=== PATIENT | female | born 1970 | race Caucasian/White ===

== ENCOUNTER 2020-09-04 08:35 | Emergency (ER) | payer BC, SELFPAY ==
[2020-09-04 08:37] VITALS: BP 122/83; PULSE 92; RESP 18; TEMP 35.7; O2SAT 100; BMI 44.2
--- NOTE | 2020-09-04 08:57 | CT_ITS ---
STUDY: CT ABDOMEN AND PELVIS WITH CONTRAST REASON FOR EXAM: Female, 50 years old. LLQ PAIN WITH HISTORY OF DIVERTICULITIS RADIATION DOSAGE (If Supplied By Facility): CTDIvol = ( 14.63 ) mGy, DLP = ( 1045.57 ) mGycm TECHNIQUE: Transaxial images were obtained from the dome of the diaphragm to the symphysis pubis with oral contrast. Oral and amp;amp; IV GASTROGRAFIN and amp;amp; 100ML ISOVUE 300 was administered. Sagittal and coronal images were reconstructed. Individualized dose optimization techniques were used for this CT. COMPARISON: None. FINDINGS: The visualized lung bases are unremarkable. The visualized portions of the heart are within normal limits. There is decreased attenuation of the liver consistent with steatosis. There are surgical clips in the gallbladder fossa consistent with a prior cholecystectomy. Normal spleen. Normal pancreas. Normal bilateral adrenal glands. Normal right kidney. Normal left kidney. There is a small hiatal hernia. Normal small intestine. There is diverticulosis, with thickening of the colon wall, and pericolonic inflammation changes consistent with acute diverticulitis. The appendix is visualized and appears normal. Normal abdominal aorta. Normal inferior vena cava. Normal retroperitoneum. Normal urinary bladder. There is a small umbilical hernia containing fat. There are degenerative changes of the visualized lumbar spine. CT/Abdomen/Pelvis WITH Contrast IMPRESSION: Fatty infiltration of the liver. Findings in keeping with a noncomplicated acute sigmoid diverticulitis. Electronically Signed: Rocael Beyer MD at 11:10 EST , Service support ,
--- NOTE | 2020-09-04 08:59 | ED.VIS.GEN ---
History of Present Illness Chief Complaint: Abd Pain Informant: Patient Onset: Yesterday Context: Gradual Onset Timing: Waxes and wanes Current Severity: Moderate Maximum Severity: Moderate Narrative: Patient presents secondary left lower quadrant abdominal pain that started early yesterday morning. She states it feels like her prior diverticulitis. She is never had an abscess or required surgery. She reports T-max of 99.9 axillary last evening. - Past Medical History (1) Diverticulitis Status: Resolved Past Medical History - Allergies and Home Meds Allergies/Adverse Reactions: Allergies morphine Allergy (Verified 09/04/20 08:37) Other Surgical History: cholecystectomy, hysterectomy Review of Systems General: Reports: Fever - Borderline fever, T-max 99.9. Denies: Chills Eyes: Denies: Visual changes - bilaterally ENT: Denies: Bilateral ear pain Cardiovascular: Denies: Chest pain Respiratory: Denies: Dyspnea, Cough Gastrointestinal: Reports: Abdominal pain. Denies: Vomiting, Diarrhea Genitourinary: Denies: Dysuria Musculoskeletal: Denies: Swelling, Extremity Pain Skin: Denies: Rash Hematologic: Denies: Easy bruising, Easy bleeding Allergy: Denies: Uticaria Physical Exam Vital Signs/Narrative: Vital Signs Temp Pulse Resp BP Pulse Ox 09/04/20 08:37 96.3 F L 92 18 122/83 H 100 Inital Vital Signs reviewed: Yes General: Well nourished, Well developed Head: Normocephalic Neck: Supple Cardiovascular: Regular rate, Regular rhythm Respiratory: No distress, CTA bilaterally Abdomen: Soft, Tender - Left lower quadrant tenderness to palpation., Hypoactive bowel sounds. Negative for: Guarding, Rebound tenderness Skin: Normal color Neurological: Alert, Oriented x3 Psychological: Normal affect Diagnostic/Tx/Re-eval Impressions Abdomen/Pelvis CT 09/04/20 08:57 IMPRESSION: Fatty infiltration of the liver. Findings in keeping with a noncomplicated acute sigmoid diverticulitis. Electronically Signed: Rocael Beyer MD at 11:10 EST , Service support , 09/04/20 08:57 Abdomen/Pelvis WITH Contrast [CT] Stat Laboratory Results 09/04/20 09/04/20 09/04/20 09:10 09:10 09:31 WBC 9.3 RBC 4.59 Hgb 12.9 Hct 39.9 MCV 86.9 MCH 28.1 MCHC 32.3 RDW Std Deviation 46.6 H RDW Coeff of Henry 14.5 Plt Count 311 MPV 9.7 Immature Gran % (Auto) 0.200 Neut % (Auto) 78.3 H Lymph % (Auto) 13.0 L [place] % (Auto) 6.8 Eos % (Auto) 1.4 Baso % (Auto) 0.3 Absolute Neuts (auto) 7.3 Absolute Lymphs (auto) 1.21 Nucleated RBC % 0 Sodium 140 Potassium 3.8 Chloride 105 Carbon Dioxide 28.0 Anion Gap 7 BUN 10 Creatinine 0.82 Estim Creat Clear Calc 68.65 Est GFR (MDRD) Af Amer 95 Est GFR (MDRD) Non-Af 78 BUN/Creatinine Ratio 12.1 Glucose 90 Calcium 9.0 Urine Color Yellow Urine Clarity Sl. Cloudy Urine pH 7.0 Ur Specific [place] 1.010 Urine Protein Negative Urine Glucose (UA) Normal Urine Ketones 5 H Urine Occult Blood Negative Urine Nitrite Negative Urine Bilirubin Negative Urine Urobilinogen Normal Ur Leukocyte Esterase 25 H Urine RBC 0 SEEN Urine WBC 0-5 SEEN Ur Squamous Epith Cells 0-5 SEEN Urine Bacteria 1+ Urine Mucus RARE - Medical Decision Making Patient was given oxycodone for pain. Blood work is largely unremarkable with normal white count, slight left shift. CT scan does confirm diverticulosis but no evidence of abscess or perforation. This is the patient's second episode of diverticulitis. She did have a colonoscopy approximately a year ago that revealed diverticula. Should be referred to surgery for follow-up as needed. She will be treated with a course of Augmentin. ED Disposition - Plan for ED Patient: Disposition: Home or Assisted Living Diagnosis: Diverticulitis Instructions: ED Diverticulitis Prescriptions: Amox/Clavulanate Tablet [Augmentin Tablet] 875 mg PO Q12H #20 tab Transmission Status: Pending to [facility]/pharmacy #[id number] Oxycodone HCl/Acetaminophen [Percocet 5/325] 1 tablet PO Q6H PRN PRN 3 Days #12 tablet PRN Reason: Pain Transmission Status: Sent to [facility]/pharmacy #[id number] Referrals: Ayo Bright [Primary Care Provider] - Felix Berry MD [STAFF PHYSICIAN] - As Needed
[2020-09-04 09:23] LABS: Absolute Lymphocyte Count 1.21 X10^3/uL (0.83-4.51); Absolute Neutrophil Count 7.3 X10^3/uL (2.0-7.7); Basophil# 0.03 X10^3/uL; Basophil% 0.3 % (0-1); Eosinophil# 0.13 X10^3/uL; Eosinophils% 1.4 % (0-5); Hematocrit 39.9 % (37-47); Hemoglobin 12.9 g/dL (12.0-15.0); Lymphocyte # 1.21 X10^3/ul (4.0); Mean Corp Hgb Conc 32.3 g/dL (32-36); Mean Corpuscular Hgb 28.1 pg (27.0-32.0); Mean Corpuscular Volume 86.9 fL (81-99); Mean Platelet Vol. 9.7 fl (6.2-12.0); Monocyte# 0.63 X10^3/uL; Monocyte% 6.8 % (0-10); NRBC Flagged by Analyzer 0 % (0-5); Neutrophil % 78.3 % (47-70); Platelet Count 311 K/mm3 (150-450); RBC Distribution Width CV 14.5 % (11.6-14.6); RBC Distribution Width SD 46.6 fl (35.1-43.9); Red Blood Count 4.59 M/mm3 (4.2-5.4); White Blood Count 9.3 K/mm3 (4.4-11.0)
[2020-09-04 09:35] LABS: Anion Gap 7 (5-15); BUN 10 mg/dL (7-18); BUN/Creat Ratio 12.1 RATIO (10-20); Chloride 105 mmol/L (98-107); Creatinine, Serum 0.82 mg/dL (0.55-1.02); EST Glomerular Filtration Rate 78 mL/min (>60); Est Glom Filt Rate - Afr Amer 95 mL/min (>60); Estimated Creatinine Clearance 68.65 ml/min; Glucose 90 mg/dL (74-106); Potassium 3.8 mmol/L (3.5-5.1); Sodium Level 140 mmol/L (136-145)
[2020-09-04] MEDS: oxyCODONE 5 MG Tablet PO (09:39)
[2020-09-04] MEDS: 0.9% Normal Saline 1,000 ML 150 ML IV (09:39)
[2020-09-04] MEDS: Ondansetron 4 MG/2 ML Vial IV (09:39)
[2020-09-04 09:41] LABS: Red Blood Cells-Urine 0 SEEN /hpf (0-5)
[2020-09-04 09:45] LABS: Color, Urine Yellow (Yellow); Glucose, Dipstick Normal (Normal); Ketone-Dipstick 5 mg/dl (Negative); Leukocyte Esterase-Dipstick 25 /ul (Negative); Nitrite-Dipstick Negative (Negative); Occult Blood-Urine Negative /ul (Negative); Protein-Dipstick Negative (Negative); Urine Bilirubin Dipstick Negative (Negative); Urine Clarity Sl. Cloudy (Clear); Urine Urobilinogen Normal (Normal)
[2020-09-04 09:54] LABS: Squamous Epithelial Cells - UA 0-5 SEEN /hpf (5-10); White Blood Cells 0-5 SEEN /hpf (0-5)
[2020-09-04 09:55] LABS: Bacteria 1+ /hpf (None Seen); Mucous, Urine RARE /hpf (<or=2+)
[2020-09-04 12:06] VITALS: BP 111/69; PULSE 76; RESP 16; O2SAT 100
[2020-09-04] MEDS: Amox/Clavulanate 875 MG Tablet PO (12:06)
== END 2020-09-04 12:10 | disposition home or self-care (01) ==
PROVIDERS: Emergency Provider Emergency Medicine; PCP Family Medicine
DX: K57.32 Diverticulitis of large intestine without perforation or abscess without bleeding (principal); Z87.19 Personal history of other diseases of the digestive system; Z90.49 Acquired absence of other specified parts of digestive tract
CPT/HCPCS: 74177; 80048; 81001; 85025; 96361; 96374; 99284; J7030; Q9967; A4216; J2405

== ENCOUNTER 2020-09-20 12:01 | Emergency (ER) | payer BC, SELFPAY ==
[2020-09-20 12:01] VITALS: BP 143/97; PULSE 80; RESP 18; TEMP 36.3; O2SAT 96; BMI 46.0
--- NOTE | 2020-09-20 12:37 | EKG12_ITS ---
Test Reason : ABD PAIN Blood Pressure : / mmHG Vent. Rate : 062 BPM Atrial Rate : 062 BPM P-R Int : 134 ms QRS Dur : 070 ms QT Int : 388 ms P-R-T Axes : 042 027 033 degrees QTc Int : 393 ms Normal sinus rhythm Normal ECG Confirmed by IMELDA BECKER, JESSICA ([id number]), society editor FREDIS CORADO ([id number]) on 09/24/2020 10:49:04 AM Referred By: VERNA Confirmed By:JESSICA SEGURA MD
--- NOTE | 2020-09-20 12:38 | CT_ITS ---
STUDY: CT ABDOMEN AND PELVIS WITH CONTRAST REASON FOR EXAM: Female, 50 years old. LLQ PAIN -- FINISHED ATB X4 DAYS AGO FOR DIVERTICULITIS RADIATION DOSAGE (If Supplied By Facility): CTDIvol = ( 18.61 ) mGy, DLP = ( 1213.80 ) mGycm TECHNIQUE: Transaxial images were obtained from the dome of the diaphragm to the symphysis pubis without oral contrast. IV 100mL Isovue-300 was administered. Sagittal and coronal images were reconstructed. Individualized dose optimization techniques were used for this CT. COMPARISON: Comparison is made with prior examination dated 09/04/2020. FINDINGS: The visualized lung bases are unremarkable. The visualized portions of the heart are within normal limits. There is decreased attenuation of the liver consistent with steatosis. There are surgical clips in the gallbladder fossa consistent with a prior cholecystectomy. Normal spleen. Normal pancreas. Normal bilateral adrenal glands. Normal right kidney. Normal left kidney. There is a small hiatal hernia. Normal small intestine. There are multiple colonic diverticula consistent with diverticulosis. Minimal residual inflammatory changes persist in the fat surrounding the sigmoid colon. The appendix is visualized and appears normal. Normal abdominal aorta. Normal inferior vena cava. Normal retroperitoneum. Normal urinary bladder. Normal abdominal wall. There are degenerative changes of the visualized lumbar spine. CT/Abdomen/Pelvis W IV Cont ONLY IMPRESSION: Sigmoid diverticulosis. Minimal residual inflammatory changes persist in the peritoneal fat surrounding the sigmoid colon although there has been a marked degree of improvement. Electronically Signed: Rocael Beyer MD at 13:50 EST , Service support ,
--- NOTE | 2020-09-20 12:42 | ED.VIS.GI ---
History of Present Illness Chief Complaint: Abd Pain Informant: Patient - Abdominal Pain/Flank Pain Onset: Today Timing: Continuous Quality: Sharp, Stabbing Location: LLQ - Nausea/Vomiting/Emesis GI Symptom: Nausea. Negative for: Vomiting Associated Symptoms: Frequency Narrative: Patient is a 50-year-old female with history of diverticulitis most recently 2 weeks ago presenting with left lower quadrant abdominal pain. She states yesterday she felt fatigued but had completely recovered from her prior episode of diverticulitis. Today she developed sharp pain in her left lower abdomen. The pain does not radiate. She states it is in the same spot when she has diverticulitis but in the past the pain was more waxing and waning in nature and not as sharp. She denies any change in her bowel habits. She does feel like there is pressure in her lower abdomen and has had increased frequency of urination. She denies any dysuria. She has had some nausea associated with the pain but denies any vomiting. She denies any other abdominal pain. No associated fever, chills, chest pain or difficulty breathing. She not take anything for pain prior to arrival. Past Medical History - Allergies and Home Meds Allergies/Adverse Reactions: Allergies morphine Allergy (Verified 09/20/20 12:01) Other Primary Care Physician: Felix Berry MD [STAFF PHYSICIAN] - Ayo Bright [Primary Care Provider] - Past Medical History: - - Diverticulitis, GERD, depression Surgical History: cholecystectomy, hysterectomy Smoking Status: Former smoker Review of Systems General: Denies: Chills, Fever, Sweats Eyes: Denies: Visual changes - bilaterally, Diplopia ENT: Denies: Rhinorrhea, Sore throat Cardiovascular: Denies: Chest pain, Palpitations Respiratory: Denies: Dyspnea, Cough, Dyspnea on exertion Gastrointestinal: Reports: Abdominal pain, Nausea. Denies: Vomiting, Diarrhea, Melena, Hematochezia Genitourinary: Reports: Frequency, - - Pressure. Denies: Dysuria, Hematuria Musculoskeletal: Denies: Back pain, Extremity Pain Skin: Denies: Rash, Wounds Neurological: Denies: Headache, Weakness, Numbness Physical Exam Vital Signs/Narrative: Vital Signs Temp Pulse Resp BP Pulse Ox 09/20/20 12:01 97.4 F L 80 18 143/97 H 96 Inital Vital Signs reviewed: Yes General: Well nourished, Well developed, No Acute Distress Head: Normocephalic, Atraumatic Eyes: Perrl, EOMI ENT: Moist mucous membranes, No rhinorrhea Neck: Supple, Nontender Cardiovascular: Regular rate, Regular rhythm, No murmurs Respiratory: No distress, CTA bilaterally, Chest nontender Abdomen: Soft, Nontender, Nondistended, Normal bowel sounds, - - She points to her left lower quadrant as the area of pain but I am not able to reproduce it on exam. Negative for: Guarding, Rebound tenderness Back: Nontender, Normal Inspection Extremities: Nontender, No edema Skin: Normal color, No rash Neurological: Alert, Oriented x3, Cranial nerves II-XII grossly intact, Normal Strength, Normal Sensation Psychological: Normal affect, Normal Mood Diagnostic/Tx/Re-eval Chest X-Ray - ED: 1 View, Read by ED Physician, Read by Radiologist, CHF Clinical Impression(s) from Imaging Studies Abdomen/Pelvis CT 09/20/20 12:38 IMPRESSION: Sigmoid diverticulosis. Minimal residual inflammatory changes persist in the peritoneal fat surrounding the sigmoid colon although there has been a marked degree of improvement. Electronically Signed: Rocael Beyer MD at 13:50 EST , Service support , Laboratory Data 09/20/20 09/20/20 09/20/20 12:29 12:29 13:27 WBC 7.2 RBC 4.64 Hgb 12.9 Hct 40.4 MCV 87.1 MCH 27.8 MCHC 31.9 L RDW Std Deviation 45.3 H RDW Coeff of Henry 14.2 Plt Count 316 MPV 9.9 Immature Gran % (Auto) 0.300 Neut % (Auto) 69.6 Lymph % (Auto) 21.4 [place] % (Auto) 6.4 Eos % (Auto) 1.7 Baso % (Auto) 0.6 Absolute Neuts (auto) 5.0 Absolute Lymphs (auto) 1.55 Nucleated RBC % 0 Sodium 137 Potassium 4.1 Chloride 106 Carbon Dioxide 28.0 Anion Gap 3 L BUN 17 Creatinine 0.82 Estim Creat Clear Calc 68.65 Est GFR (MDRD) Af Amer 95 Est GFR (MDRD) Non-Af 79 BUN/Creatinine Ratio 20.8 H Glucose 103 Calcium 9.1 Total Bilirubin 0.30 AST 16 ALT 20 Alkaline Phosphatase 98 Total Protein 7.3 Albumin 3.5 Globulin 3.8 Albumin/Globulin Ratio 0.9 Urine Color Straw Urine Clarity Clear Urine pH 7.0 Ur Specific [place] 1.010 Urine Protein Negative Urine Glucose (UA) Normal Urine Ketones Negative Urine Occult Blood Negative Urine Nitrite Negative Urine Bilirubin Negative Urine Urobilinogen Normal Ur Leukocyte Esterase 25 H Urine RBC 0 SEEN Urine WBC 0-5 SEEN Ur Squamous Epith Cells 0-5 SEEN Urine Bacteria 0 SEEN Urine Mucus 0 SEEN - Rhythm Strip Rhythm Strip: Sinus Rhythm Rate: 62 Ectopy: None - EKG Initial EKG Interpretation: Sinus Rhythm, - - EKG interpreted by emergency medicine physician Normal sinus rhythm at a rate of [address] segments Normal intervals - Medical Decision Making Patient is evaluated for left lower quadrant abdominal pain. It started today. She is especially concerned because she recently was treated for diverticulitis. Patient appears nontoxic in no acute distress. She is given dose of fentanyl she says morphine causes severe hypotension. She does have improvement of her symptoms with this. Her exam is benign. I do not think she has pain out of proportion. Her vital signs are stable. Lab work and CT are largely unremarkable. Her CT shows some mild residual stranding around her sigmoid colon but this is significantly improved from earlier this month. Patient be discharged home to follow-up with surgery. She was previously referred to Dr. Berry and had called the office but had not heard back. She is encouraged to call again. She is counseled that the cause of her pain is not clear. She does have pain medication at home to take if needed. Patient is counseled on signs and symptoms requiring return to the emergency room. Patient verbalizes agreement and understand this plan. Patient discharged home in stable and improved condition. ED Disposition - Plan for ED Patient: Disposition: Home or Assisted Living Diagnosis: Abdominal pain of unknown cause Instructions: ED Abdominal Pain Unkn Cause Fem Referrals: Ayo Bright [Primary Care Provider] - Felix Berry MD [STAFF PHYSICIAN] - Additional Instructions: The cause of your abdominal pain is not clear, but your labs and CT were normal and showed improvement of your diverticulitis. Take pain meds as needed at home and please follow up with surgery.
[2020-09-20 12:49] LABS: Absolute Lymphocyte Count 1.55 X10^3/uL (0.83-4.51); Basophil# 0.04 X10^3/uL; Basophil% 0.6 % (0-1); Eosinophil# 0.12 X10^3/uL; Eosinophils% 1.7 % (0-5); Hematocrit 40.4 % (37-47); Hemoglobin 12.9 g/dL (12.0-15.0); Lymphocyte # 1.55 X10^3/ul (4.0); Lymphocyte % 21.4 % (19-41); Mean Corp Hgb Conc 31.9 g/dL (32-36); Mean Corpuscular Hgb 27.8 pg (27.0-32.0); Mean Corpuscular Volume 87.1 fL (81-99); Mean Platelet Vol. 9.9 fl (6.2-12.0); Monocyte# 0.46 X10^3/uL; Monocyte% 6.4 % (0-10); NRBC Flagged by Analyzer 0 % (0-5); Neutrophil # 5.04 X10^3/uL (2.7-7.7); Neutrophil % 69.6 % (47-70); Platelet Count 316 K/mm3 (150-450); RBC Distribution Width CV 14.2 % (11.6-14.6); RBC Distribution Width SD 45.3 fl (35.1-43.9); Red Blood Count 4.64 M/mm3 (4.2-5.4); White Blood Count 7.2 K/mm3 (4.4-11.0)
[2020-09-20] MEDS: fentaNYL 100 MCG/2 ML Ampul 50 MCG IV (13:09)
[2020-09-20] MEDS: 0.9% Normal Saline 1,000 ML 1000 ML IV (13:09)
[2020-09-20] MEDS: Ondansetron 4 MG/2 ML Vial IV (13:09)
[2020-09-20 13:18] LABS: ALB/GLOB Ratio 0.9 RATIO (0.9-2.4); AST(SGOT) 16 U/L (15-37); Alanine Aminotransfer ALT/SGPT 20 U/L (13-56); Albumin, Serum 3.5 g/dL (3.2-5.0); Alkaline Phosphatase 98 U/L (45-117); Anion Gap 3 (5-15); BUN 17 mg/dL (7-18); BUN/Creat Ratio 20.8 RATIO (10-20); Calcium,Total 9.1 mg/dL (8.5-10.1); Chloride 106 mmol/L (98-107); Creatinine, Serum 0.82 mg/dL (0.55-1.02); EST Glomerular Filtration Rate 79 mL/min (>60); Est Glom Filt Rate - Afr Amer 95 mL/min (>60); Estimated Creatinine Clearance 68.65 ml/min; Globulin 3.8 g/dL (2.2-4.2); Glucose 103 mg/dL (74-106); Potassium 4.1 mmol/L (3.5-5.1); Protein, Total 7.3 g/dL (6.4-8.2); Sodium Level 137 mmol/L (136-145)
[2020-09-20 13:37] LABS: Bacteria 0 SEEN /hpf (None Seen); Mucous, Urine 0 SEEN /hpf (<or=2+); Red Blood Cells-Urine 0 SEEN /hpf (0-5)
[2020-09-20 13:43] LABS: Color, Urine Straw (Yellow); Glucose, Dipstick Normal (Normal); Ketone-Dipstick Negative (Negative); Leukocyte Esterase-Dipstick 25 /ul (Negative); Nitrite-Dipstick Negative (Negative); Occult Blood-Urine Negative /ul (Negative); Protein-Dipstick Negative (Negative); Urine Bilirubin Dipstick Negative (Negative); Urine Clarity Clear (Clear); Urine Urobilinogen Normal (Normal)
[2020-09-20 13:48] LABS: Squamous Epithelial Cells - UA 0-5 SEEN /hpf (5-10); White Blood Cells 0-5 SEEN /hpf (0-5)
[2020-09-20 14:16] VITALS: BP 110/63; PULSE 60; RESP 15; O2SAT 98
[2020-09-20 14:54] VITALS: BP 106/69; PULSE 60; RESP 15; O2SAT 99
== END 2020-09-20 14:55 | disposition home or self-care (01) ==
PROVIDERS: Emergency Provider Emergency Medicine; PCP Family Medicine
DX: R10.32 Left lower quadrant pain (principal); R35.0 Frequency of micturition; R11.0 Nausea; K21.9 Gastro-esophageal reflux disease without esophagitis; F32.9 Major depressive disorder, single episode, unspecified; Z87.19 Personal history of other diseases of the digestive system; Z90.49 Acquired absence of other specified parts of digestive tract; Z79.899 Other long term (current) drug therapy; Z87.891 Personal history of nicotine dependence
CPT/HCPCS: 74177; 80053; 81001; 85025; 93005; 96361; 96374; 96375; 99283; J7030; Q9967; A4216; J2405

== ENCOUNTER 2020-10-22 08:38 | Emergency (ER) | payer BC, SELFPAY ==
[2020-09-25 14:27] VITALS: BMI 46.0
[2020-10-22 08:41] VITALS: BP 138/90; PULSE 90; RESP 16; TEMP 36.8; O2SAT 97; BMI 43.8
--- NOTE | 2020-10-22 08:58 | CT_ITS ---
STUDY: CT ABDOMEN AND PELVIS WITH CONTRAST REASON FOR EXAM: Female, 50 years old. LLQ pain. Prior history of diverticulitis. RADIATION DOSAGE (If Supplied By Facility): CTDIvol = ( 23.82 ) mGy, DLP = ( 1255.44 ) mGycm TECHNIQUE: Transaxial images were obtained from the dome of the diaphragm to the symphysis pubis without oral contrast. was administered. Sagittal and coronal images were reconstructed. Individualized dose optimization techniques were used for this CT. COMPARISON: Comparison is made with prior study dated 09/20/2020. FINDINGS: The visualized lung bases are unremarkable. The visualized portions of the heart are within normal limits. There is decreased attenuation of the liver consistent with steatosis. There are surgical clips in the gallbladder fossa consistent with a prior cholecystectomy. Normal spleen. Normal pancreas. Normal bilateral adrenal glands. 3 mm calculus in the mid posterior pole calyx of the right kidney. Normal left kidney. There is a small hiatal hernia. Normal small intestine. There is diverticulosis, with thickening of the colon wall, and pericolonic inflammation changes consistent with acute diverticulitis. The appendix is visualized and appears normal. There is scattered atherosclerotic calcification of the abdominal aorta, without a demonstrated aneurysm. Normal inferior vena cava. Normal retroperitoneum. Normal urinary bladder. Normal abdominal wall. There are diffuse degenerative changes of the visualized lumbar spine. CT/Abdomen/Pelvis without Cont IMPRESSION: Mild degree of noncomplicated sigmoid diverticulitis. Fatty infiltration of the liver. Electronically Signed: Rocael Beyer MD at 10:02 EDT , Service support ,
--- NOTE | 2020-10-22 09:09 | ED.VISSUMM ---
- ER Visit Summary Date of Service: 10/22/20 Chief Complaint: Abdominal pain History of Present Illness: The patient is a [address] Bright. She reports that she has left lower quad abdominal pain began 2 days ago. Is gradually gotten worse. Is a sharp pain is 9-10 at worst and 7-10 currently. Nothing makes this better or worse. She had nausea without vomiting. No diarrhea. Her last bowel movement was yesterday. No melena or hematochezia. She does complain of frequent urination, but denies dysuria. Patient reports this is similar to when she had diverticulitis in the past. States that she had this in the beginning of September and she was placed on Augmentin and it resolved. She had a colonoscopy approximately 2 years ago at [facility]. Physical Examination: Vitals: Stable. Afebrile. General: Well-nourished and well-developed. Head: Normocephalic atraumatic. Neck: Supple, no lymphadenopathy. No JVD. Nontender. Cardiovascular: Regular rate and rhythm. No murmurs. Respiratory: No respiratory distress. Clear to auscultation bilaterally. Abdominal: Soft, mild left lower quadrant tenderness to palpation, nondistended, normal bowel sounds. No guarding, rebound, or peritoneal signs. Back: Nontender. Extremities: Nontender, no edema. Skin: Normal color, no rash. Neurologic: Alert and oriented ?3. Cranial nerves II through XII are intact. Normal strength and sensation. Psych: Normal affect. Test Results: CBC shows a white count of 11.1 with 82 segmented sheikh and 12 lymphocytes. Chem-7 is normal. Clinical Impression(s) from Imaging Studies Abdomen/Pelvis CT 10/22/20 08:58 IMPRESSION: Mild degree of noncomplicated sigmoid diverticulitis. Fatty infiltration of the liver. Electronically Signed: Rocael Beyer MD at 10:02 EDT , Service support , Emergency Department Course and Treatment: Patient had an IV placed. She was given Dilaudid and Zofran IV. She is given a liter normal saline. She is resting more comfortably. Patient had a episode of diverticulitis last month ago which she reports resolved with Augmentin. However, with recurrence of this I do not think that using Augmentin again and is in her best interest. She was given Cipro and Flagyl p.o. Treatment Plan: Patient will be discharged with Cipro, Flagyl, Preston, and senna. Instructed to follow-up with her primary care physician in 1 week for another exam. I suggested that she follow-up with a technical project coordinator or surgeon for colonoscopy as well. She was given the phone number for Dr. Haines. Return to the emergency department for any worsening symptoms. Disposition: To home in improved and stable condition. Impression: 1. Diverticulitis. This note was generated with [employer] dictation software. It may contain incorrect words, spelling, and punctuation that were not noted in review of the chart prior to signing ED Disposition - Plan for ED Patient: Instructions: ED Diverticulitis Prescriptions: Ciprofloxacin [Cipro] 500 mg PO BID #20 tablet metroNIDAZOLE [Flagyl] 500 mg PO Q6H #40 tablet Hydrocodone Bitart/Apap 5-325 [Preston 5MG-325MG] 1 tablet PO Q4H PRN PRN 2 Days #10 tablet PRN Reason: Pain Sennosides [Senna] 8.6 mg PO QHS #10 tablet Ondansetron [Zofran Odt] 4 mg PO Q8H PRN PRN #10 tablet PRN Reason: Nausea Referrals: Ayo Bright [Primary Care Provider] - 1 Week Gigi Haines MD [STAFF PHYSICIAN] - 1-2 Weeks
[2020-10-22 09:17] LABS: Absolute Lymphocyte Count 1.27 X10^3/uL (0.83-4.51); Absolute Neutrophil Count 9.1 X10^3/uL (2.0-7.7); Basophil# 0.03 X10^3/uL; Basophil% 0.3 % (0-1); Eosinophil# 0.08 X10^3/uL; Eosinophils% 0.7 % (0-5); Hematocrit 41.6 % (37-47); Hemoglobin 13.3 g/dL (12.0-15.0); Lymphocyte # 1.27 X10^3/ul (4.0); Lymphocyte % 11.5 % (19-41); Mean Corpuscular Hgb 27.9 pg (27.0-32.0); Mean Corpuscular Volume 87.2 fL (81-99); Mean Platelet Vol. 9.5 fl (6.2-12.0); Monocyte# 0.62 X10^3/uL; Monocyte% 5.6 % (0-10); NRBC Flagged by Analyzer 0 % (0-5); Neutrophil # 9.05 X10^3/uL (2.7-7.7); Neutrophil % 81.6 % (47-70); Platelet Count 322 K/mm3 (150-450); RBC Distribution Width CV 14.3 % (11.6-14.6); Red Blood Count 4.77 M/mm3 (4.2-5.4); White Blood Count 11.1 K/mm3 (4.4-11.0)
[2020-10-22] MEDS: Ondansetron 4 MG/2 ML Vial IV (09:26)
[2020-10-22] MEDS: HYDROmorphone 1 MG/ML Syringe IV (09:27)
[2020-10-22] MEDS: 0.9% Normal Saline 1,000 ML 1000 ML IV (09:30)
[2020-10-22 09:37] LABS: Anion Gap 5 (5-15); BUN 16 mg/dL (7-18); BUN/Creat Ratio 20.2 RATIO (10-20); Calcium,Total 9.5 mg/dL (8.5-10.1); Chloride 103 mmol/L (98-107); Creatinine, Serum 0.79 mg/dL (0.55-1.02); EST Glomerular Filtration Rate 82 mL/min (>60); Est Glom Filt Rate - Afr Amer 99 mL/min (>60); Estimated Creatinine Clearance 71.26 ml/min; Glucose 105 mg/dL (74-106); Sodium Level 136 mmol/L (136-145)
[2020-10-22] MEDS: metroNIDAZOLE 500 MG Tablet PO (10:31)
[2020-10-22] MEDS: Ciprofloxacin 500 MG Tablet PO (10:32)
[2020-10-22 10:40] VITALS: BP 140/82; PULSE 80; RESP 18; O2SAT 99
== END 2020-10-22 11:09 | disposition home or self-care (01) ==
PROVIDERS: Emergency Provider Emergency Medicine; PCP Family Medicine
DX: K57.32 Diverticulitis of large intestine without perforation or abscess without bleeding (principal); M79.7 Fibromyalgia; F32.9 Major depressive disorder, single episode, unspecified; F41.9 Anxiety disorder, unspecified; G43.909 Migraine, unspecified, not intractable, without status migrainosus; Z87.19 Personal history of other diseases of the digestive system; Z79.899 Other long term (current) drug therapy
CPT/HCPCS: 74176; 80048; 85025; 96361; 96374; 96375; 99284; J7030; A4216; J2405

== ENCOUNTER 2020-11-01 16:20 | Inpatient (IN) | payer BC, SELFPAY ==
[2020-10-31 12:02] VITALS: BMI 43.5; BMI 43.6
[2020-10-31 12:36] VITALS: BP 137/82; PULSE 60; RESP 16; TEMP 36.8; O2SAT 99
--- NOTE | 2020-10-31 13:24 | EKG12_ITS ---
Test Reason : Blood Pressure : / mmHG Vent. Rate : 056 BPM Atrial Rate : 056 BPM P-R Int : 134 ms QRS Dur : 084 ms QT Int : 418 ms P-R-T Axes : 052 025 023 degrees QTc Int : 403 ms Sinus bradycardia Otherwise normal ECG When compared with ECG of 20-SEP-2020 12:45, No significant change was found Confirmed by IMELDA BECKER, JESSICA ([id number]), design editor RFEDIS CORADO ([id number]) on 11/01/2020 2:02:52 PM Referred By: Felix Berry Confirmed By:JESSICA SEGURA MD
[2020-10-31 13:48] LABS: Basophil# 0.03 X10^3/uL; Basophil% 0.4 % (0-1); Eosinophil# 0.14 X10^3/uL; Eosinophils% 1.8 % (0-5); Hematocrit 39.7 % (37-47); Hemoglobin 12.5 g/dL (12.0-15.0); Mean Corp Hgb Conc 31.5 g/dL (32-36); Mean Corpuscular Hgb 27.3 pg (27.0-32.0); Mean Corpuscular Volume 86.7 fL (81-99); Mean Platelet Vol. 9.3 fl (6.2-12.0); Monocyte# 0.52 X10^3/uL; Monocyte% 6.9 % (0-10); NRBC Flagged by Analyzer 0 % (0-5); Neutrophil # 4.99 X10^3/uL (2.7-7.7); Neutrophil % 65.8 % (47-70); Platelet Count 358 K/mm3 (150-450); RBC Distribution Width CV 14.6 % (11.6-14.6); RBC Distribution Width SD 46.4 fl (35.1-43.9); Red Blood Count 4.58 M/mm3 (4.2-5.4); White Blood Count 7.6 K/mm3 (4.4-11.0)
[2020-10-31 14:11] LABS: Anion Gap 4 (5-15); BUN 14 mg/dL (7-18); BUN/Creat Ratio 18.2 RATIO (10-20); Calcium,Total 9.3 mg/dL (8.5-10.1); Chloride 107 mmol/L (98-107); Creatinine, Serum 0.77 mg/dL (0.55-1.02); EST Glomerular Filtration Rate 85 mL/min (>60); Est Glom Filt Rate - Afr Amer 102 mL/min (>60); Estimated Creatinine Clearance 73.11 ml/min; Glucose 86 mg/dL (74-106); Potassium 3.9 mmol/L (3.5-5.1); Sodium Level 138 mmol/L (136-145)
--- NOTE | 2020-10-31 14:26 | HP.PCM_ITS ---
Problem List (1) Diverticulitis Status: Resolved History of Present Illness Date of Admission: 10/31/20 The patient is a 50 year old F here with recurrent diverticulitis. The patient has had several bouts of diverticulitis over the last year. She was in my office recently after being seen in the emergency room and diagnosed with diverticulitis by CT scan. The goal was to get her antibiotics and get her recovered and perform elective sigmoid colectomy. The patient despite antibiotics has not had resolution of symptoms and is still complaining of left lower quadrant pain as well as loose stools. The patient reports chills yesterday. She is not having any objective fever. Past Medical History Medical History: Medical History (Last Reviewed 10/26/20 @ 09:37 by Carmelina Yañez) Back problem (Acute) M53.9 Anxiety (Acute) F41.9 Depression (Acute) F32.9 Acid reflux (Acute) K21.9 History of esophageal dilatation (Acute) Z98.890 Diverticulitis (Resolved) K57.92 Allergies morphine Allergy (Verified 10/31/20 12:05) blood pressure drops Home Medications: Ambulatory Orders Medication Instructions Recorded Fluticasone Propionate [Flonase 1 inh INHALATION DAILY 09/04/20 Allergy Relief] Sertraline HCl [Zoloft] 100 mg PO DAILY 09/04/20 Sumatriptan Succinate [Imitrex] 25 mg PO DAILY PRN PRN 09/04/20 Cholecalciferol (Vitamin D3) 50,000 unit PO QWEEK 09/20/20 [Vitamin D3] meloxicam 15 mg tablet 15 mg PO DAILY tablet 09/25/20 omeprazole 20 mg capsule,delayed 20 mg PO DAILY 09/25/20 release Ondansetron [Zofran Odt] 4 mg PO Q8H PRN PRN #10 tablet 10/22/20 Multivitamin with Minerals 1 each PO DAILY 10/31/20 [Multiple Vitamin] Surgical History: Surgical History (Last Reviewed 10/26/20 @ 09:37 by Carmelina Yañez) History of esophagogastroduodenoscopy (EGD) (Acute) Z98.890 Hx of colonoscopy (Acute) Z98.890 Hx of unilateral oophorectomy (Acute) Z90.721 Hx of cholecystectomy (Acute) Z90.49 Hx of hysterectomy (Acute) Z90.710 2020 History of (Acute) Z98.891 X2- 1999 Surgical History: cholecystectomy, hysterectomy Smoking Status: Never smoker Review of Systems Constitutional: Reports: Chills. Denies: Anorexia, Fever Eyes: Denies: Blurred vision HEENT: Denies: Difficulty Swallowing Cardiovascular: Denies: Chest Pain Respiratory: Denies: Cough, Shortness of Breath Gastrointestinal: Reports: Abdominal Pain, Diarrhea. Denies: Constipation, Nausea, Vomiting Genitourinary: Denies: Dysuria Musculoskeletal: Denies: Joint Tenderness Skin: Denies: Jaundice Neurological: Denies: Balance problems Hematologic/ Lymphatic: Denies: Anemia VTE Information - Inpt Only VTE Present on Admission: No VTE Mechan Device Prophylaxis: SCD's - Physical Exam Vitals/I&O's: Vital Signs Temp Pulse Resp BP Pulse Ox 98.2 F 60 16 137/82 H 99 10/31/20 12:36 10/31/20 12:36 10/31/20 12:36 10/31/20 12:36 10/31/20 12:36 Oxygen Delivery Method Room Air Weight: 246 lb Body Mass Index (BMI) 43.5 General: Alert, Oriented x3 Neck: No JVD Lungs: Normal air movement Cardiovascular: Regular rate, Regular Rhythm Abdomen: Soft, Non-Distended, Tender - Left lower quadrant tenderness with no rebound Extremities: No clubbing Musculoskeletal: No Muscle Wasting Neurological: Cranial nerves II-XII grossly intact Psych/Mental Status: Normal Affect Laboratory Results 10/31/20 13:41: WBC 7.6, RBC 4.58, Hgb 12.5, Hct 39.7, MCV 86.7, MCH 27.3, MCHC 31.5 L, RDW Std Deviation 46.4 H, RDW Coeff of Henry 14.6, Plt Count 358, MPV 9.3, Immature Gran % (Auto) 0.100, Neut % (Auto) 65.8, Lymph % (Auto) 25.0, [place] % (Auto) 6.9, Eos % (Auto) 1.8, Baso % (Auto) 0.4, Absolute Neuts (auto) 5.0, Absolute Lymphs (auto) 1.90, Nucleated RBC % 0 10/31/20 13:41: Sodium 138, Potassium 3.9, Chloride 107, Carbon Dioxide 27.0, Anion Gap 4 L, BUN 14, Creatinine 0.77, Estim Creat Clear Calc 73.11, Est GFR (MDRD) Af Amer 102, Est GFR (MDRD) Non-Af 85, BUN/Creatinine Ratio 18.2, Glucose 86, Calcium 9.3 Current Medications Acetaminophen (Acetaminophen 325 Mg Tablet) 650 mg PO Q4H PRN PRN PRN Reason: PAIN 1-10/ FEVER Hydromorphone HCl (Hydromorphone 1 Mg/Ml Syringe) 1 mg IV Q2H PRN PRN PRN Reason: Pain Score 4-10 Sodium Chloride () 250 mls @ 15 mls/hr IV .[id number] PRN PRN Reason: Saline Flush Sodium Chloride () 1,000 mls @ 100 mls/hr IV .Q10H STAN Pantoprazole Sodium 40 mg/ (Sodium Chloride) 110 mls @ 330 mls/hr IV Q24 STAN Piperacillin Sod/Tazobactam (Sod 3.375 gm/ Sodium Chloride) 50 mls @ 12.5 mls/hr IV Q8 STAN Ondansetron HCl (Ondansetron 4 Mg/2 Ml Vial) 4 mg IV Q6H PRN PRN PRN Reason: NAUSEA Polyethylene Glycol (Polyethylene Glycol 3350 Bowel Prep) 0 bottle PO DAILY@1600 ONE Stop: 10/31/20 16:01 Sodium Chloride (0.9% Saline Lock 10 Ml Syringe) 10 - 40 ml IV UD PRN PRN Reason: SALINE FLUSH Assessment/Plan All Active Problems (Last Reviewed 10/26/20 @ 09:37 by Carmelina Yañez) Back problem (Acute) Anxiety (Acute) Depression (Acute) Acid reflux (Acute) History of esophageal dilatation (Acute) History of esophagogastroduodenoscopy (EGD) (Acute) Hx of colonoscopy (Acute) Hx of unilateral oophorectomy (Acute) Hx of cholecystectomy (Acute) Hx of hysterectomy (Acute) History of (Acute) Diverticulitis (Resolved) 50-year-old female with recurrent smoldering diverticulitis 1. The patient has not been able to resolve her last episode of diverticulitis with ongoing left lower quadrant pain as well as loose stools. I have admitted the patient and I discussed sigmoid colectomy with her. I will plan for sigmoid colectomy tomorrow. I discussed the procedure in detail as well as the risks including but not limited to bleeding, infection, anastomotic leak, injury to surrounding organs such as the bladder or ureter. The patient understands the risks and she was willing to proceed. I also discussed the possibility of having to convert to an open procedure or possible stoma creation. The patient understands these risks as well. 2. I have admitted the patient started on antibiotics and will start a bowel prep. Plan is for laparoscopic sigmoid colectomy tomorrow. Felix Berry MD Pager: [facility] [address] [place] [address] [address] [place] [address] Office:
[2020-10-31] MEDS: Ondansetron 4 MG/2 ML Vial IV ×2 (14:44→20:59)
[2020-10-31] MEDS: HYDROmorphone 1 MG/ML Syringe IV ×2 (14:44→21:00)
[2020-10-31] MEDS: 0.9% Normal Saline 1,000 ML 100 ML IV (14:51)
[2020-10-31] MEDS: 0.9% Saline Lock 10 ML Syringe IV (14:54)
[2020-10-31] MEDS: Polyethylene Glycol 3350 BOWEL PREP PO (16:15)
[2020-10-31 17:53] VITALS: BP 120/64; PULSE 71; RESP 16; TEMP 36.7; O2SAT 100
[2020-10-31 20:56] VITALS: BP 134/81; PULSE 67; RESP 18; TEMP 36.8; O2SAT 99
[2020-10-31] MEDS: Menthol/Lanolin/Calamine/Znox 113 GM Tube 1 APPLIC TOPICAL (21:05)
[2020-11-01] VITALS (13 sets, daily range): BP systolic 97–127; BP diastolic 63–95; PULSE 65–94; RESP 14–18; TEMP 36.3–36.9; O2SAT 92–100; BMI 43.5
--- NOTE | 2020-11-01 | COL_PTH ---
PATIENT: JOANNE KHALIL LOC: MS3 U#:[id number] AGE/SX: 50/F ROOM: CA315 RE11/01/[address]: Dr. Felix Berry MD : 1970 BED: 1 DIS: 11/05/2020 SPEC #: [id number] RECD: 11/01/20 15:58 STATUS: JHONY MAN #: [id number] JAYSON: 11/01/20 00:[address]: Felix Berry DEPT: SURGICAL PATHOLOGY RECD BY: Sinan Palomo ENTERED: 11/02/20 07:54 SP TYPE: COLON OTHR DR: Ayo Bright Tissues: A - Colon, NOS B - Colon Donuts Procedures: Surgery Specimen Level IV Surgery Specimen Level V HEADER OPERATION: Laparoscopic sigmoid colectomy PRE-OP DIAGNOSIS: Diverticulitis TISSUE SUBMITTED: A - Sigmoid colon, stitch edgar proximal, B - Donuts MICROSCOPIC DIAGNOSIS A. Sigmoid colon, segmental colectomy: Diverticular disease of colon. Focal pericolic micro abscess formation with associated reactive change. See comment. B. Mucosal donut, excision: No pathologic change. AM:gertrude 11/06/2020 COMMENT A. No gross perforation through to the serosal surface is identified. Clinical correlation is suggested. MICROSCOPIC DESCRIPTION Slides are reviewed. GROSS DESCRIPTION A - Received in fixative is one container labeled with the patient's name and designated sigmoid colon, stitch edgar proximal. The specimen consists of a segment of colon with attached pericolonic adipose tissue measuring 10 cm in length. The proximal resection margin is oriented by a stitch. The distal resection margin is stapled. No mucosal lesion is identified. More dictation will follow after overnight fixation. / SJ:gertrude 11/02/20 Sections reveal multiple diverticula. No obviously ruptured diverticula are noted. Sections of pericolonic adipose tissue do not reveal any obviously enlarged lymph node. Pegger sections are submitted in six cassettes as follows: 1 - proximal resection margin, 2 - distal resection margin, 3-5 - diverticula, 6??pericolonic adipose tissue. / SJ:gertrude 11/05/20 B - Received in fixative is one container labeled with the patient's name and designated donut. The specimen consists of two donut-shaped pieces of tissue measuring 1.8 x 1.5 x 0.6 cm and 1.5 x 1 x 0.5 cm. One piece shows a stitch. The second piece without stitch shows multiple shaina. Pegger sections from both pieces are submitted in one cassette. Sections from the piece with a stich is inked black. / SJ:gertrude 11/02/20 TC:2 CPT: 05987, 81789
[2020-11-01] MEDS: 0.9% Normal Saline 1,000 ML 100 ML IV ×2 (05:33→18:26)
[2020-11-01] MEDS: Ondansetron 4 MG/2 ML Vial IV ×2 (05:39→19:36)
[2020-11-01] MEDS: HYDROmorphone 1 MG/ML Syringe IV ×3 (05:39→23:24)
[2020-11-01 06:14] LABS: Absolute Lymphocyte Count 2.07 X10^3/uL (0.83-4.51); Absolute Neutrophil Count 4.6 X10^3/uL (2.0-7.7); Basophil# 0.03 X10^3/uL; Basophil% 0.4 % (0-1); Eosinophil# 0.14 X10^3/uL; Eosinophils% 1.9 % (0-5); Hematocrit 38.1 % (37-47); Hemoglobin 12.3 g/dL (12.0-15.0); Lymphocyte # 2.07 X10^3/ul (4.0); Lymphocyte % 27.6 % (19-41); Mean Corp Hgb Conc 32.3 g/dL (32-36); Mean Corpuscular Hgb 27.8 pg (27.0-32.0); Mean Corpuscular Volume 86.2 fL (81-99); Mean Platelet Vol. 9.7 fl (6.2-12.0); Monocyte# 0.62 X10^3/uL; Monocyte% 8.3 % (0-10); NRBC Flagged by Analyzer 0 % (0-5); Neutrophil # 4.61 X10^3/uL (2.7-7.7); Neutrophil % 61.5 % (47-70); Platelet Count 329 K/mm3 (150-450); RBC Distribution Width CV 14.6 % (11.6-14.6); RBC Distribution Width SD 45.6 fl (35.1-43.9); Red Blood Count 4.42 M/mm3 (4.2-5.4); White Blood Count 7.5 K/mm3 (4.4-11.0)
[2020-11-01 06:38] LABS: Anion Gap 6 (5-15); BUN 12 mg/dL (7-18); BUN/Creat Ratio 15.8 RATIO (10-20); Calcium,Total 8.8 mg/dL (8.5-10.1); Chloride 105 mmol/L (98-107); Creatinine, Serum 0.76 mg/dL (0.55-1.02); EST Glomerular Filtration Rate 86 mL/min (>60); Est Glom Filt Rate - Afr Amer 104 mL/min (>60); Estimated Creatinine Clearance 74.07 ml/min; Glucose 90 mg/dL (74-106); Potassium 3.4 mmol/L (3.5-5.1); Sodium Level 139 mmol/L (136-145)
--- NOTE | 2020-11-01 08:12 | PCM.PN.SRG ---
Subjective: Patient reports ongoing left lower quadrant pain. She tolerated bowel prep. - Physical Exam Vitals/I&O's: Vital Signs Temp Pulse Resp BP Pulse Ox 97.9 F 71 16 115/69 95 11/01/20 08:00 11/01/20 08:00 11/01/20 08:00 11/01/20 08:00 11/01/20 08:00 Oxygen Delivery Method Room Air Weight: 246 lb 0.574 oz Body Mass Index (BMI) 43.5 Intake and Output for Last 24 Hours 10/30/20 10/31/20 11/01/20 23:59 23:59 23:59 Intake Total 678.33 / 1028.33 791.67 / 791.67 Output Total 400 / 400 Balance 678.33 / 628.33 391.67 / 391.67 General: Alert, Oriented x3 Lungs: Normal air movement Cardiovascular: Regular rate, Regular Rhythm Abdomen: Soft, Non-Distended, Tender Musculoskeletal: No Muscle Wasting Neurological: Cranial nerves II-XII grossly intact Psych/Mental Status: Normal Affect Microbiology Past 72 Hours 10/31/20 20:45 Mucosa - Nose SARS-CoV-2 Antigen (Rapid) - Final 10/31/20 14:40 Stool C. difficile GDH Antigen & Toxins - Final 10/31/20 14:40 Stool C. difficile DNA Amplification - Final Laboratory Results 10/31/20 13:41: WBC 7.6, RBC 4.58, Hgb 12.5, Hct 39.7, MCV 86.7, MCH 27.3, MCHC 31.5 L, RDW Std Deviation 46.4 H, RDW Coeff of Henry 14.6, Plt Count 358, MPV 9.3, Immature Gran % (Auto) 0.100, Neut % (Auto) 65.8, Lymph % (Auto) 25.0, [place] % (Auto) 6.9, Eos % (Auto) 1.8, Baso % (Auto) 0.4, Absolute Neuts (auto) 5.0, Absolute Lymphs (auto) 1.90, Nucleated RBC % 0 10/31/20 13:41: Sodium 138, Potassium 3.9, Chloride 107, Carbon Dioxide 27.0, Anion Gap 4 L, BUN 14, Creatinine 0.77, Estim Creat Clear Calc 73.11, Est GFR (MDRD) Af Amer 102, Est GFR (MDRD) Non-Af 85, BUN/Creatinine Ratio 18.2, Glucose 86, Calcium 9.3 11/01/20 05:36: WBC 7.5, RBC 4.42, Hgb 12.3, Hct 38.1, MCV 86.2, MCH 27.8, MCHC 32.3, RDW Std Deviation 45.6 H, RDW Coeff of [place] 14.6, Plt Count 329, MPV 9.7, Immature Gran % (Auto) 0.300, Neut % (Auto) 61.5, Lymph % (Auto) 27.6, [place] % (Auto) 8.3, Eos % (Auto) 1.9, Baso % (Auto) 0.4, Absolute Neuts (auto) 4.6, Absolute Lymphs (auto) 2.07, Nucleated RBC % 0 11/01/20 05:36: Sodium 139, Potassium 3.4 L, Chloride 105, Carbon Dioxide 28.0, Anion Gap 6, BUN 12, Creatinine 0.76, Estim Creat Clear Calc 74.07, Est GFR (MDRD) Af Amer 104, Est GFR (MDRD) Non-Af 86, BUN/Creatinine Ratio 15.8, Glucose 90, Calcium 8.8 Current Medications Acetaminophen (Acetaminophen 325 Mg Tablet) 650 mg PO Q4H PRN PRN PRN Reason: PAIN 1-10/ FEVER Calamine/Phenol (Menthol/Lanolin/Calamine/Znox 113 Gm Tube) 1 applic TOPICAL BID STAN; Protocol Last Admin: 10/31/20 21:05 Dose: 1 applic Documented by: Hydromorphone HCl (Hydromorphone 1 Mg/Ml Syringe) 1 mg IV Q2H PRN PRN PRN Reason: Pain Score 4-10 Last Admin: 11/01/20 05:39 Dose: 1 mg Documented by: Sodium Chloride () 250 mls @ 15 mls/hr IV .[id number] PRN PRN Reason: Saline Flush Sodium Chloride () 1,000 mls @ 100 mls/hr IV .Q10H STAN Last Infusion: 11/01/20 05:45 Dose: 0 mls/hr Documented by: Pantoprazole Sodium 40 mg/ (Sodium Chloride) 110 mls @ 330 mls/hr IV Q24 STAN Piperacillin Sod/Tazobactam (Sod 3.375 gm/ Sodium Chloride) 50 mls @ 12.5 mls/hr IV Q8 STAN Last Admin: 11/01/20 05:45 Dose: 12.5 mls/hr Documented by: Potassium Chloride () 10 meq in 100 mls @ 100 mls/hr IV BOLUS Q1H STAN Stop: 11/01/20 10:14 Ondansetron HCl (Ondansetron 4 Mg/2 Ml Vial) 4 mg IV Q6H PRN PRN PRN Reason: NAUSEA Last Admin: 11/01/20 05:39 Dose: 4 mg Documented by: Sodium Chloride (0.9% Saline Lock 10 Ml Syringe) 10 - 40 ml IV UD PRN PRN Reason: SALINE FLUSH Last Admin: 10/31/20 14:54 Dose: 10 ml Documented by: Medical Necessity - Tobacco Use Smoking Status: Never smoker Assessment/Plan All Active Problems (Last Reviewed 10/26/20 @ 09:37 by Carmelina Yañez) Back problem (Acute) Anxiety (Acute) Depression (Acute) Acid reflux (Acute) History of esophageal dilatation (Acute) History of esophagogastroduodenoscopy (EGD) (Acute) Hx of colonoscopy (Acute) Hx of unilateral oophorectomy (Acute) Hx of cholecystectomy (Acute) Hx of hysterectomy (Acute) History of (Acute) Diverticulitis (Resolved) 50-year-old female with recurring diverticulitis 1. Patient still reports pain despite antibiotics and bowel rest. This is been ongoing. Plan to proceed with sigmoid colectomy this afternoon. I once again discussed risks and alternatives with her and she is agreeable with surgery. Felix Berry MD Pager: [facility] [address] [place] [address], [address] [place] [address] Office:
[2020-11-01 09:13] LABS: Magnesium 2.2 mg/dL (1.6-2.6)
[2020-11-01] MEDS: Lactated Ringers 1,000 ML 40 ML IV (09:30)
[2020-11-01] MEDS: 0.9% Saline Lock 10 ML Syringe IV ×2 (09:49→23:26)
[2020-11-01] MEDS: Acetaminophen 500 MG Tablet 1000 MG PO (10:22)
[2020-11-01] MEDS: Potassium Chloride 10mEq/100mL 10 MEQ/100 ML IV.SOLN. 100 MEQ IV BOLUS ×2 (10:22→11:42)
[2020-11-01] MEDS: Gabapentin 600 MG Tablet PO (10:22)
[2020-11-01 11:05] LABS: Bedside Glucose 91 mg/dL (70-110)
--- NOTE | 2020-11-01 11:34 | CASEMGMT ---
Addendum entered by Vicki Root 11/01/20 15:32: Pt remains off of floor. RN CM to assess tomorrow. Original Note: RN CM in to room for assessment. Pt currently off floor in OR. Will attempt later today.
[2020-11-01] MEDS: Lidocaine/D5W 2,000 MG/250 ML IV.SOLN 2000 MG (12:00)
[2020-11-01] MEDS: BUPIVACAINE LIPOSOME/PF 20 ML VIAL OPERA.SITE (12:15)
--- NOTE | 2020-11-01 16:24 | OP.PCM_ITS ---
Problem List (1) Diverticulitis Status: Acute Report of Operation Date of Procedure: 11/01/20 Pre-Operative Diagnosis: Recurrent diverticulitis Post-Operative Diagnosis: Recurrent sigmoid diverticulitis Surgery/Procedure Performed:: Laparoscopic sigmoid colectomy with primary anastomosis Specimen's removed: Sigmoid colon with suture marking the distal margin Estimated Blood Loss (mL): 50 Description of Procedure: Patient was brought back to the operating room and general anesthesia was induced. A Bello catheter was placed and the rectal area was irrigated with a Betadine saline solution. The patient was then prepped and draped in usual sterile fashion. A small midline incision was made superior to the umbilicus and deepened to the fascia which was elevated and incised. A port was placed into the abdomen and it was insufflated to 15 mmHg. Patient was placed in Trendelenburg position. Tap block was performed bilaterally using laparoscopic guidance. The Exparel was injected into both lateral abdominal sidewalls under direct visualization. A 10 mm port was placed in the right lower quadrant under direct visualization. Two 5 mm ports were placed in the right upper quadrant under direct visualization. Next the small bowel was retracted superiorly to allow for visualization of the sigmoid colon. The sigmoid colon was inflamed and adherent to the lateral sidewall. The uterus adhesions were taken down using Enseal. The sigmoid colon was medialized inferiorly and superiorly. The sigmoid colon was followed into the pelvis and healthy rectum was identified and dissected to allow a window in the mesentery. An [place] stapler was placed through this window and the rectum was divided using the stapler. The colon was then retracted superiorly and the mesentery was divided very close to the colon until healthy colon was reached at the descending colon. There was good mobilization of the sigmoid colon and there was good hemostasis. A lower midline incision was then made and deepened to the fascia using electrocautery. The fascia was incised and finger sweep was performed and fingers were used to protect the bowel while the rest of the incision was opened. A wound protector was placed. The sigmoid colon was delivered through the wound protector. The healthy bowel proximal to the diverticulitis was identified and a [place] clamp was placed across the colon. The area just proximal to the [place] clamp was divided sharply and a 25 mm anvil was placed into the distal colon. Pursestring Prolene suture was used to close the colon around the anvil. Next the anvil was placed back into the abdomen with the distal colon. The wound protector was tied closed and the abdomen was reinsufflated. Well-lubricated dilator was placed transanally into the rectal canal and then removed. The 25 EEA stapler was placed into the anus and to the staple line. The point was extended through the staple line and connected to the anvil. It was then tightened down and fired. The stapler was then removed and the pelvis was irrigated with saline. A leak test was performed after compressing the proximal colon and there was no air leak. The donuts were checked and were both intact. The pelvis was suctioned dry and there was good hemostasis was no sign of leak. The patient was leveled out and the abdomen was irrigated and suctioned dry. The ports were removed under direct visualization and the wound protector was removed. The staff then changed gown and gloves. The upper midline incision fascia was closed with a [id number] 0 Vicryl suture. The lower midline incision was closed with running 0 PDS sutures meeting in the middle. Both subcutaneous tissues were irrigated and suctioned dry and all the incisions were injected with local anesthetic. The skin incisions were closed with interrupted 4-0 Monocryl sutures. Bandages and Steri-Strips were applied. The patient was awoken and taken to PACU in stable condition with a Bello catheter in place. Patient tolerated the procedure well with minimal bleeding. - Admit VTE Documentation VTE Mechan Device Prophylaxis: SCD's
[2020-11-02] VITALS (7 sets, daily range): BP systolic 110–131; BP diastolic 60–78; PULSE 80–102; RESP 16–18; TEMP 36.9–37.2; O2SAT 92–97
--- NOTE | 2020-11-02 05:43 | NURSING ---
Pt stood at bedside and ambulated to recliner chair at this time with assistance from this RN and SPECIAL DELIVERY CLERK. Pt tolerated very well.
[2020-11-02] MEDS: 0.9% Saline Lock 10 ML Syringe IV ×3 (05:45→21:04)
[2020-11-02] MEDS: HYDROmorphone 1 MG/ML Syringe IV ×3 (05:45→21:04)
--- NOTE | 2020-11-02 06:35 | PN.SURG_ITS ---
Patient Problems: Active and Suspected Problems (Last Updated 11/01/20 @ 11:[address] Felix Berry MD) Diverticulitis (Acute) Subjective: Patient does not note any nausea or vomiting. She says the Tylenol is not controlling the pain but Dilaudid is too much. No flatus yet. - Physical Exam Vitals/I&O's: Vital Signs Temp Pulse Resp BP Pulse Ox 98.6 F 83 16 131/77 H 97 11/02/20 05:31 11/02/20 05:31 11/02/20 05:31 11/02/20 05:31 11/02/20 05:31 Oxygen Flow Rate (L/min) 6 Oxygen Delivery Method Room Air Weight: 246 lb 0.574 oz Body Mass Index (BMI) 43.5 Intake and Output for Last 24 Hours 10/31/20 11/01/20 11/02/20 23:59 23:59 23:59 Intake Total 678.33 / 1028.33 3177.17 / 3177.17 506.67 / 506.67 Output Total 1090 / 1090 550 / 550 Balance 678.33 / 628.33 2087.17 / 2087.17 -43.33 / -43.33 General: Alert, Oriented x3 Neck: No JVD Lungs: Clear to auscultation Abdomen: Soft, Non-Distended, Tender - Appropriate postoperative tenderness Microbiology Past 72 Hours 10/31/20 20:45 Mucosa - Nose SARS-CoV-2 Antigen (Rapid) - Final 10/31/20 14:40 Stool C. difficile GDH Antigen & Toxins - Final 10/31/20 14:40 Stool C. difficile DNA Amplification - Final Laboratory Results 11/01/20 05:36: Sodium 139, Potassium 3.4 L, Chloride 105, Carbon Dioxide 28.0, Anion Gap 6, BUN 12, Creatinine 0.76, Estim Creat Clear Calc 74.07, Est GFR (MDRD) Af Amer 104, Est GFR (MDRD) Non-Af 86, BUN/Creatinine Ratio 15.8, Glucose 90, Calcium 8.8 11/01/20 05:36: Magnesium 2.2 11/01/20 11:02: POC Glucose 91 Current Medications Acetaminophen (Acetaminophen 325 Mg Tablet) 650 mg PO Q4H PRN PRN PRN Reason: PAIN 1-10/ FEVER Calamine/Phenol (Menthol/Lanolin/Calamine/Znox 113 Gm Tube) 1 applic TOPICAL BID STAN; Protocol Last Admin: 11/01/20 21:39 Dose: Not Given Documented by: Fluticasone Propionate (Fluticasone 0.05% 1 [place] Nasal.Sry) 1 spray NASAL DAILY STAN Hydromorphone HCl (Hydromorphone 1 Mg/Ml Syringe) 1 mg IV Q2H PRN PRN PRN Reason: Pain Score 4-10 Last Admin: 11/02/20 05:45 Dose: 1 mg Documented by: Sodium Chloride () 250 mls @ 15 mls/hr IV .[id number] PRN PRN Reason: Saline Flush Sodium Chloride () 1,000 mls @ 100 mls/hr IV .Q10H [facility] Last Infusion: 11/02/20 05:42 Dose: 0 mls/hr Documented by: Pantoprazole Sodium 40 mg/ (Sodium Chloride) 110 mls @ 330 mls/hr IV Q24 [facility] Last Infusion: 11/01/20 16:59 Dose: Infused Documented by: Piperacillin Sod/Tazobactam (Sod 3.375 gm/ Sodium Chloride) 50 mls @ 12.5 mls/hr IV Q8 STAN Last Admin: 11/02/20 05:42 Dose: 12.5 mls/hr Documented by: Insulin Human Lispro (Insulin Lispro 100 Unit/Ml Insuln.Pen) 0 unit SC Q4H PRN PRN; Protocol PRN Reason: BG >/= 180, SEE PROTOCOL Ketorolac Tromethamine (Ketorolac 15 Mg/Ml Vial) 15 mg IV Q8H PRN PRN PRN Reason: Pain Score 4-10 Stop: 11/04/20 06:33 Ondansetron HCl (Ondansetron 4 Mg/2 Ml Vial) 4 mg IV Q6H PRN PRN PRN Reason: NAUSEA Last Admin: 11/01/20 19:36 Dose: 4 mg Documented by: Rizatriptan Benzoate (Rizatriptan Benzoate 5 Mg Tablet) 5 mg PO DAILY PRN PRN PRN Reason: MIGRAINE SYMPTOMS Sertraline HCl (Sertraline 100 Mg Tablet) 100 mg PO DAILY STAN Sodium Chloride (0.9% Saline Lock 10 Ml Syringe) 10 - 40 ml IV UD PRN PRN Reason: SALINE FLUSH Last Admin: 11/02/20 05:45 Dose: 10 ml Documented by: Medical Necessity - Tobacco Use Smoking Status: Never smoker Assessment/Plan All Active Problems (Last Updated 11/01/20 @ 11:[address] Felix Berry MD) Obesity, Class III, BMI 40-49.9 (morbid obesity) (Acute) Back problem (Acute) Anxiety (Acute) Depression (Acute) Acid reflux (Acute) History of esophageal dilatation (Acute) History of esophagogastroduodenoscopy (EGD) (Acute) Hx of colonoscopy (Acute) Hx of unilateral oophorectomy (Acute) Hx of cholecystectomy (Acute) Hx of hysterectomy (Acute) History of (Acute) Diverticulitis (Acute) 50-year-old female status post laparoscopic sigmoid colectomy for diverticulitis 1. The patient seems to be doing well today. She would like something stronger than Tylenol for the pain so I have added Toradol as needed. The Bello will also be removed. Continue to wait for bowel function before starting a diet as she had a lot of inflammation in her abdomen. Labs are pending and once WBC is normal I will stop antibiotics. Started Lovenox this afternoon. PPI. SCDs. Felix Berry MD Pager: [facility] [address] [place] [address], [address] [place] [address] Office:
[2020-11-02 06:38] LABS: Absolute Lymphocyte Count 1.25 X10^3/uL (0.83-4.51); Absolute Neutrophil Count 8.4 X10^3/uL (2.0-7.7); Basophil# 0.01 X10^3/uL; Basophil% 0.1 % (0-1); Hematocrit 35.6 % (37-47); Hemoglobin 11.1 g/dL (12.0-15.0); Lymphocyte # 1.25 X10^3/ul (4.0); Mean Corp Hgb Conc 31.2 g/dL (32-36); Mean Corpuscular Hgb 27.5 pg (27.0-32.0); Mean Corpuscular Volume 88.1 fL (81-99); Mean Platelet Vol. 9.7 fl (6.2-12.0); Monocyte# 0.69 X10^3/uL; Monocyte% 6.6 % (0-10); NRBC Flagged by Analyzer 0 % (0-5); Neutrophil # 8.41 X10^3/uL (2.7-7.7); Platelet Count 329 K/mm3 (150-450); RBC Distribution Width CV 14.8 % (11.6-14.6); RBC Distribution Width SD 47.8 fl (35.1-43.9); Red Blood Count 4.04 M/mm3 (4.2-5.4); White Blood Count 10.4 K/mm3 (4.4-11.0)
[2020-11-02 07:16] LABS: Anion Gap 8 (5-15); BUN 11 mg/dL (7-18); BUN/Creat Ratio 16.5 RATIO (10-20); Calcium,Total 8.1 mg/dL (8.5-10.1); Chloride 108 mmol/L (98-107); Creatinine, Serum 0.66 mg/dL (0.55-1.02); EST Glomerular Filtration Rate 100 mL/min (>60); Est Glom Filt Rate - Afr Amer 121 mL/min (>60); Estimated Creatinine Clearance 85.29 ml/min; Glucose 90 mg/dL (74-106); Potassium 4.5 mmol/L (3.5-5.1); Sodium Level 139 mmol/L (136-145)
[2020-11-02] MEDS: Sertraline 100 MG Tablet PO (09:55)
[2020-11-02] MEDS: Fluticasone 0.05% 1 SPRAY NASAL.SRY NASAL (09:56)
[2020-11-02] MEDS: Menthol/Lanolin/Calamine/Znox 113 GM Tube 1 APPLIC TOPICAL (09:59)
--- NOTE | 2020-11-02 11:10 | CASEMGMT ---
IMANI DE LA VEGA Assessment: Face to Face with pt for initial transition planning/care coordination assessment. IMANI DE LA VEGA introduced self and role at [facility], pt voices understanding and consents to assessment. Pt is A/O x4 and answers all questions appropriately at this time. Pt sitting up in chair in no distress. Care providers, pharmacy, and demographics verified/updated. Admitting Dx: diverticulitis PCP: Deangelo Specialists: Kristi Bender Pharmacy: [facility] Insurance: [place] Prescription Benefit: yes LW/HPOA: Pt reports she does not have a LW/DPOA. States she wanted to get that done prior to her surgery. Pt would like info regarding AD. Notified Neo Fontenot PRAKASH. LNOK: Kerline Shah, Living Arrangements: Pt lives with in a 2 story house with 2 steps to enter with rail. Pt reports being I in ADL's and denies concerns at home. Transportation: Pt drives self and has no issues with transportation. DME/HHC/SNF: Pt has elevated toilet seats in her home, hh shower and a cane. Pt has not had any previous HHC or SNF stays. Pt states no concerns with going home at time of dc. Pt states no further concerns/needs. Advised pt to ask CM if any further question/concerns/needs arise, voices understanding. Pt Goal: Home Plan: Home with family support, follow up plans in place.
--- NOTE | 2020-11-02 13:52 | CASEMGMT ---
Social Work Note SW received referral for Advanced Directives. SW in to speak with pt. Pt completed Advanced Directives. Original provided to pt and copy on pt's chart. Charito Fontenot [employer] S[employer]ING SCIENTIST, PRODUCT MGR
[2020-11-02] MEDS: 0.9% Normal Saline 1,000 ML 100 ML IV (14:47)
[2020-11-02] MEDS: Ketorolac 15 MG/ML Vial IV (14:47)
[2020-11-02] MEDS: Enoxaparin 40 MG/0.4 ML Syringe SC (15:54)
[2020-11-03] MEDS: 0.9% Saline Lock 10 ML Syringe IV ×2 (00:11→06:42)
[2020-11-03] MEDS: HYDROmorphone 1 MG/ML Syringe IV ×2 (00:11→03:19)
[2020-11-03] MEDS: 0.9% Normal Saline 1,000 ML 100 ML IV (03:11)
[2020-11-03 03:14] VITALS: BP 124/66; PULSE 76; RESP 17; TEMP 37; O2SAT 97
--- NOTE | 2020-11-03 06:00 | NURSING ---
Pt up to toilet this morning. States she was able to pass some gas and liquid yellow/light brown stool on toilet paper seen by this RN.
[2020-11-03 06:37] LABS: Absolute Lymphocyte Count 2.03 X10^3/uL (0.83-4.51); Absolute Neutrophil Count 5.3 X10^3/uL (2.0-7.7); Basophil# 0.03 X10^3/uL; Basophil% 0.4 % (0-1); Eosinophil# 0.13 X10^3/uL; Eosinophils% 1.6 % (0-5); Hematocrit 35.1 % (37-47); Hemoglobin 10.7 g/dL (12.0-15.0); Lymphocyte # 2.03 X10^3/ul (4.0); Lymphocyte % 25.1 % (19-41); Mean Corp Hgb Conc 30.5 g/dL (32-36); Mean Corpuscular Hgb 27.4 pg (27.0-32.0); Mean Platelet Vol. 9.6 fl (6.2-12.0); Monocyte# 0.55 X10^3/uL; Monocyte% 6.8 % (0-10); NRBC Flagged by Analyzer 0 % (0-5); Neutrophil # 5.31 X10^3/uL (2.7-7.7); Neutrophil % 65.7 % (47-70); Platelet Count 298 K/mm3 (150-450); RBC Distribution Width CV 15.1 % (11.6-14.6); RBC Distribution Width SD 49.4 fl (35.1-43.9); White Blood Count 8.1 K/mm3 (4.4-11.0)
[2020-11-03] MEDS: Ketorolac 15 MG/ML Vial IV ×2 (06:41→23:45)
[2020-11-03 07:04] LABS: Anion Gap 4 (5-15); BUN 14 mg/dL (7-18); BUN/Creat Ratio 20.2 RATIO (10-20); Calcium,Total 8.1 mg/dL (8.5-10.1); Chloride 109 mmol/L (98-107); Creatinine, Serum 0.69 mg/dL (0.55-1.02); EST Glomerular Filtration Rate 96 mL/min (>60); Est Glom Filt Rate - Afr Amer 116 mL/min (>60); Estimated Creatinine Clearance 81.58 ml/min; Glucose 69 mg/dL (74-106); Potassium 3.9 mmol/L (3.5-5.1); Sodium Level 139 mmol/L (136-145)
--- NOTE | 2020-11-03 08:19 | PCM.PN.SRG ---
Patient Problems: Active and Suspected Problems (Last Updated 11/01/20 @ 11:[address] Felix Berry MD) Diverticulitis (Acute) Subjective: Patient has been walking in her room, pain is controlled, still burping some and did have some flatus one episode. - Physical Exam Vitals/I&O's: Vital Signs Temp Pulse Resp BP Pulse Ox 98.6 F 76 17 124/66 H 97 11/03/20 03:14 11/03/20 03:14 11/03/20 03:14 11/03/20 03:14 11/03/20 03:14 Oxygen Flow Rate (L/min) 6 Oxygen Delivery Method Room Air Weight: 246 lb 0.574 oz Body Mass Index (BMI) 43.5 Intake and Output for Last 24 Hours 11/01/20 11/02/20 11/03/20 23:59 23:59 23:59 Intake Total 3177.17 / 3177.17 716.67 / 716.67 1100 / 1100 Output Total 1090 / 1090 1025 / 1025 400 / 400 Balance 2087.17 / 2087.17 -308.33 / -308.33 700 / 700 General: Alert, Oriented x3, Cooperative, No apparent distress HEENT: Atraumatic Lungs: Normal air movement Cardiovascular: Regular rate Abdomen: Soft, Non-Distended, Tender - Incisions dressed clean dry and intact, no peritoneal signs Neurological: Cranial nerves II-XII grossly intact Psych/Mental Status: Normal Affect Microbiology Past 72 Hours 10/31/20 20:45 Mucosa - Nose SARS-CoV-2 Antigen (Rapid) - Final 10/31/20 14:40 Stool C. difficile GDH Antigen & Toxins - Final 10/31/20 14:40 Stool C. difficile DNA Amplification - Final Laboratory Results 11/03/20 06:08: WBC 8.1, RBC 3.90 L, Hgb 10.7 L, Hct 35.1 L, MCV 90.0, MCH 27.4, MCHC 30.5 L, RDW Std Deviation 49.4 H, RDW Coeff of Henry 15.1 H, Plt Count 298, MPV 9.6, Immature Gran % (Auto) 0.400, Neut % (Auto) 65.7, Lymph % (Auto) 25.1, [place] % (Auto) 6.8, Eos % (Auto) 1.6, Baso % (Auto) 0.4, Absolute Neuts (auto) 5.3, Absolute Lymphs (auto) 2.03, Nucleated RBC % 0 11/03/20 06:08: Sodium 139, Potassium 3.9, Chloride 109 H, Carbon Dioxide 26.0, Anion Gap 4 L, BUN 14, Creatinine 0.69, Estim Creat Clear Calc 81.58, Est GFR (MDRD) Af Amer 116, Est GFR (MDRD) Non-Af 96, BUN/Creatinine Ratio 20.2 H, Glucose 69 L, Calcium 8.1 L Current Medications Acetaminophen (Acetaminophen 325 Mg Tablet) 650 mg PO Q4H PRN PRN PRN Reason: PAIN 1-10/ FEVER Calamine/Phenol (Menthol/Lanolin/Calamine/Znox 113 Gm Tube) 1 applic TOPICAL BID [facility]; Protocol Last Admin: 11/02/20 21:04 Dose: Not Given Documented by: Enoxaparin Sodium (Enoxaparin 40 Mg/0.4 Ml Syringe) 40 mg SC DAILY [facility] Last Admin: 11/02/20 15:54 Dose: 40 mg Documented by: Fluticasone Propionate (Fluticasone 0.05% 1 [place] Nasal.Sry) 1 spray NASAL DAILY [facility] Last Admin: 11/02/20 09:56 Dose: 1 spray Documented by: Hydromorphone HCl (Hydromorphone 1 Mg/Ml Syringe) 1 mg IV Q2H PRN PRN PRN Reason: Pain Score 4-10 Last Admin: 11/03/20 03:19 Dose: 1 mg Documented by: Sodium Chloride () 250 mls @ 15 mls/hr IV .[id number] PRN PRN Reason: Saline Flush Sodium Chloride () 1,000 mls @ 100 mls/hr IV .Q10H [facility] Last Admin: 11/03/20 03:11 Dose: 100 mls/hr Documented by: Pantoprazole Sodium 40 mg/ (Sodium Chloride) 110 mls @ 330 mls/hr IV Q24 [facility] Last Infusion: 11/02/20 10:45 Dose: Infused Documented by: Insulin Human Lispro (Insulin Lispro 100 Unit/Ml Insuln.Pen) 0 unit SC Q4H PRN PRN; Protocol PRN Reason: BG >/= 180, SEE PROTOCOL Ketorolac Tromethamine (Ketorolac 15 Mg/Ml Vial) 15 mg IV Q8H PRN PRN PRN Reason: Pain Score 4-10 Stop: 11/04/20 06:33 Last Admin: 11/03/20 06:41 Dose: 15 mg Documented by: Ondansetron HCl (Ondansetron 4 Mg/2 Ml Vial) 4 mg IV Q6H PRN PRN PRN Reason: NAUSEA Last Admin: 11/01/20 19:36 Dose: 4 mg Documented by: Rizatriptan Benzoate (Rizatriptan Benzoate 5 Mg Tablet) 5 mg PO DAILY PRN PRN PRN Reason: MIGRAINE SYMPTOMS Sertraline HCl (Sertraline 100 Mg Tablet) 100 mg PO DAILY [facility] Last Admin: 11/02/20 09:55 Dose: 100 mg Documented by: Sodium Chloride (0.9% Saline Lock 10 Ml Syringe) 10 - 40 ml IV UD PRN PRN Reason: SALINE FLUSH Last Admin: 11/03/20 06:42 Dose: 10 ml Documented by: Medical Necessity - Tobacco Use Smoking Status: Never smoker Assessment/Plan All Active Problems (Last Updated 11/01/20 @ 11:[address] Felix Berry MD) Obesity, Class III, BMI 40-49.9 (morbid obesity) (Acute) Back problem (Acute) Anxiety (Acute) Depression (Acute) Acid reflux (Acute) History of esophageal dilatation (Acute) History of esophagogastroduodenoscopy (EGD) (Acute) Hx of colonoscopy (Acute) Hx of unilateral oophorectomy (Acute) Hx of cholecystectomy (Acute) Hx of hysterectomy (Acute) History of (Acute) Diverticulitis (Acute) 50-year-old female status post laparoscopic sigmoidectomy stop day 2 due to diverticulitis 1. Keep patient n.p.o./IV fluids await increased bowel function. 2. Continue pain control 3. Encourage ambulating halls. Pratima Encinas M.D. Pager: [phone] [facility] [address] [place] [address], [facility], [address] [place] [address] Office: [phone]
[2020-11-03 09:30] VITALS: BP 128/78; PULSE 71; RESP 16; TEMP 36.9; O2SAT 98
[2020-11-03] MEDS: Enoxaparin 40 MG/0.4 ML Syringe SC (10:22)
[2020-11-03] MEDS: Menthol/Lanolin/Calamine/Znox 113 GM Tube 1 APPLIC TOPICAL (10:22)
[2020-11-03] MEDS: Fluticasone 0.05% 1 SPRAY NASAL.SRY NASAL (10:22)
[2020-11-03] MEDS: Sertraline 100 MG Tablet PO (10:23)
[2020-11-03] MEDS: 0.9% Normal Saline 1,000 ML 80 ML IV (14:20)
[2020-11-03 15:02] VITALS: BP 132/89; PULSE 76; RESP 18; TEMP 37.1; O2SAT 97
[2020-11-03 20:28] VITALS: BP 144/74; PULSE 76; RESP 16; TEMP 37.1; O2SAT 98
[2020-11-04 02:22] VITALS: BP 131/71; PULSE 67; RESP 16; TEMP 37.1; O2SAT 96
[2020-11-04 07:49] VITALS: BP 124/72; PULSE 66; RESP 16; TEMP 36.9; O2SAT 96
--- NOTE | 2020-11-04 08:39 | PCM.PN.SRG ---
Patient Problems: Active and Suspected Problems (Last Updated 11/01/20 @ 11:[address] Felix Berry MD) Diverticulitis (Acute) Subjective: Patient states burping has resolved, did have small bowel movement as well as flatus, started clears yesterday patient is taken slowly but tolerating - Physical Exam Vitals/I&O's: Vital Signs Temp Pulse Resp BP Pulse Ox 98.4 F 66 16 124/72 H 96 11/04/20 07:49 11/04/20 07:49 11/04/20 07:49 11/04/20 07:49 11/04/20 07:49 Oxygen Flow Rate (L/min) 6 Oxygen Delivery Method Room Air Weight: 246 lb 0.574 oz Body Mass Index (BMI) 43.5 Intake and Output for Last 24 Hours 11/02/20 11/03/20 11/04/20 23:59 23:59 23:59 Intake Total 716.67 / 716.67 2593.33 / 2593.33 Output Total 1025 / 1025 1350 / 1350 700 / 700 Balance -308.33 / -308.33 1243.33 / 1243.33 -700 / -700 General: Alert, Oriented x3, Cooperative, No apparent distress HEENT: Atraumatic Lungs: Normal air movement Cardiovascular: Regular rate Abdomen: Soft, Non-Distended, Tender - Incisions clean dry and intact with Steri's and shaina in the lower midline incision, some ecchymosis around port sites, no peritoneal signs Extremities: No clubbing, No cyanosis Current Medications Acetaminophen (Acetaminophen 325 Mg Tablet) 650 mg PO Q4H PRN PRN PRN Reason: PAIN 1-10/ FEVER Calamine/Phenol (Menthol/Lanolin/Calamine/Znox 113 Gm Tube) 1 applic TOPICAL BID [facility]; Protocol Last Admin: 11/03/20 20:47 Dose: Not Given Documented by: Enoxaparin Sodium (Enoxaparin 40 Mg/0.4 Ml Syringe) 40 mg SC DAILY [facility] Last Admin: 11/03/20 10:22 Dose: 40 mg Documented by: Fluticasone Propionate (Fluticasone 0.05% 1 [place] Nasal.Sry) 1 spray NASAL DAILY [facility] Last Admin: 11/03/20 10:22 Dose: 1 spray Documented by: Hydromorphone HCl (Hydromorphone 1 Mg/Ml Syringe) 1 mg IV Q2H PRN PRN PRN Reason: Pain Score 4-10 Last Admin: 11/03/20 03:19 Dose: 1 mg Documented by: Sodium Chloride () 250 mls @ 15 mls/hr IV .[id number] PRN PRN Reason: Saline Flush Pantoprazole Sodium 40 mg/ (Sodium Chloride) 110 mls @ 330 mls/hr IV Q24 [facility] Last Infusion: 11/03/20 10:41 Dose: Infused Documented by: Insulin Human Lispro (Insulin Lispro 100 Unit/Ml Insuln.Pen) 0 unit SC Q4H PRN PRN; Protocol PRN Reason: BG >/= 180, SEE PROTOCOL Ondansetron HCl (Ondansetron 4 Mg/2 Ml Vial) 4 mg IV Q6H PRN PRN PRN Reason: NAUSEA Last Admin: 11/01/20 19:36 Dose: 4 mg Documented by: Rizatriptan Benzoate (Rizatriptan Benzoate 5 Mg Tablet) 5 mg PO DAILY PRN PRN PRN Reason: MIGRAINE SYMPTOMS Sertraline HCl (Sertraline 100 Mg Tablet) 100 mg PO DAILY [facility] Last Admin: 11/03/20 10:23 Dose: 100 mg Documented by: Sodium Chloride (0.9% Saline Lock 10 Ml Syringe) 10 - 40 ml IV UD PRN PRN Reason: SALINE FLUSH Last Admin: 11/03/20 06:42 Dose: 10 ml Documented by: Medical Necessity - Tobacco Use Smoking Status: Never smoker Assessment/Plan All Active Problems (Last Updated 11/01/20 @ 11:[address] Felix Berry MD) Obesity, Class III, BMI 40-49.9 (morbid obesity) (Acute) Back problem (Acute) Anxiety (Acute) Depression (Acute) Acid reflux (Acute) History of esophageal dilatation (Acute) History of esophagogastroduodenoscopy (EGD) (Acute) Hx of colonoscopy (Acute) Hx of unilateral oophorectomy (Acute) Hx of cholecystectomy (Acute) Hx of hysterectomy (Acute) History of (Acute) Diverticulitis (Acute) 50-year-old female status post laparoscopic sigmoidectomy stop day 3 due to diverticulitis 1. Patient is tolerating clears if continues tolerate will advance to full's for lunch possibly advance chapter to transitional 2. Continue pain control 3. Encourage ambulating halls. Pratima Encinas M.D. Pager: [phone] [facility] [address] [place] [address], [address] [place] [id number] Office: [phone]
[2020-11-04] MEDS: Fluticasone 0.05% 1 SPRAY NASAL.SRY NASAL (10:24)
[2020-11-04] MEDS: Sertraline 100 MG Tablet PO (10:27)
[2020-11-04] MEDS: Rizatriptan Benzoate 5 MG Tablet PO (11:25)
[2020-11-04 14:10] VITALS: BP 136/77; PULSE 62; RESP 16; TEMP 36.9; O2SAT 98
[2020-11-04] MEDS: Ensure Surgery 237 ML LIQUID PO ×2 (14:15→20:49)
[2020-11-04 21:04] VITALS: BP 148/85; PULSE 65; RESP 16; TEMP 36.8; O2SAT 100
[2020-11-05 02:47] VITALS: BP 136/77; PULSE 73; RESP 16; TEMP 36.8; O2SAT 96
[2020-11-05] MEDS: Ensure Surgery 237 ML LIQUID PO ×2 (06:01→12:11)
[2020-11-05 08:12] VITALS: BP 147/86; PULSE 70; RESP 16; TEMP 36.9; O2SAT 97
[2020-11-05] MEDS: Sertraline 100 MG Tablet PO (09:02)
[2020-11-05] MEDS: Fluticasone 0.05% 1 SPRAY NASAL.SRY NASAL (09:02)
[2020-11-05] MEDS: Acetaminophen 325 MG Tablet 650 MG PO (12:07)
--- NOTE | 2020-11-05 12:47 | PN.SURG_ITS ---
Patient Problems: Active and Suspected Problems (Last Updated 11/01/20 @ 11:[address] Felix Berry MD) Diverticulitis (Acute) Subjective: Patient is doing well and tolerating diet. She is having flatus and bowel movements. Her abdominal pain is well controlled with only Tylenol. - Physical Exam Vitals/I&O's: Vital Signs Temp Pulse Resp BP Pulse Ox 98.5 F 70 16 147/86 H 97 11/05/20 08:12 11/05/20 08:12 11/05/20 08:12 11/05/20 08:12 11/05/20 08:12 Oxygen Flow Rate (L/min) 6 Oxygen Delivery Method Room Air Weight: 246 lb 0.574 oz Body Mass Index (BMI) 43.5 Intake and Output for Last 24 Hours 11/03/20 11/04/20 11/05/20 23:59 23:59 23:59 Intake Total 2593.33 / 2593.33 110 / 110 1110 / 1110 Output Total 1350 / 1350 700 / 900 1300 / 1300 Balance 1243.33 / 1243.33 -590 / -790 -190 / -190 General: Alert, Oriented x3 Lungs: Normal air movement Abdomen: Soft, Non Tender, Non-Distended Current Medications Acetaminophen (Acetaminophen 325 Mg Tablet) 650 mg PO Q4H PRN PRN PRN Reason: PAIN 1-10/ FEVER Last Admin: 11/05/20 12:07 Dose: 650 mg Documented by: Calamine/Phenol (Menthol/Lanolin/Calamine/Znox 113 Gm Tube) 1 applic TOPICAL BID [facility]; Protocol Last Admin: 11/05/20 09:02 Dose: Not Given Documented by: Enoxaparin Sodium (Enoxaparin 40 Mg/0.4 Ml Syringe) 40 mg SC DAILY [facility] Last Admin: 11/05/20 09:02 Dose: Not Given Documented by: Enteral Nutritional Formula (Ensure Surgery 237 Ml Liquid) 237 ml PO 0600,1300,2000 [facility] Last Admin: 11/05/20 12:11 Dose: 237 ml Documented by: Fluticasone Propionate (Fluticasone 0.05% 1 [place] Nasal.Sry) 1 spray NASAL DAILY [facility] Last Admin: 11/05/20 09:02 Dose: 1 spray Documented by: Hydromorphone HCl (Hydromorphone 1 Mg/Ml Syringe) 1 mg IV Q2H PRN PRN PRN Reason: Pain Score 4-10 Last Admin: 11/03/20 03:19 Dose: 1 mg Documented by: Sodium Chloride () 250 mls @ 15 mls/hr IV .[id number] PRN PRN Reason: Saline Flush Pantoprazole Sodium 40 mg/ (Sodium Chloride) 110 mls @ 330 mls/hr IV Q24 [facility] Last Infusion: 11/05/20 09:28 Dose: Infused Documented by: Insulin Human Lispro (Insulin Lispro 100 Unit/Ml Insuln.Pen) 0 unit SC Q4H PRN PRN; Protocol PRN Reason: BG >/= 180, SEE PROTOCOL Ondansetron HCl (Ondansetron 4 Mg/2 Ml Vial) 4 mg IV Q6H PRN PRN PRN Reason: NAUSEA Last Admin: 11/01/20 19:36 Dose: 4 mg Documented by: Rizatriptan Benzoate (Rizatriptan Benzoate 5 Mg Tablet) 5 mg PO DAILY PRN PRN PRN Reason: MIGRAINE SYMPTOMS Last Admin: 11/04/20 11:25 Dose: 5 mg Documented by: Sertraline HCl (Sertraline 100 Mg Tablet) 100 mg PO DAILY [facility] Last Admin: 11/05/20 09:02 Dose: 100 mg Documented by: Sodium Chloride (0.9% Saline Lock 10 Ml Syringe) 10 - 40 ml IV UD PRN PRN Reason: SALINE FLUSH Last Admin: 11/03/20 06:42 Dose: 10 ml Documented by: Medical Necessity - Tobacco Use Smoking Status: Never smoker Assessment/Plan All Active Problems (Last Updated 11/01/20 @ 11:[address] Felix Berry MD) Obesity, Class III, BMI 40-49.9 (morbid obesity) (Acute) Back problem (Acute) Anxiety (Acute) Depression (Acute) Acid reflux (Acute) History of esophageal dilatation (Acute) History of esophagogastroduodenoscopy (EGD) (Acute) Hx of colonoscopy (Acute) Hx of unilateral oophorectomy (Acute) Hx of cholecystectomy (Acute) Hx of hysterectomy (Acute) History of (Acute) Diverticulitis (Acute) 50-year-old female status post laparoscopic sigmoid colectomy for diverticulitis 1. Patient is doing well and tolerating regular diet with bowel movements and flatus. I will discharge her home and have her follow-up next week for staple removal. Felix Berry MD Pager: [facility] [address] [place] [address] Office:
--- NOTE | 2020-11-05 12:48 | DCINST_ITS ---
Discharge Diet: Light diet - advance as tolerated Discharge Activity: May Not Drive - No driving for 1 week or while taking narcotic pain meds., May Shower Lifting Restrictions: 20 lbs for 4-6 weeks Call your doctor if your incision/area has: Continuous Slow Oozing, Sudden Increased Bleeding, Increased Pain/ Swelling, Increased Redness, Foul Smelling Discharge, Swelling at the incision site Call your doctor if you observe: Fever of 101 or Higher Suture Line Care: Avoid Pulling/Pushing, Avoid Pinching/Bending Cleanse incision/area with: Soap & Water Allergies/Adverse Reactions: Allergies morphine Allergy (Verified 10/31/20 12:05) blood pressure drops Medications to take at Discharge Fluticasone Propionate [Flonase Allergy Relief] 1 inh INHALATION DAILY 09/04/20 Sertraline HCl [Zoloft] 100 mg PO DAILY 09/04/20 Sumatriptan Succinate [Imitrex] 25 mg PO DAILY PRN PRN 09/04/20 Cholecalciferol (Vitamin D3) [Vitamin D3] 50,000 unit PO QWEEK 09/20/20 meloxicam 15 mg tablet 15 mg PO DAILY tablet 09/25/20 omeprazole 20 mg capsule,delayed release 20 mg PO DAILY 09/25/20 Ondansetron [Zofran Odt] 4 mg PO Q8H PRN PRN #10 tablet 10/22/20 Multivitamin with Minerals [Multiple Vitamin] 1 each PO DAILY 10/31/20 Acetaminophen [Tylenol Tablet] 650 mg PO Q4H PRN PRN tablet 11/05/20 Primary Care Physician: Ayo Bright [Primary Care Provider] - Test Results: Test results from this visit will be discussed in further detail at your follow- up appointment, if applicable. Please Follow Up With: Felix Berry MD When: Please call to schedule 1 week follow up appointment. [phone]
--- NOTE | 2020-11-05 12:59 | PCM.DC.SUM ---
Discharge Date and Diagnosis - Problem List Patient Problems: Active and Suspected Problems (Last Updated 11/01/20 @ 11:[address] Felix Berry MD) Diverticulitis (Acute) Date of Admission: 10/31/20 Date of Discharge: 11/05/20 - Primary Discharge Diagnosis Acute Problems: Active Problems (Last Updated 11/01/20 @ 11:[address] Felix Berry MD) Diverticulitis (Acute) - Secondary Discharge Diagnosis Chronic Problems: Patient was seen for (Last Updated 11/01/20 @ 11:[address] Felix Berry MD) Diverticulitis (Acute) Complete List of Medical Problems (Last Updated 11/01/20 @ 11:[address] Felix Berry MD) Obesity, Class III, BMI 40-49.9 (morbid obesity) (Acute) Back problem (Acute) Anxiety (Acute) Depression (Acute) Acid reflux (Acute) History of esophageal dilatation (Acute) History of esophagogastroduodenoscopy (EGD) (Acute) Hx of colonoscopy (Acute) Hx of unilateral oophorectomy (Acute) Hx of cholecystectomy (Acute) Hx of hysterectomy (Acute) History of (Acute) Diverticulitis (Acute) Hospital Course and Treatment Operations: colectomy Procedures: None Summary of Care Provided: The patient is a 50 year old F who presented with abdominal pain that did not subside. She was admitted and a bowel prep was performed and she was started on antibiotics. The following day she was taken for laparoscopic sigmoid colectomy. Patient tolerated the procedure well and was kept n.p.o. until she started passing flatus and then clear liquids were slowly started. When she was tolerating full liquids she was slowly advanced to a regular diet. Before discharge she was tolerating a diet and having flatus with normal bowel movements. Her pain is well controlled. Patient Problems: Active and Suspected Problems (Last Updated 11/01/20 @ 11:[address] Felix Berry MD) Diverticulitis (Acute) - Physical Exam Vitals/I&O's: Vital Signs Temp Pulse Resp BP Pulse Ox 98.5 F 70 16 147/86 H 97 11/05/20 08:12 11/05/20 08:12 11/05/20 08:12 11/05/20 08:12 11/05/20 08:12 Oxygen Flow Rate (L/min) 6 Oxygen Delivery Method Room Air Weight: 246 lb 0.574 oz Body Mass Index (BMI) 43.5 Intake and Output for Last 24 Hours 11/03/20 11/04/20 11/05/20 23:59 23:59 23:59 Intake Total 2593.33 / 2593.33 110 / 110 1110 / 1110 Output Total 1350 / 1350 700 / 900 1300 / 1300 Balance 1243.33 / 1243.33 -590 / -790 -190 / -190 Current Medications Acetaminophen (Acetaminophen 325 Mg Tablet) 650 mg PO Q4H PRN PRN PRN Reason: PAIN 1-10/ FEVER Last Admin: 11/05/20 12:07 Dose: 650 mg Documented by: Calamine/Phenol (Menthol/Lanolin/Calamine/Znox 113 Gm Tube) 1 applic TOPICAL BID [facility]; Protocol Last Admin: 11/05/20 09:02 Dose: Not Given Documented by: Enoxaparin Sodium (Enoxaparin 40 Mg/0.4 Ml Syringe) 40 mg SC DAILY [facility] Last Admin: 11/05/20 09:02 Dose: Not Given Documented by: Enteral Nutritional Formula (Ensure Surgery 237 Ml Liquid) 237 ml PO 0600,1300,2000 [facility] Last Admin: 11/05/20 12:11 Dose: 237 ml Documented by: Fluticasone Propionate (Fluticasone 0.05% 1 [place] Nasal.Sry) 1 spray NASAL DAILY [facility] Last Admin: 11/05/20 09:02 Dose: 1 spray Documented by: Hydromorphone HCl (Hydromorphone 1 Mg/Ml Syringe) 1 mg IV Q2H PRN PRN PRN Reason: Pain Score 4-10 Last Admin: 11/03/20 03:19 Dose: 1 mg Documented by: Sodium Chloride () 250 mls @ 15 mls/hr IV .[id number] PRN PRN Reason: Saline Flush Pantoprazole Sodium 40 mg/ (Sodium Chloride) 110 mls @ 330 mls/hr IV Q24 [facility] Last Infusion: 11/05/20 09:28 Dose: Infused Documented by: Insulin Human Lispro (Insulin Lispro 100 Unit/Ml Insuln.Pen) 0 unit SC Q4H PRN PRN; Protocol PRN Reason: BG >/= 180, SEE PROTOCOL Ondansetron HCl (Ondansetron 4 Mg/2 Ml Vial) 4 mg IV Q6H PRN PRN PRN Reason: NAUSEA Last Admin: 11/01/20 19:36 Dose: 4 mg Documented by: Rizatriptan Benzoate (Rizatriptan Benzoate 5 Mg Tablet) 5 mg PO DAILY PRN PRN PRN Reason: MIGRAINE SYMPTOMS Last Admin: 11/04/20 11:25 Dose: 5 mg Documented by: Sertraline HCl (Sertraline 100 Mg Tablet) 100 mg PO DAILY [facility] Last Admin: 11/05/20 09:02 Dose: 100 mg Documented by: Sodium Chloride (0.9% Saline Lock 10 Ml Syringe) 10 - 40 ml IV UD PRN PRN Reason: SALINE FLUSH Last Admin: 11/03/20 06:42 Dose: 10 ml Documented by: Discharge Diet: Light diet - advance as tolerated Discharge Activity: May Not Drive - No driving for 1 week or while taking narcotic pain meds., May Shower Call your doctor if your incision/area has: Continuous Slow Oozing, Sudden Increased Bleeding, Increased Pain/ Swelling, Increased Redness, Foul Smelling Discharge, Swelling at the incision site Call your doctor if you observe: Fever of 101 or Higher Suture Line Care: Avoid Pulling/Pushing, Avoid Pinching/Bending Cleanse incision/area with: Soap & Water Home Medications: Medications to take at Discharge Fluticasone Propionate [Flonase Allergy Relief] 1 inh INHALATION DAILY 09/04/20 Sertraline HCl [Zoloft] 100 mg PO DAILY 09/04/20 Sumatriptan Succinate [Imitrex] 25 mg PO DAILY PRN PRN 09/04/20 Cholecalciferol (Vitamin D3) [Vitamin D3] 50,000 unit PO QWEEK 09/20/20 meloxicam 15 mg tablet 15 mg PO DAILY tablet 09/25/20 omeprazole 20 mg capsule,delayed release 20 mg PO DAILY 09/25/20 Ondansetron [Zofran Odt] 4 mg PO Q8H PRN PRN #10 tablet 10/22/20 Multivitamin with Minerals [Multiple Vitamin] 1 each PO DAILY 10/31/20 Acetaminophen [Tylenol Tablet] 650 mg PO Q4H PRN PRN tablet 11/05/20 Primary Care Physician: Ayo Bright [Primary Care Provider] - Please Follow Up With: Felix Berry MD When: Please call to schedule 1 week follow up appointment. [phone] Medical Necessity - Tobacco Use Smoking Status: Never smoker Meaningful Use Info Meaningful Use Diagnoses (Choose all that apply): None applicable
== END 2020-11-05 13:24 | disposition home or self-care (01) | DRG 330 ==
PROVIDERS: Admitting Provider Surgery; PCP Family Medicine; Referring Provider Surgery; Visit Provider Surgery
PROC: 0DTN0ZZ Resection of Sigmoid Colon, Open Approach (ICD-10-PCS; CPT 44204; principal; 2020-11-01 11:35)
DX: K57.32 Diverticulitis of large intestine without perforation or abscess without bleeding (principal); Z68.41 Body mass index [BMI] 40.0-44.9, adult; E66.01 Morbid (severe) obesity due to excess calories; F32.9 Major depressive disorder, single episode, unspecified; F41.9 Anxiety disorder, unspecified; K21.9 Gastro-esophageal reflux disease without esophagitis; Z79.899 Other long term (current) drug therapy; Z78.0 Asymptomatic menopausal state
CPT/HCPCS: 36415; 80048; 82962; 83735; 85025; 87426; 87493; 88304; 88305; 88307; 93005; 97802; J7030; J7050; J7120; A4216; C1760; J2405

== ENCOUNTER → 2021-01-30 16:27 | Outpatient (CLI) | payer BC, SELFPAY ==
[2020-11-01 10:56] VITALS: BMI 43.5
[2021-01-30 17:49] LABS: Absolute Lymphocyte Count 2.05 X10^3/uL (0.83-4.51); Absolute Neutrophil Count 4.9 X10^3/uL (2.0-7.7); Basophil# 0.03 X10^3/uL; Basophil% 0.4 % (0-1); Eosinophil# 0.17 X10^3/uL; Eosinophils% 2.2 % (0-5); Hematocrit 38.9 % (37-47); Hemoglobin 12.5 g/dL (12.0-15.0); Lymphocyte # 2.05 X10^3/ul (0.83-4.51); Lymphocyte % 26.7 % (19-41); Mean Corp Hgb Conc 32.1 g/dL (32-36); Mean Corpuscular Hgb 27.6 pg (27.0-32.0); Mean Corpuscular Volume 85.9 fL (81-99); Mean Platelet Vol. 9.9 fl (6.2-12.0); Monocyte# 0.53 X10^3/uL; Monocyte% 6.9 % (0-10); NRBC Flagged by Analyzer 0 % (0-5); Neutrophil # 4.87 X10^3/uL (2.7-7.7); Neutrophil % 63.5 % (47-70); Platelet Count 341 K/mm3 (150-450); RBC Distribution Width CV 15.1 % (11.6-14.6); RBC Distribution Width SD 47.4 fl (35.1-43.9); Red Blood Count 4.53 M/mm3 (4.2-5.4); White Blood Count 7.7 K/mm3 (4.4-11.0)
[2021-01-30 18:04] LABS: Vitamin D,25 Hydroxy 61.1 ng/mL
[2021-01-30 18:15] LABS: AST(SGOT) 16 U/L (15-37); Alanine Aminotransfer ALT/SGPT 21 U/L (13-56); Albumin, Serum 3.9 g/dL (3.2-5.0); Alkaline Phosphatase 115 U/L (45-117); Anion Gap 5 (5-15); BUN 19 mg/dL (7-18); BUN/Creat Ratio 23.1 RATIO (10-20); Calcium,Total 9.2 mg/dL (8.5-10.1); Chloride 105 mmol/L (98-107); Cholesterol 210 mg/dL (200); Creatinine, Serum 0.82 mg/dL (0.55-1.02); EST Glomerular Filtration Rate 78 mL/min (>60); Est Glom Filt Rate - Afr Amer 95 mL/min (>60); Globulin 3.8 g/dL (2.2-4.2); Glucose 85 mg/dL (74-106); High Density Lipoprotein 63 mg/dL; Potassium 4.1 mmol/L (3.5-5.1); Protein, Total 7.7 g/dL (6.4-8.2); Sodium Level 140 mmol/L (136-145); Thyroid Stim Hormone (TSH) 1.15 uIU/mL (0.358-3.74); Triglycerides 136 mg/dL; Very Low Density Lipoprotein 27 mg/dL (5-40)
== END ==
PROVIDERS: PCP Family Medicine; Visit Provider Family Medicine
DX: E55.9 Vitamin D deficiency, unspecified (principal); K21.9 Gastro-esophageal reflux disease without esophagitis; F32.9 Major depressive disorder, single episode, unspecified; Z86.73 Personal history of transient ischemic attack (TIA), and cerebral infarction without residual deficits
CPT/HCPCS: 36415; 80053; 80061; 82306; 84443; 85025

== ENCOUNTER → 2021-03-07 17:02 | Outpatient (CLI) | payer BC, SELFPAY ==
[2020-11-01 10:56] VITALS: BMI 43.5
[2021-03-07 18:20] LABS: Erythrocyte Sedimentation Rate 37 mm/hr (0-30)
[2021-03-08 10:56] LABS: Rheumatoid Factor < 10.0 IU/mL (<15)
== END ==
PROVIDERS: Family Medicine; PCP Family Medicine; Visit Provider Family Medicine
DX: M79.7 Fibromyalgia (principal)
CPT/HCPCS: 36415; 85652; 86140; 86431

== ENCOUNTER → 2021-03-11 10:20 | Outpatient (CLI) | payer BC, SELFPAY ==
[2020-11-01 10:56] VITALS: BMI 43.5
[2021-03-12 15:24] LABS: ANTINUCLEAR ANTIBODIES DIRECT Negative (Negative)
== END ==
PROVIDERS: PCP Family Medicine; Referring Provider Family Medicine; Visit Provider Family Medicine
DX: M79.7 Fibromyalgia (principal)
CPT/HCPCS: 36415; 86038

== ENCOUNTER → 2021-06-12 16:41 | Outpatient (CLI) | payer BC, SELFPAY ==
[2021-06-12 18:01] LABS: Absolute Lymphocyte Count 2.07 X10^3/uL (0.83-4.51); Absolute Neutrophil Count 3.7 X10^3/uL (2.0-7.7); Basophil# 0.02 X10^3/uL; Basophil% 0.3 % (0-1); Eosinophil# 0.15 X10^3/uL; Eosinophils% 2.3 % (0-5); Hematocrit 36.6 % (37-47); Hemoglobin 11.7 g/dL (12.0-15.0); Lymphocyte # 2.07 X10^3/ul (0.83-4.51); Lymphocyte % 32.2 % (19-41); Mean Corpuscular Hgb 27.9 pg (27.0-32.0); Mean Corpuscular Volume 87.4 fL (81-99); Mean Platelet Vol. 10.2 fl (6.2-12.0); Monocyte# 0.47 X10^3/uL; Monocyte% 7.3 % (0-10); NRBC Flagged by Analyzer 0 % (0-5); Neutrophil % 57.6 % (47-70); Platelet Count 290 K/mm3 (150-450); RBC Distribution Width CV 14.3 % (11.6-14.6); RBC Distribution Width SD 45.9 fl (35.1-43.9); Red Blood Count 4.19 M/mm3 (4.2-5.4); White Blood Count 6.4 K/mm3 (4.4-11.0)
[2021-06-12 18:16] LABS: ALB/GLOB Ratio 1.1 RATIO (0.9-2.4); AST(SGOT) 18 U/L (15-37); Alanine Aminotransfer ALT/SGPT 18 U/L (13-56); Albumin, Serum 3.5 g/dL (3.2-5.0); Alkaline Phosphatase 100 U/L (45-117); Anion Gap 6 (5-15); BUN 19 mg/dL (7-18); BUN/Creat Ratio 29.6 RATIO (10-20); Calcium,Total 8.8 mg/dL (8.5-10.1); Chloride 107 mmol/L (98-107); Creatinine, Serum 0.64 mg/dL (0.55-1.02); EST Glomerular Filtration Rate 104 mL/min (>60); Est Glom Filt Rate - Afr Amer 126 mL/min (>60); Globulin 3.2 g/dL (2.2-4.2); Glucose 83 mg/dL (74-106); Potassium 4.1 mmol/L (3.5-5.1); Protein, Total 6.7 g/dL (6.4-8.2); Sodium Level 140 mmol/L (136-145)
[2021-06-14 15:06] LABS: Vitamin B12 292 pg/mL (211-911)
[2021-06-14 15:11] LABS: Ferritin 70 ng/mL (8-252); Iron 48 ug/dL (50-170); Iron Binding Capacity,Total 269 ug/dL (250-450); PERCENT IRON SATURATION 17.8 % (15.0-55.0)
== END ==
PROVIDERS: PCP Family Medicine; Referring Provider Family Medicine; Visit Provider Family Medicine
DX: E55.9 Vitamin D deficiency, unspecified (principal); E66.01 Morbid (severe) obesity due to excess calories; D64.9 Anemia, unspecified
CPT/HCPCS: 36415; 80053; 82306; 82607; 82728; 83540; 83550; 85025

== ENCOUNTER 2021-11-06 10:00 | Outpatient (RCR) | payer BC, SELFPAY ==
--- NOTE | 2021-10-11 16:02 | HP.PTEVAL_ITS ---
Patient's Visit Information JOANNE KHALIL is a 51 year old F referred to Physical Therapy by Dr. Isabel Walton MD with a diagnosis of BACK PAIN. Date of Evaluation: 10/11/21 Physical Therapist: Sarah Duffy PT, Cert MDT - Visit Plan Frequency: 2-3x /Week Duration: 4-6 Weeks Plan: AQUATIC THERAPY FOR PAIN RELIEF, POSTURE CORRECTION/STRENGTHENING, INSTRUCTION IN APPROPRIATE BODY MECHANICS AND ACTIVITY MODIFICATIONS. DLS STARTING WITH A NEUTRAL SPINE PROGRESSING ROM TOLERATED. CECILIO LE ROM, STRETCHING AND STRENGTHENING. HEP INSTRUCTION. 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 PUSH/PULL MED CARTS BUT RARELY MOVES RESIDENTS. Disability: NO. Present symptoms: MID AND LOW BACK PAIN. INTERMITTENT PAIN AND NUMBNESS LEFT THIGH. Present since: JUN 2021. Pain Scale: WORST 8/10 (SINCE AFTER RECENT INJECTION), LEAST 1-2/10. Currently: 8/10. Commenced as a result of: NO APPARENT REASON. Symptoms at onset: BACK AND L THIGH. Worse: STANDING, WALKING, LIFTING MEDIUM WEIGHTS - DELAYED ONSET, TWISTING, PUTTING LEG UP TO TRY TO DRY IT AFTER SHOWER, BENDING TO TIE SHOES, VACUUMING, SNOW SHOVELING. Better: LYING IN THE BATH TUB WITH EPSON SALT, RECLINING FAR BACK IN RECLINER. Disturbed sleep: NO SINCE INJECTION. Previous history/Previous treatment: CHRONIC BACK PAIN. MAINLY TREATED WITH CHIRO. Treatment this episode: RECENT KALR SEP 17 2021 - 50% PAIN REDUCTION IMMEDIATELY. ONE TIME CONSULT WITH DR. ESTRELLA - SURGERY NOT RECOMMENDED AND PAIN MGMT CONSULT GIVEN. Coughing/sneezing/straining: NEGATIVE. Gait: DISTANCE LIMITED DUE TO PAIN AND LEANS FORWARD. CAN WALK FURTHER SINCE SHOT. Difficulty initiating urination: PATIENT DENIES BOWEL AND BLADDER DYSFUNCTION. Accidents: UNREMARKABLE. Unexplained weight loss: NO. Imaging: LUMBAR MRI JUL 2021 - SHOWING 3 BULGING DISCS AND NARROWING OF THE SPINAL CANAL (NOT DONE AT [facility]). PMH/Recent major surgery: PARTIAL COLECTOMY NOVEMBER 2020 DUE TO DIVERTICULITIS. OTHER: PATIENT HAS A POOL. - Objective Sitting/Standing Posture: POOR. Lordosis: NORMAL. Active Correction of posture: NE. Other Observations: THIS PATIENT AMBULATES INDEP'LY INTO PT WITHOUT ANY ASSISTIVE DEVICES OR LOB. INDEP TRANSFER SIT TO STAND WITHOUT UE ASSIT. Motor deficit: CECILIO LE STRENGTH GROSSLY 5/5 WITH MMT'ING AND PATIENT DENIES PAIN WITH TESTING. Sensory deficit: CECILIO LE LIGHT TOUCH SENSATION IS GROSSLY INTACT AND SYMMETRICAL EXCEPT PATIENT IS VERY HYPER SENSATIVE WITH LIGHT TOUCH SENSATIION IN LEFT LATERAL THIGH. ROM deficit: TIGHT CECILIO HIP FLEXORS AND GASTROC SOLEUS COMPLEX'S. Reflexes: 2/3 CECILIO LE'S. Dural Signs: NEGATIVE CECILIO LE'S. Lumbar mvmt loss: flex - MIN. ext - MOD - INCREASES BACK PAIN. R SG - MOD. L SG - MOD. Core strength: POOR. Palpation: TENDERNESS WITH LIGHT PALPATION OF THE LOWER THORACIC AND LUMBAR SPINE REGIONS. TREATMENT: NEUROMUSCULAR REEDUCATION - RETRAINING OF MVMT AND POSTURE FOR SITTING, LYING AND STANDING ACTIVITIES. - Balance/Special Test Scores Oswestry Low Back Score: 20 - Goals Goal 1:: DECREASE C/O BACK PAIN Goal Time Frame: 4-6 Weeks Goal 2:: IMPROVE PERSONAL CARE, LIFTING, WALKING, SITTING, STANDING, SOCIAL LIFE, TRAVEL AND WORK/HOMEMAKING FUNCTION Goal Time Frame: 4-6 Weeks Goal 3:: INSTRUCT IN PROPHYLAXIS Goal Time Frame: 4-6 Weeks - Anticipated Interventions Patient/Client Instruction: Educate patient on: Condition, Plan of Care, Risk Factors For the Purpose of:: To improve self management Therapeutic Exercise to Include: Strength training, Body mechanics, Postural training, Flexibilty training, Neuromotor development, In an aquatic setting, Dynamic Lumbar Stabilization For the Purpose of:: To decrease pain, To improve muscle performance and motor function, To increase tolerance to activity/condition/position, To improve ability of physical actions for home/community/work/leisure Thank you for the opportunity to evaluate your patient. For Medicare and Medicare HMO plans, please review the plan of care and approve it. It will need to be FAXED BACK to us at [phone] for Medicare purposes. For Medicare only, by signing this I certify the plan of care. Please let me know if there are questions or concerns regarding this plan of care. Physician Derrek gnature: Date:
== END 2021-11-06 19:00 | disposition home or self-care (01) ==
LOC: PT 10:00
PROVIDERS: PCP Family Medicine; Referring Provider Anesthesiology Pain Medicine; Visit Provider Anesthesiology Pain Medicine
DX: M51.16 Intervertebral disc disorders with radiculopathy, lumbar region (principal); M48.061 Spinal stenosis, lumbar region without neurogenic claudication
CPT/HCPCS: 97112; 97113; 97162

== ENCOUNTER → 2022-01-09 | Outpatient (CLI) | payer BC, SELFPAY ==
[2022-01-09 17:51] LABS: Absolute Lymphocyte Count 2.22 X10^3/uL (0.83-4.51); Absolute Neutrophil Count 4.6 X10^3/uL (2.0-7.7); Basophil# 0.04 X10^3/uL; Basophil% 0.5 % (0-1); Eosinophil# 0.19 X10^3/uL; Eosinophils% 2.5 % (0-5); Hemoglobin 12.5 g/dL (12.0-15.0); Lymphocyte # 2.22 X10^3/ul (0.83-4.51); Mean Corp Hgb Conc 31.3 g/dL (32-36); Mean Corpuscular Hgb 28.3 pg (27.0-32.0); Mean Corpuscular Volume 90.7 fL (81-99); Mean Platelet Vol. 9.7 fl (6.2-12.0); Monocyte# 0.58 X10^3/uL; Monocyte% 7.6 % (0-10); NRBC Flagged by Analyzer 0 % (0-5); Neutrophil # 4.61 X10^3/uL (2.7-7.7); Neutrophil % 60.1 % (47-70); Platelet Count 360 K/mm3 (150-450); RBC Distribution Width CV 13.8 % (11.6-14.6); RBC Distribution Width SD 45.8 fl (35.1-43.9); Red Blood Count 4.41 M/mm3 (4.2-5.4); White Blood Count 7.7 K/mm3 (4.4-11.0)
[2022-01-09 18:27] LABS: Vitamin B12 381 pg/mL (211-911); Vitamin D,25 Hydroxy 64.6 ng/mL
[2022-01-09 21:44] LABS: AST(SGOT) 15 U/L (15-37); Alanine Aminotransfer ALT/SGPT 22 U/L (13-56); Albumin, Serum 3.6 g/dL (3.2-5.0); Alkaline Phosphatase 96 U/L (45-117); Anion Gap 5 (5-15); BUN 16 mg/dL (7-18); BUN/Creat Ratio 16.4 RATIO (10-20); Calcium,Total 9.7 mg/dL (8.5-10.1); Chloride 106 mmol/L (98-107); Creatinine, Serum 0.98 mg/dL (0.55-1.02); EST Glomerular Filtration Rate 64 mL/min (>60); Est Glom Filt Rate - Afr Amer 77 mL/min (>60); Ferritin 88 ng/mL (8-252); Globulin 3.7 g/dL (2.2-4.2); Glucose 85 mg/dL (74-106); Iron 63 ug/dL (50-170); Iron Binding Capacity,Total 294 ug/dL (250-450); Potassium 4.2 mmol/L (3.5-5.1); Protein, Total 7.3 g/dL (6.4-8.2); Sodium Level 139 mmol/L (136-145)
== END | disposition home or self-care (01) ==
LOC: MFPLAB 16:25
PROVIDERS: PCP Family Medicine; Referring Provider Family Medicine; Visit Provider Family Medicine
DX: D64.9 Anemia, unspecified (principal); E55.9 Vitamin D deficiency, unspecified
CPT/HCPCS: 36415; 80053; 82306; 82607; 82728; 82746; 83540; 83550; 85025

== ENCOUNTER → 2022-02-13 | Outpatient (CLI) | payer BC, SELFPAY ==
--- NOTE | 2022-02-13 11:54 | RAD_ITS ---
EXAM: XR CHEST, 2 VIEWS CLINICAL INDICATION: cough TECHNIQUE: Frontal and lateral views of the chest. This report was created using [employer] report generation technology. COMPARISON: None. FINDINGS: LUNGS AND PLEURAL SPACES: Unremarkable. No consolidation or edema. No pneumothorax. No effusion. HEART: Unremarkable. Cardiac silhouette not enlarged. MEDIASTINUM: Central airways and mediastinal contour are unremarkable. BONES/JOINTS: Mild degenerative changes of the spine. SOFT TISSUES: Unremarkable. RAD/Chest PA and Lateral IMPRESSION: No acute findings in the chest. Electronically Signed: Fantasma Barnard MD at 2:32 EDT ,
== END | disposition home or self-care (01) ==
LOC: MTRAD 11:54
PROVIDERS: PCP Family Medicine; Referring Provider Nurse Practitioner Family; Visit Provider Nurse Practitioner Family
DX: R05.9 Cough, unspecified (principal)
CPT/HCPCS: 71046

== ENCOUNTER → 2022-05-08 | Outpatient (CLI) | payer BC, SELFPAY ==
[2022-05-08 17:41] LABS: Absolute Lymphocyte Count 2.46 X10^3/uL (0.83-4.51); Absolute Neutrophil Count 3.7 X10^3/uL (2.0-7.7); Basophil# 0.04 X10^3/uL; Basophil% 0.6 % (0-1); Eosinophil# 0.24 X10^3/uL; Eosinophils% 3.4 % (0-5); Hemoglobin 13.4 g/dL (12.0-15.0); Lymphocyte # 2.46 X10^3/ul (0.83-4.51); Lymphocyte % 34.9 % (19-41); Mean Corp Hgb Conc 31.9 g/dL (32-36); Mean Corpuscular Hgb 28.5 pg (27.0-32.0); Mean Corpuscular Volume 89.4 fL (81-99); Mean Platelet Vol. 9.5 fl (6.2-12.0); Monocyte# 0.58 X10^3/uL; Monocyte% 8.2 % (0-10); NRBC Flagged by Analyzer 0 % (0-5); Neutrophil # 3.71 X10^3/uL (2.7-7.7); Neutrophil % 52.6 % (47-70); Platelet Count 361 K/mm3 (150-450); RBC Distribution Width CV 13.5 % (11.6-14.6); RBC Distribution Width SD 44.1 fl (35.1-43.9); White Blood Count 7.1 K/mm3 (4.4-11.0)
[2022-05-08 18:35] LABS: Vitamin B12 416 pg/mL (211-911); Vitamin D,25 Hydroxy 49.8 ng/mL
[2022-05-08 18:51] LABS: ALB/GLOB Ratio 0.9 RATIO (0.9-2.4); AST(SGOT) 17 U/L (15-37); Alanine Aminotransfer ALT/SGPT 24 U/L (13-56); Albumin, Serum 3.6 g/dL (3.2-5.0); Alkaline Phosphatase 104 U/L (45-117); Anion Gap 7 (5-15); BUN 14 mg/dL (7-18); BUN/Creat Ratio 16.9 RATIO (10-20); Calcium,Total 9.3 mg/dL (8.5-10.1); Chloride 104 mmol/L (98-107); Cholesterol 240 mg/dL (200); Creatinine, Serum 0.83 mg/dL (0.55-1.02); EST Glomerular Filtration Rate 77 mL/min (>60); Est Glom Filt Rate - Afr Amer 93 mL/min (>60); Globulin 4.1 g/dL (2.2-4.2); Glucose 83 mg/dL (74-106); High Density Lipoprotein 63 mg/dL; Potassium 4.3 mmol/L (3.5-5.1); Protein, Total 7.7 g/dL (6.4-8.2); Sodium Level 138 mmol/L (136-145); T4 Free Direct 0.97 ng/dL (0.76-1.46); Triglycerides 200 mg/dL; Very Low Density Lipoprotein 40 mg/dL (5-40)
== END | disposition home or self-care (01) ==
LOC: MFPLAB 17:02
PROVIDERS: PCP Family Medicine; Referring Provider Family Medicine; Visit Provider Family Medicine
DX: E55.9 Vitamin D deficiency, unspecified (principal); E66.01 Morbid (severe) obesity due to excess calories; R53.83 Other fatigue
CPT/HCPCS: 36415; 80053; 80061; 82306; 82607; 84439; 84443; 85025

== ENCOUNTER 2022-07-01 16:35 | Outpatient (CLI) | payer BC, SELFPAY ==
[2022-07-01 18:22] LABS: Amphetamine Urine VISTA NEGATIVE (<1000 ng/mL); Barbiturate Urine VISTA NEGATIVE (< 200 ng/mL); Benzodiazepine Urine VISTA NEGATIVE (< 200 ng/mL); Cocaine Urine VISTA NEGATIVE (< 300 ng/mL); Ecstacy Urine VISTA NEGATIVE (< 500 ng/mL); Methadone Urine VISTA NEGATIVE (< 300 ng/mL); PCP Urine VISTA NEGATIVE (< 25 ng/mL); THC Urine VISTA NEGATIVE (< 50 ng/mL); Vista UDS pH Range 6
[2022-07-01 18:41] LABS: Hepatitis B Surface Antibody Non-Reactive; Rubella IgG Reactive (Nonreactive)
[2022-07-03 15:12] LABS: Mumps Antibody,IgG 30.4 AU/mL (Immune >10.9); Rubeola IgG Ab > 300.0 AU/mL (Immune >16.4); V-Zoster IgG (Immunity) 677 index (Immune >165)
== END 2022-07-01 23:59 | disposition home or self-care (01) ==
PROVIDERS: PCP Family Medicine; Referring Provider Family Medicine; Visit Provider Family Medicine
DX: Z01.84 Encounter for antibody response examination (principal)
CPT/HCPCS: 36415; 80307; 86706; 86735; 86762; 86765; 86787

== ENCOUNTER → 2022-09-19 | Outpatient (CLI) | payer BC, SELFPAY ==
[2022-09-19 18:11] LABS: Absolute Lymphocyte Count 2.91 X10^3/uL (0.83-4.51); Absolute Neutrophil Count 4.5 X10^3/uL (2.0-7.7); Basophil# 0.01 X10^3/uL; Basophil% 0.1 % (0-1); Eosinophil# 0.25 X10^3/uL; Hematocrit 41.1 % (37-47); Hemoglobin 13.4 g/dL (12.0-15.0); Lymphocyte # 2.91 X10^3/ul (0.83-4.51); Lymphocyte % 34.9 % (19-41); Mean Corp Hgb Conc 32.6 g/dL (32-36); Mean Corpuscular Hgb 28.7 pg (27.0-32.0); Mean Platelet Vol. 9.5 fl (6.2-12.0); Monocyte# 0.62 X10^3/uL; Monocyte% 7.4 % (0-10); NRBC Flagged by Analyzer 0 % (0-5); Neutrophil # 4.53 X10^3/uL (2.7-7.7); Neutrophil % 54.5 % (47-70); Platelet Count 368 K/mm3 (150-450); RBC Distribution Width CV 14.3 % (11.6-14.6); RBC Distribution Width SD 45.9 fl (35.1-43.9); Red Blood Count 4.67 M/mm3 (4.2-5.4); White Blood Count 8.3 K/mm3 (4.4-11.0)
[2022-09-19 18:40] LABS: Vitamin D,25 Hydroxy 58.4 ng/mL
[2022-09-19 19:00] LABS: AST(SGOT) 17 U/L (15-37); Alanine Aminotransfer ALT/SGPT 23 U/L (13-56); Albumin, Serum 3.6 g/dL (3.2-5.0); Alkaline Phosphatase 107 U/L (45-117); Anion Gap 9 (5-15); BUN 21 mg/dL (7-18); BUN/Creat Ratio 23.8 RATIO (10-20); Calcium,Total 9.2 mg/dL (8.5-10.1); Chloride 104 mmol/L (98-107); Cholesterol 246 mg/dL (200); Creatinine, Serum 0.88 mg/dL (0.55-1.02); EST Glomerular Filtration Rate 72 mL/min (>60); Est Glom Filt Rate - Afr Amer 87 mL/min (>60); Globulin 3.5 g/dL (2.2-4.2); Glucose 107 mg/dL (74-106); High Density Lipoprotein 64 mg/dL; Potassium 4.1 mmol/L (3.5-5.1); Protein, Total 7.1 g/dL (6.4-8.2); Sodium Level 138 mmol/L (136-145); Triglycerides 309 mg/dL; Very Low Density Lipoprotein 62 mg/dL (5-40)
[2022-09-22 12:13] LABS: Hemoglobin A1c 5.6 % (3.8-5.6)
== END | disposition home or self-care (01) ==
LOC: MFPLAB 16:02
PROVIDERS: PCP Family Medicine; Referring Provider Family Medicine; Visit Provider Family Medicine
DX: R73.09 Other abnormal glucose (principal); E66.01 Morbid (severe) obesity due to excess calories; E55.9 Vitamin D deficiency, unspecified
CPT/HCPCS: 36415; 80053; 80061; 82306; 83036; 85025

== ENCOUNTER 2023-03-18 12:39 | Emergency (ER) | payer BC, SELFPAY ==
[2023-03-18 12:39] VITALS: BP 124/94; PULSE 83; RESP 18; TEMP 36.3; O2SAT 100; BMI 45.0
--- NOTE | 2023-03-18 12:44 | ED.RN ---
NO STROKE ALERT PER DR PAULA
--- NOTE | 2023-03-18 12:59 | EX.ED.VIS.HA ---
HPI History of Present Illness Chief Complaint: Dizziness Narrative Narrative: 52-year-old female with history of migraine and vertigo presenting with headache and dizziness. She states that the dizziness started first and it feels like it is vertiginous in nature. It is a little stronger than it has been in the past. It happens with her eye movements, head movement, ambulation. She does not describe lightheadedness. Denies any head trauma. She states that she slowly developed nausea and headache from the dizziness. She has a history of migraine and states does not feel like a migraine. She states that feels like a Tylenol headache. No fever or chills. PFSH PFS Medical History Acid reflux Anemia Anxiety Back problem Depression Diverticulitis Fibromyalgia Globus sensation History of esophageal dilatation Migraines Obesity, Class III, BMI 40-49.9 (morbid obesity) Home Medications Cholecalciferol (Vitamin D3) [Vitamin D3] 50,000 unit PO QWEEK 09/20/20 [History Last Taken 10/28/20] multivitamin with minerals 1 each PO DAILY 10/31/20 [History Last Taken 10/30/20] duloxetine 60 mg capsule,delayed release 60 mg PO DAILY 01/05/23 [History Last Taken Unknown] rimegepant 75 mg disintegrating tablet (Nurtec ODT) 75 mg PO ONCE PRN 01/05/23 [History Last Taken Unknown] venlafaxine 50 mg tablet 50 mg PO DAILY 01/05/23 [History Last Taken Unknown] meclizine 25 mg tablet (Motion Sickness (meclizine)) 25 mg PO TID #60 tabs 03/18/23 [Rx Last Taken Unknown] Allergy/AdvReac Type Severity Reaction Status Date / Time morphine AdvReac blood Verified 03/18/23 12:42 pressure drops Family History Father Heart disease Mother Osteoporosis Cancer Skin Thyroid disorder Surgical History History of History of esophagogastroduodenoscopy (EGD) Hx of cholecystectomy Hx of colonoscopy Hx of hysterectomy Hx of unilateral oophorectomy S/P colectomy Social History Smoking Status: Never smoker second hand exposure: No alcohol intake: current alcohol intake frequency: holidays/special occasions only substance use type: does not use caffeine: Yes what type of physical activity do you participate in: none frequency: does not exercise ROS ROS ED Constitutional Constitutional ED: Denies chills, fever(s) or sweats Eyes Eyes: Reports other Details: Vertiginous dizziness ; Denies blurry vision or change in vision ENT ENT ED: Denies ear pain or sore throat Cardiovascular Cardiovascular: Denies chest pain, palpitations or racing heartbeat Respiratory/Chest Respiratory/Chest: Denies cough, dyspnea or sputum Gastrointestinal Gastrointestinal: Denies abdominal pain, constipation, diarrhea, nausea or vomiting Genitourinary Genitourinary ED: Denies dysuria, hematuria or urinary frequency Musculoskeletal Musculoskeletal: Denies arthralgias, myalgias or neck pain Integumentary Denies abscess, Abrasions or rash Neurologic Neurologic: Reports headache(s); Denies paresthesias or weakness Psychiatric Psychiatric: Denies anxiety, depression, suicidal ideation or suicidal thoughts Endocrine Endocrinology: Denies polydipsia or polyuria EXAM Physical Exam Const Vital Signs: 03/18/23 12:39 03/18/23 13:12 Temperature 97.4 F L Temperature Source Temporal Pulse Rate 83 Respiratory Rate 18 Respiratory Effort Normal Respiratory Pattern Normal Blood Pressure 124/94 H Blood Pressure Mean 104 Pulse Ox 100 Oxygen Delivery Method Room Air Positive well nourished General Appearance ED: NAD; Negative for pallor HEENT Reports normocephalic, TM's clear and moist mucous membranes HEENT Narrative: Positive Par[place]-Hallpike. Tympanic Membrane ED: Yes TM's clear Neck no lymphadenopathy and no meningeal signs Resp normal respiratory effort Cardio regular rate and regular rhythm Extremity normal to inspection Neuro oriented x3 and CN's II-XII intact bilaterally Sensorium / Orientation: awake and alert Motor Exam: strength 5/5 throughout Psych mental status grossly normal Skin General Skin Exam: Negative for jaundice or pallor MDM MDM MDM Narrative Medical decision making narrative: Patient presenting with dizziness. Considered dehydration and electrolyte abnormalities however the patient's been eating and drinking normally. She making normal urine and stool. Considered migraine however patient states her headache is not severe like a migraine. Patient most likely has vertigo based on her exam and she has a positive [place]-Hallpike. She is given meclizine and Phenergan as well as Tylenol for headache. On reevaluation the patient is improved. She wants to go home. She requested a prescription for meclizine which was given. Return precautions were discussed. Impression: 1. Benign positional vertigo 2. Headache 3. Nausea Discharge Plan Triage Chief Complaint: Dizziness ED Provider: Cosme Velasquez Dx/Rx/DC Orders Instructions: ED BPV Vertigo Prescriptions: New meclizine [Motion Sickness (meclizine)] 25 mg tablet 25 mg PO TID Qty: 60 0RF No Action duloxetine 60 mg capsule,delayed release(DR/EC) 60 mg PO DAILY venlafaxine 50 mg tablet 50 mg PO DAILY Nurtec ODT 75 mg tablet,disintegrating 75 mg PO ONCE PRN Rx Instructions: as a single dose Cholecalciferol (Vitamin D3) [Vitamin D3] 5,000 UNIT capsule 50,000 unit PO QWEEK multivitamin with minerals 1 EACH tablet 1 each PO DAILY Stand Alone Forms: ED Work / School Excuse Primary Care Provider: Luis Manuel Sesay Referrals: Luis Manuel Sesay MD [Primary Care Provider] - Disposition Disposition: Home, Self Care Discharge Date/Time: 03/18/23 14:03
[2023-03-18] MEDS: Meclizine HCl 25 MG Tablet PO (13:07)
[2023-03-18] MEDS: proMETHazine 25 MG/ML Syringe 12.5 MG IM (13:08)
[2023-03-18] MEDS: Acetaminophen 500 MG Tablet 1000 MG PO (13:08)
== END 2023-03-18 14:03 | disposition home or self-care (01) ==
PROVIDERS: Emergency Provider Student in an Organized Health Care Education/Training Program; PCP Family Medicine; Visit Provider Student in an Organized Health Care Education/Training Program
DX: H81.10 Benign paroxysmal vertigo, unspecified ear (principal); R11.0 Nausea; F41.9 Anxiety disorder, unspecified; F32.A Depression, unspecified; G43.909 Migraine, unspecified, not intractable, without status migrainosus; Z90.49 Acquired absence of other specified parts of digestive tract; Z90.710 Acquired absence of both cervix and uterus
CPT/HCPCS: 96372; 99283

== ENCOUNTER → 2023-03-19 | Outpatient (CLI) | payer BC, SELFPAY ==
--- NOTE | 2023-03-19 17:36 | CT_ITS ---
EXAMINATION : Head CT w/out contrast HISTORY : Sever headache for two days, fell today. COMPARISON : None. TECHNIQUE : Multiple contiguous axial images were obtained from the skull base to the vertex without intravenous contrast. A radiation dose optimization technique was used for this scan. FINDINGS : The ventricles and sulci are normal in size. There is no evidence for acute intracranial hemorrhage, mass effect, or midline shift. There is no extra-axial fluid collection. There is normal patel-white differentiation, without CT evidence of acute ischemia or infarct. The skull base and calvarium are unremarkable. The orbits are unremarkable. The paranasal sinuses are clear. The mastoid air cells are well-aerated. The soft tissues are unremarkable. CT/Brain/Head without Contrast IMPRESSION: No acute intracranial abnormality. Electronically Signed: Samy Jackson MD at 18:08 EDT ,
== END | disposition home or self-care (01) ==
LOC: CT 17:03
PROVIDERS: PCP Family Medicine; Referring Provider Family Medicine; Visit Provider Family Medicine
DX: R51.9 Headache, unspecified (principal)
CPT/HCPCS: 70450

== ENCOUNTER → 2023-03-19 | Outpatient (CLI) | payer BC, SELFPAY ==
[2023-03-19 17:35] LABS: Absolute Lymphocyte Count 2.02 X10^3/uL (0.83-4.51); Absolute Neutrophil Count 4.4 X10^3/uL (2.0-7.7); Basophil# 0.04 X10^3/uL; Basophil% 0.6 % (0-1); Eosinophil# 0.18 X10^3/uL; Eosinophils% 2.5 % (0-5); Hematocrit 44.2 % (37-47); Hemoglobin 13.6 g/dL (12.0-15.0); Lymphocyte # 2.02 X10^3/ul (0.83-4.51); Lymphocyte % 28.3 % (19-41); Mean Corp Hgb Conc 30.8 g/dL (32-36); Mean Corpuscular Volume 91.1 fL (81-99); Mean Platelet Vol. 9.1 fl (6.2-12.0); Monocyte# 0.45 X10^3/uL; Monocyte% 6.3 % (0-10); NRBC Flagged by Analyzer 0 % (0-5); Neutrophil # 4.44 X10^3/uL (2.7-7.7); Platelet Count 319 K/mm3 (150-450); RBC Distribution Width CV 14.2 % (11.6-14.6); Red Blood Count 4.85 M/mm3 (4.2-5.4); White Blood Count 7.2 K/mm3 (4.4-11.0)
[2023-03-19 17:57] LABS: Erythrocyte Sedimentation Rate 53 mm/hr (0-30); Smudge Cells 7.2
[2023-03-19 18:09] LABS: ALB/GLOB Ratio 0.9 RATIO (0.9-2.4); AST(SGOT) 19 U/L (15-37); Alanine Aminotransfer ALT/SGPT 25 U/L (13-56); Albumin, Serum 3.5 g/dL (3.2-5.0); Alkaline Phosphatase 108 U/L (45-117); Anion Gap 7 (5-15); BUN 12 mg/dL (7-18); BUN/Creat Ratio 14.2 RATIO (10-20); Calcium,Total 9.4 mg/dL (8.5-10.1); Chloride 106 mmol/L (98-107); Creatinine, Serum 0.84 mg/dL (0.55-1.02); EST Glomerular Filtration Rate 75 mL/min (>60); Est Glom Filt Rate - Afr Amer 91 mL/min (>60); Globulin 4.1 g/dL (2.2-4.2); Glucose 91 mg/dL (74-106); Protein, Total 7.6 g/dL (6.4-8.2); Sodium Level 139 mmol/L (136-145); Thyroid Stim Hormone (TSH) 1.26 uIU/mL (0.358-3.74)
== END | disposition home or self-care (01) ==
LOC: MTLAB 16:06
PROVIDERS: PCP Family Medicine; Visit Provider Family Medicine
DX: R42 Dizziness and giddiness (principal)
CPT/HCPCS: 36415; 80053; 84443; 85025; 85652

== ENCOUNTER → 2023-07-04 | Outpatient (CLI) | payer BC, SELFPAY ==
[2023-07-04 13:36] LABS: Hemoglobin A1c 5.5 % (3.8-5.6)
== END | disposition home or self-care (01) ==
LOC: LAB 09:47
PROVIDERS: PCP Family Medicine; Referring Provider Family Medicine; Visit Provider Family Medicine
DX: R73.09 Other abnormal glucose (principal)
CPT/HCPCS: 36415; 83036

== ENCOUNTER → 2023-07-11 | Outpatient (CLI) | payer BC, SELFPAY ==
[2023-07-11 11:57] LABS: Amphetamine Urine VISTA NEGATIVE (<1000 ng/mL); Barbiturate Urine VISTA NEGATIVE (< 200 ng/mL); Benzodiazepine Urine VISTA NEGATIVE (< 200 ng/mL); Cocaine Urine VISTA NEGATIVE (< 300 ng/mL); Ecstacy Urine VISTA NEGATIVE (< 500 ng/mL); Methadone Urine VISTA NEGATIVE (< 300 ng/mL); PCP Urine VISTA NEGATIVE (< 25 ng/mL); THC Urine VISTA NEGATIVE (< 50 ng/mL); Vista UDS pH Range 5
== END | disposition home or self-care (01) ==
LOC: LAB 10:45
PROVIDERS: PCP Family Medicine; Referring Provider Family Medicine; Visit Provider Family Medicine
DX: Z01.84 Encounter for antibody response examination (principal)
CPT/HCPCS: 80307

== ENCOUNTER → 2023-07-29 | Outpatient (CLI) | payer BC, SELFPAY ==
--- NOTE | 2023-07-29 12:40 | RAD_ITS ---
STUDY: X-RAY CHEST REASON FOR EXAM: Female, 53 years old. Influenza. TECHNIQUE: Frontal and lateral views of the chest. COMPARISON: February 13, 2022 FINDINGS: The lungs are clear and expanded. There is no demonstrated pleural abnormality. Normal size heart. Normal mediastinum and ronni. Normal visualized pulmonary arteries. Normal visualized aortic arch and descending thoracic aorta. Stable mild thoracic spondylosis. Normal visualized ribs, clavicles, and shoulders. No abnormality of the visualized soft tissue structures of the upper abdomen. RAD/Chest PA and Lateral IMPRESSION: No interval change and no acute or active cardiopulmonary disease. Electronically Signed: Manish Holder MD at 14:01 EST ,
== END | disposition home or self-care (01) ==
LOC: MTRAD 12:37
PROVIDERS: PCP Family Medicine; Referring Provider Family Medicine; Visit Provider Family Medicine
DX: J10.1 Influenza due to other identified influenza virus with other respiratory manifestations (principal)
CPT/HCPCS: 71046

== ENCOUNTER 2023-09-02 09:19 | Emergency (ER) | payer BC, SELFPAY ==
[2023-09-02 09:20] VITALS: BP 143/84; PULSE 85; RESP 18; TEMP 36.6; O2SAT 100
--- NOTE | 2023-09-02 10:40 | RAD_ITS ---
STUDY: X-RAY - RIGHT KNEE REASON FOR EXAM: Female, 53 years old. Pain following a fall. TECHNIQUE: 4 view(s) of the knee. COMPARISON: None. FINDINGS: Normal visualized distal femur. Normal visualized proximal tibia and fibula. Normal proximal tibiofibular articulation. Normal medial femorotibial compartment. Normal lateral femorotibial compartment. Normal patellofemoral articulation. The soft tissue structures are unremarkable. RAD/Knee 4 or More Views IMPRESSION: Normal x-ray examination of the knee. Electronically Signed: Rocael Beyer MD at 11:10 EST ,
[2023-09-02 12:26] VITALS: BP 128/90; PULSE 75; RESP 14; O2SAT 100
--- NOTE | 2023-09-02 12:49 | ED.VIS.LOWEX ---
HPI History of Present Illness Chief Complaint: Lower Extremity Injury Detail of Chief Complaint: Right knee injury Narrative Narrative: Patient presents to the emergency department with complaint of right knee injury. Patient states that she fell on uneven surface leading to her garage last evening around 6:30 PM. Patient able to bear some weight afterwards but painful. She describes a sensation of feeling like her knee needs to pop. She denies head injury or other injuries. She is not on anticoagulation. PFSH [facility], [facility] Medical History Acid reflux Allergies Anemia Anxiety Back problem Depression Diverticulitis Fibromyalgia MALCOLM (generalized anxiety disorder) Globus sensation H/O emotional problems History of esophageal dilatation Insomnia MDD (major depressive disorder) Migraines Obesity, Class III, BMI 40-49.9 (morbid obesity) PTSD (post-traumatic stress disorder) Home Medications Cholecalciferol (Vitamin D3) [Vitamin D3] 50,000 unit PO QWEEK 09/20/20 [History Last Taken 10/28/20] multivitamin with minerals 1 each PO DAILY 10/31/20 [History Last Taken 10/30/20] rimegepant 75 mg disintegrating tablet (Nurtec ODT) 75 mg PO ONCE PRN 01/05/23 [History Last Taken Unknown] fluticasone propionate 50 mcg/actuation nasal spray,suspension intranasal 04/29/23 [History Last Taken Unknown] doxepin 10 mg capsule 10 mg PO QHS #30 caps 09/01/23 [Rx Last Taken Unknown] duloxetine 30 mg capsule,delayed release 30 mg PO DAILY 90 days #90 caps 09/01/23 [Rx Last Taken Unknown] duloxetine 60 mg capsule,delayed release 60 mg PO DAILY #90 caps 09/01/23 [Rx Last Taken Unknown] hydrocodone-acetaminophen 5-325mg 5mg-325mg 1 tab PO Q4H PRN PRN Pain 2 days #10 TABLETS 09/02/23 [Rx Last Taken Unknown] Allergy/AdvReac Type Severity Reaction Status Date / Time morphine AdvReac blood Verified 09/02/23 12:19 pressure drops Family History Father Heart disease Alcoholism Mother Osteoporosis Cancer Skin Thyroid disorder COPD (chronic obstructive pulmonary disease) Grandmother Breast cancer Colon cancer Other Suicide attempt Surgical History History of History of esophagogastroduodenoscopy (EGD) Hx of cholecystectomy Hx of colonoscopy Hx of hysterectomy Hx of unilateral oophorectomy S/P colectomy Social History Smoking Status: Never smoker second hand exposure: No alcohol intake: current alcohol intake frequency: holidays/special occasions only substance use type: does not use caffeine: Yes what type of physical activity do you participate in: none frequency: does not exercise ROS ROS ED Review of Systems ROS Unobtainable: other Constitutional Constitutional ED: Reports lethargy; Denies chills, fever(s), sweats or weight loss Eyes Eyes: Denies blurry vision, change in vision or diplopia ENT ENT ED: Denies rhinorrhea or sore throat Cardiovascular Cardiovascular: Denies chest pain, orthopnea or racing heartbeat Respiratory/Chest Respiratory/Chest: Denies cough, dyspnea, dyspnea on exertion, orthopnea or sputum Gastrointestinal Gastrointestinal: Denies abdominal pain, diarrhea, nausea or vomiting Genitourinary Genitourinary ED: Denies dysuria, hematuria or urinary frequency Musculoskeletal Musculoskeletal: Reports other Details: Right knee injury/pain ; Denies arthralgias, back pain, myalgias or neck pain Integumentary Denies abscess, Abrasions or rash Neurologic Neurologic: Denies headache(s) or weakness Psychiatric Psychiatric: Denies anxiety, depression or suicidal thoughts Endocrine Endocrinology: Denies polydipsia, polyphagia or polyuria Hematologic/Lymphatic Hematologic/Lymphatic: Denies easy bleeding, easy bruising or lymphadenopathy Allergic/Immunologic Allergic/Immunologic ED: Denies mouth swelling, tongue swelling or urticaria EXAM Physical Exam Const Vital Signs: 09/02/23 09:20 09/02/23 12:26 Temperature 98 F Temperature Source Temporal Pulse Rate 85 75 Respiratory Rate 18 14 Blood Pressure 143/84 H 128/90 H Blood Pressure Mean 103 102 Pulse Ox 100 100 Oxygen Delivery Method Room Air Room Air Positive well nourished and well developed General Appearance ED: well developed and NAD HEENT Reports TM's clear and moist mucous membranes normocephalic and atraumatic; Negative for trauma or tenderness Tympanic Membrane ED: Yes TM's clear Eyes PERRL and EOMs intact bilaterally General Eye ED: Negative for pale conjunctiva or scleral icterus Neck no lymphadenopathy, supple and no JVD General: Negative for tenderness Chest Wall inspection of chest normal and palpation of chest normal Chest: Negative for tenderness Resp normal respiratory effort and clear to auscultation bilaterally Effort and Inspection: Negative for respiratory distress or pain with movement Auscultation: Negative for rhonchi, wheezes or diminished lung sounds Cardio regular rate, regular rhythm, S1 normal heart sound, S2 normal heart sound and no murmurs Peripheral Pulses: pulses 2+ throughout GI normal to inspection, nondistended, normoactive bowel sounds, soft to palpation, non-tender, non-distended and no masses Back/Spine no CVA tenderness and no thoracic nor lumbar tenderness Extremity Extremity Narrative: Right knee-no effusion noted. There is no significant swelling noted. She does have some tenderness palpation over the lateral joint line. She is able to completely extend the knee. Neurovascularly intact distally. No significant laxity noted with varus and valgus stress. Negative anterior and posterior drawer test. General Extremety ED: Negative for edema General Extremity: Negative for edema Neuro oriented x3, CN's II-XII intact bilaterally, no sensory deficits noted and gait normal Sensorium / Orientation: awake, alert, oriented to person, oriented to place and oriented to time Motor Exam: strength 5/5 throughout and strength abnormal Psych mental status grossly normal Skin no rashes or lesions noted and no wounds MDM MDM MDM Narrative Medical decision making narrative: Patient presents with right knee injury. X-rays of the knee obtained showed no fractures. Patient will be placed in a knee immobilizer and given crutches. Advised take ibuprofen or Tylenol for discomfort but will write for a few [place] for severe pain. She will be referred to orthopedics for follow-up and given work restrictions. Patient understands I cannot rule out meniscal or ligamentous injury with plain x-rays. After follow-up with orthopedics she may require further imaging such as possibly MRI to evaluate further if symptoms persist. Radiography Diagnostic Testing: Clinical Impression(s) from Imaging Studies Knee X-Ray 09/02/23 10:40 IMPRESSION: Normal x-ray examination of the knee. Electronically Signed: Roceal Beyer MD at 11:10 EST , 4 view x-rays of the right knee obtained interpreted by myself as no evidence of fracture or dislocation. Radiology in agreement. Discharge Plan Triage Chief Complaint: Lower Extremity Injury ED Provider: Jennie Mcconnell Dx/Rx/DC Orders Clinical Impression: Right knee sprain Instructions: ED Knee Sprain Prescriptions: New hydrocodone-acetaminophen [hydrocodone-acetaminophen] 5-325 mg tablet 1 tab PO Q4H PRN PRN (Reason: Pain) 2 Days Qty: 10 0RF No Action Nurtec ODT 75 mg tablet,disintegrating 75 mg PO ONCE PRN Rx Instructions: as a single dose fluticasone propionate 50 mcg/actuation spray,suspension intranasal duloxetine 60 mg capsule,delayed release(DR/EC) 60 mg PO DAILY Qty: 90 1RF duloxetine 30 mg capsule,delayed release(DR/EC) 30 mg PO DAILY 90 Days Qty: 90 1RF Rx Instructions: To be taken with 60 mg capsule for total daily dose of 90 mg doxepin 10 mg capsule 10 mg PO QHS Qty: 30 2RF Cholecalciferol (Vitamin D3) [Vitamin D3] 5,000 UNIT capsule 50,000 unit PO QWEEK multivitamin with minerals 1 EACH tablet 1 each PO DAILY Primary Care Provider: Luis Manuel Sesay Referrals: Luis Manuel Sesay MD [Primary Care Provider] - Haider Medina MD [Med Staff - Active Staff] - 3-5 Days Disposition Disposition: Home, Self Care Discharge Date/Time: 09/02/23 13:36
--- OUTSIDE RECORDS SUMMARY | 2023-09-02 13:53 | XMS RPT_ITS | CCD ---
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 Name Role Phone BYRON Mendiola, KELLY Caicedo Unavailable Unavail able BYRON Mendiola, KELLY Caicedo Unavailable Unavail able BYRON Mendiola, KELLY Caicedo Unavailable Unavail able AMBAR PAULA Admitting Unavailable AMBAR PAULA Attending Unavailable BRIGHT, RISHIN Annie Primary Care Unavailable BRIGHTIKE GUTIERREZHIN Annie Admitting Unavailable DREAD BRIGHTN Annie Attending Unavailable BRIGHT, RISHIN C Primary Care Unavailable KATHARINA, AMILCAR C Admitting Unavailable KATHARINA, AMILCAR C Attending Unavailable BRIGHT, RISHIN C Primary Care Unavailable NELY NASSAR Admitting Unavailable NELY NASSAR Attending Unavailable BRIGHT, RISHIN C Primary Care Unavailable HAILEY HUNTLEY Admitting Unavailable HAILEY HUNTLEY Attending Unavailable AA NO PCP, NO PCP Primary Care Unavailable BRIGHT, RISHIN C Primary Care Unavailable SALENA DUVALL Admitting Unavailable SALENA DUVALL Attending Unavailable IVAN ARGUELLO Admitting Unavailable IVAN ARGUELLO Attending Unavailable JABIER RISHIN C Primary Care Unavailable JENIFER HARDIN Consulting UnavailMARCELINA Grigsby Consulting Unavailabl e IVAN ARGUELLO Admitting Unavailable IVAN ARGUELLO Attending Unavailable JABIER RISFEROZN Annie Primary Care Unavailable Ayo Bright MD Primary Care Provider [phone] Ayo Bright MD Primary Care Provider [phone] Amilcar Nogueira Unavailable Tomi Wall MD Unavailable [phone] El BECKER, Parth Dorsey Allergies Allergy Classification Reported Allergen(s) Allergy Type Date of Onset Reaction(s) Facility (1 source) Amoxicillin / Clavulanate Drug Allergy [facility] (1 source) Morphine Drug Allergy [facility] (2 sources) Morphine Drug Allergy 8 Other: See Comments [facility] (2 sources) Amoxicillin-Pot Clavulanate Propensity to adverse reactions to drug 5 Diarrhea [facility] Medications Current Medications Medication Drug Class(es) Dates Sig (Normalized) Sig (Original) aspirin 81 mg chewable tablet (2 sources) Platelet Aggregation Inhibitor, Nonsteroidal Anti-inflammatory Drug Start: 09-10-2017 take 1 tablet by mouth once daily aspirin 81 MG chewable tablet Take 1 tablet by mouth daily 30 tablet 3 09/10/2017 Active Completed/Discontinued Medications Medication Drug Class(es) Dates Sig (Normalized) Sig (Original) atorvastatin 40 mg oral tablet (1 source) HMG-CoA Reductase Inhibitor take 1 tablet by mouth once daily atorvastatin (LIPITOR) 40 mg tablet Take 40 mg by mouth once daily. 0 Active Problems Active Problems Problem Classification Problem Date Documented Da te Episodic/Chronic Allergic reactions (2 sources) Allergy status to penicillin; Translations: [Allergy status to other antibiotic agents status] Onset: 0 Episodic Anxiety disorders (3 sources) Anxiety disorder, unspecified; Translations: [Anxiety] Onset: 8 07-19-2018 Chronic Cardiac dysrhythmias (1 source) Supraventricular tachycardia; Translations: [Supraventricular tachycardia] 10-24-2019 Chronic Cardiac dysrhythmias (5 sources) Tachycardia, unspecified; Translations: [Palpitations] Onset: 9 04-20-2019 Episodic Diverticulosis and diverticulitis (1 source) Diverticulosis of large intestine without perforation or abscess without bleeding; Translations: [DVRTCLOS LG INT NO PERF/ABSC W/O BL] Onset: 0 Chronic Esophageal disorders (1 source) Gastro-esophageal reflux disease without esophagitis; Translations: [GERD WITHOUT ESOPHAGITIS] Onset: 0 Chronic External cause codes: Natural/environment (1 source) Exposure to other specified factors, initial encounter; Translations: [EXPOSURE OTHER SPEC FACTORS INITIAL] Onset: 0 Fever of unknown origin (1 source) Fever, unspecified; Translations: [FEVER UNSPECIFIED] Onset: 0 Episodic Headache; including migraine (2 sources) Migraine without aura, not intractable, without status migrainosus; Translations: [MIGRAINE W/O AURA NOT INTRCT W/O SE] Onset: 0 Chronic Hemorrhoids (1 source) First degree hemorrhoids; Translations: [FIRST DEGREE HEMORRHOIDS] Onset: 0 Episodic Immunizations and screening for infectious disease (4 sources) Contact with and (suspected) exposure to other viral communicable diseases; Translations: [Encounter for screening for other viral diseases] Onset: 0 Episodic Malaise and fatigue (1 source) Other malaise; Translations: [OTHER MALAISE] Onset: 0 Episodic Mood disorders (2 sources) Depressive disorder; Translations: [Depression] Onset: 6 07-19-2018 Chronic Mood disorders (1 source) Major depressive disorder, single episode, unspecified; Translations: [PAVITHRA DEPRESS D/O SINGLE EPIS UNS] Onset: 0 Nutritional deficiencies (1 source) Vitamin D deficiency, unspecified; Translations: [VITAMIN D DEFICIENCY UNSPECIFIED] Onset: 0 Chronic Other acquired deformities (1 source) Scoliosis, unspecified; Translations: [SCOLIOSIS UNSPECIFIED] Onset: 0 Chronic Other aftercare (1 source) alf (current) use of aspirin; Translations: [CUSTODIAL CURRENT USE OF ASPIRIN] Onset: 0 Episodic Other aftercare (1 source) 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; Translations: [OTH GOLF SUPERINTENDENT CURRENT DRUG THERAPY] Onset: 0 Episodic Other circulatory disease (1 source) Personal history of transient ischemic attack (TIA), and cerebral infarction without residual deficits; Translations: [PERS HX TIA AND CI NO RESID DEFICIT] Onset: 0 Episodic Other connective tissue disease (1 source) Fibromyalgia; Translations: [FIBROMYALGIA] Onset: 0 Episodic Other connective tissue disease (1 source) Pain in left foot; Translations: [PAIN IN LEFT FOOT] Onset: 0 Episodic Other gastrointestinal disorders (1 source) Irritable bowel syndrome without diarrhea; Translations: [IRRITABLE BOWEL SYND W/O DIARRHEA] Onset: 0 Chronic Other gastrointestinal disorders (1 source) Dysphagia, unspecified; Translations: [DYSPHAGIA UNSPECIFIED] Onset: 0 Episodic Other hereditary and degenerative nervous system conditions (2 sources) Restless legs; Translations: [Restless legs syndrome] Onset: 6 10-15-2015 Chronic Other liver diseases (3 sources) Fatty (change of) liver, not elsewhere classified; Translations: [FATTY CHANGE LIVER NEC] Onset: 9 Chronic Other nervous system disorders (1 source) Polyneuropathy, unspecified; Translations: [POLYNEUROPATHY UNSPECIFIED] Onset: 0 Chronic Other nutritional; endocrine; and metabolic disorders (1 source) Body mass index 40+ - severely obese; Translations: [Morbid (severe) obesity due to excess calories] Onset: 9 04-20-2019 Chronic Residual codes; unclassified (2 sources) Family history of malignant neoplasm of digestive organs; Translations: [FAM HX MALIG NEOPLASM DIGESTIV ORGN] Onset: 0 Episodic Superficial injury; contusion (1 source) Contusion of left foot, initial encounter; Translations: [CONTUSION LEFT FOOT INITIAL ENC] Onset: 0 Episodic Syncope (1 source) Syncope; Translations: [Syncope and collapse] 04-20-2019 Episodic Unclassified (3 sources) Encounter for screening mammogram for malignant neoplasm of breast; Translations: [Encounter for screening for malignant neoplasm of colon] Onset: 7 Episodic Past or Other Problems Problem Classification Problem Date Documented Date Episodic/Chronic Blindness and vision defects (1 source) Other visual disturbances; Translations: [OTHER VISUAL DISTURBANCES] Onset: 09-20-2019 Episodic Nonspecific chest pain (1 source) Other chest pain; Translations: [OTHER CHEST PAIN] Onset: 03-30-2019 Episodic Other circulatory disease (1 source) History of cerebrovascular disease; Translations: [Personal history of transient ischemic attack (TIA), and cerebral infarction without residual deficits] Onset: 10-24-2019 10-24-2019 Episodic Other connective tissue disease (2 sources) Fibromyalgia; Translations: [Fibromyalgia] Onset: 10-15-2015 10-15-2015 Episodic Other nervous system disorders (1 source) Other disturbances of skin sensation; Translations: [OTHER DISTURBANCES SKIN SENSATION] Onset: 09-20-2019 Episodic Other nervous system disorders (1 source) Numbness of face Onset: 09-09-2017 09-09-2017 Episodic Other nervous system disorders (1 source) Facial paresthesia Onset: 07-19-2018 07-20-2018 Episodic Residual codes; unclassified (1 source) History of laparoscopy Onset: 04-14-2018 04-14-2018 Episodic Skin and subcutaneous tissue infections (1 source) Paronychia of toe Episodic Transient cerebral ischemia (1 source) Transient cerebral ischemia Onset: 09-08-2017 Resolved: 09-09-2017 09-09-2017 Chronic Unclassified (2 sources) Family history of malignant neoplasm of breast; Translations: [Family history of malignant neoplasm of breast] Onset: 01-30-2017 Episodic Results Test Name Value Interpretation Reference Range Facil ity Vital Signs Date Time Vital Sign Value Performing Clinician Faci lity 07-12-2019 18:05-0500 Body mass index (BMI) [Ratio] 41.63 kg/m2 Ayo Bright MD Work Phone: [employer] Work Phone: 07-12-2019 18:05-0500 Body temperature 97.5 [degF] Ayo Bright MD Work Phone: [email or web address] Work Phone: 07-12-2019 18:05-0500 Body weight 106.59 kg Ayo Bright MD Work Phone: [email or web address] Work Phone: 07-12-2019 18:05-0500 Diastolic blood pressure 84 mm[Hg] Ayo Bright MD Work Phone: [email or web address] Work Phone: 07-12-2019 18:05-0500 Heart rate 99 /min Ayo Bright MD Work Phone: [email or web address] Work Phone: 07-12-2019 18:05-0500 Respiratory rate 20 /min Ayo Bright MD Work Phone: [employer] Work Phone: 07-12-2019 18:05-0500 SaO2% (BldA) [Mass fraction] 99 % Ayo Bright MD Work Phone: [facility] Work Phone: 07-12-2019 18:05-0500 Systolic blood pressure 130 mm[Hg] Ayo Bright MD Work Phone: [facility] Work Phone: Encounters Encounter Date Encounter Type Care Provider Facility Start: 01-06-2023 Telephone encounter [facility] Provider [facility] Plan of Treatment Date Care Activity Detail Author Start: 12-22-2028 DTaP/Tdap/Td vaccine (2 - Td) DTaP/Tdap/Td vaccine (2 - Td) [facility] Work Phone: Start: 12-22-2028 Urine microalbumin profile DTAP,TDAP,TD (2 - Td or Tdap) [facility] Start: 07-20-2023 Lipid screen Lipid screen [facility] Work Phone: Start: 04-03-2023 Influenza vaccination INFLUENZA (Season Ended) [facility] Start: 08-03-2022 DEPRESSION ASSESSMENT DEPRESSION ASSESSMENT [facility] Start: 07-20-2021 Diabetes screen Diabetes screen [facility] Start: 2021 SHINGRIX VACCINE (1 of 2) SHINGRIX VACCINE (1 of 2) [facility] Start: 12-16-2019 Cervical cancer screen Cervical cancer screen [facility] Work Phone: Start: 04-03-2019 Influenza vaccination Flu vaccine (#1) [facility] Work Phone: Start: 2016 COLOGUARD (FIT-DNA) COLOGUARD (FIT-DNA) [facility] Start: 2016 Colonoscopy COLONOSCOPY [facility] Start: 2016 COLORECTAL CANCER SCREENING COLORECTAL CANCER SCREENING [facility] Start: [address] COLONOGRAPHY [facility] Start: 2016 FECAL OCCULT BLOOD FECAL OCCULT BLOOD [facility] Start: 2016 LIPID SCREEN LIPID SCREEN [facility] Start: 2016 SIGMOIDOSCOPY SIGMOIDOSCOPY [facility] Start: 2011 Mammography MAMMOGRAM [facility] Start: 2001 HPV TESTING HPV TESTING [facility] Start: 1992 PAP TESTING PAP TESTING [facility] Start: 1989 HEPATITIS C SCREENING HEPATITIS C SCREENING [facility] Start: 1989 HIV SCREENING HIV SCREENING [facility] Start: 1986 HIV screen HIV screen [facility] Work Phone: Start: 1970 COVID-19 VACCINE (#1) COVID-19 VACCINE (#1) [facility] Start: 1970 HEPATITIS B (1 of 3 - 3-dose series) HEPATITIS B (1 of 3 - 3-dose series) [facility] Immunizations Immunization Date Immunization Notes Care Provider Fa cili 05-16-2019 influenza, injectabl e, quadrivalent, preservative free [facility] Work Phone: 12-22-2018 tetanus toxoid, redu eliecer diphtheria toxoid, and acellular pertussis vaccine, adsorbed [facility] Provider [facility] Work Phone: 07-21-2018 influenza, injectabl e, quadrivalent, preservative free [facility] Work Phone: 07-21-2018 Influenza, Quadv, 6 mo and older, IM, PF (Flulaval, Fluarix) Ayo Bright MD Work Phone: [facility] Work Phone: 07-21-2018 influenza, seasonal, injectable [facility] Work Phone: 06-11-2017 influenza, injectabl e, quadrivalent, preservative free [facility] Work Phone: 05-25-2017 Influenza, injectabl e, Madin Lela Canine Kidney, preservative free, quadrivalent [facility] Work Phone: 09-06-2016 Influenza Vaccine, unspecified formulation Ayo Bright MD Work Phone: [facility] Work Phone: 09-06-2016 influenza, seasonal, injectable [facility] Work Phone: 09-05-2016 influenza, seasonal, injectable, preservative free [facility] Work Phone: 05-16-2015 influenza virus vaccine, unspecified formulation Ayo Bright MD Work Phone: [facility] Work Phone: 05-16-2015 influenza virus vaccine, whole virus [facility] Work Phone: 10-23-2006 measles, mumps and rubella virus vaccine [facility] Work Phone: Payers Date Payer Category Payer Unknown 2018 Unknown BCBS [place] P PO xxxxxxxxxxxxxxx 2018-Present [address] [place] [address] xxxxxxxxxxxxxxx [id number] 1970 Unknown [id number] 1971 Unknown [id number] 1971 Unknown [id number] 1971 Unknown [id number] 1971 Unknown [id number] 1971 Unknown [id number] 1971 Unknown [id number] 1971 Unknown [id number] 1959 Unknown [id number] 1958 Unknown [id number] Social History Date Type Detail Facility Start: 09-07-2017 End: 07-12-2019 Tobacco smoking status NHIS Never smoker [facility] Work Phone: Start: 07-12-2019 End: 10-26-2019 Alcohol intake Current drinker of alcohol (finding) [facility] Work Phone: Start: 04-13-2018 Alcohol Comment rarely [facility] Work Phone: Start: 1970 Sex Assigned At Not on file S [facility] Work Phone: Start: 09-07-2017 Tobacco use and exposure Smokeless tobacco non-user [facility] Work Phone: Start: 10-26-2019 History SDOH Alcohol Frequency 2 [facility] Start: 10-26-2019 History SDOH Alcohol Std Drinks 1 [facility] Start: 03-09-2019 Alcohol Comment occasional [facility] Note 01-06-2023 Telephone Encounter - Zee Faria - 01/06/2023 2:36 PM EDT Note Date & Type Note Facility 01-06-2023 Miscellaneous Notes Formattin g of this note might be different from the original. Fax PCP ref call into the program, LVM documented in this encounter [facility] Discharge instructions 07-12-2019 InstructionsAttachments Note Date & Type Note Facility 07-12-2019 Hospital Discharg e instructions Maikel Tucker PA-C - 07/12/2019 Follow-up with your doctor in 1 week as needed. 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 Sex: female Acct: [id number] Code Status Full Admit Date: 07/19/2018 Discharge date: 07/21/2018 Service, Admitting Physician: [facility] Teaching Service, Dr. Bright Admission Diagnoses: Numbness and tingling of left side of face [R20.0, R20.2] Initial H&P: The patient is a 48 y.o. female w/PMHx of TIA (2018), Migraines, and HTN presents to the ED with left-sided facial numbness and arm heaviness. Patient reports she was sitting at her table this afternoon when she started to feel heaviness in her shoulders and arms bilaterally. Denies any numbness, tingling, or weakness. Also started noting left lower facial tingling that extended from her ear lobe to her chin and stopped at the midline of her face. Noted increased salivation at this time. Denies difficulty speaking, swallowing or breathing. Denies any other weakness, numbness or tingling in (more content not included)... Additional Source Comments INFORMATION SOURCE (unrecogn ized section and content) DATE CREATED AUTHOR AUTHOR'S ORGANIZ ATION 01/27/2018 [facility] DATE CREATED AUTHOR AUTHOR'S ORGANIZ ATION 07/13/2019 [facility] DATE CREATED AUTHOR AUTHOR'S ORGANIZ ATION 02/29/2020 [facility] DATE CREATED AUTHOR AUTHOR'S ORGANIZ ATION 01/11/2023 [facility] Reason for Visit (unrecogniz ed section and content) Reason Comments External Referrals/resources Fax Referra l Call Source Comments (unrecognize d section and content) In the event this informatio n is protected by the Federal Confidentiality of Alcohol and Drug Abuse Patient Records regulations: The Federal rules restrict any use of the information to criminally investigate or prosecute any alcohol or drug abuse patient.[facility] Care Teams (unrecognized sec tion and content) FOR RECORDS PERTAINING TO PATIENTS WHO ARE OR HAVE BEEN ENROLLED IN A CHEMICAL DEPENDENCY/SUBSTANCEABUSE PROGRAM, SOME INFORMATION MAY BE OMITTED. This clinical summary was aggregated from multiple sources. Caution should be exercised in using it in the provision of clinical care. This summary normalizes information from multiple sources, and as a consequence, information in this document may materially change the coding, format and clinical context of patient data. In addition, data may be omitted in some cases. CLINICAL DECISIONS SHOULD BE BASED ON THE PRIMARY CLINICAL RECORDS. [facility]. provides no warranty or guarantee of the accuracy or completeness of information in this document.
== END 2023-09-02 13:36 | disposition home or self-care (01) ==
PROVIDERS: Emergency Provider Emergency Medicine; PCP Family Medicine; Visit Provider Emergency Medicine
DX: S83.91XA Sprain of unspecified site of right knee, initial encounter (principal); W18.39XA Other fall on same level, initial encounter; Y92.59 Other trade areas as the place of occurrence of the external cause; G43.909 Migraine, unspecified, not intractable, without status migrainosus; F32.A Depression, unspecified; F41.9 Anxiety disorder, unspecified; Z79.899 Other long term (current) drug therapy; Z90.710 Acquired absence of both cervix and uterus; Z90.49 Acquired absence of other specified parts of digestive tract; Z90.721 Acquired absence of ovaries, unilateral
CPT/HCPCS: 73564; 99283

== ENCOUNTER 2023-10-14 20:50 | Emergency (ER) | payer BC, SELFPAY ==
[2023-10-14 20:52] VITALS: BP 135/98; PULSE 134; RESP 18; TEMP 39.3; O2SAT 100; BMI 45.0
--- NOTE | 2023-10-14 21:49 | CT_ITS ---
EXAM: CT ABDOMEN AND PELVIS WITH INTRAVENOUS CONTRAST CLINICAL INDICATION: abd pain, fever TECHNIQUE: Helically acquired images were obtained of the abdomen and pelvis with intravenous contrast. This CT exam was performed using one or more of the following dose reduction techniques: automated exposure control, adjustment of the mA and/or kV according to patient size, and/or use of iterative reconstruction technique. CONTRAST: IV 100mL Isovue-370 RADIATION DOSE: CTDIvol = 16.88 mGy, DLP = 1214.14 mGy-cm COMPARISON: 10/22/2020. FINDINGS: LOWER THORAX: Small hiatal hernia. Lung bases are clear. No cardiomegaly. No significant pericardial effusion. ABDOMEN: LIVER: There is diffuse low-attenuation of the liver. GALLBLADDER AND BILE DUCTS: Cholecystectomy. No intra- or extrahepatic biliary ductal dilation. PANCREAS: Unremarkable. No focal cystic or solid mass. SPLEEN: Unremarkable. Normal size without focal cystic or solid mass. ADRENALS: Unremarkable. No nodules. KIDNEYS AND URETERS: Small cortical calcification right kidney. Normal renal size and position. No hydronephrosis. STOMACH AND BOWEL: Scattered diverticula without diverticulitis. Status post partial sigmoidectomy. No stomach or bowel distention. PELVIS: APPENDIX: Normal appendix. BLADDER: Unremarkable. REPRODUCTIVE: Hysterectomy. ABDOMEN and PELVIS: INTRAPERITONEAL SPACE: Unremarkable. No ascites or other fluid collection. No free air. BONES/JOINTS: Unremarkable. No suspicious lytic or blastic abnormality. SOFT TISSUES: Unremarkable. No discrete abdominal or pelvic wall hernia. VASCULATURE: Unremarkable. Abdominal aorta is non-dilated. LYMPH NODES: Unremarkable. No enlarged lymph nodes. CT/Abdomen/Pelvis W IV Cont ONLY IMPRESSION: 1. Fatty liver. 2. Cholecystectomy. 3. Scattered diverticula without diverticulitis. 4. Hysterectomy. 5. Status post partial sigmoidectomy. 6. No acute abdominal pelvic abnormality. 7. Small hiatal hernia. Electronically Signed: Tomi Perez MD at 23:03 EDT ,
[2023-10-14] MEDS: fentaNYL 100 MCG/2 ML Ampul 50 MCG IV (21:57)
[2023-10-14] MEDS: Ketorolac 15 MG/ML Vial IV (21:57)
[2023-10-14] MEDS: 0.9% Normal Saline (1000mL) 1,000 ML 1000 ML IV (21:57)
[2023-10-14] MEDS: Ondansetron 4 MG/2 ML Vial IV (21:57)
[2023-10-14 22:01] LABS: Absolute Lymphocyte Count 0.76 X10^3/uL (0.83-4.51); Absolute Neutrophil Count 5.5 X10^3/uL (2.0-7.7); Basophil# 0.02 X10^3/uL; Basophil% 0.3 % (0-1); Eosinophil# 0.03 X10^3/uL; Eosinophils% 0.5 % (0-5); Hematocrit 40.6 % (37-47); Hemoglobin 13.4 g/dL (12.0-15.0); Lymphocyte # 0.76 X10^3/ul (0.83-4.51); Lymphocyte % 11.5 % (19-41); Mean Corpuscular Hgb 28.5 pg (27.0-32.0); Mean Corpuscular Volume 86.2 fL (81-99); Mean Platelet Vol. 9.3 fl (6.2-12.0); Monocyte# 0.33 X10^3/uL; NRBC Flagged by Analyzer 0 % (0-5); Neutrophil # 5.47 X10^3/uL (2.7-7.7); Neutrophil % 82.4 % (47-70); Platelet Count 322 K/mm3 (150-450); RBC Distribution Width CV 14.3 % (11.6-14.6); RBC Distribution Width SD 45.3 fl (35.1-43.9); Red Blood Count 4.71 M/mm3 (4.2-5.4); White Blood Count 6.6 K/mm3 (4.4-11.0)
[2023-10-14 22:19] LABS: AST(SGOT) 17 U/L (15-37); Alanine Aminotransfer ALT/SGPT 22 U/L (13-56); Albumin, Serum 3.7 g/dL (3.2-5.0); Alkaline Phosphatase 94 U/L (45-117); Anion Gap 8 (5-15); BUN 17 mg/dL (7-18); BUN/Creat Ratio 18.7 RATIO (10-20); Calcium,Total 8.9 mg/dL (8.5-10.1); Chloride 104 mmol/L (98-107); Creatinine, Serum 0.91 mg/dL (0.55-1.02); EST Glomerular Filtration Rate 69 mL/min (>60); Est Glom Filt Rate - Afr Amer 84 mL/min (>60); Estimated Creatinine Clearance 88.55 ml/min; Globulin 3.7 g/dL (2.2-4.2); Glucose 111 mg/dL (74-106); Potassium 3.8 mmol/L (3.5-5.1); Protein, Total 7.4 g/dL (6.4-8.2); Sodium Level 138 mmol/L (136-145)
[2023-10-14 22:24] LABS: Lactic Acid 1.3 mmol/L (0.4-1.9)
[2023-10-14 22:50] VITALS: BP 98/44; PULSE 91; RESP 16; TEMP 37.3
[2023-10-14 23:12] LABS: Color, Urine Yellow (Yellow); Glucose, Dipstick Normal (Normal); Ketone-Dipstick Negative (Negative); Leukocyte Esterase-Dipstick 25 /ul (Negative); Nitrite-Dipstick Negative (Negative); Occult Blood-Urine 10 /ul (Negative); Protein-Dipstick 30 mg/dl (Negative); Urine Bilirubin Dipstick Negative (Negative); Urine Clarity Sl. Cloudy (Clear); Urine Urobilinogen 1 mg/dl (Normal)
[2023-10-14 23:13] LABS: Bacteria 0 SEEN /hpf (None Seen); Mucous, Urine 0 SEEN /hpf (<or=2+); Red Blood Cells-Urine 0 SEEN /hpf (0-5)
[2023-10-14 23:24] LABS: White Blood Cells 0-5 SEEN /hpf (0-5)
[2023-10-14 23:25] LABS: Squamous Epithelial Cells - UA 5-10 SEEN /hpf (5-10)
--- OUTSIDE RECORDS SUMMARY | 2023-10-14 23:28 | XMS RPT_ITS | CCD ---
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 Name Role Phone BYRON Mendiola, KELLY Caicedo Unavailable Unavail able BYORN Mendiola, KELLY Caicedo Unavailable Unavail able BYRON [...] ARGUELLO Admitting Unavailable IVAN ARGUELLO Attending Unavailable AJBIER RISHIN C Primary Care Unavailable JENIFER HARDIN Consulting UnavailMARCELINA Grigsby Consulting Unavailabl e IVAN ARGUELLO Admitting Unavailable IVAN ARGUELLO Attending Unavailable JABIER RISFEROZN Annie Primary Care Unavailable Ayo Bright MD Primary Care Provider Ayo Bright MD Primary Care Provider [phone] Amilcar Nogueira Unavailable [phone] Tomi Wall MD Unavailable El BECKER, Parth Dorsey [phone] Allergies Allergy Classification Reported Allergen(s) Allergy Type Date of Onset Reaction(s) Facility (1 source) Amoxicillin / Clavulanate Drug Allergy [facility] Repository (1 source) Morphine Drug Allergy [facility] Repository (2 sources) Morphine Drug Allergy 8 [...] Onset: 0 Chronic Other aftercare (1 source) 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; Translations: [[facility] CURRENT USE OF ASPIRIN] Onset: 0 Episodic Other aftercare (1 source) Other shelter (current) drug therapy; Translations: [OTH [facility] CURRENT DRUG THERAPY] Onset: 0 Episodic Other [...] 41.63 kg/m2 Ayo Bright MD Work Phone: [employer] Work Phone: 07-12-2019 18:05-0500 Body temperature 97.5 [degF] Ayo Bright MD Work Phone: [employer] Work Phone: 07-12-2019 18:05-0500 Body weight 106.59 kg Ayo Bright MD Work Phone: [employer] Work Phone: 07-12-2019 18:05-0500 Diastolic blood pressure 84 mm[Hg] Ayo Bright MD Work Phone: [employer] Work Phone: 07-12-2019 18:05-0500 Heart rate 99 /min Ayo Bright MD Work Phone: [employer] Work Phone: 07-12-2019 18:05-0500 Respiratory rate 20 /min Ayo Bright MD Work Phone: [employer] Work Phone: 07-12-2019 18:05-0500 SaO2% (BldA) [Mass fraction] 99 % Ayo Bright MD Work Phone: [facility] Work Phone: 07-12-2019 18:05-0500 Systolic blood pressure 130 mm[Hg] Ayo Bright MD Work Phone: [facility] Work Phone: Encounters Encounter Date Encounter Type Care Provider Facility Start: 01-06-2023 Telephone encounter [facility] Provider [facility] Plan of Treatment Date Care Activity Detail Author Start: 12-22-2028 DTaP/Tdap/Td vaccine (2 - Td) DTaP/Tdap/Td vaccine (2 - Td) [facility] Work Phone: Start: 12-22-2028 Urine microalbumin profile DTAP,TDAP,TD (2 - Td or Tdap) [facility] Start: 07-20-2023 Lipid screen Lipid screen [facility] Work Phone: Start: 04-03-2023 Influenza vaccination INFLUENZA (Season Ended) [facility] Start: 08-03-2022 DEPRESSION ASSESSMENT DEPRESSION ASSESSMENT [facility] Start: 07-20-2021 Diabetes screen Diabetes screen [facility] Start: 2021 SHINGRIX VACCINE (1 of 2) SHINGRIX VACCINE (1 of 2) [facility] Start: 12-16-2019 Cervical cancer screen Cervical cancer screen [facility] Work Phone: Start: 04-03-2019 Influenza vaccination Flu vaccine (#1) [facility] Work Phone: Start: 2016 COLOGUARD (FIT-DNA) COLOGUARD (FIT-DNA) [facility] Start: 2016 Colonoscopy COLONOSCOPY [facility] Start: 2016 COLORECTAL CANCER SCREENING COLORECTAL CANCER SCREENING [facility] Start: [address] COLONOGRAPHY [facility] Start: 2016 FECAL OCCULT BLOOD FECAL OCCULT BLOOD [facility] Start: 2016 LIPID SCREEN LIPID SCREEN [facility] Start: 2016 SIGMOIDOSCOPY SIGMOIDOSCOPY [facility] Start: 2011 Mammography MAMMOGRAM [facility] Start: 2001 HPV TESTING HPV TESTING [facility] Start: 1992 PAP TESTING PAP TESTING [facility] Start: 1989 HEPATITIS C SCREENING HEPATITIS C SCREENING [facility] Start: 1989 HIV SCREENING HIV SCREENING [facility] Start: 1986 HIV screen HIV screen [facility] Work Phone: Start: 1970 COVID-19 VACCINE (#1) COVID-19 VACCINE (#1) [facility] Start: 1970 HEPATITIS B (1 of 3 - 3-dose series) HEPATITIS B (1 of 3 - 3-dose series) [facility] Immunizations Immunization Date Immunization Notes Care Provider Fa cili 05-16-2019 influenza, injectabl e, quadrivalent, preservative free [facility] Provider [facility] Work Phone: 12-22-2018 tetanus toxoid, redu eliecer diphtheria toxoid, and acellular pertussis vaccine, adsorbed [facility] Provider [facility] Work Phone: 07-21-2018 influenza, injectabl e, quadrivalent, preservative free [facility] Provider [facility] Work Phone: 07-21-2018 Influenza, Quadv, 6 mo and older, IM, PF (Flulaval, Fluarix) Ayo Bright MD Work Phone: [facility] Work Phone: 07-21-2018 influenza, seasonal, injectable [facility] Provider [facility] Work Phone: 06-11-2017 influenza, injectabl e, quadrivalent, preservative free [facility] Provider [facility] Work Phone: 05-25-2017 Influenza, injectabl e, Madin [place] Canine Kidney, preservative free, quadrivalent [facility] Provider [facility] Work Phone: 09-06-2016 Influenza Vaccine, unspecified formulation Ayo Bright MD Work Phone: [facility] Work Phone: 09-06-2016 influenza, seasonal, injectable [facility] Provider [facility] Work Phone: 09-05-2016 influenza, seasonal, injectable, preservative free [facility] Provider [facility] Work Phone: 05-16-2015 influenza virus vaccine, unspecified formulation Ayo Bright MD Work Phone: [facility] Work Phone: 05-16-2015 influenza virus vaccine, whole virus [facility] Provider [facility] Work Phone: 10-23-2006 measles, mumps and rubella virus vaccine [facility] Provider [facility] Work Phone: Payers Date Payer Category Payer Unknown 2018 Unknown BCBS [place] P PO xxxxxxxxxxxxxxx 2018-Present [address] [place] [address] xxxxxxxxxxxxxxx [id number] 1971 Unknown [id number] 1971 Unknown [id number] 1971 Unknown [id number] 1971 Unknown [id number] 1971 Unknown [id number] 1971 Unknown [id number] 1971 Unknown [id number] 1971 Unknown [id number] 1959 Unknown [id number] 1959 Unknown [id number] Social History Date Type Detail Facility Start: 09-07-2017 End: 07-12-2019 Tobacco smoking status NHIS Never smoker [facility] Work Phone: Start: 07-12-2019 End: 10-26-2019 Alcohol intake Current drinker of alcohol (finding) [facility] Work Phone: Start: 04-13-2018 Alcohol Comment rarely [facility] Work Phone: Start: 1970 Sex Assigned At Not on file S [facility] Work Phone: Start: 09-07-2017 Tobacco use and exposure Smokeless tobacco non-user [facility] Work Phone: Start: 10-26-2019 History SDOH Alcohol Frequency 2 [facility] Start: 10-26-2019 History SDOH Alcohol Std Drinks 1 [facility] Start: 03-09-2019 Alcohol Comment occasional [facility] Note 01-06-2023 Telephone Encounter - Zee Faria - 01/06/2023 2:36 PM EDT Note Date & Type Note Facility 01-06-2023 Miscellaneous Notes Formattin g of this note might be different from the original. Fax PCP ref call into the program, LVM documented in this encounter [facility] Discharge instructions 07-12-2019 InstructionsAttachments Note Date & Type Note Facility 07-12-2019 Hospital Discharg e instructions Maikel Tucker PA-C - 07/12/2019 Follow-up with your doctor in 1 week as needed. 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 Sex: female Acct: [id number] Code Status Full Admit Date: 07/19/2018 Discharge date: 07/21/2018 Service, Admitting Physician: [facility] Teaching Service, Dr. Bright Admission Diagnoses: Numbness [...] DATE CREATED AUTHOR AUTHOR'S ORGANIZ ATION 01/27/[address] [facility] DATE CREATED AUTHOR AUTHOR'S ORGANIZ ATION 07/13/[address] [facility] DATE CREATED AUTHOR AUTHOR'S ORGANIZ ATION 02/29/2020 [facility] DATE CREATED AUTHOR AUTHOR'S ORGANIZ ATION 01/11/2023 [facility] Reason for Visit (unrecogniz ed section and content) Reason Comments External Referrals/resources Fax Referra l Call Source Comments (unrecognize d section and content) In the event this informatio n is protected by the Federal Confidentiality of Alcohol and Drug Abuse Patient Records regulations: The Federal rules restrict any use of the information to criminally investigate or prosecute any alcohol or drug abuse patient.[facility] Care Teams (unrecognized sec tion and content) [...] BE BASED ON THE PRIMARY CLINICAL RECORDS. [facility]. provides no warranty or guarantee of the accuracy or completeness of information in this document.
[2023-10-14] MEDS: Mag Hydrox/Al Hydrox/Simeth 30 ML UDC PO (23:36)
[2023-10-14 23:39] VITALS: BP 102/67; PULSE 94
[2023-10-14 23:55] LABS: Lipase 40 U/L (13-75)
--- NOTE | 2023-10-15 00:08 | EDS_ITS ---
HPI History of Present Illness Chief Complaint: Abd Pain Narrative Narrative: Patient is a 53-year-old female presenting with nausea, abdominal pain and fever. Patient states he felt fine yesterday and then she woke up to go to work today and has mildly nauseous this morning. As the day progressed she started to have more epigastric abdominal pain, nausea and mouth watering. She states she did vomit but also really just does not like to vomit. She did have a soft bowel movement today but denies any blood in her stool. When she got home from work she was feeling very cold and checked her temperature and had a fever. She denies any cough, URI symptoms or urinary symptoms. She is really only complaining of epigastric abdominal discomfort and feeling bloated. She denies any radiation of the pain. Describes it more as a burning. She is especially concerned because she has a history of cholecystectomy as well as partial colectomy and is worried that there could be complication with her colectomy. Colectomy was performed due to diverticulitis. [facility] Medical History Acid reflux Allergies Anemia Anxiety Back problem Depression Diverticulitis Fibromyalgia MALCOLM (generalized anxiety disorder) Globus sensation H/O emotional problems History of esophageal dilatation Insomnia MDD (major depressive disorder) Migraines Obesity, Class III, BMI 40-49.9 (morbid obesity) PTSD (post-traumatic stress disorder) Home Medications multivitamin with minerals 1 each PO DAILY 10/31/20 [History Last Taken 10/30/20] rimegepant 75 mg disintegrating tablet (Nurtec ODT) 75 mg PO ONCE PRN migraine headache 01/05/23 [History Last Taken Unknown] fluticasone propionate 50 mcg/actuation nasal spray,suspension 1 spray intranasal DAILY 04/29/23 [History Last Taken Unknown] doxepin 10 mg capsule 10 mg PO QHS #30 caps 09/01/23 [Rx Last Taken Unknown] duloxetine 30 mg capsule,delayed release 30 mg PO DAILY 90 days #90 caps 09/01/23 [Rx Last Taken Unknown] duloxetine 60 mg capsule,delayed release 60 mg PO DAILY #90 caps 09/01/23 [Rx Last Taken Unknown] cholecalciferol (vitamin D3) 25 mcg (1,000 unit) capsule (Vitamin D3) 25 mcg PO DAILY 10/14/23 [History Last Taken Unknown] ondansetron 4 mg disintegrating tablet 4 mg PO Q8H PRN PRN Nausea #10 tabs 10/15/23 [Rx Last Taken Unknown] Allergy/AdvReac Type Severity Reaction Status Date / Time morphine AdvReac blood Verified 10/14/23 20:50 pressure drops Family History Father Heart disease Alcoholism Mother Osteoporosis Cancer Skin Thyroid disorder COPD (chronic obstructive pulmonary disease) Grandmother Breast cancer Colon cancer Other Suicide attempt Surgical History History of History of esophagogastroduodenoscopy (EGD) Hx of cholecystectomy Hx of colonoscopy Hx of hysterectomy Hx of unilateral oophorectomy S/P colectomy Social History Smoking Status: Never smoker second hand exposure: No alcohol intake: current alcohol intake frequency: holidays/special occasions only substance use type: does not use caffeine: Yes what type of physical activity do you participate in: none frequency: does not exercise ROS ROS ED Constitutional Constitutional ED: Reports chills and fever(s) Eyes Eyes: Denies change in vision ENT ENT ED: Denies rhinorrhea or sore throat Cardiovascular Cardiovascular: Denies chest pain Respiratory/Chest Respiratory/Chest: Denies cough or dyspnea Gastrointestinal Gastrointestinal: Reports abdominal pain and nausea; Denies constipation, diarrhea, melena or vomiting Musculoskeletal Musculoskeletal: Denies arthralgias or myalgias Integumentary Denies rash Neurologic Neurologic: Denies headache(s) Psychiatric Psychiatric: Denies anxiety Hematologic/Lymphatic Hematologic/Lymphatic: Denies easy bleeding EXAM Physical Exam Const Vital Signs: 10/14/23 20:52 10/14/23 22:50 10/14/23 23:39 Temperature 102.7 F H 99.1 F Temperature Source Oral Oral Pulse Rate 134 H 91 94 Respiratory Rate 18 16 Blood Pressure 135/98 H 98/44 L 102/67 Blood Pressure Mean 110 62 78 Pulse Ox 100 Positive well nourished, well developed and obese Constitutional Narrative: ill appearing but nontoxic General Appearance ED: well developed Nutritional Appearance: obese HEENT Reports TM's clear and dry mucous membranes Tympanic Membrane ED: Yes TM's clear Mouth ED: Yes dry mucous membranes Mouth: dry mucous membranes Eyes PERRL and EOMs intact bilaterally General Eye ED: Negative for scleral icterus Neck supple Neck Narrative: No meningeal signs Chest Wall inspection of chest normal Resp normal respiratory effort and clear to auscultation bilaterally Cardio regular rhythm Rate: tachycardic GI normal to inspection, nondistended, normoactive bowel sounds Palpation: tender epigastric; Negative for guarding, mass or rebound tenderness present Back/Spine no CVA tenderness Extremity normal to inspection General Extremety ED: Negative for edema General Extremity: Negative for edema Neuro oriented x3 Sensorium / Orientation: alert Psych mental status grossly normal Skin Skin Narrative: Flushed cheeks. Mild erythematous rash of suprapubic region consistent with skin irritation from shaving. Not consistent with cellulitis MDM MDM MDM Narrative Medical decision making narrative: Patient is evaluated for fever and epigastric abdominal pain. Differential includes sepsis, pancreatitis, peptic ulcer disease, gastritis, choledocholithiasis, influenza, urinary tract infection, kidney infection and viral illness. Sepsis workup is initiated given the patient's vital signs. She is also given a dose of fentanyl, Zofran, Toradol and IV fluids in the ER. Toradol for fever control. CBC largely unremarkable as well as CMP and lipase. Urinalysis is not consistent with infection and most consistent with contamination. CT of the abdomen and pelvis does not show any acute infectious process. Patient has clear breath sounds and is not hypoxic and I do not suspect respiratory source of infection. In addition she does not have any URI or respiratory symptoms. I do not think she requires a chest x-ray at this time. Patient is have continued pain however her vital signs do improve including her fever and tachycardia with the Toradol. Is given a GI cocktail with further improvement of her pain. Patient does, that she has ongoing issues with acid reflux and takes omeprazole daily. Will be discharged home with a prescription for Zofran. Cultures are ordered and pending. At this time I do not have an obvious bacterial source of infection and will presume that her fever is viral at this time. Patient is given return precautions. Will alternate ibuprofen and Tylenol as needed for fever control. Is given a prescription for Zofran for her nausea. Is comfortable this plan of care. Lab Data Labs: Laboratory Results - last 24 hr 10/14/23 10/14/23 21:48 23:04 WBC 6.6 RBC 4.71 Hgb 13.4 Hct 40.6 MCV 86.2 MCH 28.5 MCHC 33.0 RDW Std Deviation 45.3 H RDW Coeff of Henry 14.3 Plt Count 322 MPV 9.3 Immature Gran % (Auto) 0.300 Neut % (Auto) 82.4 H Lymph % (Auto) 11.5 L [place] % (Auto) 5.0 Eos % (Auto) 0.5 Baso % (Auto) 0.3 Absolute Neuts (auto) 5.5 Absolute Lymphs (auto) 0.76 L Nucleated RBC % 0 Sodium 138 Potassium 3.8 Chloride 104 Carbon Dioxide 26.0 Anion Gap 8 BUN 17 Creatinine 0.91 Estim Creat Clear Calc 88.55 Est GFR (MDRD) Af Amer 84 Est GFR (MDRD) Non-Af 69 BUN/Creatinine Ratio 18.7 Glucose 111 H Lactic Acid 1.3 Calcium 8.9 Total Bilirubin 0.40 AST 17 ALT 22 Alkaline Phosphatase 94 Total Protein 7.4 Albumin 3.7 Globulin 3.7 Albumin/Globulin Ratio 1.0 Lipase 40 Urine Color Yellow Urine Clarity Sl. Cloudy Urine pH 8.0 Ur Specific [place] 1.010 Urine Protein 30 H Urine Glucose (UA) Normal Urine Ketones Negative Urine Occult Blood 10 H Urine Nitrite Negative Urine Bilirubin Negative Urine Urobilinogen 1 H Ur Leukocyte Esterase 25 H Urine RBC 0 SEEN Urine WBC 0-5 SEEN Ur Squamous Epith Cells 5-10 SEEN Urine Bacteria 0 SEEN Urine Mucus 0 SEEN Radiography Diagnostic Testing: Clinical Impression(s) from Imaging Studies Abdomen/Pelvis CT 10/14/23 21:49 IMPRESSION: 1. Fatty liver. 2. Cholecystectomy. 3. Scattered diverticula without diverticulitis. 4. Hysterectomy. 5. Status post partial sigmoidectomy. 6. No acute abdominal pelvic abnormality. 7. Small hiatal hernia. Electronically Signed: Tomi Peerz MD at 23:03 EDT , Discharge Plan Triage Chief Complaint: Abd Pain ED Provider: Sridevi Vaughn Dx/Rx/DC Orders Clinical Impression: Fever, Epigastric abdominal pain, Nausea Instructions: ED Abdominal Pain Unkn Cause Fem, ED FUO Adult Prescriptions: New ondansetron 4 mg tablet,disintegrating 4 mg PO Q8H PRN PRN (Reason: Nausea) Qty: 10 0RF No Action Nurtec ODT 75 mg tablet,disintegrating 75 mg PO ONCE PRN (Reason: migraine headache) Rx Instructions: as a single dose fluticasone propionate 50 mcg/actuation spray,suspension 1 spray intranasal DAILY duloxetine 60 mg capsule,delayed release(DR/EC) 60 mg PO DAILY Qty: 90 1RF duloxetine 30 mg capsule,delayed release(DR/EC) 30 mg PO DAILY 90 Days Qty: 90 1RF Rx Instructions: To be taken with 60 mg capsule for total daily dose of 90 mg doxepin 10 mg capsule 10 mg PO QHS Qty: 30 2RF multivitamin with minerals 1 EACH tablet 1 each PO DAILY cholecalciferol (vitamin D3) [Vitamin D3] 25 mcg (1,000 unit) capsule 25 mcg PO DAILY Primary Care Provider: Luis Manuel Sesay Referrals: Luis Manuel Sesay MD [Primary Care Provider] - Activity Restrictions/Additional Instructions: As we discussed you can take antacids for your epigastric pain. Suspect the pain is coming from her stomach. In addition alternate ibuprofen and Tylenol for fever control. If your symptoms worsen please return to the emergency room. Your workup was largely negative the exact cause of your fever and symptoms is not clear will presume is viral at this time. Your blood cultures are pending. You will be contacted if they are positive any new return to the emergency room. Disposition Disposition: Home, Self Care
[2023-10-15 00:17] VITALS: BP 120/78; PULSE 97; RESP 18; TEMP 37.1; O2SAT 100
== END 2023-10-15 00:24 | disposition home or self-care (01) ==
PROVIDERS: Emergency Provider Emergency Medicine; PCP Family Medicine; Visit Provider Emergency Medicine
DX: R10.13 Epigastric pain (principal); K21.9 Gastro-esophageal reflux disease without esophagitis; R50.9 Fever, unspecified; R11.0 Nausea; Z90.49 Acquired absence of other specified parts of digestive tract; F32.A Depression, unspecified; F41.9 Anxiety disorder, unspecified; Z79.899 Other long term (current) drug therapy; Z90.710 Acquired absence of both cervix and uterus; Z90.721 Acquired absence of ovaries, unilateral
CPT/HCPCS: 74177; 80053; 81001; 83605; 83690; 85025; 87040; 87631; 96361; 96374; 96375; 99284; J7030; Q9967; A4216; J2405

== ENCOUNTER → 2023-11-12 | Outpatient (CLI) | payer BC, SELFPAY ==
[2023-11-12 16:19] LABS: Rheumatoid Factor < 10.0 IU/mL (<15); Uric Acid 4.7 mg/dL (2.6-6.0)
[2023-11-12 16:52] LABS: Erythrocyte Sedimentation Rate 37 mm/hr (0-30)
[2023-11-16 15:07] LABS: ANTINUCLEAR ANTIBODIES DIRECT Negative (Negative)
== END | disposition home or self-care (01) ==
LOC: MFPLAB 13:53
PROVIDERS: PCP Family Medicine; Visit Provider Family Medicine
DX: M25.40 Effusion, unspecified joint (principal)
CPT/HCPCS: 36415; 84550; 85652; 86038; 86431

== ENCOUNTER → 2023-11-13 | Outpatient (CLI) | payer BC, SELFPAY ==
--- NOTE | 2023-11-13 13:10 | RAD_ITS ---
STUDY: X-RAY - LEFT HAND REASON FOR EXAM: Female, 53 years old. Pain swelling. TECHNIQUE: 4 views of the left hand. COMPARISON: None. FINDINGS: Normal radiocarpal articulation. Normal distal radioulnar joint. Normal visualized carpal bones. Normal carpal articulations. Normal carpometacarpal articulation of the thumb. Normal second through fifth carpometacarpal joints. Normal metacarpi. Normal metacarpophalangeal joint of the thumb. Normal interphalangeal joint of the thumb. Normal proximal and distal phalanges of the thumb. Normal metacarpophalangeal joints of the second through fifth fingers. Normal proximal and distal interphalangeal joints of the second through fifth fingers. Normal phalanges of the second through fifth fingers. The soft tissue structures are unremarkable. RAD/Hand Min 3 Views IMPRESSION: Normal x-ray examination of the left hand. Electronically Signed: Angel Kang MD at 15:10 EDT ,
--- NOTE | 2023-11-13 13:12 | RAD_ITS ---
STUDY: X-RAY - RIGHT HAND REASON FOR EXAM: Female, 53 years old. Pain. Inflammation and stiffness in both hands for 4 days. Right is worst in left. Ganglion cyst removed in right hand years ago. TECHNIQUE: 3 views of the right hand. COMPARISON: None. FINDINGS: Normal radiocarpal articulation. Normal distal radioulnar joint. Normal visualized carpal bones. Normal carpal articulations. Normal carpometacarpal articulation of the thumb. Normal second through fifth carpometacarpal joints. Normal metacarpi. Normal metacarpophalangeal joint of the thumb. Normal interphalangeal joint of the thumb. Normal proximal and distal phalanges of the thumb. Normal metacarpophalangeal joints of the second through fifth fingers. Normal proximal and distal interphalangeal joints of the second through fifth fingers. Normal phalanges of the second through fifth fingers. The soft tissue structures are unremarkable. RAD/Hand Min 3 Views IMPRESSION: Normal x-ray examination of the right hand. Electronically Signed: Angel Kang MD at 15:12 EDT ,
== END | disposition home or self-care (01) ==
LOC: MTRAD 13:10
PROVIDERS: PCP Family Medicine; Referring Provider Family Medicine; Visit Provider Family Medicine
DX: M79.642 Pain in left hand (principal); M25.442 Effusion, left hand; M79.641 Pain in right hand
CPT/HCPCS: 73130

== ENCOUNTER → 2023-11-30 | Outpatient (CLI) | payer BC, SELFPAY ==
--- NOTE | 2023-11-30 10:08 | RAD_ITS ---
STUDY: X-RAY - LUMBAR SPINE REASON FOR EXAM: Female, 53 years old. Radiculopathy TECHNIQUE: 2 view(s) of the lumbar spine were obtained. COMPARISON: None FINDINGS: Normal lumbar lordosis. There is no substantial scoliosis. There is a normal alignment of the vertebrae. Spondylosis fourth and fifth vertebral bodies, otherwise unremarkable vertebral bodies and endplates. Moderate narrowing and degenerative changes of the disks at L4-L5 and L5-S1, otherwise unremarkable disc space heights. There is no demonstrated fracture. The soft tissue structures are unremarkable. RAD/Lumbar Spine 2 or 3 Views IMPRESSION: Degenerative changes of the vertebrae and disks at L4-L5 and L5-S1. Electronically Signed: Sean Knox MD at 17:11 EDT ,
== END | disposition home or self-care (01) ==
PROVIDERS: PCP Family Medicine; Referring Provider Anesthesiology Pain Medicine; Visit Provider Anesthesiology Pain Medicine
DX: M54.16 Radiculopathy, lumbar region (principal)
CPT/HCPCS: 72100

== ENCOUNTER → 2024-04-26 | Outpatient (CLI) | payer BC, SELFPAY ==
[2024-04-26 17:41] LABS: Absolute Lymphocyte Count 2.94 X10^3/uL (0.83-4.51); Basophil# 0.02 X10^3/uL; Basophil% 0.2 % (0-1); Eosinophil# 0.16 X10^3/uL; Eosinophils% 1.8 % (0-5); Hematocrit 37.5 % (37-47); Lymphocyte # 2.94 X10^3/ul (0.83-4.51); Lymphocyte % 33.8 % (19-41); Mean Corpuscular Hgb 28.7 pg (27.0-32.0); Mean Corpuscular Volume 89.7 fL (81-99); Mean Platelet Vol. 9.6 fl (6.2-12.0); Monocyte# 0.58 X10^3/uL; Monocyte% 6.7 % (0-10); NRBC Flagged by Analyzer 0 % (0-5); Neutrophil # 4.97 X10^3/uL (2.7-7.7); Neutrophil % 57.2 % (47-70); Platelet Count 362 K/mm3 (150-450); RBC Distribution Width SD 45.3 fl (35.1-43.9); Red Blood Count 4.18 M/mm3 (4.2-5.4); White Blood Count 8.7 K/mm3 (4.4-11.0)
[2024-04-26 18:44] LABS: ALB/GLOB Ratio 0.8 RATIO (0.9-2.4); AST(SGOT) 16 U/L (15-37); Alanine Aminotransfer ALT/SGPT 21 U/L (13-56); Albumin, Serum 3.3 g/dL (3.2-5.0); Alkaline Phosphatase 104 U/L (45-117); Anion Gap 7 (5-15); BUN 16 mg/dL (7-18); BUN/Creat Ratio 19.4 RATIO (10-20); Calcium,Total 9.1 mg/dL (8.5-10.1); Chloride 105 mmol/L (98-107); Cholesterol 226 mg/dL (200); Creatinine, Serum 0.83 mg/dL (0.55-1.02); EST Glomerular Filtration Rate 77 mL/min (>60); Est Glom Filt Rate - Afr Amer 93 mL/min (>60); Globulin 3.9 g/dL (2.2-4.2); Glucose 112 mg/dL (74-106); High Density Lipoprotein 56 mg/dL; Potassium 3.8 mmol/L (3.5-5.1); Protein, Total 7.2 g/dL (6.4-8.2); Sodium Level 137 mmol/L (136-145); Triglycerides 289 mg/dL; Very Low Density Lipoprotein 58 mg/dL (5-40)
[2024-04-26 18:53] LABS: Vitamin D,25 Hydroxy 34.3 ng/mL
[2024-04-28 07:54] LABS: Hemoglobin A1c 5.5 % (3.8-5.6)
== END | disposition home or self-care (01) ==
LOC: MFPLAB 16:32
PROVIDERS: PCP Family Medicine; Visit Provider Family Medicine
DX: R73.09 Other abnormal glucose (principal); E66.01 Morbid (severe) obesity due to excess calories; E55.9 Vitamin D deficiency, unspecified; G47.33 Obstructive sleep apnea (adult) (pediatric)
CPT/HCPCS: 36415; 80053; 80061; 82306; 83036; 84443; 85025

== ENCOUNTER → 2024-06-03 | Outpatient (CLI) | payer BC, SELFPAY ==
--- NOTE | 2024-06-03 15:28 | RAD_ITS ---
INDICATION: rt knee EXAMINATION/TECHNIQUE: X-RAY - RIGHT XR Knee Complete 4 Views or More 4 VIEWS COMPARISON: Prior study dated: 09/02/2023 FINDINGS: SOFT TISSUES: No soft tissue swelling or gas. No radiopaque foreign body. BONES/JOINTS: No acute fracture or subluxation.. Normal alignment. Preservation of the joint space. Small marginal osteophytes at the patellofemoral compartment. No joint effusion. No sclerotic or destructive changes observed. RAD/Knee 4 or More Views IMPRESSION: No fracture or malalignment. Mild degenerative change at the patellofemoral compartment. Electronically Signed: Zack Rosen MD at 1:51 EDT ,
== END | disposition home or self-care (01) ==
LOC: MTRAD 15:27
PROVIDERS: PCP Family Medicine
DX: M22.2X9 Patellofemoral disorders, unspecified knee (principal)
CPT/HCPCS: 73564

== ENCOUNTER 2024-06-04 17:49 | Emergency (ER) | payer BC, SELFPAY ==
[2024-06-04 17:50] VITALS: BP 149/100; PULSE 86; RESP 16; TEMP 36.6; O2SAT 98; BMI 45.2
--- NOTE | 2024-06-04 18:44 | EKG12_ITS ---
Test Reason : DYSRHYTHMIA Blood Pressure : */* mmHG Vent. Rate : 83 BPM Atrial Rate : 83 BPM P-R Int : 138 ms QRS Dur : 74 ms QT Int : 368 ms P-R-T Axes : 42 17 19 degrees QTcB Int : 432 ms Normal sinus rhythm Normal ECG Confirmed by IMELDA BECKER, JESSICA ([id number]), order editor TAY ROBLES ([id number]) on 06/06/2024 9:25:27 AM Referred By: Confirmed By: JESSICA SEGURA MD
[2024-06-04 19:10] LABS: Absolute Lymphocyte Count 2.31 X10^3/uL (0.83-4.51); Absolute Neutrophil Count 3.7 X10^3/uL (2.0-7.7); Basophil# 0.04 X10^3/uL; Basophil% 0.6 % (0-1); Eosinophil# 0.19 X10^3/uL; Eosinophils% 2.8 % (0-5); Hematocrit 38.3 % (37-47); Hemoglobin 12.4 g/dL (12.0-15.0); Lymphocyte # 2.31 X10^3/ul (0.83-4.51); Lymphocyte % 33.9 % (19-41); Mean Corp Hgb Conc 32.4 g/dL (32-36); Mean Corpuscular Hgb 28.4 pg (27.0-32.0); Mean Corpuscular Volume 87.8 fL (81-99); Mean Platelet Vol. 8.9 fl (6.2-12.0); Monocyte# 0.56 X10^3/uL; Monocyte% 8.2 % (0-10); NRBC Flagged by Analyzer 0 % (0-5); Neutrophil % 54.2 % (47-70); Platelet Count 318 K/mm3 (150-450); RBC Distribution Width CV 14.4 % (11.6-14.6); RBC Distribution Width SD 45.6 fl (35.1-43.9); Red Blood Count 4.36 M/mm3 (4.2-5.4); White Blood Count 6.8 K/mm3 (4.4-11.0)
--- NOTE | 2024-06-04 19:25 | EX.ED.DYSGE1 ---
HPI History of Present Illness Chief Complaint: Overdose Informant: patient Narrative Narrative: Patient is a 54-year-old female with history of depression and anxiety presenting for evaluation at the request of poison control. Patient normally takes Cymbalta 90 mg daily which is three 30 mg tablets. She thought she was taking that today but she accidentally took her 's Strattera (atomoxetine) for total of 120 mg. She called poison control who recommended she come to the ER for monitoring up to 6 hours from time of ingestion. Patient states she took this around 4:30 PM. She states she feels little sleepy but has no complaints at this time. States that this was an accident nonintentional ingestion. No other complaints or concerns reported at this time. [facility] Medical History Insomnia PTSD (post-traumatic stress disorder) MALCOLM (generalized anxiety disorder) MDD (major depressive disorder) H/O emotional problems Allergies Globus sensation Fibromyalgia Migraines Anemia Obesity, Class III, BMI 40-49.9 (morbid obesity) Back problem Anxiety Depression Acid reflux History of esophageal dilatation Diverticulitis Home Medications ?Medication ?Instructions ?Recorded ?Last Taken ?Type multivitamin with minerals 1 each PO DAILY 10/31/20 10/30/20 History rimegepant 75 mg disintegrating 75 mg PO ONCE PRN migraine headache 01/05/23 Unknown History tablet (Nurtec ODT) fluticasone propionate 50 1 spray intranasal DAILY 04/29/23 Unknown History mcg/actuation nasal spray,suspension duloxetine 30 mg capsule,delayed 30 mg PO DAILY 90 days #90 caps 09/01/23 Unknown Rx release duloxetine 60 mg capsule,delayed 60 mg PO DAILY #90 caps 09/01/23 Unknown Rx release ondansetron 4 mg disintegrating 4 mg PO Q8H PRN PRN Nausea #10 tabs 10/15/23 Unknown Rx tablet Allergy/AdvReac Type Severity Reaction Status Date / Time morphine AdvReac blood Verified 10/14/23 20:50 pressure drops Family History Father Heart disease Alcoholism Mother Osteoporosis Cancer Skin Thyroid disorder COPD (chronic obstructive pulmonary disease) Grandmother Breast cancer Colon cancer Other Suicide attempt Surgical History History of partial colectomy S/P colectomy History of esophagogastroduodenoscopy (EGD) Hx of colonoscopy Hx of unilateral oophorectomy Hx of cholecystectomy Hx of hysterectomy History of Social History Smoking Status: Never smoker second hand exposure: No alcohol intake: current alcohol intake frequency: holidays/special occasions only substance use type: does not use caffeine: Yes what type of physical activity do you participate in: none frequency: does not exercise ROS ROS ED Constitutional Constitutional ED: Denies chills or fever(s) Cardiovascular Cardiovascular: Denies chest pain Respiratory/Chest Respiratory/Chest: Denies dyspnea Gastrointestinal Gastrointestinal: Denies nausea or vomiting Neurologic Neurologic: Denies headache(s) Psychiatric Psychiatric: Denies anxiety, depression, suicidal ideation or suicidal thoughts EXAM Physical Exam Const Vital Signs: 06/04/24 17:50 06/04/24 19:41 06/04/24 20:53 Temperature 97.8 F 98 F Temperature Source Oral Oral Pulse Rate 86 82 90 Respiratory Rate 16 16 21 H Blood Pressure 149/100 H 137/99 H 129/84 H Blood Pressure Mean 116 111 99 Pulse Ox 98 97 20 Oxygen Delivery Method Room Air Room Air Room Air 06/04/24 22:34 Temperature 98 F Temperature Source Pulse Rate 86 Respiratory Rate 16 Blood Pressure 113/61 Blood Pressure Mean 78 Pulse Ox 95 Oxygen Delivery Method Positive well nourished and well developed General Appearance ED: well developed and NAD HEENT Reports moist mucous membranes Eyes PERRL and EOMs intact bilaterally Eyes Narrative: Pupils 3 to 4 mm equally reactive Neck supple Chest Wall inspection of chest normal Resp normal respiratory effort and clear to auscultation bilaterally Cardio regular rate and regular rhythm GI normal to inspection, nondistended, normoactive bowel sounds and non-tender Extremity normal to inspection Neuro oriented x3 Neuro Narrative: No focal deficits appreciated Sensorium / Orientation: alert Motor Exam: Negative for general weakness Psych mental status grossly normal Skin no rashes or lesions noted MDM MDM MDM Narrative Medical decision making narrative: Patient is evaluated for accidental ingestion of 120 mg of Strattera. Spoke with poison control who states effects peak at 1 to 2 hours and to watch for stimulant effect/sympathomimetic effects. Highest risk is concern for seizure or prolonged QTc. Recommend monitoring for 6 hours and first-line treatment is benzodiazepines. Will obtain baseline labs and EKG. Will monitor patient until 10:30 PM (6 hours from time of ingestion). Patient is agreeable with this. Patient resting comfortably at this time and largely asymptomatic with normal vital signs. Patient is monitored in the ER. She has no arrhythmias or signs of internal stimulation. Will be discharged home. Given a work note. Given return precautions. Tolerating p.o. Lab Data Attestation: I reviewed the patient's lab results. Labs: Laboratory Results - last 24 hr 06/04/24 19:00 WBC 6.8 RBC 4.36 Hgb 12.4 Hct 38.3 MCV 87.8 MCH 28.4 MCHC 32.4 RDW Std Deviation 45.6 H RDW Coeff of Henry 14.4 Plt Count 318 MPV 8.9 Immature Gran % (Auto) 0.300 Neut % (Auto) 54.2 Lymph % (Auto) 33.9 Sublette % (Auto) 8.2 Eos % (Auto) 2.8 Baso % (Auto) 0.6 Absolute Neuts (auto) 3.7 Absolute Lymphs (auto) 2.31 Nucleated RBC % 0 Sodium 141 Potassium 4.1 Chloride 106 Carbon Dioxide 30.0 Anion Gap 5 BUN 13 Creatinine 0.75 Estim Creat Clear Calc 106.54 Est GFR (MDRD) Af Amer 103 Est GFR (MDRD) Non-Af 85 BUN/Creatinine Ratio 17.2 Glucose 88 Calcium 9.2 Magnesium 2.2 Total Bilirubin 0.20 AST 19 ALT 25 Alkaline Phosphatase 96 Total Protein 7.1 Albumin 3.4 Globulin 3.7 Albumin/Globulin Ratio 0.9 Rhythm Strip Rhythm Strip: Sinus Rhythm Rate: 83 Ectopy: None EKG Initial EKG: Attestation: I personally reviewed and interpreted this EKG as follows: Interpretation: Sinus Rhythm Comments: Normal sinus rhythm rate of 83 bpm Normal axis Normal intervals Normal ST segments Discharge Plan Triage Chief Complaint: Overdose ED Provider: Sridevi Vaughn Dx/Rx/DC Orders Clinical Impression: Accidental overdose Instructions: ED Accidental Ingestion ... Prescriptions: No Action Nurtec ODT 75 mg tablet,disintegrating 75 mg PO ONCE PRN (Reason: migraine headache) Rx Instructions: as a single dose fluticasone propionate 50 mcg/actuation spray,suspension 1 spray intranasal DAILY duloxetine 60 mg capsule,delayed release(DR/EC) 60 mg PO DAILY Qty: 90 1RF duloxetine 30 mg capsule,delayed release(DR/EC) 30 mg PO DAILY 90 Days Qty: 90 1RF Rx Instructions: To be taken with 60 mg capsule for total daily dose of 90 mg multivitamin with minerals 1 EACH tablet 1 each PO DAILY ondansetron 4 mg tablet,disintegrating 4 mg PO Q8H PRN PRN (Reason: Nausea) Qty: 10 0RF Stand Alone Forms: ED Work / School Excuse Primary Care Provider: Luis Manuel Sesay Referrals: Luis Manuel Sesay MD [Primary Care Provider] - Print Language: Swedish Disposition Disposition: Home, Self Care
[2024-06-04 19:30] LABS: ALB/GLOB Ratio 0.9 RATIO (0.9-2.4); AST(SGOT) 19 U/L (15-37); Alanine Aminotransfer ALT/SGPT 25 U/L (13-56); Albumin, Serum 3.4 g/dL (3.2-5.0); Alkaline Phosphatase 96 U/L (45-117); Anion Gap 5 (5-15); BUN 13 mg/dL (7-18); BUN/Creat Ratio 17.2 RATIO (10-20); Calcium,Total 9.2 mg/dL (8.5-10.1); Chloride 106 mmol/L (98-107); Creatinine, Serum 0.75 mg/dL (0.55-1.02); EST Glomerular Filtration Rate 85 mL/min (>60); Est Glom Filt Rate - Afr Amer 103 mL/min (>60); Estimated Creatinine Clearance 106.54 ml/min; Globulin 3.7 g/dL (2.2-4.2); Glucose 88 mg/dL (74-106); Magnesium 2.2 mg/dL (1.6-2.6); Potassium 4.1 mmol/L (3.5-5.1); Protein, Total 7.1 g/dL (6.4-8.2); Sodium Level 141 mmol/L (136-145)
[2024-06-04 19:41] VITALS: BP 137/99; PULSE 82; RESP 16; TEMP 36.6; O2SAT 97
[2024-06-04 20:53] VITALS: BP 129/84; PULSE 90; RESP 21; O2SAT 20
[2024-06-04 22:34] VITALS: BP 113/61; PULSE 86; RESP 16; TEMP 36.6; O2SAT 95
== END 2024-06-04 23:23 | disposition home or self-care (01) ==
PROVIDERS: Emergency Provider Emergency Medicine; PCP Family Medicine; Visit Provider Emergency Medicine
DX: T43.211A Poisoning by selective serotonin and norepinephrine reuptake inhibitors, accidental (unintentional), initial encounter (principal); Z90.710 Acquired absence of both cervix and uterus; F41.1 Generalized anxiety disorder; F32.9 Major depressive disorder, single episode, unspecified; Z79.899 Other long term (current) drug therapy; Z90.49 Acquired absence of other specified parts of digestive tract; Z90.721 Acquired absence of ovaries, unilateral
CPT/HCPCS: 80053; 83735; 85025; 93005; 99284; A4216

== ENCOUNTER 2024-07-05 15:59 | Emergency (ER) | payer BC, SELFPAY ==
[2024-07-05 16:01] VITALS: BP 146/85; PULSE 80; RESP 18; TEMP 36.4; O2SAT 100
--- NOTE | 2024-07-05 16:35 | RAD_ITS ---
EXAM: XR RIGHT KNEE, 3 VIEWS CLINICAL INDICATION: knee pain, heard pop TECHNIQUE: Three views of the right knee. COMPARISON: 06/03/2024 FINDINGS: BONES/JOINTS: Unremarkable. No acute fracture. No subluxation. Normal alignment. Preservation of the joint space. No sclerotic or destructive changes observed. SOFT TISSUES: Unremarkable. No soft tissue swelling or gas. No radiopaque foreign body. RAD/Knee 3 Views IMPRESSION: Negative right knee x-rays and unchanged. Electronically Signed: Franco Chairez MD at 17:37 EST ,
--- NOTE | 2024-07-05 17:36 | EX.ED.DYSGE1 ---
HPI History of Present Illness Chief Complaint: Lower Extremity Injury Narrative Narrative: Patient is a 54-year-old female with a past medical history of depression, fibromyalgia, BMI of 40-49.9, anxiety who presents to the emergency department chief complaint of right knee pain. Patient states that her pain in her knee has been going on for a month ever since carrying multiple 50 pound bag of concrete while putting up a fence. She states that her knee pain never fully went away after doing this however she states that it was progressively getting better untils the other day when she went to turn and felt/heard a pop in her right knee. She states that originally she thought her pain was going to improve however states that it has gotten slightly worse therefore she came here for further evaluation management. States that she did have x-rays previously at the onset of her knee pain that were normal. She states that she has been icing and using ibuprofen Tylenol for pain control. Patient states that she has not seen an orthopedic surgeon. [facility] Medical History Insomnia PTSD (post-traumatic stress disorder) MALCOLM (generalized anxiety disorder) MDD (major depressive disorder) H/O emotional problems Allergies Globus sensation Fibromyalgia Migraines Anemia Obesity, Class III, BMI 40-49.9 (morbid obesity) Back problem Anxiety Depression Acid reflux History of esophageal dilatation Diverticulitis Home Medications ?Medication ?Instructions ?Recorded ?Last Taken ?Type multivitamin with minerals 1 each PO DAILY 10/31/20 10/30/20 History rimegepant 75 mg disintegrating 75 mg PO ONCE PRN migraine headache 01/05/23 Unknown History tablet (Nurtec ODT) fluticasone propionate 50 1 spray intranasal DAILY 04/29/23 Unknown History mcg/actuation nasal spray,suspension duloxetine 30 mg capsule,delayed 30 mg PO DAILY 90 days #90 caps 09/01/23 Unknown Rx release duloxetine 60 mg capsule,delayed 60 mg PO DAILY #90 caps 09/01/23 Unknown Rx release ondansetron 4 mg disintegrating 4 mg PO Q8H PRN PRN Nausea #10 tabs 10/15/23 Unknown Rx tablet Allergy/AdvReac Type Severity Reaction Status Date / Time morphine AdvReac blood Verified 07/05/24 16:01 pressure drops Family History Father Heart disease Alcoholism Mother Osteoporosis Cancer Skin Thyroid disorder COPD (chronic obstructive pulmonary disease) Grandmother Breast cancer Colon cancer Other Suicide attempt Surgical History History of partial colectomy S/P colectomy History of esophagogastroduodenoscopy (EGD) Hx of colonoscopy Hx of unilateral oophorectomy Hx of cholecystectomy Hx of hysterectomy History of Social History Smoking Status: Never smoker second hand exposure: No alcohol intake: current alcohol intake frequency: holidays/special occasions only substance use type: does not use caffeine: Yes what type of physical activity do you participate in: none frequency: does not exercise ROS ROS ED ROS Narrative Constitutional: Denies any fevers, chills, headaches, lightness, dizziness Neurological: Denies any numbness, weakness, tingling Musculoskeletal: Complains of right knee pain as noted above Skin: Denies any rashes or lesions EXAM Physical Exam Narrative Exam Narrative: General: Patient lying in bed rest comfortably did not appear to be acute distress Head: Atraumatic, normocephalic Eyes: PERRL bilaterally, EOMI biotic no conjunctival injection noted Neck: Soft, supple, trachea midline Cardiovascular: Regular in rhythm Musculoskeletal: Patient has pain with valgus stress testing, anterior drawer test negative, varus stress testing negative Extremities: DP pulses +2/4 in the bilateral extremities, +5/5 strength noted in the bilateral upper and lower extremities, no pedal edema on exam Neurological: Patient following commands knew that she was at [facility] years 2023. Sensation grossly intact in the bilateral lower extremities Skin: warm, dry, intact Const Vital Signs: 07/05/24 16:01 Temperature 97.5 F L Temperature Source Temporal Pulse Rate 80 Respiratory Rate 18 Blood Pressure 146/85 H Blood Pressure Mean 105 Pulse Ox 100 Oxygen Delivery Method Room Air MDM MDM MDM Narrative Medical decision making narrative: Patient is a 54-year-old female who presents to the emergency department with a chief complaint of right knee pain. Patient will have a x-ray performed here on the differential diagnose includes but not limited to meniscal tear, LCL tear, fracture. Once workup is obtained reviewed she will be reevaluated. Patient was offered pain medication and states that she does not want any at this point time. Patient's x-ray of her knee reviewed showed no acute fracture or dislocation. Discussed results with the patient and she would like to go home. Patient will be given a knee immobilizer. Patient will be given referral to orthopedic surgery. She was offered pain medication once again and she is declining this she states that she will continue to use Tylenol ibuprofen at home and ice it. She is advised to also follow-up with her primary care physician outpatient setting. She is vies return with worsening symptoms or any concerns she is agreeable this plan all question concerns answered she is discharged home in stable condition. Patient states that she does not crutches either. Radiography Diagnostic Testing: Clinical Impression(s) from Imaging Studies Knee X-Ray 07/05/24 16:35 IMPRESSION: Negative right knee x-rays and unchanged. Electronically Signed: Franco Chairez MD at 17:37 EST Reading Location ID and State: [id number] , Service support , Discharge Plan Triage Chief Complaint: Lower Extremity Injury ED Provider: Rajendra Marroquin Dx/Rx/DC Orders Clinical Impression: Knee pain, right Prescriptions: No Action Nurtec ODT 75 mg tablet,disintegrating 75 mg PO ONCE PRN (Reason: migraine headache) Rx Instructions: as a single dose fluticasone propionate 50 mcg/actuation spray,suspension 1 spray intranasal DAILY duloxetine 60 mg capsule,delayed release(DR/EC) 60 mg PO DAILY Qty: 90 1RF duloxetine 30 mg capsule,delayed release(DR/EC) 30 mg PO DAILY 90 Days Qty: 90 1RF Rx Instructions: To be taken with 60 mg capsule for total daily dose of 90 mg multivitamin with minerals 1 EACH tablet 1 each PO DAILY ondansetron 4 mg tablet,disintegrating 4 mg PO Q8H PRN PRN (Reason: Nausea) Qty: 10 0RF Primary Care Provider: Luis Manuel Sesay Referrals: Luis Manuel Sesay MD [Primary Care Provider] - Haider Medina MD [Med Staff - Active Staff] - Activity Restrictions/Additional Instructions: Follow-up with the orthopedic surgeon that you referred to. Continue to ice elevate and rotate Tylenol and ibuprofen [id number]. Follow-up with your primary care physician as well. Use knee brace that you were given here. Return if worsening symptoms or any concerns Print Language: Hebrew Disposition Disposition: Home, Self Care
[2024-07-05 18:14] VITALS: BP 124/78; PULSE 89; RESP 16; TEMP 36.4; O2SAT 99
== END 2024-07-05 18:15 | disposition home or self-care (01) ==
PROVIDERS: Emergency Provider Emergency Medicine; PCP Family Medicine; Visit Provider Emergency Medicine
DX: M25.561 Pain in right knee (principal); F41.9 Anxiety disorder, unspecified; Z90.710 Acquired absence of both cervix and uterus; X50.0XXA Overexertion from strenuous movement or load, initial encounter; Y93.89 Activity, other specified; F32.A Depression, unspecified; Z79.899 Other long term (current) drug therapy; Z90.49 Acquired absence of other specified parts of digestive tract; Z90.721 Acquired absence of ovaries, unilateral
CPT/HCPCS: 73562; 99283

== ENCOUNTER → 2024-10-14 | Outpatient (CLI) | payer BC, SELFPAY ==
[2024-10-14 17:52] LABS: Absolute Lymphocyte Count 2.82 X10^3/uL (0.83-4.51); Absolute Neutrophil Count 4.2 X10^3/uL (2.0-7.7); Basophil# 0.03 X10^3/uL; Basophil% 0.4 % (0-1); Eosinophil# 0.18 X10^3/uL; Eosinophils% 2.3 % (0-5); Hematocrit 38.8 % (37-47); Lymphocyte # 2.82 X10^3/ul (0.83-4.51); Lymphocyte % 35.9 % (19-41); Mean Corp Hgb Conc 33.5 g/dL (32-36); Mean Corpuscular Hgb 29.3 pg (27.0-32.0); Mean Corpuscular Volume 87.4 fL (81-99); Mean Platelet Vol. 9.6 fl (6.2-12.0); Monocyte# 0.59 X10^3/uL; Monocyte% 7.5 % (0-10); NRBC Flagged by Analyzer 0 % (0-5); Neutrophil # 4.22 X10^3/uL (2.7-7.7); Neutrophil % 53.6 % (47-70); Platelet Count 336 K/mm3 (150-450); RBC Distribution Width CV 14.3 % (11.6-14.6); RBC Distribution Width SD 45.4 fl (35.1-43.9); Red Blood Count 4.44 M/mm3 (4.2-5.4); White Blood Count 7.9 K/mm3 (4.4-11.0)
[2024-10-14 19:13] LABS: ALB/GLOB Ratio 1.5 RATIO (0.9-2.4); AST(SGOT) 21 U/L (<=31); Alanine Aminotransfer ALT/SGPT 17 U/L (<=34); Albumin, Serum 4.4 g/dL (3.5-5.0); Alkaline Phosphatase 116 U/L (35-104); Anion Gap 14 (5-15); BUN 17 mg/dL (4-19); BUN/Creat Ratio 23.7 RATIO (10-20); Calcium,Total 9.6 mg/dL (7.6-11.0); Carbon Dioxide 23.3 mmol/L (21.0-32.0); Chloride 101 mmol/L (98-108); Cholesterol 238 mg/dL (<=200); EST Glomerular Filtration Rate 103 (>60); Glucose 101 mg/dL (70-99); High Density Lipoprotein 64 mg/dL; Low Density Lipoprotein Calc. 129 mg/dL; Potassium 3.9 mmol/L (3.3-5.1); Protein, Total 7.4 g/dL (5.9-8.4); Sodium Level 138 mmol/L (133-145); Total Bilirubin 0.18 mg/dL (0.00-1.30); Triglycerides 223 mg/dL; Very Low Density Lipoprotein 45 mg/dL (5-40); cholesterol:hdl ratio screen 3.72
[2024-10-17 11:34] LABS: Hemoglobin A1c 5.8 % (<=5.6)
== END | disposition home or self-care (01) ==
LOC: MFPLAB 16:49
PROVIDERS: PCP Family Medicine; Referring Provider Family Medicine; Visit Provider Family Medicine
DX: R73.09 Other abnormal glucose (principal); E66.01 Morbid (severe) obesity due to excess calories; E55.9 Vitamin D deficiency, unspecified
CPT/HCPCS: 36415; 80053; 80061; 82306; 83036; 84443; 85025

== ENCOUNTER → 2024-11-17 | Outpatient (CLI) | payer BC, SELFPAY ==
--- NOTE | 2024-11-17 14:00 | EKG12_ITS ---
Test Reason : PRE OP Blood Pressure : */* mmHG Vent. Rate : 80 BPM Atrial Rate : 80 BPM P-R Int : 132 ms QRS Dur : 68 ms QT Int : 360 ms P-R-T Axes : 37 20 21 degrees QTcB Int : 415 ms Normal sinus rhythm Normal ECG Confirmed by Tomi Clements ([id number]), desk editor FREDIS CORADO ([id number]) on 11/18/2024 7:02:27 AM Referred By: Vj Lazaro Confirmed By: Tomi Clements
[2024-11-17 14:53] LABS: Absolute Neutrophil Count 3.3 X10^3/uL (2.0-7.7); Basophil# 0.03 X10^3/uL; Basophil% 0.5 % (0-1); Eosinophil# 0.18 X10^3/uL; Eosinophils% 2.7 % (0-5); Hematocrit 38.2 % (37-47); Hemoglobin 12.8 g/dL (12.0-15.0); Lymphocyte % 39.3 % (19-41); Mean Corp Hgb Conc 33.5 g/dL (32-36); Mean Corpuscular Hgb 29.4 pg (27.0-32.0); Mean Corpuscular Volume 87.6 fL (81-99); Mean Platelet Vol. 9.5 fl (6.2-12.0); Monocyte# 0.51 X10^3/uL; Monocyte% 7.7 % (0-10); NRBC Flagged by Analyzer 0 % (0-5); Neutrophil # 3.27 X10^3/uL (2.7-7.7); Neutrophil % 49.3 % (47-70); Platelet Count 331 K/mm3 (150-450); RBC Distribution Width CV 13.8 % (11.6-14.6); RBC Distribution Width SD 43.8 fl (35.1-43.9); Red Blood Count 4.36 M/mm3 (4.2-5.4); White Blood Count 6.6 K/mm3 (4.4-11.0)
[2024-11-17 17:45] LABS: Anion Gap 13 (5-15); BUN 23 mg/dL (4-19); BUN/Creat Ratio 29.8 RATIO (10-20); Calcium,Total 9.8 mg/dL (7.6-11.0); Carbon Dioxide 23.5 mmol/L (21.0-32.0); Chloride 101 mmol/L (98-108); Creatinine, Serum 0.76 mg/dL (0.70-1.20); EST Glomerular Filtration Rate 94 (>60); Glucose 89 mg/dL (70-99); Potassium 4.2 mmol/L (3.3-5.1); Sodium Level 137 mmol/L (133-145)
== END | disposition home or self-care (01) ==
LOC: PSN 13:58
PROVIDERS: PCP Family Medicine; Referring Provider Student in an Organized Health Care Education/Training Program; Visit Provider Student in an Organized Health Care Education/Training Program
DX: Z01.810 Encounter for preprocedural cardiovascular examination (principal); Z01.818 Encounter for other preprocedural examination
CPT/HCPCS: 36415; 80048; 85025; 93005

== ENCOUNTER 2025-02-08 16:06 | Outpatient (CLI) | payer BC, SELFPAY ==
[2025-02-14 17:08] LABS: QNTFERON TB Mitogen Value > 10.00 IU/mL (.); QNTFERON TB Nil Value 0.04 IU/mL (.); QNTFERON TB1+ Ag Value 0.14 IU/mL (.); QNTFERON TB2+ Ag Value 0.21 IU/mL (.); QNTIFERON TB Positive Criteria Negative (Negative)
== END 2025-02-08 23:59 | disposition home or self-care (01) ==
LOC: MFPLAB 16:07
PROVIDERS: PCP Family Medicine; Referring Provider Family Medicine; Visit Provider Family Medicine
DX: Z01.84 Encounter for antibody response examination (principal)
CPT/HCPCS: 36415; 86480

== ENCOUNTER → 2025-05-23 | Outpatient (CLI) | payer BC, SELFPAY ==
--- OUTSIDE RECORDS SUMMARY | 2025-05-23 18:34 | XMS RPT_ITS | CCD ---
Author Organization [facility] Care Team Providers Care Acidity Tester Name Role Phone BYRON Mendiola, KELLY Caicedo Unavailable Unavail able BYRON Mendiola, KELLY Caicedo Unavailable Unavail able BYRON Mendiola, KELLY Caicedo Unavailable Unavail able AMBAR PAULA Admitting Unavailable AMBAR PAULA Attending Unavailable JABIER RISHIN Annie Primary Care Unavailable DREAD EUGENEN Annie Admitting Unavailable BRISEYDA EUGENE Attending Unavailable DREAD EUGENEN Annie Primary Care Unavailable TANVIR POSADAS Admitting Unavailable TANVIR POSADAS Attending Unavailable JABIER RISHIN C Primary Care Unavailable PLNELY FLORES Admitting Unavailable NELY NASSAR Attending Unavailable JABIER RISHIN C Primary Care Unavailable HAILEY HUNTLEY Admitting Unavailable HAILEY HUNTLEY Attending Unavailable AA NO PCP, NO PCP Primary Care Unavailable EUGENE, RISHIN C Primary Care Unavailable SALENA DUVALL Admitting Unavailable SALENA DUVALL Attending Unavailable IVAN ARGUELLO Admitting Unavailable IVAN ARGUELLO Attending Unavailable DREAD EUGENEN Annie Primary Care Unavailable JENIFER HARDIN Consulting UnavailMARCELINA Grigsby Consulting UnavailIVAN Short Admitting Unavailable IVAN ARGUELLO Attending Unavailable DREAD EUGENEN Annie Primary Care Unavailable Briseyda Eugene MD Primary Care Provider [phone] Briseyda Eugene MD Primary Care Provider [phone] Tanvir Posadas Unavailable [phone] Tomi Wall MD Unavailable [phone] Parth Gallegos MD Unavailable Briseyda Eugene MD Primary Care Provider MirlandeTanvir martin Unavailable Tomi Wall MD Unavailable El BECKER, Parth Crowley Unavailable BRISEYDA EUGENE Primary Care Unavailable BRISEYDA EUGENE Primary Care Unavailable SchalicenerLuis Manuel Attending Unavailable Schinner, Luis Manuel E Referring Unavailable Schinner, Luis Manuel E Primary Care Unavailable Vj Lazaro Attending Unavailable Vj Lazaro Referring Unavailable Schinner, Luis Manuel E Primary Care Unavailable Tomi Clements Attending Unavailable Vj Lazaro Referring Unavailable Schinner, Luis Manuel E Primary Care Unavailable Rjaendra Marroquin Attending Unavailable Schinner, Luis Manuel E Primary Care Unavailable Sridevi Vaughn Attending Unavailable Schinner, Luis Manuel E Primary Care Unavailable SchinnerLuis Manuel E Attending Unavailable Schinner Luis Amnuel E Referring Unavailable Schinner, Luis Manuel E Primary Care Unavailable Schinner, Luis Manuel E Primary Care Unavailable SchinnerLuis Manuel E Attending Unavailable McMorrow STAFFING OPERATIONS MANAGER, Shay Attending Unavailable McMorrow STAFFING OPERATIONS MANAGERShay Referring Unavailable Schinner, Luis Manuel E Primary Care Unavailable Allergies Allergy Classification Reported Allergen(s) Allergy Type Date of Onset Reaction(s) Facility (1 source) Amoxicillin / Clavulanate Drug Allergy [facility] Repository (2 sources) Morphine; Translations: [MORPHINE] Drug Allergy 9 [facility] Repository (8 sources) Morphine Drug Allergy 8 Other: See Comments [facility] (4 sources) Amoxicillin-Pot Clavulanate; Translations: [AMOXICILLIN-PO T CLAVULANATE] Propensity to adverse reactions to drug 5 Diarrhea [facility] (1 source) Morphine Drug Allergy 4 [facility] Repository Medications Current Medications Medication Drug Class(es) Dates Sig (Normalized) Sig (Original) aspirin 81 mg chewable tablet (3 sources) Platelet Aggregation Inhibitor, Nonsteroidal Anti-inflammatory Drug Start: 09-10-2017 take 1 tablet by mouth once daily aspirin 81 MG chewable tablet Take 1 tablet by mouth daily 30 tablet 3 09/10/2017 Active take 81 mg by mouth once daily B ILANA ASPIRIN ORAL Take 81 mg by mouth once daily. 0 Active Comment on above: Take 81 mg by mouth once daily. atorvastatin 40 mg oral tablet (2 sources) HMG-CoA Reductase Inhibitor take 1 tablet by mouth once daily atorvastatin (LIPITOR) 40 mg tablet Take 40 mg by mouth once daily. 0 Active Comment on above: Take 40 mg by mouth once daily. buPROPion hydrochloride 75 mg oral tablet (1 source) Aminoketone take 1 tablet by mouth once daily buPROPion (WELLBUTRIN) 75 MG tablet Take 75 mg by mouth daily 0 Active Cholecalciferol (Vitamin D3) (Vitamin D3) 5,000 UNIT capsule (5 sources) Start: 09-20-19 Cholecalciferol (Vitamin D3) (Vitamin D3) 5,000 UNIT capsule Active 19536 UNIT PO EVERY WEEK September 20, 2020 3:24pm Start: 09-20-2020 Cholecalcifero l (Vitamin D3) (Vitamin D3) 5,000 UNIT capsule Active 11355 UNIT PO EVERY WEEK September 20, 2020 12:00am Start: 09-20-2020 Cholecalcifero l (Vitamin D3) (Vitamin D3) 5,000 UNIT capsule Active 39341 UNIT PO EVERY WEEK September 20, 2020 1:00am clindamycin 150 mg oral capsule (1 source) Lincosamide Antibacterial Start: 07-12-2019 End: 07-19-2019 take 3 capsules by mouth three times daily clindamycin (CLEOCIN) 150 MG capsule Take 3 capsules by mouth 3 times daily for 7 days 63 capsule 0 07/12/2019 07/19/2019 Active ergocalciferol 1.25 mg oral capsule (3 sources) Provitamin D2 Compound Start: 03-16-2017 take 1 capsule by mouth every week vitamin D (ERGOCALCIFEROL) 97975 units CAPS capsule TAKE 1 CAPSULE BY MOUTH ONCE A WEEK 4 capsule 3 03/16/2017 Active Comment on above: Take 50,000 Units by mouth once each week. fluticasone propionate 0.05 mg/actuat metered dose nasal spray (9 sources) Corticosteroid Start: 09-04-2020 Fluticasone Propionate Active 1 INH INHALATION DAILY September 04, 2020 12:00am Start: 03-21-2019 End: 02-22-2024 take 1 spray(s) nasal route once daily at bedtime fluticasone (FLONASE) 50 mcg/actuation nasal spray Indications: Suspected COVID-19 virus infection , Dizziness Use 1 Amberg in each nostril daily at bedtime. 18.2 mL 0 02/22/2024 Active Start: 04-27-2015 fluticasone (F LONASE) 50 MCG/ACT nasal spray Indications: Other allergic rhinitis 1 spray by Nasal route daily 1 Bottle 5 04/27/2015 Active Comment on above: Use 1 Amberg in each nostril once daily. lamoTRIgine 100 mg oral tablet (2 sources) Mood Stabilizer, Anti-epileptic Agent Start: lamoTRIgine (LAMICTAL) 100 mg tablet Take 50 mg by mouth once daily. 0 04/11/2019 Active Comment on above: Take 50 mg by mouth once daily. 24 hr levomilnacipran 80 mg extended release oral capsule (2 sources) Serotonin and Norepinephrine Reuptake Inhibitor Start: take 1 capsule by mouth once daily FETZIMA 80 mg Cs24 Take 1 capsule by mouth once daily. 0 09/22/2019 Active Comment on above: Take 1 capsule by [facility] once daily. 3 ml liraglutide 6 mg/ml pen injector (1 source) GLP-1 Receptor Agonist liragluti de-weight management 18 MG/3ML SOPN Inject into the skin 0 Active meloxicam 15 mg oral tablet (12 sources) Nonsteroidal Anti-inflammatory Drug Start: End: take 15 mg by mouth once daily Meloxicam Active 15 MG PO DAILY September 25, 2020 12:00am Comment on above: Take 15 mg by mouth once daily. Multiple Vitamins-Minerals (THERAPEUTIC MULTIVITAMIN-MINERALS) tablet (1 source) take 1 tablet by mouth once daily Multiple Vitamins-Minerals (THERAPEUTIC MULTIVITAMIN-MINERA LS) tablet Take 1 tablet by mouth daily 0 Active Multivitamin capsule (2 sources) take 1 capsule by mouth once daily Multivitamin capsule Take 1 capsule by mouth once daily. 0 Active Comment on above: Take 1 capsule by [facility] once daily. Multivitamin With Minerals (5 sources) Start: Multivitamin With Minerals Active 1 EACH PO DAILY October 31, 2020 12:05pm Start: 10-31-2020 Multivitamin W ith Minerals Active 1 EACH PO DAILY October 30, 2020 11:00pm Start: 10-31-2020 Multivitamin W ith Minerals Active 1 EACH PO DAILY October 31, 2020 12:00am naproxen sodium 500 mg / SUMAtriptan 85 mg oral tablet (2 sources) Nonsteroidal Anti-inflammatory Drug, Serotonin-1b and Serotonin-1d Receptor Agonist take 1 tablet by mouth once as needed for headache SUMAtriptan-Naproxen (TREXIMET) 85-500 mg per tablet Take 1 tablet by mouth as needed for Migraine Headache (see administration instructions). 0 Active Comment on above: Take 1 tablet by ni as needed for Migraine Headache (see administration instructions). polyethylene glycol 3350 06070 mg powder for oral solution (2 sources) Osmotic Laxative polyethylene gl ycol 3350 (MIRALAX) 17 gram/dose powder Take 17 g by mouth once daily. 0 Active Comment on above: Take 17 g by mouth o nce daily. sertraline 25 mg oral tablet (6 sources) Serotonin Reuptake Inhibitor Start: 2020 take 100 mg by mouth once daily Sertraline Active 100 MG PO DAILY September 04, 2020 12:00am Start: 11-02-2017 take 2 tablets by mo [facility] once daily sertraline (ZOLOFT) 25 MG tablet Indications: Moderate single current episode of major depressive disorder (HCC) TAKE 2 TABLETS BY MOUTH DAILY 180 tablet 1 11/02/2017 Active SUMAtriptan 25 mg oral tablet (5 sources) Serotonin-1b and Serotonin-1d Receptor Agonist Start: 09-04-2020 take 25 mg by mouth once daily as needed Sumatriptan Succinate Active 25 MG PO DAILY NEEDED September 04, 2020 12:00am topiramate 25 mg oral tablet (1 source) Start: 07-22-2018 take 1 tablet by mouth once daily topiramate (TOPAMAX) 25 MG tablet Take 1 tablet by mouth daily 30 tablet 0 07/22/2018 Active Completed/Discontinued Medications Medication Drug Class(es) Dates Sig (Normalized) Sig (Original) acetaminophen 325 mg oral tablet (5 sources) Start: 11-05-2020 End: 08-28-2021 take 650 mg by mouth every four hours as needed Acetaminophen Discontinued 650 MG PO EVERY 4 HOURS NEEDED November 04, 2020 11:00pm August 28, 2021 8:16am acetaminophen 325 mg / HYDROcodone bitartrate 5 mg oral tablet (5 sources) Opioid Agonist Start: 10-22-2020 End: 10-24-2020 take 1 tablet by mouth every four hours as needed Hydrocodone-Acetami nophen Discontinued 1 TABLET PO EVERY 4 HOURS NEEDED 10 October 22, 2020 October 23, 2020 11:03pm acetaminophen 325 mg / oxyCODONE hydrochloride 5 mg oral tablet (5 sources) Opioid Agonist Start: 09-04-2020 End: 09-07-2020 take 1 tablet by mouth every six hours as needed Oxycodone-Acetamino phen Discontinued 1 TABLET PO EVERY 6 HOURS NEEDED 12 September 04, 2020 September 07, 2020 12:03am fluconazole 200 mg oral tablet (5 sources) Azole Antifungal Start: 11-08-2020 End: 08-28-2021 take 200 mg by mouth once daily Fluconazole Discontinued 200 MG PO DAILY November 07, 2020 11:00pm August 28, 2021 8:17am omeprazole 20 mg delayed release oral capsule (10 sources) Proton Pump Inhibitor Start: 09-25-2020 End: 08-28-2021 take 20 mg by mouth once daily Omeprazole Discontinued 20 MG PO DAILY September 25, 2020 12:00am August 28, 2021 8:17am Start: 09-04-2020 End: 09-25-2020 take 20 mg by mouth once daily Omeprazole Discontinued 20 MG PO DAILY September 04, 2020 12:00am September 25, 2020 2:28pm ondansetron 4 mg disintegrating oral tablet (5 sources) Serotonin-3 Receptor Antagonist Start: 10-22-2020 End: 08-28-2021 take 4 mg by mouth every eight hours as needed Ondansetron Discontinued 4 MG PO EVERY 8 HOURS NEEDED October 21, 2020 11:00pm August 28, 2021 8:17am Problems Active Problems Problem Classification Problem Date Documented Da te Episodic/Chronic Abdominal pain (5 sources) Abdominal pain - cause unknown; Translations: [Unspecified abdominal pain] 09-21-2020 Episodic Allergic reactions (2 sources) Allergy status to penicillin; Translations: [Allergy status to other antibiotic agents status] Onset: Episodic Anxiety disorders (9 sources) Anxiety disorder, unspecified; Translations: [Anxiety] Onset: 8 07-19-2018 Chronic Cardiac dysrhythmias (2 sources) Supraventricular tachycardia; Translations: [Supraventricular tachycardia] 10-24-2019 Chronic Cardiac dysrhythmias (6 sources) Tachycardia, unspecified; Translations: [Palpitations] Onset: 9 04-20-2019 Episodic Conditions associated with dizziness or vertigo (2 sources) Dizziness; Translations: [Dizziness and giddiness] Onset: 4 02-22-2024 Episodic Diverticulosis and diverticulitis (11 sources) Diverticulosis of large intestine without perforation or abscess without bleeding; Translations: [Diverticulitis] Onset: 0 11-12-2020 Chronic Esophageal disorders (6 sources) Gastro-esophageal reflux disease without esophagitis; Translations: [Gastroesophageal reflux disease] Onset: 0 10-31-2020 Chronic External cause codes: Natural/environment (1 source) [...] Episodic Immunizations and screening for infectious disease (5 sources) Contact with and (suspected) exposure to other viral communicable diseases; Translations: [Encounter for screening for other viral diseases] Onset: 0 02-22-2024 Episodic Joint disorders and dislocations; trauma-related (1 source) Patellofemoral disorders, unspecified knee; Translations: [Patellofemoral disorders, unspecified knee] Onset: 4 Chronic Malaise and fatigue (1 source) Other malaise; Translations: [OTHER MALAISE] Onset: 0 Episodic Mood disorders (8 sources) Depressive disorder; Translations: [Depression] Onset: 6 07-19-2018 Chronic Mood disorders (1 source) Major depressive disorder, single episode, unspecified; Translations: [PAVITHRA DEPRESS D/O SINGLE EPIS UNS] Onset: 0 Nutritional deficiencies (1 source) Vitamin D deficiency, unspecified; Translations: [VITAMIN D DEFICIENCY UNSPECIFIED] Onset: 0 Chronic Other acquired deformities (1 source) Scoliosis, unspecified; Translations: [SCOLIOSIS UNSPECIFIED] Onset: 0 Chronic Other aftercare (1 source) intermediate teacher (current) use of aspirin; Translations: [GENETIC COUNSELLOR CURRENT USE OF ASPIRIN] Onset: 0 Episodic Other aftercare (1 source) Other halfway (current) drug therapy; Translations: [OTH INTERMEDIATE CURRENT DRUG THERAPY] Onset: 0 Episodic Other [...] Other hereditary and degenerative nervous system conditions (3 sources) Restless legs; Translations: [Restless legs syndrome] Onset: 6 10-15-2015 Chronic Other liver diseases (3 sources) Fatty (change of) liver, not elsewhere classified; Translations: [FATTY CHANGE LIVER NEC] Onset: 9 Chronic Other nervous system disorders (1 source) Polyneuropathy, unspecified; Translations: [POLYNEUROPATHY UNSPECIFIED] Onset: 0 Chronic Other nutritional; endocrine; and metabolic disorders (7 sources) Body mass index 40+ - severely obese; Translations: [Morbid (severe) obesity due to excess calories] Onset: 9 11-01-2020 Chronic Residual codes; unclassified (2 sources) Family history of malignant neoplasm of digestive organs; Translations: [FAM HX MALIG NEOPLASM DIGESTIV ORGN] Onset: 0 Episodic Residual codes; unclassified (5 sources) History of colectomy; Translations: [Acquired absence of other specified parts of digestive tract] 11-12-2020 Episodic Residual codes; unclassified (10 sources) Past history of procedure; Translations: [Other specified postprocedural states] 10-31-2020 Episodic Residual codes; unclassified (5 sources) History of colonoscopy; Translations: [Other specified postprocedural states] 10-31-2020 Episodic Spondylosis; intervertebral disc disorders; other back problems (5 sources) Degeneration of lumbar intervertebral disc; Translations: [Other intervertebral disc degeneration, lumbar region] 08-28-2021 Chronic Spondylosis; intervertebral disc disorders; other back problems (5 sources) Back problem; Translations: [Dorsopathy, unspecified] 10-31-2020 Episodic Superficial injury; contusion (1 source) Contusion of left foot, initial encounter; Translations: [CONTUSION LEFT FOOT INITIAL ENC] Onset: 0 Episodic Syncope (2 sources) Syncope; Translations: [Syncope and collapse] 04-20-2019 Episodic Unclassified (3 sources) Encounter for screening mammogram for malignant neoplasm of breast; Translations: [Encounter for screening for malignant neoplasm of colon] Onset: 7 Episodic Past or Other Problems Problem Classification Problem Date Documented Date Episodic/Chronic Blindness and vision defects (1 source) Other visual disturbances; Translations: [OTHER VISUAL DISTURBANCES] Onset: 09-20-2019 Episodic Diabetes mellitus without complication (1 source) Other abnormal glucose; Translations: [Other abnormal glucose] Onset: 10-25-2024 Episodic Nonspecific chest pain (1 source) Other chest pain; Translations: [OTHER CHEST PAIN] Onset: 03-30-2019 Episodic Other circulatory disease (2 sources) History of cerebrovascular disease; Translations: [Personal history of transient ischemic attack (TIA), and cerebral infarction without residual deficits] Onset: 10-24-2019 10-24-2019 Episodic Other connective tissue disease (3 sources) Fibromyalgia; Translations: [Fibromyalgia] Onset: 10-15-2015 10-15-2015 Episodic Other nervous system disorders (1 source) Other disturbances of skin sensation; Translations: [OTHER DISTURBANCES SKIN SENSATION] Onset: 09-20-2019 Episodic Other nervous system disorders (1 source) Numbness of face Onset: 09-09-2017 09-09-2017 Episodic Other nervous system disorders (1 source) Facial paresthesia Onset: 07-19-2018 07-20-2018 Episodic Other non-traumatic joint disorders (1 source) Pain in right knee; Translations: [Pain in right knee] Onset: 08-04-2024 Episodic Poisoning by psychotropic agents (1 source) Poisoning by selective serotonin and norepinephrine reuptake inhibitors, accidental (unintentional), initial encounter; Translations: [Poisoning by selective serotonin and norepinephrine reuptake inhibitors, accidental (unintentional), initial encounter] Onset: 06-27-2024 Episodic Residual codes; unclassified (1 source) History [...] Results Test Name Value Interpretation Reference Range Facility Quantiferon TB-Gold+on 02-14 QFT MITOGEN LINDA > 10.00 Normal . [facility] Comment on above: Performed By: #### L 3400.8000 ####[facility] [address] [place], [place], [id number] QFT NIL VALUE 0.04 IU/mL Normal . [facility] Comment on above: Performed By: #### L 3400.8000 ####[facility] [address] [place], [place], [id number] QFT TB GOLD+ Comment Normal . [facility] Comment on above: Result Comment: Jaylan tiFERON-TB Gold Plus is a qualitative indirect test for M tuberculosis infection (including disease) and is intended for use in conjunction with risk assessment, radiography, and other medical and diagnostic evaluations. The QuantiFERON-TB Gold Plus result is determined by subtracting the Nil value from either TB antigen (Ag) value. The Mitogen tube serves as a control for the test. Performed By: #### L 3400.8000 ####[facility] [address] [place], [place], [id number] QFT TB POS CRIT Negative Normal Negative [facility] Comment on above: Result Comment: No r esponse to M tuberculosis antigens detected. Infection with M tuberculosis is unlikely, but high risk individuals should be considered for additional testing (ATS/IDSA/CDC Clinical Practice Guidelines, 2017). The reference range is an Antigen minus Nil result of <0.35 IU/mL. The specimen received for QuantiFERON testing was incubated by the ordering institution. Specific procedures outlined in our Directory of Services and in the package insert for the QuantiFERON Gold (In Tube) test must be followed to enable for proper stimulation of cells for the production of interferon gamma. Chemiluminescence immunoassay methodology Performed at: [facility] [id number] Ceramic Plater: Win Ballard PhD, Phone: [phone] Performed By: #### L 3400.8000 ####[facility] [address] [place], [address] QFT TB1+ AG LINDA 0.14 IU/mL Normal . [facility] Comment on above: Performed By: #### L 3400.8000 ####[facility] [address] [place], [address] QFT TB2+ AG LINDA 0.21 IU/mL Normal . [facility] Comment on above: Performed By: #### L 3400.8000 ####[facility] [address] [place], [address] 12 Lead EKGon 11-17-2024 [address] [facility] [address] [place] [address] 12 Lead EKG 11/17/24 1403 MR#: [id number] Acct: [id number] Name: JOANNE SHAH Rep #: [id number] : 1970 54 From: Tomi Clements MD Attending Dr: Dr. Vj Lazaro, Status: REG CLI Ordering Dr: Vj Lazaro DO Date: 11/17/24 Location: [facility] Sex: F C Admitted: Test Reason : PRE OP Blood Pressure : */* mmHG Vent. Rate : 80 BPM Atrial Rate : 80 BPM P-R Int : 132 ms QRS Dur : 68 ms QT Int : 360 ms P-R-T Axes : 37 20 21 degrees QTcB Int : 415 ms Normal sinus rhythm Normal ECG Confirmed by Tomi Clements ([id number]), editor & co founder FREDIS CORADO ([id number]) on 11/18/2024 7:02:27 AM Referred By: Vj Lazaro Confirmed By: Tomi Clements 11/18/24 0702 Date Tomi Clements MD CC: Dr. Luis Manuel Sesay MD; Dr. Vj Lazaro DO Signed Normal [facility] Basic Metabolic Profile (BMP )on 11-17-2024 BUN/CRE 29.8 RATIO High 10-20 [facility] Comment on above: Performed By: #### L 100.0100, L500.2500 ####[facility] [address] [place], [address] Calcium [Mass/Vol] 9.8 mg/dL Normal 7.6-11.0 [facility] Comment on above: Performed By: #### L 100.0100, L500.2500 ####[facility] [address] [place], [address] Chloride [Moles/Vol] 101 mmol/L Normal 98-108 [facility] Comment on above: Performed By: #### L 100.0100, L500.2500 ####[facility] [address] [place], [address] CO2 [Moles/Vol] 23.5 mmol/L Normal 21.0-32.0 [facility] Comment on above: Performed By: #### L 100.0100, L500.2500 ####[facility] [address] [place], [address] Creatinine [Mass/Vol] 0.76 mg/dL Normal 0.70-1.20 [facility] Comment on above: Performed By: #### L 100.0100, L500.2500 ####[facility] [address] [place], [address] GAP 13 Normal 5-15 [facility] Comment on above: Performed By: #### L 100.0100, L500.2500 ####[facility] [address] [place], [address] GFR/1.73 sq M.predicted among non-blacks MDRD (S/P/Bld) [Vol rate/Area] 94 mL/min/{1.73_m2} Normal >60 [facility] Comment on above: Result Comment: mL/m in/1.73m2 CKD-EPI Creatinine Equation (2020) Performed By: #### L 100.0100, L500.2500 ####[facility] [address] [place], [address] Glucose [Mass/Vol] 89 mg/dL Normal 70-99 [facility] Comment on above: Performed By: #### L 100.0100, L500.2500 ####[facility] [address] [place], [address] Potassium [Moles/Vol] 4.2 mmol/L Normal 3.3-5.1 [facility] Comment on above: Performed By: #### L 100.0100, L500.2500 ####[facility] [address] [place], [address] Sodium [Moles/Vol] 137 mmol/L Normal 133-145 [facility] Comment on above: Performed By: #### L 100.0100, L500.2500 ####[facility] [address] [place], [address] Urea nitrogen [Mass/Vol] 23 mg/dL High 4-19 [facility] Comment on above: Performed By: #### L 100.0100, L500.2500 ####[facility] [address] [place], [address] CBC W/Diff, Automatedon 04- Absolute Lymph 2.60 X10 3/uL Normal 0.83-4.51 [facility] Comment on above: Performed By: #### L 100.0100, L500.2500 ####[facility] [address] [place], [address] Absolute Neut 3.3 X10 3/uL Normal 2.0-7.7 [facility] Comment on above: Performed By: #### L 100.0100, L500.2500 ####[facility] [address] [place], [address] Basophils/100 WBC (Bld) 0.5 % Normal 0-1 [facility] Comment on above: Performed By: #### L 100.0100, L500.2500 ####[facility] [address] [place], [address] Eosinophils/100 WBC (Bld) 2.7 % Normal 0-5 [facility] Comment on above: Performed By: #### L 100.0100, L500.2500 ####[facility] [address] [place], [address] Erythrocyte distribution width (RBC) [Ratio] 13.8 % Normal 11.6-14.6 [facility] Comment on above: Performed By: #### L 100.0100, L500.2500 ####[facility] [address] [place], [address] Hematocrit (Bld) [Volume fraction] 38.2 % Normal 37-47 [facility] Comment on above: Performed By: #### L 100.0100, L500.2500 ####[facility] [address] [place], [address] Hemoglobin (Bld) [Mass/Vol] 12.8 g/dL Normal 12.0-15.0 [facility] Comment on above: Performed By: #### L 100.0100, L500.2500 ####[facility] [address] [place], [address] IG% 0.500 Normal 0.0-0.9 [facility] Comment on above: Result Comment: IG% - Immature Granulocytes (promyelocytes, myelocytes and metamyelocytes) > 1% indicates that a LEFT SHIFT is Present. Performed By: #### L 100.0100, L500.2500 ####[facility] [address] [place], [address] Lymphocytes/100 WBC (Bld) 39.3 % Normal 19-41 [facility] Comment on above: Performed By: #### L 100.0100, L500.2500 ####[facility] [address] [place], [address] MCH (RBC) [Entitic mass] 29.4 pg Normal 27.0-32.0 [facility] Comment on above: Performed By: #### L 100.0100, L500.2500 ####[facility] [address] [place], [address] MCHC (RBC) [Mass/Vol] 33.5 g/dL Normal 32-36 [facility] Comment on above: Performed By: #### L 100.0100, L500.2500 ####[facility] [address] [place], [address] MCV (RBC) [Entitic vol] 87.6 fL Normal 81-99 [facility] Comment on above: Performed By: #### L 100.0100, L500.2500 ####[facility] [address] [place], [address] Monocytes/100 WBC (Bld) 7.7 % Normal 0-10 [facility] Comment on above: Performed By: #### L 100.0100, L500.2500 ####[facility] [address] [place], [address] Neutrophils/100 WBC (Bld) 49.3 % Normal 47-70 [facility] Comment on above: Performed By: #### L 100.0100, L500.2500 ####[facility] [address] [place], [address] Nucleated RBC (Bld) [#/Vol] 0 10*3/uL Normal 0-5 [facility] Comment on above: Performed By: #### L 100.0100, L500.2500 ####[facility] [address] [place], [address] Platelet mean volume (Bld) [Entitic vol] 9.5 fL Normal 6.2-12.0 [facility] Comment on above: Performed By: #### L 100.0100, L500.2500 ####[facility] [address] [place], [address] Platelets (Bld) [#/Vol] 331 10*3/uL Normal 150-450 [facility] Comment on above: Performed By: #### L 100.0100, L500.2500 ####[facility] [address] [place], [address] RBC (Bld) [#/Vol] 4.36 10*6/uL Normal 4.2-5.4 [facility] Comment on above: Performed By: #### L 100.0100, L500.2500 ####[facility] [address] [place], [address] RDW SD 43.8 fl Normal 35.1-43.9 [facility] Comment on above: Performed By: #### L 100.0100, L500.2500 ####[facility] [address] [place], [address] WBC (Bld) [#/Vol] 6.6 10*3/uL Normal 4.4-11.0 [facility] Comment on above: Performed By: #### L 100.0100, L500.2500 ####[facility] [address] [place], [address] Hemoglobin A1con 10-17-2024 HbA1c (Bld) [Mass fraction] 5.8 % Normal <=5.6 [facility] Comment on above: Order Comment: MARY Hernández ADD A1C TO BLOOD DRAWN 10/14/24 PER Performed By: #### L 501.9985, L506.1001 ####[facility] [address] [place], [address] CBC W/Diff, Automatedon 10-01 Absolute Lymph 2.82 X10 3/uL Normal 0.83-4.51 [facility] Comment on above: Order Comment: Order Date: 10/14/24 Order Info: 0184-1 - CBCD Performed By: #### L 100.0100, L501.9520, L500.4100, L500.4050 #### [facility] [address] [place], [address] Absolute Neut 4.2 X10 3/uL Normal 2.0-7.7 [facility] Comment on above: Order Comment: Order Date: 10/14/24 Order Info: 0184-1 - CBCD Performed By: #### L 100.0100, L501.9520, L500.4100, L500.4050 #### [facility] [address] [place], [address] Basophils/100 WBC (Bld) 0.4 % Normal 0-1 [facility] Comment on above: Order Comment: Order Date: 10/14/24 Order Info: 0184-1 - CBCD Performed By: #### L 100.0100, L501.9520, L500.4100, L500.4050 #### [facility] [address] [place], [address] Eosinophils/100 WBC (Bld) 2.3 % Normal 0-5 [facility] Comment on above: Order Comment: Order Date: 10/14/24 Order Info: 0184-1 - CBCD Performed By: #### L 100.0100, L501.9520, L500.4100, L500.4050 #### [facility] [address] [place], [address] Erythrocyte distribution width (RBC) [Ratio] 14.3 % Normal 11.6-14.6 [facility] Comment on above: Order Comment: Order Date: 10/14/24 Order Info: 0184-1 - CBCD Performed By: #### L 100.0100, L501.9520, L500.4100, L500.4050 #### [facility] [address] [place], [address] Hematocrit (Bld) [Volume fraction] 38.8 % Normal 37-47 [facility] Comment on above: Order Comment: Order Date: 10/14/24 Order Info: 0184-1 - CBCD Performed By: #### L 100.0100, L501.9520, L500.4100, L500.4050 #### [facility] [address] [place], [address] Hemoglobin (Bld) [Mass/Vol] 13.0 g/dL Normal 12.0-15.0 [facility] Comment on above: Order Comment: Order Date: 10/14/24 Order Info: 0184-1 - CBCD Performed By: #### L 100.0100, L501.9520, L500.4100, L500.4050 #### [facility] [address] [place], [address] IG% 0.300 Normal 0.0-0.9 [facility] Comment on above: Order Comment: Order Date: 10/14/24 Order Info: 0184-1 - CBCD Result Comment: IG% - Immature Granulocytes (promyelocytes, myelocytes and metamyelocytes) > 1% indicates that a LEFT SHIFT is Present. Performed By: #### L 100.0100, L501.9520, L500.4100, L500.4050 #### [facility] [address] [place], [address] Lymphocytes/100 WBC (Bld) 35.9 % Normal 19-41 [facility] Comment on above: Order Comment: Order Date: 10/14/24 Order Info: 0184-1 - CBCD Performed By: #### L 100.0100, L501.9520, L500.4100, L500.4050 #### [facility] [address] [place], [address] MCH (RBC) [Entitic mass] 29.3 pg Normal 27.0-32.0 [facility] Comment on above: Order Comment: Order Date: 10/14/24 Order Info: 0184-1 - CBCD Performed By: #### L 100.0100, L501.9520, L500.4100, L500.4050 #### [facility] [address] [place], [address] MCHC (RBC) [Mass/Vol] 33.5 g/dL Normal 32-36 [facility] Comment on above: Order Comment: Order Date: 10/14/24 Order Info: 0184-1 - CBCD Performed By: #### L 100.0100, L501.9520, L500.4100, L500.4050 #### [facility] [address] [place], [address] MCV (RBC) [Entitic vol] 87.4 fL Normal 81-99 [facility] Comment on above: Order Comment: Order Date: 10/14/24 Order Info: 0184-1 - CBCD Performed By: #### L 100.0100, L501.9520, L500.4100, L500.4050 #### [facility] [address] [place], [address] Monocytes/100 WBC (Bld) 7.5 % Normal 0-10 [facility] Comment on above: Order Comment: Order Date: 10/14/24 Order Info: 0184-1 - CBCD Performed By: #### L 100.0100, L501.9520, L500.4100, L500.4050 #### [facility] [address] [place], [address] Neutrophils/100 WBC (Bld) 53.6 % Normal 47-70 [facility] Comment on above: Order Comment: Order Date: 10/14/24 Order Info: 0184-1 - CBCD Performed By: #### L 100.0100, L501.9520, L500.4100, L500.4050 #### [facility] [address] [place], [address] Nucleated RBC (Bld) [#/Vol] 0 10*3/uL Normal 0-5 [facility] Comment on above: Order Comment: Order Date: 10/14/24 Order Info: 0184-1 - CBCD Performed By: #### L 100.0100, L501.9520, L500.4100, L500.4050 #### [facility] [address] [place], [address] Platelet mean volume (Bld) [Entitic vol] 9.6 fL Normal 6.2-12.0 [facility] Comment on above: Order Comment: Order Date: 10/14/24 Order Info: 0184-1 - CBCD Performed By: #### L 100.0100, L501.9520, L500.4100, L500.4050 #### [facility] [address] [place], [address] Platelets (Bld) [#/Vol] 336 10*3/uL Normal 150-450 [facility] Comment on above: Order Comment: Order Date: 10/14/24 Order Info: 0184-1 - CBCD Performed By: #### L 100.0100, L501.9520, L500.4100, L500.4050 #### [facility] [address] [place], [address] RBC (Bld) [#/Vol] 4.44 10*6/uL Normal 4.2-5.4 [facility] Comment on above: Order Comment: Order Date: 10/14/24 Order Info: 0184-1 - CBCD Performed By: #### L 100.0100, L501.9520, L500.4100, L500.4050 #### [facility] [address] [place], [address] RDW SD 45.4 fl High 35.1-43.9 [facility] Comment on above: Order Comment: Order Date: 10/14/24 Order Info: 0184-1 - CBCD Performed By: #### L 100.0100, L501.9520, L500.4100, L500.4050 #### [facility] [address] [place], [address] WBC (Bld) [#/Vol] 7.9 10*3/uL Normal 4.4-11.0 [facility] Comment on above: Order Comment: Order Date: 10/14/24 Order Info: [id number] - CBCD Performed By: #### L 100.0100, L501.9520, L500.4100, L500.4050 #### [facility] [address] [place], [address] Comprehensive Metabolic Prof ilon 10-14-2024 Albumin [Mass/Vol] 4.4 g/dL Normal 3.5-5.0 [facility] Comment on above: Order Comment: Order Date: 10/14/24Order Info: [id number] - CMPOrder Info: [id number] - LIPIDOrder Info: [id number] - TSH Performed By: #### L 100.0100, L501.9520, L500.4100, L500.4050 ####[facility] [address] [place], [address] Albumin/Globulin [Mass ratio] 1.5 {ratio} Normal 0.9-2.4 [facility] Comment on above: Order Comment: Order Date: 10/14/24Order Info: [id number] - CMPOrder Info: [id number] - LIPIDOrder Info: [id number] - TSH Performed By: #### L 100.0100, L501.9520, L500.4100, L500.4050 ####[facility] [address] [place], [address] ALK PHOS 116 U/L High 35-104 [facility] Comment on above: Order Comment: Order Date: 10/14/24Order Info: [id number] - CMPOrder Info: [id number] - LIPIDOrder Info: [id number] - TSH Performed By: #### L 100.0100, L501.9520, L500.4100, L500.4050 ####[facility] [address] [place], [address] ALT [Catalytic activity/Vol] 17 U/L Normal <=34 [facility] Comment on above: Order Comment: Order Date: 10/14/24Order Info: [id number] - CMPOrder Info: [id number] - LIPIDOrder Info: [id number] - TSH Performed By: #### L 100.0100, L501.9520, L500.4100, L500.4050 ####[facility] [address] [place], [address] AST [Catalytic activity/Vol] 21 U/L Normal <=31 [facility] Comment on above: Order Comment: Order Date: 10/14/24Order Info: [id number] - CMPOrder Info: [id number] - LIPIDOrder Info: [id number] - TSH Performed By: #### L 100.0100, L501.9520, L500.4100, L500.4050 ####[facility] [address] [place], [address] Bilirubin [Mass/Vol] 0.18 mg/dL Normal 0.00-1.30 [facility] Comment on above: Order Comment: Order Date: 10/14/24Order Info: [id number] - CMPOrder Info: [id number] - LIPIDOrder Info: [id number] - TSH Performed By: #### L 100.0100, L501.9520, L500.4100, L500.4050 ####[facility] [address] [place], [address] BUN/CRE 23.7 RATIO High 10-20 [facility] Comment on above: Order Comment: Order Date: 10/14/24Order Info: [id number] - CMPOrder Info: [id number] - LIPIDOrder Info: [id number] - TSH Performed By: #### L 100.0100, L501.9520, L500.4100, L500.4050 ####[facility] [address] [place], [address] Calcium [Mass/Vol] 9.6 mg/dL Normal 7.6-11.0 [facility] Comment on above: Order Comment: Order Date: 10/14/24Order Info: [id number] - CMPOrder Info: [id number] - LIPIDOrder Info: [id number] - TSH Performed By: #### L 100.0100, L501.9520, L500.4100, L500.4050 ####[facility] [address] [place], [address] Chloride [Moles/Vol] 101 mmol/L Normal 98-108 [facility] Comment on above: Order Comment: Order Date: 10/14/24Order Info: [id number] - CMPOrder Info: [id number] - LIPIDOrder Info: 6-3 - TSH Performed By: #### L 100.0100, L501.9520, L500.4100, L500.4050 ####[facility] [address] [place], [address] CO2 [Moles/Vol] 23.3 mmol/L Normal 21.0-32.0 [facility] Comment on above: Order Comment: Order Date: 10/14/24Order Info: [id number] - CMPOrder Info: [id number] - LIPIDOrder Info: 6-3 - TSH Performed By: #### L 100.0100, L501.9520, L500.4100, L500.4050 ####[facility] [address] [place], [address] Creatinine [Mass/Vol] 0.70 mg/dL Normal 0.70-1.20 [facility] Comment on above: Order Comment: Order Date: 10/14/24Order Info: [id number]- - CMPOrder Info: [id number] - LIPIDOrder Info: 6-3 - TSH Performed By: #### L 100.0100, L501.9520, L500.4100, L500.4050 ####[facility] [address] [place], [address] GAP 14 Normal 5-15 [facility] Comment on above: Order Comment: Order Date: 10/14/24Order Info: [id number] - CMPOrder Info: [id number] - LIPIDOrder Info: 6-3 - TSH Performed By: #### L 100.0100, L501.9520, L500.4100, L500.4050 ####[facility] [address] [place], [address] GFR/1.73 sq M.predicted among non-blacks MDRD (S/P/Bld) [Vol rate/Area] 103 mL/min/{1.73_m2} Normal >60 [facility] Comment on above: Order Comment: Order Date: 10/14/24Order Info: [id number] - CMPOrder Info: [id number] - LIPIDOrder Info: [id number] - TSH Result Comment: mL/m in/1.73m2 CKD-EPI Creatinine Equation (2020) Performed By: #### L 100.0100, L501.9520, L500.4100, L500.4050 ####[facility] [address] [place], [address] Globulin (S) [Mass/Vol] 3.0 g/dL Normal 2.2-4.2 [facility] Comment on above: Order Comment: Order Date: 10/14/24Order Info: [id number]- - CMPOrder Info: [id number] - LIPIDOrder Info: 3 - TSH Performed By: #### L 100.0100, L501.9520, L500.4100, L500.4050 ####[facility] [address] [place], [address] Glucose [Mass/Vol] 101 mg/dL High 70-99 [facility] Comment on above: Order Comment: Order Date: 10/14/24Order Info: 07- - CMPOrder Info: [id number] - LIPIDOrder Info: 3 - TSH Performed By: #### L 100.0100, L501.9520, L500.4100, L500.4050 ####[facility] [address] [place], [address] Potassium [Moles/Vol] 3.9 mmol/L Normal 3.3-5.1 [facility] Comment on above: Order Comment: Order Date: 10/14/24Order Info: 07-1 - CMPOrder Info: [id number] - LIPIDOrder Info: 3 - TSH Performed By: #### L 100.0100, L501.9520, L500.4100, L500.4050 ####[facility] [address] [place], [address] Sodium [Moles/Vol] 138 mmol/L Normal 133-145 [facility] Comment on above: Order Comment: Order Date: 10/14/24Order Info: [id number] - CMPOrder Info: [id number] - LIPIDOrder Info: [id number] - TSH Performed By: #### L 100.0100, L501.9520, L500.4100, L500.4050 ####[facility] [address] [place], [address] T PROT 7.4 g/dL Normal 5.9-8.4 [facility] Comment on above: Order Comment: Order Date: 10/14/24Order Info: [id number] - CMPOrder Info: [id number] - LIPIDOrder Info: [id number] - TSH Performed By: #### L 100.0100, L501.9520, L500.4100, L500.4050 ####[facility] [address] [place], [address] Urea nitrogen [Mass/Vol] 17 mg/dL Normal 4-19 [facility] Comment on above: Order Comment: Order Date: 10/14/24Order Info: [id number] - CMPOrder Info: [id number] - LIPIDOrder Info: [id number] - TSH Performed By: #### L 100.0100, L501.9520, L500.4100, L500.4050 ####[facility] [address] [place], [address] L506.1001on 10-14-2024 Vitamin D 25-OH 28.0 ng/mL Low 30-100 [facility] Comment on above: Order Comment: Order Date: 10/14/24Order Info: [id number] - CMPOrder Info: [id number] - LIPIDOrder Info: [id number] - TSH Result Comment: Violeta min D Status Deficiency: <20 ng/mL (50nmol/L) Insufficiency: 20-30 ng/mL (50-75 nmol/L) Sufficiency: 30-100 ng/mL (75-250 nmol/L) Toxicity: >100 ng/mL (>250 nmol/L) Performed By: #### L 501.9985, L506.1001 ####[facility] [address] [place], [address] Lipid Profileon 10-14-2024 CHOL:HDL 3.72 Normal [facility] Comment on above: Order Comment: Order Date: 10/14/24Order Info: [id number] - CMPOrder Info: [id number] - LIPIDOrder Info: [id number] - TSH Performed By: #### L 100.0100, L501.9520, L500.4100, L500.4050 ####[facility] [address] [place], [address] Cholesterol [Mass/Vol] 238 mg/dL High <=200 [facility] Comment on above: Order Comment: Order Date: 10/14/24Order Info: [id number] - CMPOrder Info: [id number] - LIPIDOrder Info: [id number] - TSH Result Comment: Chol esterol level, Desirable <200 mg/dL Borderline high cholesterol 200-239 mg/dL High cholesterol >=240 mg/dL Recommendations of the NCEP Adult Treatment Panel for the following risk-cutoff thresholds for the [place] population. Performed By: #### L 100.0100, L501.9520, L500.4100, L500.4050 ####[facility] [address] [place], [address] Cholesterol in HDL [Mass/Vol] 64 mg/dL Normal [facility] Comment on above: Order Comment: Order Date: 10/14/24Order Info: [id number] - CMPOrder Info: [id number] - LIPIDOrder Info: [id number] - TSH Result Comment: Deidra onal Cholesterol Education Program (NCEP) guidelines: <40 mg/dL: Low HDL-cholesterol (major risk factor for CHD) >= 60 mg/dL: High HDL-cholesterol (negative risk factor for CHD) HDL-cholesterol is affected by a number of factors, e.g. smoking, exercise, hormones, sex and age. Performed By: #### L 100.0100, L501.9520, L500.4100, L500.4050 ####[facility] [address] [place], [address] Cholesterol in LDL [Mass/Vol] 129 mg/dL Normal [facility] Comment on above: Order Comment: Order Date: 10/14/24Order Info: [id number] - CMPOrder Info: [id number] - LIPIDOrder Info: [id number] - TSH Result Comment: Bord cxkuxs=459-450 mg/dL Higher Qxma=485 mg/dL or greater Performed By: #### L 100.0100, L501.9520, L500.4100, L500.4050 ####[facility] [address] [place], [address] Cholesterol in VLDL [Mass/Vol] 45 mg/dL High 5-40 [facility] Comment on above: Order Comment: Order Date: 10/14/24Order Info: [id number] - CMPOrder Info: [id number] - LIPIDOrder Info: [id number] - TSH Performed By: #### L 100.0100, L501.9520, L500.4100, L500.4050 ####[facility] [address] [place], [address] Triglyceride [Mass/Vol] 223 mg/dL High [facility] Comment on above: Order Comment: Order Date: 10/14/24Order Info: [id number] - CMPOrder Info: [id number] - LIPIDOrder Info: [id number] - TSH Result Comment: The drugs N-Acetylcysteine and Metamizole may falsely depress this assay. Normal range: <150 mg/dL Borderline High: 150-199 mg/dL High: 200-499 mg/dL Very High: >500 mg/dL Performed By: #### L 100.0100, L501.9520, L500.4100, L500.4050 ####[facility] [address] [place], [address] Thyroid Stim Hormone (TSH)on 10-14-2024 TSH 1.230 uIU/mL Normal 0.300-4.200 [facility] Comment on above: Order Comment: Order Date: 10/14/24Order Info: [id number] - CMPOrder Info: [id number] - LIPIDOrder Info: [id number] - TSH Performed By: #### L 100.0100, L501.9520, L500.4100, L500.4050 ####[facility] [address] [place], [address] Emergency Department Summary on 07-05-2024 Emergency Department Summary [facility] Medical Records Department [address] [place] [address] Emergency Department Summary 07/05/24 MR#: [id number] Acct: [id number] Name: JOANNE SHAH Rep #: [id number] : 1970 54 From: Rajendra Marroquin DO PCP: Dr. Luis Manuel Sesay MD Status:REG ER Location: ED HPI History of Present Illness Chief Complaint: Lower Extremity Injury Narrative Narrative: Patient is a 54-year-old female with a past medical history of depression, fibromyalgia, BMI of 40- 49.9, anxiety who presents to the emergency department chief complaint of right knee pain. Patient states that her pain in her knee has been going on for a month ever since carrying multiple 50 pound bag of concrete while putting up a fence. She states that her knee pain never fully went away after doing this however she states that it was progressively getting better untils the other day when she went to turn and felt/heard a pop in her right knee. She states that originally she thought her pain was going to improve however states that it has gotten slightly worse therefore she came here for further evaluation management. States that she did have x-rays previously at the onset of her knee pain that were normal. She states that she has been icing and using ibuprofen Tylenol for pain control. Patient states that she has not seen an orthopedic surgeon. [facility] Medical History Insomnia PTSD (post-traumatic stress disorder) MALCOLM (generalized anxiety disorder) MDD (major depressive disorder) H/O emotional problems Allergies Globus sensation Fibromyalgia Migraines Anemia Obesity, Class III, BMI 40-49.9 (morbid obesity) Back problem Anxiety Depression Acid reflux History of esophageal dilatation Diverticulitis Home Medications ???Medication ???Instructions ???Recorded ???Last Taken ???Type multivitamin with minerals 1 each PO DAILY 10/31/20 10/30/20 History rimegepant 75 mg disintegrating 75 mg PO ONCE PRN migraine headache 01/05/23 Unknown History tablet (Nurtec ODT) fluticasone propionate 50 1 spray intranasal DAILY 04/29/23 Unknown History mcg/actuation nasal spray,suspension duloxetine 30 mg capsule,delayed 30 mg PO DAILY 90 days #90 caps 09/01/23 Unknown Rx release duloxetine 60 mg capsule,delayed 60 mg PO DAILY #90 caps 09/01/23 Unknown Rx release ondansetron 4 mg disintegrating 4 mg PO Q8H PRN PRN Nausea #10 tabs 10/15/23 Unknown Rx tablet Allergy/AdvReac Type Severity Reaction Status Date / Time morphine AdvReac blood Verified 07/05/24 16:01 pressure drops Family History Father Heart disease Alcoholism Mother Osteoporosis Cancer Skin Thyroid disorder COPD (chronic obstructive pulmonary disease) Grandmother Breast cancer Colon cancer Other Suicide attempt Surgical History History of partial colectomy S/P colectomy History of esophagogastroduodenoscopy (EGD) Hx of colonoscopy Hx of unilateral oophorectomy Hx of cholecystectomy Hx of hysterectomy History of Social History Smoking Status: Never smoker second hand exposure: No alcohol intake: current alcohol intake frequency: holidays/special occasions only substance use type: does not use caffeine: Yes what type of physical activity do you participate in: none frequency: does not exercise ROS ROS ED ROS Narrative Constitutional: Denies any fevers, chills, headaches, lightness, dizziness Neurological: Denies any numbness, weakness, tingling Musculoskeletal: Complains of right knee pain as noted above Skin: Denies any rashes or lesions EXAM Physical Exam Narrative Exam Narrative: General: Patient lying in bed rest comfortably did not appear to be acute distress Head: Atraumatic, normocephalic Eyes: PERRL bilaterally, EOMI biotic no conjunctival injection noted Neck: Soft, supple, trachea midline Cardiovascular: Regular in rhythm Musculoskeletal: Patient has pain with valgus stress testing, anterior drawer test negative, varus stress testing negative Extremities: DP pulses +2/4 in the bilateral extremities, +5/5 strength noted in the bilateral upper and lower extremities, no pedal edema on exam Neurological: Patient following commands knew that she was at [facility] years 2023. Sensation grossly intact in the bilateral lower extremities Skin: warm, dry, intact Const Vital Signs: 07/05/24 16:01 Temperature 97.5 F L Temperature Source Temporal Pulse Rate 80 Respiratory Rate 18 Blood Pressure 146/85 H Blood Pressure Mean 105 Pulse Ox 100 Oxygen Delivery Method Room Air (more content not included)... Normal [facility] Knee 3 Viewson 07-05-2024 Knee 3 Views [facility] [address] [place] [address] [id number] Knee 3 Views MR#: [id number] Acct: [id number] Name: JOANNE SHAH Rep #: [id number] : 1970 F 54 From: Franco Chairez MD PCP: Dr. Luis Manuel Sesay MD Status: REG ER Study: Knee 3 Views Date of Exam: 07/05/24 Exam# [id number] Ordering Dr: Rajendra Marroquin DO :[id number] EXAM: XR RIGHT KNEE, 3 VIEWS CLINICAL INDICATION: knee pain, heard pop TECHNIQUE: Three views of the right knee. COMPARISON: 06/03/2024 FINDINGS: BONES/JOINTS: Unremarkable. No acute fracture. No subluxation. Normal alignment. Preservation of the joint space. No sclerotic or destructive changes observed. SOFT TISSUES: Unremarkable. No soft tissue swelling or gas. No radiopaque foreign body. RAD/Knee 3 Views IMPRESSION: Negative right knee x-rays and unchanged. Electronically Signed: Franco Chairez MD at 17:37 EST Reading Location ID and State: [facility] / [place] , Service support , CC: Dr. Luis Manuel Sesay MD; Dr. Rajendra Marroquin DO Electrical Equipment Assembler: Signed [facility] 12 Lead EKGon 06-04-2024 12 Lead E[address] [facility] Cardiovascular Services [address] [place] [address] 12 Lead EKG 06/04/24 1850 MR#: [id number] Acct: [id number] Name: JOANNE SHAH Rep #: [id number] : 1970 54 From: Erik Farah MD Attending Dr: Status: DEP ER Ordering Dr: Sridevi Vaughn DO Date: 06/04/24 Location: ED Sex: F C Admitted: Test Reason : DYSRHYTHMIA Blood Pressure : */* mmHG Vent. Rate : 83 BPM Atrial Rate : 83 BPM P-R Int : 138 ms QRS Dur : 74 ms QT Int : 368 ms P-R-T Axes : 42 17 19 degrees QTcB Int : 432 ms Normal sinus rhythm Normal ECG Confirmed by IMELDA BECKER, ERIK ([id number]), editor & co founder TAY ROBLES ([id number]) on 06/06/2024 9:25:27 AM Referred By: Confirmed By: ERIK FARAH MD 06/06/2425 Date Erik Farah MD CC: Dr. Sridevi Vaughn DO; Dr. Luis Manuel Sesay MD Signed [facility] CBC W/Diff, Automatedon 11-0 Absolute Lymph 2.31 X10 3/uL Normal 0.83-4.51 [facility] Comment on above: Performed By: #### L 501.5200, L100.0100, L500.4050 ####[facility] [address] [place], [address] Absolute Neut 3.7 X10 3/uL Normal 2.0-7.7 [facility] Comment on above: Performed By: #### L 501.5200, L100.0100, L500.4050 ####[facility] [address] [place], [address] Basophils/100 WBC (Bld) 0.6 % Normal 0-1 [facility] Comment on above: Performed By: #### L 501.5200, L100.0100, L500.4050 ####[facility] [address] [place], [address] Eosinophils/100 WBC (Bld) 2.8 % Normal 0-5 [facility] Comment on above: Performed By: #### L 501.5200, L100.0100, L500.4050 ####[facility] [address] [place], [address] Erythrocyte distribution width (RBC) [Ratio] 14.4 % Normal 11.6-14.6 [facility] Comment on above: Performed By: #### L 501.5200, L100.0100, L500.4050 ####[facility] [address] [place], [address] Hematocrit (Bld) [Volume fraction] 38.3 % Normal 37-47 [facility] Comment on above: Performed By: #### L 501.5200, L100.0100, L500.4050 ####[facility] [address] [place], [address] Hemoglobin (Bld) [Mass/Vol] 12.4 g/dL Normal 12.0-15.0 [facility] Comment on above: Performed By: #### L 501.5200, L100.0100, L500.4050 ####[facility] [address] [place], [address] IG% 0.300 Normal 0.0-0.9 [facility] Comment on above: Result Comment: IG% - Immature Granulocytes (promyelocytes, myelocytes and metamyelocytes) > 1% indicates that a LEFT SHIFT is Present. Performed By: #### L 501.5200, L100.0100, L500.4050 ####[facility] [address] [place], [address] Lymphocytes/100 WBC (Bld) 33.9 % Normal 19-41 [facility] Comment on above: Performed By: #### L 501.5200, L100.0100, L500.4050 ####[facility] [address] [place], [address] MCH (RBC) [Entitic mass] 28.4 pg Normal 27.0-32.0 [facility] Comment on above: Performed By: #### L 501.5200, L100.0100, L500.4050 ####[facility] [address] [place], [address] MCHC (RBC) [Mass/Vol] 32.4 g/dL Normal 32-36 [facility] Comment on above: Performed By: #### L 501.5200, L100.0100, L500.4050 ####[facility] [address] [place], [address] MCV (RBC) [Entitic vol] 87.8 fL Normal 81-99 [facility] Comment on above: Performed By: #### L 501.5200, L100.0100, L500.4050 ####[facility] [address] [place], [address] Monocytes/100 WBC (Bld) 8.2 % Normal 0-10 [facility] Comment on above: Performed By: #### L 501.5200, L100.0100, L500.4050 ####[facility] [address] [place], [address] Neutrophils/100 WBC (Bld) 54.2 % Normal 47-70 [facility] Comment on above: Performed By: #### L 501.5200, L100.0100, L500.4050 ####[facility] [address] [place], [address] Nucleated RBC (Bld) [#/Vol] 0 10*3/uL Normal 0-5 [facility] Comment on above: Performed By: #### L 501.5200, L100.0100, L500.4050 ####[facility] [address] [place], [address] Platelet mean volume (Bld) [Entitic vol] 8.9 fL Normal 6.2-12.0 [facility] Comment on above: Performed By: #### L 501.5200, L100.0100, L500.4050 ####[facility] [address] [place], [address] Platelets (Bld) [#/Vol] 318 10*3/uL Normal 150-450 [facility] Comment on above: Performed By: #### L 501.5200, L100.0100, L500.4050 ####[facility] [address] [place], [address] RBC (Bld) [#/Vol] 4.36 10*6/uL Normal 4.2-5.4 [facility] Comment on above: Performed By: #### L 501.5200, L100.0100, L500.4050 ####[facility] [address] [place], [address] RDW SD 45.6 fl High 35.1-43.9 [facility] Comment on above: Performed By: #### L 501.5200, L100.0100, L500.4050 ####[facility] [address] [place], [address] WBC (Bld) [#/Vol] 6.8 10*3/uL Normal 4.4-11.0 [facility] Comment on above: Performed By: #### L 501.5200, L100.0100, L500.4050 ####[facility] [address] [place], [address] Comprehensive Metabolic [facility] ilaaron 06-04-2024 Albumin [Mass/Vol] 3.4 g/dL Normal 3.2-5.0 [facility] Comment on above: Performed By: #### L 501.5200, L100.0100, L500.4050 ####[facility] [address] [place], [address] Albumin/Globulin [Mass ratio] 0.9 {ratio} Normal 0.9-2.4 [facility] Comment on above: Performed By: #### L 501.5200, L100.0100, L500.4050 ####[facility] [address] [place], [address] ALK P 96 U/L Normal 45-117 [facility] Comment on above: Performed By: #### L 501.5200, L100.0100, L500.4050 ####[facility] [address] [place], [address] ALT [Catalytic activity/Vol] 25 U/L Normal 13-56 [facility] Comment on above: Performed By: #### L 501.5200, L100.0100, L500.4050 ####[facility] [address] [place], [address] AST [Catalytic activity/Vol] 19 U/L Normal 15-37 [facility] Comment on above: Performed By: #### L 501.5200, L100.0100, L500.4050 ####[facility] [address] [place], [address] Bilirubin [Mass/Vol] 0.20 mg/dL Normal 0.20-1.00 [facility] Comment on above: Result Comment: For patients on eltrombopag therapy, use of Dimension Remlap TBIL is not recommended. Performed By: #### L 501.5200, L100.0100, L500.4050 ####[facility] [address] [place], [address] BUN/CRE 17.2 RATIO Normal 10-20 [facility] Comment on above: Performed By: #### L 501.5200, L100.0100, L500.4050 ####[facility] [address] [place], [address] CA,Total 9.2 mg/dL Normal 8.5-10.1 [facility] Comment on above: Performed By: #### L 501.5200, L100.0100, L500.4050 ####[facility] [address] [place], [address] Chloride [Moles/Vol] 106 mmol/L Normal 98-107 [facility] Comment on above: Performed By: #### L 501.5200, L100.0100, L500.4050 ####[facility] [address] [place], [address] CO2 [Moles/Vol] 30.0 mmol/L Normal 21.0-32.0 [facility] Comment on above: Performed By: #### L 501.5200, L100.0100, L500.4050 ####[facility] [address] [place], [address] Creatinine [Mass/Vol] 0.75 mg/dL Normal 0.55-1.02 [facility] Comment on above: Result Comment: The validity of the calculated GFR GFRAA in patients over 70 years has not been determined. Clinical correlation is essential. Performed By: #### L 501.5200, L100.0100, L500.4050 ####[facility] [address] [place], [address] ECRCL 106.54 ml/min [facility] Comment on above: Performed By: #### L 501.5200, L100.0100, L500.4050 ####[facility] [address] [place], [address] EST GFR - AA 103 mL/min Normal >60 [facility] Comment on above: Result Comment: Afri can [place] GFR Calc Performed By: #### L 501.5200, L100.0100, L500.4050 ####[facility] [address] [place], [address] GAP 5 Normal 5-15 [facility] Comment on above: Performed By: #### L 501.5200, L100.0100, L500.4050 ####[facility] [address] [place], [address] GFR/1.73 sq M.predicted among non-blacks MDRD (S/P/Bld) [Vol rate/Area] 85 mL/min/{1.73_m2} Normal >60 [facility] Comment on above: Result Comment: Non- GFR Calc Performed By: #### L 501.5200, L100.0100, L500.4050 ####[facility] [address] [place], [address] Globulin (S) [Mass/Vol] 3.7 g/dL Normal 2.2-4.2 [facility] Comment on above: Performed By: #### L 501.5200, L100.0100, L500.4050 ####[facility] [address] [place], [address] Glucose [Mass/Vol] 88 mg/dL Normal 74-106 [facility] Comment on above: Performed By: #### L 501.5200, L100.0100, L500.4050 ####[facility] [address] [place], [address] Potassium [Moles/Vol] 4.1 mmol/L Normal 3.5-5.1 [facility] Comment on above: Performed By: #### L 501.5200, L100.0100, L500.4050 ####[facility] [address] [place], [address] Sodium [Moles/Vol] 141 mmol/L Normal 136-145 [facility] Comment on above: Performed By: #### L 501.5200, L100.0100, L500.4050 ####[facility] [address] [place], [address] T PROT 7.1 g/dL Normal 6.4-8.2 [facility] Comment on above: Performed By: #### L 501.5200, L100.0100, L500.4050 ####[facility] [address] [place], [address] Urea nitrogen [Mass/Vol] 13 mg/dL Normal 7-18 [facility] Comment on above: Performed By: #### L 501.5200, L100.0100, L500.4050 ####[facility] [address] [place], [address] Emergency Department Summary on 06-04-2024 Emergency Department Summary [facility] Medical Records Department [address] [place] [address] Emergency Department Summary 06/04/24 MR#: [id number] Acct: [id number] Name: JOANNE SHAH Rep #: [id number] : 1970 54 From: Sridevi Vaughn DO PCP: Dr. Luis Manuel Sesay MD Status:REG ER Location: ED HPI History of Present Illness Chief Complaint: Overdose Informant: patient Narrative Narrative: Patient is a 54-year-old female with history of depression and anxiety presenting for evaluation at the request of poison control. Patient normally takes Cymbalta 90 mg daily which is three 30 mg tablets. She thought she was taking that today but she accidentally took her 's Strattera (atomoxetine) for total of 120 mg. She called poison control who recommended she come to the ER for monitoring up to 6 hours from time of ingestion. Patient states she took this around 4:30 PM. She states she feels little sleepy but has no complaints at this time. States that this was an accident nonintentional ingestion. No other complaints or concerns reported at this time. [facility] Medical History Insomnia PTSD (post-traumatic stress disorder) MALCOLM (generalized anxiety disorder) MDD (major depressive disorder) H/O emotional problems Allergies Globus sensation Fibromyalgia Migraines Anemia Obesity, Class III, BMI 40-49.9 (morbid obesity) Back problem Anxiety Depression Acid reflux History of esophageal dilatation Diverticulitis Home Medications ???Medication ???Instructions ???Recorded ???Last Taken ???Type multivitamin with minerals 1 each PO DAILY 10/31/20 10/30/20 History rimegepant 75 mg disintegrating 75 mg PO ONCE PRN migraine headache 01/05/23 Unknown History tablet (Nurtec ODT) fluticasone propionate 50 1 spray intranasal DAILY 04/29/23 Unknown History mcg/actuation nasal spray,suspension duloxetine 30 mg capsule,delayed 30 mg PO DAILY 90 days #90 caps 09/01/23 Unknown Rx release duloxetine 60 mg capsule,delayed 60 mg PO DAILY #90 caps 09/01/23 Unknown Rx release ondansetron 4 mg disintegrating 4 mg PO Q8H PRN PRN Nausea #10 tabs 10/15/23 Unknown Rx tablet Allergy/AdvReac Type Severity Reaction Status Date / Time morphine AdvReac blood Verified 10/14/23 20:50 pressure drops Family History Father Heart disease Alcoholism Mother Osteoporosis Cancer Skin Thyroid disorder COPD (chronic obstructive pulmonary disease) Grandmother Breast cancer Colon cancer Other Suicide attempt Surgical History History of partial colectomy S/P colectomy History of esophagogastroduodenoscopy (EGD) Hx of colonoscopy Hx of unilateral oophorectomy Hx of cholecystectomy Hx of hysterectomy History of Social History Smoking Status: Never smoker second hand exposure: No alcohol intake: current alcohol intake frequency: holidays/special occasions only substance use type: does not use caffeine: Yes what type of physical activity do you participate in: none frequency: does not exercise ROS ROS ED Constitutional Constitutional ED: Denies chills or fever(s) Cardiovascular Cardiovascular: Denies chest pain Respiratory/Chest Respiratory/Chest: Denies dyspnea Gastrointestinal Gastrointestinal: Denies nausea or vomiting Neurologic Neurologic: Denies headache(s) Psychiatric Psychiatric: Denies anxiety, depression, suicidal ideation or suicidal thoughts EXAM Physical Exam Const Vital Signs: 06/04/24 17:50 06/04/24 19:41 06/04/24 20:53 Temperature 97.8 F 98 F Temperature Source Oral Oral Pulse Rate 86 82 90 Respiratory Rate 16 16 21 H Blood Pressure 149/100 H 137/99 H 129/84 H Blood Pressure Mean 116 111 99 Pulse Ox 98 97 20 Oxygen Delivery Method Room Air Room Air Room Air 06/04/24 22:34 Temperature 98 F Temperature Source Pulse Rate 86 Respiratory Rate 16 Blood Pressure 113/61 Blood Pressure Mean 78 Pulse Ox 95 Oxygen Delivery Method Positive well nourished and well developed General Appearance ED: well developed and NAD HEENT Reports moist mucous membranes Eyes PERRL and EOMs intact bilaterally Eyes Narrative: Pupils 3 to 4 mm equally reactive Neck supple Chest Wall inspection of chest normal Resp normal respiratory effort and clear to auscultation bilaterally Cardio regular rate and regular rhythm GI normal to inspection, nondistended, normoactive bowel sounds and non-tender Extremity normal to inspection Neuro oriented x3 Neuro Narrative: No focal deficits appreciated Sen (more content not included)... [facility] Magnesiumon 06-04-2024 Magnesium [Mass/Vol] 2.2 mg/dL Normal 1.6-2.6 [facility] Comment on above: Performed By: #### L 501.5200, L100.0100, L500.4050 ####[facility] [address] [place], [place], [address] Knee 4 or More Viewson 06-03 Knee 4 or More Views [facility] Imaging Services [address] [place], [place] [address] Knee 4 or More Views MR#: [id number] Acct: [id number] Name: JOANNE SHAH Rep #: [id number] : 1970 F 54 From: Zack jennings MD PCP: Dr. Luis Manuel Sesay MD Status: REG CLI Study: Knee 4 or More Views Date of Exam: 06/03/24 Exam# [id number] Ordering Dr: Shay Morgan NP STAFFING OPERATIONS MANAGER -C :[id number] INDICATION: rt knee EXAMINATION/TECHNIQUE: X-RAY - RIGHT XR Knee Complete 4 Views or More 4 VIEWS COMPARISON: Prior study dated: 09/02/2023 FINDINGS: SOFT TISSUES: No soft tissue swelling or gas. No radiopaque foreign body. BONES/JOINTS: No acute fracture or subluxation.. Normal alignment. Preservation of the joint space. Small marginal osteophytes at the patellofemoral compartment. No joint effusion. No sclerotic or destructive changes observed. RAD/Knee 4 or More Views IMPRESSION: No fracture or malalignment. Mild degenerative change at the patellofemoral compartment. Electronically Signed: Zack Rosen MD at 1:51 EDT , CC: Shay PARKER NP-Annie Morgan; Dr. Luis Manuel Sesay MD Electrical Equipment Assembler: Signed [facility] Hemoglobin A1con 04-28-2024 HbA1c (Bld) [Mass fraction] 5.5 % Normal 3.8-5.6 [facility] Comment on above: Order Comment: MARY Hernández ADD A1C TO BLOOD DRAWN 04/26/24 PER Result Comment: Norm al < 5.7 % Prediabetic 5.7 - 6.4 % Diabetic >or= 6.5 % Please note range changes. Performed By: #### L 501.9985 #### [facility] [address] [place], [address] CBC W/Diff, Automatedon 04-04 Absolute Lymph 2.94 X10 3/uL Normal 0.83-4.51 [facility] Comment on above: Order Comment: Order Date: 04/26/24 Order Info: [id number] - CBCD Performed By: #### L 500.4050, L500.4100, L506.1000, L501.9520, L100.0100 #### [facility] [address] [place], [address] Absolute Neut 5.0 X10 3/uL Normal 2.0-7.7 [facility] Comment on above: Order Comment: Order Date: 04/26/24 Order Info: 0184-1 - CBCD Performed By: #### L 500.4050, L500.4100, L506.1000, L501.9520, L100.0100 #### [facility] [address] [place], [address] Basophils/100 WBC (Bld) 0.2 % Normal 0-1 [facility] Comment on above: Order Comment: Order Date: 04/26/24 Order Info: 0184-1 - CBCD Performed By: #### L 500.4050, L500.4100, L506.1000, L501.9520, L100.0100 #### [facility] [address] [place], [address] Eosinophils/100 WBC (Bld) 1.8 % Normal 0-5 [facility] Comment on above: Order Comment: Order Date: 04/26/24 Order Info: 0184-1 - CBCD Performed By: #### L 500.4050, L500.4100, L506.1000, L501.9520, L100.0100 #### [facility] [address] [place], [address] Erythrocyte distribution width (RBC) [Ratio] 14.0 % Normal 11.6-14.6 [facility] Comment on above: Order Comment: Order Date: 04/26/24 Order Info: 0184-1 - CBCD Performed By: #### L 500.4050, L500.4100, L506.1000, L501.9520, L100.0100 #### [facility] [address] [place], [address] Hematocrit (Bld) [Volume fraction] 37.5 % Normal 37-47 [facility] Comment on above: Order Comment: Order Date: 04/26/24 Order Info: 0184-1 - CBCD Performed By: #### L 500.4050, L500.4100, L506.1000, L501.9520, L100.0100 #### [facility] [address] [facility] [place], [address] Hemoglobin (Bld) [Mass/Vol] 12.0 g/dL Normal 12.0-15.0 [facility] Comment on above: Order Comment: Order Date: 04/26/24 Order Info: 0184-1 - CBCD Performed By: #### L 500.4050, L500.4100, L506.1000, L501.9520, L100.0100 #### [facility] [address] [facility] [place], [address] IG% 0.300 Normal 0.0-0.9 [facility] Comment on above: Order Comment: Order Date: 04/26/24 Order Info: 0184-1 - CBCD Result Comment: IG% - Immature Granulocytes (promyelocytes, myelocytes and metamyelocytes) > 1% indicates that a LEFT SHIFT is Present. Performed By: #### L 500.4050, L500.4100, L506.1000, L501.9520, L100.0100 #### [facility] [address] [place], [address] Lymphocytes/100 WBC (Bld) 33.8 % Normal 19-41 [facility] Comment on above: Order Comment: Order Date: 04/26/24 Order Info: 0184-1 - CBCD Performed By: #### L 500.4050, L500.4100, L506.1000, L501.9520, L100.0100 #### [facility] [address] [place], [address] MCH (RBC) [Entitic mass] 28.7 pg Normal 27.0-32.0 [facility] Comment on above: Order Comment: Order Date: 04/26/24 Order Info: 0184- - CBCD Performed By: #### L 500.4050, L500.4100, L506.1000, L501.9520, L100.0100 #### [facility] [address] [place], [address] MCHC (RBC) [Mass/Vol] 32.0 g/dL Normal 32-36 [facility] Comment on above: Order Comment: Order Date: 04/26/24 Order Info: 0184- - CBCD Performed By: #### L 500.4050, L500.4100, L506.1000, L501.9520, L100.0100 #### [facility] [address] [place], [address] MCV (RBC) [Entitic vol] 89.7 fL Normal 81-99 [facility] Comment on above: Order Comment: Order Date: 04/26/24 Order Info: 0184- - CBCD Performed By: #### L 500.4050, L500.4100, L506.1000, L501.9520, L100.0100 #### [facility] [address] [place], [address] Monocytes/100 WBC (Bld) 6.7 % Normal 0-10 [facility] Comment on above: Order Comment: Order Date: 04/26/24 Order Info: 0184-1 - CBCD Performed By: #### L 500.4050, L500.4100, L506.1000, L501.9520, L100.0100 #### [facility] [address] [place], [address] Neutrophils/100 WBC (Bld) 57.2 % Normal 47-70 [facility] Comment on above: Order Comment: Order Date: 04/26/24 Order Info: 0184-1 - CBCD Performed By: #### L 500.4050, L500.4100, L506.1000, L501.9520, L100.0100 #### [facility] [address] [place], [address] Nucleated RBC (Bld) [#/Vol] 0 10*3/uL Normal 0-5 [facility] Comment on above: Order Comment: Order Date: 04/26/24 Order Info: 0184- - CBCD Performed By: #### L 500.4050, L500.4100, L506.1000, L501.9520, L100.0100 #### [facility] [address] [place], [address] Platelet mean volume (Bld) [Entitic vol] 9.6 fL Normal 6.2-12.0 [facility] Comment on above: Order Comment: Order Date: 04/26/24 Order Info: 0184- - CBCD Performed By: #### L 500.4050, L500.4100, L506.1000, L501.9520, L100.0100 #### [facility] [address] [place], [address] Platelets (Bld) [#/Vol] 362 10*3/uL Normal 150-450 [facility] Comment on above: Order Comment: Order Date: 04/26/24 Order Info: 0184-1 - CBCD Performed By: #### L 500.4050, L500.4100, L506.1000, L501.9520, L100.0100 #### [facility] [address] [place], [address] RBC (Bld) [#/Vol] 4.18 10*6/uL Low 4.2-5.4 [facility] Comment on above: Order Comment: Order Date: 04/26/24 Order Info: 0184-1 - CBCD Performed By: #### L 500.4050, L500.4100, L506.1000, L501.9520, L100.0100 #### [facility] [address] [place], [address] RDW SD 45.3 fl High 35.1-43.9 [facility] Comment on above: Order Comment: Order Date: 04/26/24 Order Info: 0184-1 - CBCD Performed By: #### L 500.4050, L500.4100, L506.1000, L501.9520, L100.0100 #### [facility] [address] [place], [address] WBC (Bld) [#/Vol] 8.7 10*3/uL Normal 4.4-11.0 [facility] Comment on above: Order Comment: Order Date: 04/26/24 Order Info: [id number] - CBCD Performed By: #### L 500.4050, L500.4100, L506.1000, L501.9520, L100.0100 #### [facility] [address] [place], [address] Comprehensive Metabolic Prof ilon 04-26-2024 Albumin [Mass/Vol] 3.3 g/dL Normal 3.2-5.0 [facility] Comment on above: Order Comment: Order Date: 04/26/24 Order Info: [id number] - CMP Order Info: [id number] - LIPID Order Info: [id number] - TSH Performed By: #### L 500.4050, L500.4100, L506.1000, L501.9520, L100.0100 #### [facility] [address] [place], [address] Albumin/Globulin [Mass ratio] 0.8 {ratio} Low 0.9-2.4 [facility] Comment on above: Order Comment: Order Date: 04/26/24 Order Info: [id number] - CMP Order Info: [id number] - LIPID Order Info: [id number] - TSH Performed By: #### L 500.4050, L500.4100, L506.1000, L501.9520, L100.0100 #### [facility] [address] [place], [address] ALK P 104 U/L Normal 45-117 [facility] Comment on above: Order Comment: Order Date: 04/26/24 Order Info: [id number]- - CMP Order Info: [id number] - LIPID Order Info: [id number] - TSH Performed By: #### L 500.4050, L500.4100, L506.1000, L501.9520, L100.0100 #### [facility] [address] [place], [address] ALT [Catalytic activity/Vol] 21 U/L Normal 13-56 [facility] Comment on above: Order Comment: Order Date: 04/26/24 Order Info: [id number]- - CMP Order Info: [id number] - LIPID Order Info: [id number] - TSH Performed By: #### L 500.4050, L500.4100, L506.1000, L501.9520, L100.0100 #### [facility] [address] [place], [address] AST [Catalytic activity/Vol] 16 U/L Normal 15-37 [facility] Comment on above: Order Comment: Order Date: 04/26/24 Order Info: [id number] - CMP Order Info: [id number] - LIPID Order Info: [id number] - TSH Performed By: #### L 500.4050, L500.4100, L506.1000, L501.9520, L100.0100 #### [facility] [address] [place], [address] Bilirubin [Mass/Vol] 0.20 mg/dL Normal 0.20-1.00 [facility] Comment on above: Order Comment: Order Date: 04/26/24 Order Info: [id number] - CMP Order Info: [id number] - LIPID Order Info: [id number] - TSH Result Comment: For patients on eltrombopag therapy, use of Dimension Remlap TBIL is not recommended. Performed By: #### L 500.4050, L500.4100, L506.1000, L501.9520, L100.0100 #### [facility] [address] [place], [address] BUN/CRE 19.4 RATIO Normal 10-20 [facility] Comment on above: Order Comment: Order Date: 04/26/24 Order Info: 0786- - CMP Order Info: [id number] - LIPID Order Info: [id number] - TSH Performed By: #### L 500.4050, L500.4100, L506.1000, L501.9520, L100.0100 #### [facility] [address] [place], [address] CA,Total 9.1 mg/dL Normal 8.5-10.1 [facility] Comment on above: Order Comment: Order Date: 04/26/24 Order Info: [id number] - CMP Order Info: [id number] - LIPID Order Info: [id number] - TSH Performed By: #### L 500.4050, L500.4100, L506.1000, L501.9520, L100.0100 #### [facility] [address] [place], [address] Chloride [Moles/Vol] 105 mmol/L Normal 98-107 [facility] Comment on above: Order Comment: Order Date: 04/26/24 Order Info: [id number] - CMP Order Info: - LIPID Order Info: [id number] - TSH Performed By: #### L 500.4050, L500.4100, L506.1000, L501.9520, L100.0100 #### [facility] [address] [place], [address] CO2 [Moles/Vol] 25.0 mmol/L Normal 21.0-32.0 [facility] Comment on above: Order Comment: Order Date: 04/26/24 Order Info: [id number] - CMP Order Info: - LIPID Order Info: [id number] - TSH Performed By: #### L 500.4050, L500.4100, L506.1000, L501.9520, L100.0100 #### [facility] [address] [place], [address] Creatinine [Mass/Vol] 0.83 mg/dL Normal 0.55-1.02 [facility] Comment on above: Order Comment: Order Date: 04/26/24 Order Info: [id number] - CMP Order Info: - LIPID Order Info: [id number] - TSH Result Comment: The validity of the calculated GFR GFRAA in patients over 70 years has not been determined. Clinical correlation is essential. Performed By: #### L 500.4050, L500.4100, L506.1000, L501.9520, L100.0100 #### [facility] [address] [place], [address] EST GFR - AA 93 mL/min Normal >60 [facility] Comment on above: Order Comment: Order Date: 04/26/24 Order Info: [id number] - CMP Order Info: - LIPID Order Info: [id number] - TSH Result Comment: Afri can [place] GFR Calc Performed By: #### L 500.4050, L500.4100, L506.1000, L501.9520, L100.0100 #### [facility] [address] [place], [address] GAP 7 Normal 5-15 [facility] Comment on above: Order Comment: Order Date: 04/26/24 Order Info: 785- - CMP Order Info: [id number] - LIPID Order Info: 3 - TSH Performed By: #### L 500.4050, L500.4100, L506.1000, L501.9520, L100.0100 #### [facility] [address] [place], [address] GFR/1.73 sq M.predicted among non-blacks MDRD (S/P/Bld) [Vol rate/Area] 77 mL/min/{1.73_m2} Normal >60 [facility] Comment on above: Order Comment: Order Date: 04/26/24 Order Info: [id number] - CMP Order Info: - LIPID Order Info: [id number] - TSH Result Comment: Non- GFR Calc Performed By: #### L 500.4050, L500.4100, L506.1000, L501.9520, L100.0100 #### [facility] [address] [place], [address] Globulin (S) [Mass/Vol] 3.9 g/dL Normal 2.2-4.2 [facility] Comment on above: Order Comment: Order Date: 04/26/24 Order Info: [id number] - CMP Order Info: - LIPID Order Info: [id number] - TSH Performed By: #### L 500.4050, L500.4100, L506.1000, L501.9520, L100.0100 #### [facility] [address] [place], [address] Glucose [Mass/Vol] 112 mg/dL High 74-106 [facility] Comment on above: Order Comment: Order Date: 04/26/24 Order Info: 785- - CMP Order Info: - LIPID Order Info: [id number] - TSH Result Comment: Fast ing Glucose result from 100 to 125 mg/dL suggests IMPAIRED HOMEOSTASIS per A.D.A. criteria. Performed By: #### L 500.4050, L500.4100, L506.1000, L501.9520, L100.0100 #### [facility] [address] [place], [address] Potassium [Moles/Vol] 3.8 mmol/L Normal 3.5-5.1 [facility] Comment on above: Order Comment: Order Date: 04/26/24 Order Info: [id number] - CMP Order Info: [id number] - LIPID Order Info: 301-3 - TSH Performed By: #### L 500.4050, L500.4100, L506.1000, L501.9520, L100.0100 #### [facility] [address] [place], [address] Sodium [Moles/Vol] 137 mmol/L Normal 136-145 [facility] Comment on above: Order Comment: Order Date: 04/26/24 Order Info: [id number] - CMP Order Info: [id number] - LIPID Order Info: [id number] - TSH Performed By: #### L 500.4050, L500.4100, L506.1000, L501.9520, L100.0100 #### [facility] [address] [place], [address] T PROT 7.2 g/dL Normal 6.4-8.2 [facility] Comment on above: Order Comment: Order Date: 04/26/24 Order Info: [id number] - CMP Order Info: [id number] - LIPID Order Info: [id number] - TSH Performed By: #### L 500.4050, L500.4100, L506.1000, L501.9520, L100.0100 #### [facility] [address] [place], [address] Urea nitrogen [Mass/Vol] 16 mg/dL Normal 7-18 [facility] Comment on above: Order Comment: Order Date: 04/26/24 Order Info: [id number] - CMP Order Info: - LIPID Order Info: [id number] - TSH Performed By: #### L 500.4050, L500.4100, L506.1000, L501.9520, L100.0100 #### [facility] [address] [place], [address] Lipid Profileon 04-26-2024 Cholesterol [Mass/Vol] 226 mg/dL High 200 [facility] Comment on above: Order Comment: Order Date: 04/26/24 Order Info: [id number] - CMP Order Info: - LIPID Order Info: [id number] - TSH Result Comment: <200 mg/dL Desirable 200-240 mg/dL Borderline >240 mg/dL High Risk Performed By: #### L 500.4050, L500.4100, L506.1000, L501.9520, L100.0100 #### [facility] [address] [place], [address] Cholesterol in HDL [Mass/Vol] 56 mg/dL Normal [facility] Comment on above: Order Comment: Order Date: 04/26/24 Order Info: [id number] - CMP Order Info: - LIPID Order Info: [id number] - TSH Result Comment: The drugs N-Acetylcysteine and Metamizole may falsely depress this assay. Reference Range HDL <40 mg/dL Low HDL Cholesterol HDL >or= 60 mg/dL High HDL Cholesterol Performed By: #### L 500.4050, L500.4100, L506.1000, L501.9520, L100.0100 #### [facility] [address] [place], [address] Cholesterol in LDL [Mass/Vol] 112 mg/dL Normal 0-130 [facility] Comment on above: Order Comment: Order Date: 04/26/24 Order Info: [id number] - CMP Order Info: - LIPID Order Info: [id number] - TSH Performed By: #### L 500.4050, L500.4100, L506.1000, L501.9520, L100.0100 #### [facility] [address] [place], [address] Cholesterol in VLDL [Mass/Vol] 58 mg/dL High 5-40 [facility] Comment on above: Order Comment: Order Date: 04/26/24 Order Info: 0786- - CMP Order Info: [id number] - LIPID Order Info: 3 - TSH Performed By: #### L 500.4050, L500.4100, L506.1000, L501.9520, L100.0100 #### [facility] [address] [place], [address] Triglyceride [Mass/Vol] 289 mg/dL High [facility] Comment on above: Order Comment: Order Date: 04/26/24 Order Info: 07 - CMP Order Info: - LIPID Order Info: 3 - TSH Result Comment: The drugs N-Acetylcysteine and Metamizole may falsely depress this assay. Serum Triglycerides Reference Interval Normal <150 mg/dL Borderline high 150 - 199 mg/dL High 200 - 499 mg/dL Very High > or = 500 mg/dL Performed By: #### L 500.4050, L500.4100, L506.1000, L501.9520, L100.0100 #### [facility] [address] [place], [address] Thyroid Stim Hormone (TSH)on 04-26-2024 TSH 1.160 uIU/mL Normal 0.358-3.740 [facility] Comment on above: Order Comment: Order Date: 04/26/24 Order Info: 0786- - CMP Order Info: [id number] - LIPID Order Info: 3 - TSH Performed By: #### L 500.4050, L500.4100, L506.1000, L501.9520, L100.0100 #### [facility] [address] [place], [address] Vitamin D,25 Hydroxyon 04-26 Vitamin D 25-OH 34.3 ng/mL Normal [facility] Comment on above: Order Comment: Order Date: 04/26/24 Order Info: [id number] - VITD25 Result Comment: Violeta min D 25(OH) Status Range Deficiency <20 ng/mL (50nmol/L) Insufficiency 20 - 30 ng/mL (50 - 75 nmol/L) Sufficiency 30 - 100 ng/mL (75 - 250 nmol/L) Toxicity >100 ng/mL (>250 nmol/L) Performed By: #### L 500.4050, L500.4100, L506.1000, L501.9520, L100.0100 #### [facility] [address] [place], [address] Basic metabolic 2000 panelon 02-22-2024 Anion gap [Moles/Vol] 10 mmol/L 8 - 15 mmol/L [facility] Calcium [Mass/Vol] 9.5 mg/dL 8.5 - 10. 2 mg/dL [facility] Chloride [Moles/Vol] 104 mmol/L 98 - 10 7 mmol/L [facility] CO2 [Moles/Vol] 27 mmol/L 22 - 30 mmol/L [facility] Creatinine [Mass/Vol] 0.76 mg/dL 0.58 - 0.96 mg/dL [facility] GFR/1.73 sq M.predicted among non-blacks MDRD (S/P/Bld) [Vol rate/Area] 94 mL/min/{1.73_m2} - PINF [facility] Comment on above: Estimated Glomerular Filtration Rate (eGFR) is calculated using the 2020 CKD-EPI creatinine equation. This equation utilizes serum creatinine, sex, and age as parameters. The creatinine assay has traceable calibration to isotope dilution-mass spectrometry. Refer to KDIGO guidelines for clinical interpretation. In patients with unstable renal function, e.g. those with acute kidney injury, the eGFR may not accurately reflect actual GFR. Glucose [Mass/Vol] 100 mg/dL High 74 - 99 mg/dL [facility] Comment on above: The [place] Diabete s Association (ADA) provides guidance for cutoff values for fasting glucose and random glucose. The ADA defines fasting as no caloric intake for at least 8 hours. Fasting plasma glucose results between 100 to 125 mg/dL indicate increased risk for diabetes (prediabetes). Fasting plasma glucose results greater than or equal to 126 mg/dL meet the criteria for diagnosis of diabetes. In the absence of unequivocal hyperglycemia, results should be confirmed by repeat testing. In a patient with classic symptoms of hyperglycemia or hyperglycemic crisis, random plasma glucose results greater than or equal to 200 mg/dL meet the criteria for diagnosis of diabetes. Reference: Standards of Medical Care in Diabetes 2016, [place] Diabetes Association. Diabetes Care. 2016.39(Suppl 1). Interpretation and review of laboratory results Abnormal [facility] Potassium [Moles/Vol] 4.6 mmol/L 3.7 - 5.1 mmol/L [facility] Sodium [Moles/Vol] 141 mmol/L 136 - 144 mmol/L [facility] Urea nitrogen [Mass/Vol] 15 mg/dL 7 - 21 mg/dL [facility] Anion gap [Moles/Vol] 10 mmol/L Normal 8-15 [facility] Comment on above: Order Comment: Padmini toth Type: BLOOD SPECIMEN Ordering Facility: [facility] Address: [address] [place] [address] Performed By: #### 2 4321-2 #### [facility] CLIA [id number] [address] [place] [address] [place] Calcium [Mass/Vol] 9.5 mg/dL Normal 8.5-10.2 [facility] Comment on above: Order Comment: Padmini toth Type: BLOOD SPECIMEN Ordering Facility: [facility] Address: [address] [place] [address] Performed By: #### 2 4321-2 #### [facility] CLIA [id number] [address] [place] [address] [place] Chloride [Moles/Vol] 104 mmol/L Normal 98-107 [facility] Comment on above: Order Comment: Padmini toth Type: BLOOD SPECIMEN Ordering Facility: [facility] Address: [address] [place] [address] Performed By: #### 2 4321-2 #### [facility] CLIA [id number] [facility] [place] [address] [place] CO2 [Moles/Vol] 27 mmol/L Normal 22-30 [facility] Comment on above: Order Comment: Speci men Type: BLOOD SPECIMEN Ordering Facility: [facility] Address: [address] [place] [address] Performed By: #### 2 4321-2 #### [facility] CLIA [id number] [address] [place] [address] [place] Creatinine [Mass/Vol] 0.76 mg/dL Normal 0.58-0.96 [facility] Comment on above: Order Comment: Speci men Type: BLOOD SPECIMEN Ordering Facility: [facility] Address: [address] [place] [address] Performed By: #### 2 4321-2 #### [facility] IA [id number] [address] [place] [address] [place] Creatinine and Glomerular filtration rate.predicted panel (S/P/Bld) 94 mL/min/1.73m??? Normal >=60 [facility] Comment on above: Order Comment: Speci men Type: BLOOD SPECIMEN Ordering Facility: [facility] Address: [address] [place] [address] Result Comment: Betty mated Glomerular Filtration Rate (eGFR) is calculated using the 2020 CKD-EPI creatinine equation. This equation utilizes serum creatinine, sex, and age as parameters. The creatinine assay has traceable calibration to isotope dilution-mass spectrometry. Refer to KDIGO guidelines for clinical interpretation. In patients with unstable renal function, e.g. those with acute kidney injury, the eGFR may not accurately reflect actual GFR. Performed By: #### 2 4321-2 #### [facility] CLIA [id number] [address] [place] [address] [place] Glucose [Mass/Vol] 100 mg/dL High 74-99 [facility] Comment on above: Order Comment: Speci men Type: BLOOD SPECIMEN Ordering Facility: [facility] Address: [address] [place] [address] Result Comment: The [place] Diabetes Association (ADA) provides guidance for cutoff values for fasting glucose and random glucose. The ADA defines fasting as no caloric intake for at least 8 hours. Fasting plasma glucose results between 100 to 125 mg/dL indicate increased risk for diabetes (prediabetes). Fasting plasma glucose results greater than or equal to 126 mg/dL meet the criteria for diagnosis of diabetes. In the absence of unequivocal hyperglycemia, results should be confirmed by repeat testing. In a patient with classic symptoms of hyperglycemia or hyperglycemic crisis, random plasma glucose results greater than or equal to 200 mg/dL meet the criteria for diagnosis of diabetes. Reference: Standards of Medical Care in Diabetes 2016, [place] Diabetes Association. Diabetes Care. 2016.39(Suppl 1). Performed By: #### 2 4321-2 #### [facility] CLIA [id number] [address] [place] [address] [place] Potassium [Moles/Vol] 4.6 mmol/L Normal 3.7-5.1 [facility] Comment on above: Order Comment: Speci men Type: BLOOD SPECIMEN Ordering Facility: [facility] Address: [address] [place] [address] Performed By: #### 2 4321-2 #### [facility] CLIA [id number] [address] [place] [address] [place] Sodium [Moles/Vol] 141 mmol/L Normal 136-144 [facility] Comment on above: Order Comment: Speci men Type: BLOOD SPECIMEN Ordering Facility: [facility] Address: [address] [place] [address] Performed By: #### 2 4321-2 #### [facility] CLIA [id number] [address] [place] [address] [place] Urea nitrogen [Mass/Vol] 15 mg/dL Normal 7-21 [facility] Comment on above: Order Comment: Speci men Type: BLOOD SPECIMEN Ordering Facility: [facility] Address: [address] [place] [address] Performed By: #### 2 4321-2 #### [facility] CLIA [id number] [address] [place] [address] [place] CBC panel Auto (Bld)on 02-21 Erythrocyte distribution width (RBC) [Ratio] 14.6 % 11.5 - 15.0 % [facility] Hematocrit (Bld) [Volume fraction] 39.6 % 36.0 - 46.0 % [facility] Hemoglobin (Bld) [Mass/Vol] 12.6 g/dL 11.5 - 15.5 g/dL [facility] Interpretation and review of laboratory results Normal [facility] MCH (RBC) [Entitic mass] 29.0 pg 26.0 - 34.0 pg [facility] MCHC (RBC) [Mass/Vol] 31.8 g/dL 30.5 - 36.0 g/dL [facility] MCV (RBC) [Entitic vol] 91.0 fL 80.0 - 100.0 fL [facility] Nucleated RBC (Bld) [#/Vol] NINF [facility] Platelet mean volume (Bld) [Entitic vol] 9.8 fL 9.0 - 12.7 fL [facility] Platelets (Bld) [#/Vol] 326 10*3/uL [facility] RBC (Bld) [#/Vol] 4.35 10*6/uL 3.90 - 5.2 0 m/uL [facility] WBC (Bld) [#/Vol] 6.14 10*3/uL [facility] Erythrocyte distribution width (RBC) [Ratio] 14.6 % Normal 11.5-15.0 [facility] Comment on above: Order Comment: Speci men Type: BLOOD SPECIMEN Ordering Facility: [facility] Address: [address] [place] [address] Performed By: #### 5 8410-2 #### [facility] CLIA [id number] [address] [place] [address] [place] Hematocrit (Bld) [Volume fraction] 39.6 % Normal 36.0-46.0 [facility] Comment on above: Order Comment: Speci men Type: BLOOD SPECIMEN Ordering Facility: [facility] Address: [address] [place] [address] Performed By: #### 5 8410-2 #### [facility] CLIA [id number] [address] [place] [address] [place] Hemoglobin (Bld) [Mass/Vol] 12.6 g/dL Normal 11.5-15.5 [facility] Comment on above: Order Comment: Speci men Type: BLOOD SPECIMEN Ordering Facility: [facility] Address: [address] [place] [address] Performed By: #### 5 8410-2 #### [facility] CLIA [id number] [address] [place] [address] [place] MCH (RBC) [Entitic mass] 29.0 pg Normal 26.0-34.0 [facility] Comment on above: Order Comment: Speci men Type: BLOOD SPECIMEN Ordering Facility: [facility] Address: [address] [place] [address] Performed By: #### 5 8410-2 #### [facility] CLIA [id number] [address] [place] [address] [place] MCHC (RBC) [Mass/Vol] 31.8 g/dL Normal 30.5-36.0 [facility] Comment on above: Order Comment: Speci men Type: BLOOD SPECIMEN Ordering Facility: [facility] Address: [address] [place] [address] Performed By: #### 5 8410-2 #### [facility] CLIA [id number] [address] [place] [address] [place] MCV (RBC) [Entitic vol] 91.0 fL Normal 80.0-100.0 [facility] Comment on above: Order Comment: Speci men Type: BLOOD SPECIMEN Ordering Facility: [facility] Address: [address] [place] [address] Performed By: #### 5 8410-2 #### [facility] CLIA [id number] [address] [place] [address] [place] Nucleated RBC (Bld) [#/Vol] 10*3/uL Normal <0.01 [facility] Comment on above: Order Comment: Speci men Type: BLOOD SPECIMEN Ordering Facility: [facility] Address: [address] [place] [address] Performed By: #### 5 8410-2 #### [facility] CLIA [id number] [address] [place] [address] [place] Platelet mean volume (Bld) [Entitic vol] 9.8 fL Normal 9.0-12.7 [facility] Comment on above: Order Comment: Speci men Type: BLOOD SPECIMEN Ordering Facility: [facility] Address: [address] [place] [address] Performed By: #### 5 8410-2 #### [facility] CLIA [id number] [address] [place] [address] [place] Platelets (Bld) [#/Vol] 326 10*3/uL Normal 150-400 [facility] Comment on above: Order Comment: Speci men Type: BLOOD SPECIMEN Ordering Facility: [facility] Address: [address] [place] [address] Performed By: #### 5 8410-2 #### [facility] CLIA [id number] [address] [place] [address] [place] RBC (Bld) [#/Vol] 4.35 10*6/uL Normal 3.90-5.20 [facility] Comment on above: Order Comment: Speci men Type: BLOOD SPECIMEN Ordering Facility: [facility] Address: [address] [place] [address] Performed By: #### 5 8410-2 #### [facility] CLIA [id number] [address] [place] [address] [place] WBC (Bld) [#/Vol] 6.14 10*3/uL Normal 3.70-11.00 [facility] Comment on above: Order Comment: Speci men Type: BLOOD SPECIMEN Ordering Facility: [facility] Address: [address] [place] [address] Performed By: #### 5 8410-2 #### [facility] CLIA [id number] [address] [place] [address] [id number] [place] [address] CNOVon 02-22-2024 CNOV Office Visit ([facility] ) JOANNE SHAH ([id number]) [address] [facility] Date Time Provider Department 02/22/24 7:30 AM THERESA MCGINNIS [facility] During your visit today, we recorded the following information about you: Temperature Pulse Blood pressure 98 degrees 89/minute 133/85 Theresa Mcginnis APRN.[employer] MANAGER 02/22/2024 5:45 PM [facility] Department of General Internal Medicine [facility] Outpatient Visit Date: February 22, 2024 CC:(copied and/or pasted from M.A. and/or intake note or registration notes) Dizziness, nausea and fatigue x 1 day The history is provided by the patient The patient's preferred language is Camb[place]ian PAST MEDICAL HISTORY Diagnosis Date Anxiety Depression Fibromyalgia History of TIA (transient ischemic attack) Major depressive disorder Migraine Palpitations RLS (restless legs syndrome) SVT (supraventricular tachycardia) (HCC) Syncope Tachycardia Vitamin D deficiency HPI: Joanne Shah is a 53 year old female who presents today for Dizziness, nausea and fatigue x 1 [place] throat pain Denies ear pain Denies difficulty breathing Denies chest pain, SOB Denies sick contacts + Sick contact- has been sick with URI x 4 weeks REVIEW OF SYSTEMS (*in regard to chief complaint, symptoms, physical findings on exam, differential diagnosis, current medications or potential medications, allergies, and related systems, the following ROS questions are elicited): *See HPI, additionally: Last 3 Encounter BP Readings: Date: BP: 02/22/2024 133/85 10/26/2019 122/782 04/20/2019 120/90 Physical Exam Vitals and nursing note reviewed. Constitutional: Appearance: Normal appearance. HENT: Head: Normocephalic. Nose: Nose normal. Mouth/Throat: Mouth: Mucous membranes are moist. Eyes: Conjunctiva/sclera: Conjunctivae normal. Cardiovascular: Rate and Rhythm: Normal rate. Pulmonary: Effort: Pulmonary effort is normal. Skin: General: Skin is warm and dry. Neurological: General: No focal deficit present. Mental Status: She is alert and oriented to person, place, and time. Mental status is at baseline. Assessment/Plan Suspected COVID-19 virus infection - ICD9: V01.79, ICD10: Z20.822 (primary diagnosis) Dizziness - ICD9: 780.4, ICD10: R42 - COVID AND INFLUENZA A/B AND RSV NAAT, ROUTINE - FLUTICASONE PROPIONATE 50 MCG/ACTUATION NASAL SPRAY,SUSPENSION - BASIC METABOLIC PANEL - COMPLETE BLOOD COUNT Reviewed diagnosis above. Call for new problems or concerns. Orders as noted. No follow-ups on file. Signed: Theresa Mcginnis APRN.SALES ANALYTICS MANAGER [facility] Medical Decision Making: Problems: Moderate: New problem with uncertain prognosis Risk: Moderate: Drug management Medical Decision Making Level: 4 - Moderate Referring Provider: SELF [200] Allergies As of Date: 02/22/2024 Noted Allergy Reaction AUGMENTIN (AMOXICILLIN-POT CLAVUL*09/07/2017 6 - Diarrhea MORPHINE 03/09/2019 14 - Other: See Comments Comments: hypotension Date Reviewed: 02/22/2024 Reviewed by: Ani Mcfarland MA - Fully Assessed Reason for Visit: Dizziness [36] Cmt: Since yesterday Primary Visit Diagnosis:Suspected COVID-19 virus infection [Z20.822] Other Visit Diagnosis:Dizziness [R42] Order(s):COVID AND INFLUENZA A/B AND RSV NAAT, ROUTINE [SQCVFLRS] Order #: [id number]. #:[id number] BASIC METABOLIC PANEL [SQBMP] Order #: [id number] FUTURE COMPLETE BLOOD COUNT [SQCBC] Order #: [id number] FUTURE fluticasone (FLONASE) 50 mcg/actuation nasal sprayUse 1 Amberg in each nostril daily at bedtime.Disp: 18.2 mLRfl: 0 Prescriptions as of 02/22/2024 - fluticasone (FLONASE) 50 mcg/actuation nasal spray Use 1 Amberg in each nostril daily at bedtime. - polyethylene glycol 3350 (MIRALAX) 17 gram/dose powder Take 17 g by mouth once daily. - FETZIMA 80 mg Cs24 Take 1 capsule by mouth once daily. - Multivitamin capsule Take 1 capsule by mouth once daily. - lamoTRIgine (LAMICTAL) 100 mg tablet Take 50 mg by mouth once daily. - SUMAtriptan-Naproxen (TREXIMET) 85-500 mg per tablet Take 1 tablet by mouth as needed for Migraine Headache (see administration instructions). - BABY ASPIRIN ORAL Take 81 mg by mouth once daily. - atorvastatin (LIPITOR) 40 mg tablet Take 40 mg by mouth once daily. - meloxicam (MOBIC) 15 mg tablet Take 15 mg by mouth once daily. - ergocalciferol, vitamin D2, (VITAMIN D) 50,000 unit capsule Take 50,000 Units by mouth once each week. Problem List As Of Date 02/22/2024 Noted Resolved Obesity, Class III, BMI >= 40 [E66.01] 04/20/2019 Fibromyalgia [M79.7] 10/15/2015 Depression [F32.A] 10/15/2015 Anxiety [F41.9] 07/19/2018 RLS (restless legs syndrome) [G25.81] 10/15/2015 Syncope [R55] Palpitations [R00.2] Personal history of transient ischemic attack (*10/24/2019 SVT (supraventricular tachycardi (more content not included)... Normal [facility] COVID AND INFLUENZA A/B AND RSV NAAT, ROUTINEon 02-22-2024 SARS-CoV-2 (COVID-19) RNA FRANSISCO+probe Ql (Unsp spec) COVID 19 RESULT: Not detected The method used is RT-PCR or an equivalent NAAT method. Reference Range (the expected result in uninfected individuals): Not detected INFLUENZA A PCR: Not detected INFLUENZA B PCR: Not detected RSV PCR: Not detected Normal [facility] Comment on above: Performed By: #### C VFLRS #### [facility] CLIA [id number] [address] [place] [address] [place] V[place] 01-06-2023 CNPN Telephone (AGGENS4) JOANNE SHAH ([id number]) 1970 F Date Time Provider Department 01/06/23 [facility] PROVIDER AGGENS4 During your visit today, we recorded the following information about you: Zee Cain 01/06/2023 2:36 PM Signed Fax PCP ref call into the program, LVM Allergies As of Date: 01/06/2023 Noted Allergy Reaction AUGMENTIN (AMOXICILLIN-POT CLAVUL*09/07/2017 6 - Diarrhea MORPHINE 03/09/2019 14 - Other: See Comments Comments: hypotension Date Reviewed: 10/26/2019 Reviewed by: Parth Gallegos - Fully Assessed Reason for Visit: External Referrals/resources [909] Cmt: Fax Referral Call Prescriptions as of 01/06/2023 - polyethylene glycol 3350 (MIRALAX) 17 gram/dose powder Take 17 g by mouth once daily. - FETZIMA 80 mg Cs24 Take 1 capsule by mouth once daily. - Multivitamin capsule Take 1 capsule by mouth once daily. - lamoTRIgine (LAMICTAL) 100 mg tablet Take 50 mg by mouth once daily. - fluticasone (FLONASE) 50 mcg/actuation nasal spray Use 1 Amberg in each nostril once daily. - SUMAtriptan-Naproxen (TREXIMET) 85-500 mg per tablet Take 1 tablet by mouth as needed for Migraine Headache (see administration instructions). - BABY ASPIRIN ORAL Take 81 mg by mouth once daily. - atorvastatin (LIPITOR) 40 mg tablet Take 40 mg by mouth once daily. - meloxicam (MOBIC) 15 mg tablet Take 15 mg by mouth once daily. - ergocalciferol, vitamin D2, (VITAMIN D) 50,000 unit capsule Take 50,000 Units by mouth once each week. Problem List As Of Date 01/06/2023 Noted Resolved Obesity, Class III, BMI >= 40 [E66.01] 04/20/2019 Fibromyalgia [M79.7] 10/15/2015 Depression [F32.A] 10/15/2015 Anxiety [F41.9] 07/19/2018 RLS (restless legs syndrome) [G25.81] 10/15/2015 Syncope [R55] Palpitations [R00.2] Personal history of transient ischemic attack (*10/24/2019 SVT (supraventricular tachycardia) (HCC) [I47.1] Encounter Status:Closed by ZEE CAIN on 01/06/23 [facility] Absolute lymphocyte countOrd ered By: Dr. Sesay on 09-19-2022 Lymphocytes Auto (Unsp spec) [#/Vol] 2.91 10*3/uL 0.83-4.51 [facility] Basophil percentageOrdered B y: Dr. Sesay on 09-19-2022 Basophils/100 WBC (Bld) 0.1 % 0-1 [facility] Bilirubin [Mass/Vol] 0.20 mg/dL 0.20-1.00 [facility] Comment on above: For patients on eltr ombopag therapy, use of Dimension Remlap TBIL is not recommended. Chloride [Moles/Vol] 104 mmol/L 98-107 [facility] Cholesterol [Mass/Vol] 246 mg/dL <200 [facility] Comment on above: <200 mg/dL Desirable 200-240 mg/dL Borderline >240 mg/dL High Risk Eosinophils/100 WBC (Bld) 3.0 % 0-5 [facility] Glucose [Mass/Vol] 107 mg/dL 74-106 [facility] Comment on above: Fasting Glucose resu lt from 100 to 125 mg/dL suggests IMPAIRED HOMEOSTASIS per A.D.A. criteria. Neutrophils (Bld) [#/Vol] 4.5 10*3/uL 2.0-7.7 [facility] Neutrophils/100 WBC (Bld) 54.5 % 47-70 [facility] Potassium [Moles/Vol] 4.1 mmol/L 3.5-5.1 [facility] Protein [Mass/Vol] 7.1 g/dL 6.4-8.2 [facility] Sodium [Moles/Vol] 138 mmol/L 136-145 [facility] Triglyceride [Mass/Vol] 309 mg/dL <199 [facility] Comment on above: The drugs N-Acetylcy steine and Metamizole may falsely depress this assay.Serum Triglycerides Reference Interval Normal <150 mg/dL Borderline high 150 - 199 mg/dL High 200 - 499 mg/dL Very High > or = 500 mg/dL WBC (Bld) [#/Vol] 8.3 10*3/uL 4.4-11.0 [facility] Blood erythrocytes count (nu mber/volume)Ordered By: Dr. Sesay on 09-19-2022 RBC (Bld) [#/Vol] 4.67 10*6/uL 4.2-5.4 [facility] Blood hemoglobin measurement (mass/volume)Ordered By: Dr. Sesay on 09-19-2022 Hemoglobin (Bld) [Mass/Vol] 13.4 g/dL 12.0-15.0 [facility] Blood lymphocytes/100 leukoc ytesOrdered By: Dr. Sesay on 09-19-2022 Lymphocytes/100 WBC (Bld) 34.9 % 19-41 [facility] Blood monocytes/100 leukocyt esOrdered By: Dr. Sesay on 09-19-2022 Monocytes/100 WBC (Bld) 7.4 % 0-10 [facility] Blood platelet mean volumeOr dered By: Dr. Sesay on 09-19-2022 Platelet mean volume (Bld) [Entitic vol] 9.5 fL 6.2-12.0 [facility] Determination of erythrocyte mean corpuscular volume (MCV)Ordered By: Dr. Sesay on 09-19-2022 MCV (RBC) [Entitic vol] 88.0 fL 81-99 [facility] Hematocrit Auto (Bld) [Volum e fraction]Ordered By: Dr. Sesay on 09-19-2022 Hematocrit (Bld) [Volume fraction] 41.1 % 37-47 [facility] Laboratory - Chemistry and C hemistry - challengeOrdered By: Dr. Sesay on 09-19-2022 ALP [Catalytic activity/Vol] 107 U/L 45-117 [facility] ALT [Catalytic activity/Vol] 23 U/L 13-56 [facility] CO2 [Moles/Vol] 25.0 mmol/L 21.0-32.0 [facility] Globulin (S) [Mass/Vol] 3.5 g/dL 2.2-4.2 [facility] Urea nitrogen/Creatinine [Mass ratio] 23.8 mg/mg 10-20 [facility] Laboratory - Hematology and Cell countsOrdered By: Dr. Sesay on 09-19-2022 Erythrocyte distribution width (RBC) [Entitic vol] 45.9 fL 35.1-43.9 [facility] Erythrocyte distribution width (RBC) [Ratio] 14.3 % 11.6-14.6 [facility] Immature granulocytes/100 WBC (Bld) 0.100 % 0.0-0.9 [facility] Comment on above: IG% - Immature Granu locytes (promyelocytes, myelocytes and metamyelocytes) > 1% indicates that a LEFT SHIFT is Present. MCH (RBC) [Entitic mass] 28.7 pg 27.0-32.0 [facility] Nucleated RBC/100 WBC (Bld) [Ratio] 0 % 0-5 [facility] MCHC Auto (RBC) [Mass/Vol]Or dered By: Dr. Sesay on 09-19-2022 MCHC (RBC) [Mass/Vol] 32.6 g/dL 32-36 [facility] No Panel InformationOrdered By: Dr. Sesay on 09-19-2022 Estimated GFR (MDRD) Amer 87 mL/min >60 [facility] Comment on above: GFR Calc Estimated GFR (MDRD) Non-Af Amer 72 mL/min >60 [facility] Comment on above: Non- GFR Calc Vitamin D 25-Hydroxy 58.4 ng/mL [facility] Comment on above: Vitamin D 25(OH) Sta tus Range Deficiency <20 ng/mL (50nmol/L) Insufficiency 20 - 30 ng/mL (50 - 75 nmol/L) Sufficiency 30 - 100 ng/mL (75 - 250 nmol/L) Toxicity >100 ng/mL (>250 nmol/L) Platelets bldOrdered By: Dr. Sesay on 09-19-2022 Platelets (Bld) [#/Vol] 368 10*3/uL 150-450 [facility] Serum or plasma albumin lm urement (mass/volume)Ordered By: Dr. Sesay on 09-19-2022 Albumin [Mass/Vol] 3.6 g/dL 3.2-5.0 [facility] Serum or plasma albumin/glob ulin mass ratioOrdered By: Dr. Sesay on 09-19-2022 Albumin/Globulin [Mass ratio] 1.0 {ratio} 0.9-2.4 [facility] Serum or plasma calcium lm urement (mass/volume)Ordered By: Dr. Sesay on 09-19-2022 Calcium [Mass/Vol] 9.2 mg/dL 8.5-10.1 [facility] Serum or plasma cholesterol in HDL measurement (mass/volume)Ordered By: Dr. Sesay on 09-19-2022 Cholesterol in HDL [Mass/Vol] 64 mg/dL >40 [facility] Comment on above: The drugs N-Acetylcy steine and Metamizole may falsely depress this assay. Reference Range HDL <40 mg/dL Low HDL Cholesterol HDL >or= 60 mg/dL High HDL Cholesterol Serum or plasma cholesterol in VLDL measurement (mass/volume)Ordered By: Dr. Sesay on 09-19-2022 Cholesterol in VLDL [Mass/Vol] 62 mg/dL 5-40 [facility] Serum or plasma creatinine m easurement (mass/volume)Ordered By: Dr. Sesay on 09-19-2022 Creatinine [Mass/Vol] 0.88 mg/dL 0.55-1.02 [facility] Comment on above: The validity of the calculated GFR & GFRAA in patients over 70 years has not been determined. Clinical correlation is essential. Serum or plasma low density lipoprotein (LDL) cholesterol measurement (mass/volume)Ordered By: Dr. Sesay on 09-19-2022 Cholesterol in LDL [Mass/Vol] 120 mg/dL 0-130 [facility] Serum or plasma urea nitroge n measurement (mass/volume)Ordered By: Dr. Sesay on 09-19-2022 Urea nitrogen [Mass/Vol] 21 mg/dL 7-18 [facility] Thin prep Papanicolaou smear with manual screeningOrdered By: Dr. Sesay on 09-19-2022 Thin prep Papanicolaou smear with manual screening 17 U/L 15-37 [facility] Thin prep Papanicolaou smear with manual screening 9 5-15 [facility] Whole blood hemoglobin A1c/t otal hemoglobin ratio (mass fraction)Ordered By: Dr. Sesay on 09-19-2022 HbA1c (Bld) [Mass fraction] 5.6 % 3.8-5.6 [facility] Comment on above: Normal < 5.7 % Predi abetic 5.7 - 6.4 % Diabetic >or= 6.5 % Please note range changes. Laboratory - Drug toxicology Ordered By: Dr. Mcginnis on 07-01-2022 Amphetamines Ql (U) Negative <1000 ng/mL [facility] Benzodiazepines Ql (U) Negative < 200 ng/mL [facility] Cannabinoids Screen Ql (U) Negative < 50 ng/mL [facility] Cocaine Ql (U) Negative < 300 ng/mL [facility] Opiates Ql (U) Negative < 300 ng/mL [facility] No Panel InformationOrdered By: Dr. Mcginnis on 07-01-2022 MDMA (Ecstasy) Screen Negative < 500 ng/mL [facility] Urine Barbiturates Screen Negative < 200 ng/mL [facility] Urine Drug Screen Comment [facility] Comment on above: CONFIRMATORY TESTING FOR ALL POSITIVE URINE DRUG SCREENRESULTS WILL ONLY BE SENT OUT UPON PHYSICIAN ORDER. VISTA Urine Drug Screen methods provide only preliminaryanalytical test results. A more specific alternate chemicalmethod must be used in order to obtain a confirmedanalytical result. Gas chromatography/mass spectrometery(GC/MS) is the preferred confirmatory method. Clinicalconsideration and professional judgement should be appliedto any drug of abuse test result, particularly whenpreliminary positive results are used. URINE TCA TESTING MUST BE ORDERED SEPARATELY. USE TESTMNEMONIC: [facility] Urine Methadone Screen Negative < 300 ng/mL [facility] Rubella IgG Antibody Reactive Nonreactive [facility] Comment on above: Antibody Results Int erpretation of Immune Status Non Reactive Presumed Non-Immune Equivocal Equivocal Reactive Presumed Immune Serum Varicella zoster virus IgG antibody assay by immunoassay (units/volume)Ordered By: Dr. Mcginnis on 07-01-2022 VZV IgG IA Qn (S) 677 index Immune >165 [facility] Comment on above: Negative <135 Equivo manasa 135 - 165 Positive >165A positive result generally indicates exposure to thepathogen or administration of specific immunoglobulins,but it is not indication of active infection or stageof disease. Serum hepatitis B virus surf erika antibody IgG detectionOrdered By: Dr. Mcginnis on 07-01-2022 HBV surface IgG Ql (S) Non-Reactive [facility] Comment on above: Non Reactive: Incons istent with immunity less than <10 mIU/mL Reactive: Consistent with immunity greater than or equal to 10 mIU/mL Serum measles virus IgG anti body assay by immunoassay (units/volume)Ordered By: Dr. Mcginnis on 07-01-2022 MeV IgG IA Qn (S) > 300.0 AU/mL Immune >16.4 [facility] Comment on above: Negative <13.5 Equiv ocal 13.5 - 16.4 Positive >16.4Presence of antibodies to Rubeola is presumptive evidenceof immunity except when acute infection is suspected.Performed at: [facility] [place] [id number] Director: Win Ballard PhD, Phone: [phone] Serum mumps virus IgG antibo dy assay (units/volume)Ordered By: Dr. Mcginnis on 07-01-2022 MuV IgG Qn (S) 30.4 AU/mL Immune >10.9 [facility] Comment on above: Negative <9.0 Equivo manasa 9.0 - 10.9 Positive >10.9A positive result generally indicates past exposure toMumps virus or previous vaccination. Urine phencyclidine (PCP) de tectionOrdered By: Dr. Mcginnis on 07-01-2022 Phencyclidine Ql (U) Negative < 25 ng/mL [facility] Absolute lymphocyte counton 05-08-2022 Lymphocytes Auto (Unsp spec) [#/Vol] 2.46 10*3/uL 0.83-4.51 [facility] Work Phone: Basophil percentageon 2021 Basophils/100 WBC (Bld) 0.6 % 0-1 [facility] Work Phone: [phone] Bilirubin [Mass/Vol] 0.20 mg/dL 0.20-1.00 [facility] Work Phone: [phone] Comment on above: For patients on eltr ombopag therapy, use of Dimension Remlap TBIL is not recommended. Chloride [Moles/Vol] 104 mmol/L 98-107 [facility] Work Phone: Cholesterol [Mass/Vol] 240 mg/dL <200 [facility] Work Phone: [phone] Comment on above: <200 mg/dL Desirable 200-240 mg/dL Borderline >240 mg/dL High Risk Eosinophils/100 WBC (Bld) 3.4 % 0-5 [facility] Work Phone: [phone] Glucose [Mass/Vol] 83 mg/dL 74-106 [facility] Work Phone: [phone] Neutrophils (Bld) [#/Vol] 3.7 10*3/uL 2.0-7.7 [facility] Work Phone: [phone] Neutrophils/100 WBC (Bld) 52.6 % 47-70 [facility] Work Phone: [phone] Potassium [Moles/Vol] 4.3 mmol/L 3.5-5.1 [facility] Work Phone: [phone] Protein [Mass/Vol] 7.7 g/dL 6.4-8.2 [facility] Work Phone: Sodium [Moles/Vol] 138 mmol/L 136-145 [facility] Work Phone: [phone] Triglyceride [Mass/Vol] 200 mg/dL <199 [facility] Work Phone: [phone] Comment on above: The drugs N-Acetylcy steine and Metamizole may falsely depress this assay.Serum Triglycerides Reference Interval Normal <150 mg/dL Borderline high 150 - 199 mg/dL High 200 - 499 mg/dL Very High > or = 500 mg/dL WBC (Bld) [#/Vol] 7.1 10*3/uL 4.4-11.0 [facility] Work Phone: Blood erythrocytes count (nu mber/volume)on 05-08-2022 RBC (Bld) [#/Vol] 4.70 10*6/uL 4.2-5.4 [facility] Work Phone: Blood hemoglobin measurement (mass/volume)on 05-08-2022 Hemoglobin (Bld) [Mass/Vol] 13.4 g/dL 12.0-15.0 [facility] Work Phone: Blood lymphocytes/100 leukoc yteson 05-08-2022 Lymphocytes/100 WBC (Bld) 34.9 % 19-41 [facility] Work Phone: Blood monocytes/100 leukocyt eson 05-08-2022 Monocytes/100 WBC (Bld) 8.2 % 0-10 [facility] Work Phone: Blood platelet mean volumeon 05-08-2022 Platelet mean volume (Bld) [Entitic vol] 9.5 fL 6.2-12.0 [facility] Work Phone: Determination of erythrocyte mean corpuscular volume (MCV)on 05-08-2022 MCV (RBC) [Entitic vol] 89.4 fL 81-99 [facility] Work Phone: Hematocrit Auto (Bld) [Volum e fraction]on 05-08-2022 Hematocrit (Bld) [Volume fraction] 42.0 % 37-47 [facility] Work Phone: Laboratory - Chemistry and C hemistry - challengeon 05-08-2022 ALP [Catalytic activity/Vol] 104 U/L 45-117 [facility] Work Phone: ALT [Catalytic activity/Vol] 24 U/L 13-56 [facility] Work Phone: CO2 [Moles/Vol] 27.0 mmol/L 21.0-32.0 [facility] Work Phone: [phone] Cobalamin (Vitamin B12) [Mass/Vol] 416 pg/mL 211-911 [facility] Work Phone: Free T4 [Mass/Vol] 0.97 ng/dL 0.76-1.46 [facility] Work Phone: Globulin (S) [Mass/Vol] 4.1 g/dL 2.2-4.2 [facility] Work Phone: Urea nitrogen/Creatinine [Mass ratio] 16.9 mg/mg 10-20 [facility] Work Phone: Laboratory - Hematology and Cell countson 05-08-2022 Erythrocyte distribution width (RBC) [Entitic vol] 44.1 fL 35.1-43.9 [facility] Work Phone: Erythrocyte distribution width (RBC) [Ratio] 13.5 % 11.6-14.6 [facility] Work Phone: Immature granulocytes/100 WBC (Bld) 0.300 % 0.0-0.9 [facility] Work Phone: Comment on above: IG% - Immature Granu locytes (promyelocytes, myelocytes and metamyelocytes) > 1% indicates that a LEFT SHIFT is Present. MCH (RBC) [Entitic mass] 28.5 pg 27.0-32.0 [facility] Work Phone: Nucleated RBC/100 WBC (Bld) [Ratio] 0 % 0-5 [facility] Work Phone: MCHC Auto (RBC) [Mass/Vol]on 05-08-2022 MCHC (RBC) [Mass/Vol] 31.9 g/dL 32-36 [facility] Work Phone: No Panel Informationon 05-08 Estimated GFR (MDRD) Amer 93 mL/min >60 [facility] Work Phone: Comment on above: GFR Calc Estimated GFR (MDRD) Non-Af Amer 77 mL/min >60 [facility] Work Phone: Comment on above: Non- GFR Calc Thyroid Stimulating Hormone (TSH) 0.80 uIU/mL 0.358-3.74 [facility] Work Phone: Vitamin D 25-Hydroxy 49.8 ng/mL [facility] Work Phone: Comment on above: Vitamin D 25(OH) Sta tus Range Deficiency <20 ng/mL (50nmol/L) Insufficiency 20 - 30 ng/mL (50 - 75 nmol/L) Sufficiency 30 - 100 ng/mL (75 - 250 nmol/L) Toxicity >100 ng/mL (>250 nmol/L) Platelets bldon 05-08-2022 Platelets (Bld) [#/Vol] 361 10*3/uL 150-450 [facility] Work Phone: Serum or plasma albumin lm urement (mass/volume)on 05-08-2022 Albumin [Mass/Vol] 3.6 g/dL 3.2-5.0 [facility] Work Phone: Serum or plasma albumin/glob ulin mass ratioon 05-08-2022 Albumin/Globulin [Mass ratio] 0.9 {ratio} 0.9-2.4 [facility] Work Phone: Serum or plasma calcium lm urement (mass/volume)on 05-08-2022 Calcium [Mass/Vol] 9.3 mg/dL 8.5-10.1 [facility] Work Phone: Serum or plasma cholesterol in HDL measurement (mass/volume)on 05-08-2022 Cholesterol in HDL [Mass/Vol] 63 mg/dL >40 [facility] Work Phone: Comment on above: The drugs N-Acetylcy steine and Metamizole may falsely depress this assay. Reference Range HDL <40 mg/dL Low HDL Cholesterol HDL >or= 60 mg/dL High HDL Cholesterol Serum or plasma cholesterol in VLDL measurement (mass/volume)on 05-08-2022 Cholesterol in VLDL [Mass/Vol] 40 mg/dL 5-40 [facility] Work Phone: Serum or plasma creatinine m easurement (mass/volume)on 05-08-2022 Creatinine [Mass/Vol] 0.83 mg/dL 0.55-1.02 [facility] Work Phone: Comment on above: The validity of the calculated GFR & GFRAA in patients over 70 years has not been determined. Clinical correlation is essential. Serum or plasma low density lipoprotein (LDL) cholesterol measurement (mass/volume)on 05-08-2022 Cholesterol in LDL [Mass/Vol] 137 mg/dL 0-130 [facility] Work Phone: Serum or plasma urea nitroge n measurement (mass/volume)on 05-08-2022 Urea nitrogen [Mass/Vol] 14 mg/dL 7-18 [facility] Work Phone: [phone] Thin prep Papanicolaou smear with manual screeningon 05-08-2022 Thin prep Papanicolaou smear with manual screening 17 U/L 15-37 [facility] Work Phone: Thin prep Papanicolaou smear with manual screening 7 5-15 [facility] Work Phone: Absolute lymphocyte counton 01-09-2022 Lymphocytes Auto (Unsp spec) [#/Vol] 2.22 10*3/uL 0.83-4.51 [facility] Work Phone: [phone] Basophil percentageon 2021 Basophils/100 WBC (Bld) 0.5 % 0-1 [facility] Work Phone: [phone] Bilirubin [Mass/Vol] 0.10 mg/dL 0.20-1.00 [facility] Work Phone: Comment on above: For patients on eltr ombopag therapy, use of Dimension Remlap TBIL is not recommended. Chloride [Moles/Vol] 106 mmol/L 98-107 [facility] Work Phone: Eosinophils/100 WBC (Bld) 2.5 % 0-5 [facility] Work Phone: [phone] Glucose [Mass/Vol] 85 mg/dL 74-106 [facility] Work Phone: [phone] Neutrophils (Bld) [#/Vol] 4.6 10*3/uL 2.0-7.7 [facility] Work Phone: Neutrophils/100 WBC (Bld) 60.1 % 47-70 [facility] Work Phone: Potassium [Moles/Vol] 4.2 mmol/L 3.5-5.1 [facility] Work Phone: Protein [Mass/Vol] 7.3 g/dL 6.4-8.2 [facility] Work Phone: Sodium [Moles/Vol] 139 mmol/L 136-145 [facility] Work Phone: WBC (Bld) [#/Vol] 7.7 10*3/uL 4.4-11.0 [facility] Work Phone: Blood erythrocytes count (nu mber/volume)on 01-09-2022 RBC (Bld) [#/Vol] 4.41 10*6/uL 4.2-5.4 [facility] Work Phone: Blood hemoglobin measurement (mass/volume)on 01-09-2022 Hemoglobin (Bld) [Mass/Vol] 12.5 g/dL 12.0-15.0 [facility] Work Phone: Blood lymphocytes/100 leukoc yteson 01-09-2022 Lymphocytes/100 WBC (Bld) 29.0 % 19-41 [facility] Work Phone: Blood monocytes/100 leukocyt eson 01-09-2022 Monocytes/100 WBC (Bld) 7.6 % 0-10 [facility] Work Phone: Blood platelet mean volumeon 01-09-2022 Platelet mean volume (Bld) [Entitic vol] 9.7 fL 6.2-12.0 [facility] Work Phone: Determination of erythrocyte mean corpuscular volume (MCV)on 01-09-2022 MCV (RBC) [Entitic vol] 90.7 fL 81-99 [facility] Work Phone: Hematocrit Auto (Bld) [Volum e fraction]on 01-09-2022 Hematocrit (Bld) [Volume fraction] 40.0 % 37-47 [facility] Work Phone: [phone] Iron measurement (mass/mass) on 01-09-2022 Iron (Unsp spec) [Mass/Mass] 63 ug/dL 50-170 [facility] Work Phone: Laboratory - Chemistry and C hemistry - challengeon 01-09-2022 ALP [Catalytic activity/Vol] 96 U/L 45-117 [facility] Work Phone: ALT [Catalytic activity/Vol] 22 U/L 13-56 [facility] Work Phone: CO2 [Moles/Vol] 28.0 mmol/L 21.0-32.0 [facility] Work Phone: Cobalamin (Vitamin B12) [Mass/Vol] 381 pg/mL 211-911 [facility] Work Phone: Globulin (S) [Mass/Vol] 3.7 g/dL 2.2-4.2 [facility] Work Phone: Urea nitrogen/Creatinine [Mass ratio] 16.4 mg/mg 10-20 [facility] Work Phone: Laboratory - Hematology and Cell countson 01-09-2022 Erythrocyte distribution width (RBC) [Entitic vol] 45.8 fL 35.1-43.9 [facility] Work Phone: [phone] Erythrocyte distribution width (RBC) [Ratio] 13.8 % 11.6-14.6 [facility] Work Phone: Immature granulocytes/100 WBC (Bld) 0.300 % 0.0-0.9 [facility] Work Phone: Comment on above: IG% - Immature Granu locytes (promyelocytes, myelocytes and metamyelocytes) > 1% indicates that a LEFT SHIFT is Present. MCH (RBC) [Entitic mass] 28.3 pg 27.0-32.0 [facility] Work Phone: [phone] Nucleated RBC/100 WBC (Bld) [Ratio] 0 % 0-5 [facility] Work Phone: MCHC Auto (RBC) [Mass/Vol]on 01-09-2022 MCHC (RBC) [Mass/Vol] 31.3 g/dL 32-36 [facility] Work Phone: No Panel Informationon 01-09 Estimated GFR (MDRD) Amer 77 mL/min >60 [facility] Work Phone: Comment on above: GFR Calc Estimated GFR (MDRD) Non-Af Amer 64 mL/min >60 [facility] Work Phone: Comment on above: Non- GFR Calc Total Iron Binding Capacity 294 ug/dL 250-450 [facility] Work Phone: Vitamin D 25-Hydroxy 64.6 ng/mL [facility] Work Phone: Comment on above: Vitamin D 25(OH) Sta tus Range Deficiency <20 ng/mL (50nmol/L) Insufficiency 20 - 30 ng/mL (50 - 75 nmol/L) Sufficiency 30 - 100 ng/mL (75 - 250 nmol/L) Toxicity >100 ng/mL (>250 nmol/L) Platelets bldon 01-09-2022 Platelets (Bld) [#/Vol] 360 10*3/uL 150-450 [facility] Work Phone: Serum or plasma albumin lm urement (mass/volume)on 01-09-2022 Albumin [Mass/Vol] 3.6 g/dL 3.2-5.0 [facility] Work Phone: Serum or plasma albumin/glob ulin mass ratioon 01-09-2022 Albumin/Globulin [Mass ratio] 1.0 {ratio} 0.9-2.4 [facility] Work Phone: Serum or plasma calcium lm urement (mass/volume)on 01-09-2022 Calcium [Mass/Vol] 9.7 mg/dL 8.5-10.1 [facility] Work Phone: Serum or plasma creatinine m easurement (mass/volume)on 01-09-2022 Creatinine [Mass/Vol] 0.98 mg/dL 0.55-1.02 [facility] Work Phone: Comment on above: The validity of the calculated GFR & GFRAA in patients over 70 years has not been determined. Clinical correlation is essential. Serum or plasma ferritin sagrario surement (mass/volume)on 01-09-2022 Ferritin [Mass/Vol] 88 ng/mL 8-252 [facility] Work Phone: Serum or plasma folate measu rement (mass/volume)on 01-09-2022 Folate [Mass/Vol] 25.20 ng/mL 3.1-55.4 [facility] Work Phone: Serum or plasma urea nitroge n measurement (mass/volume)on 01-09-2022 Urea nitrogen [Mass/Vol] 16 mg/dL 7-18 [facility] Work Phone: Thin prep Papanicolaou smear with manual screeningon 01-09-2022 Thin prep Papanicolaou smear with manual screening 15 U/L 15-37 [facility] Work Phone: Thin prep Papanicolaou smear with manual screening 5 5-15 [facility] Work Phone: COVID-19 by PCR ()on 02-19 Coronavirus 2019 PCR Not Detected Normal Not Detected [facility] Comment on above: Order Comment: Nasal swab in Saline, Toñito opharyngeal or Oropharyngeal in viral transport media or saline Performed By: #### C OVUH #### [place] [address] Performing Lab Testing performed by : [facility] [address] 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 [facility] Comment on above: Order Comment: Nasal swab in Saline, Toñito opharyngeal or Oropharyngeal in viral transport media or saline Performed By: #### C OVUH #### [place] [id number] COVID-19 by PCR ()on 12-30 Coronavirus 2019 PCR Not Detected Normal Not Detected [facility] Comment on above: Order Comment: Nasal swab in Saline, Toñito opharyngeal or Oropharyngeal in viral transport media or saline Performed By: #### C OV[facility] #### [place] [address] Performing Lab Testing performed by : [facility] [id number] [place] [address] CLIA # [id number] [facility] Comment on above: Order Comment: Nasal swab in Saline, Toñito opharyngeal or Oropharyngeal in viral transport media or saline Performed By: #### C [facility] #### [place] [address] Specimen source Nom (Unsp spec) nasal [facility] Comment on above: Order Comment: Nasal swab in Saline, Toñito opharyngeal or Oropharyngeal in viral transport media or saline Performed By: #### C [facility] #### [place] [id number] SESAY XR FOOT LT COMPLETE 3+ EWSon 12-22-2019 SESAY XR FOOT LT COMPLETE 3+ VIEWS Examination: Left foot 3 views Indication: [id number]: Pain in left foot Findings: There is no evidence of acute fracture or dislocation. There are mild degenerative changes of the IP joints.Small plantar calcaneal enthesophyte is noted. The soft tissues are grossly unremarkable. Impression: No acute osseous abnormality. Report Dictated on Authenticated by: Jeffery Moore On: 12/22/2019 08:35 Read by: JEFFERY MOORE MD Date: 12/22/2019 08:35 [facility] Liver Profileon 04-19-2019 Albumin [Mass/Vol] 3.7 g/dL Normal 3.4-5.0 [facility] Comment on above: Performed By: #### L IVER #### [place] [id number] ALP [Catalytic activity/Vol] 116 U/L Normal 45-117 [facility] Comment on above: Performed By: #### L IVER #### [facility] [address] [place], [place] [id number] ALT [Catalytic activity/Vol] 19 U/L Normal 12-78 [facility] Comment on above: Performed By: #### L IVER #### [place] [id number] AST [Catalytic activity/Vol] 13 U/L Low 15-37 [facility] Comment on above: Performed By: #### L IVER #### [address] [address] Bili, Direct <0.1 Normal 0.0-0.2 [facility] Comment on above: Performed By: #### L IVER #### [place] [address] Bili, Total 0.3 mg/dL Normal 0.2-1.0 [facility] Comment on above: Performed By: #### L IVER #### [place] [id number] Prot Total 6.9 gm/dL Normal 6.4-8.2 [facility] Comment on above: Performed By: #### L IVER #### [place] [address] XR Chest 2 view-PA & LATon 0 03-25-2019 XR Chest 2 view-PA & LAT CLINICAL INFORMATION: Dyspnea, unspecified Frontal and lateral views of the chest were obtained. No old examinations were available for comparison at time of dictation. No acute pulmonary disease is noted. The cardiovascular silhouette is within normal limits. There are no pleural effusions. Mild endplate degenerative changes of the spine. Surgical clips within right upper quadrant suggesting prior cholecystectomy. IMPRESSION: No acute pulmonary disease. Report Dictated on Authenticated by: Jorge Fontenot On: 03/25/2019 12:06 Read by: JORGE FONTENOT MD Date: 03/25/2019 12:06 Normal [facility] Basic Metabolic Panelon 07-03 Anion gap [Moles/Vol] 8 Normal [facility] Comment on above: Performed By: #### A PTT, HEMOG, BMPI, PT #### [facility] [address] [place] [address] Calcium [Mass/Vol] 9.0 mg/dL Normal 8.4-10.4 [facility] Comment on above: Performed By: #### A PTT, HEMOG, BMPI, PT #### [facility] [address] [place] [address] CO2 [Moles/Vol] 24 mmol/L Normal 22-30 [facility] Comment on above: Performed By: #### A PTT, HEMOG, BMPI, PT #### [facility] [address] [place] [address] Glucose [Mass/Vol] 101 mg/dL High 70-100 [facility] Comment on above: Performed By: #### A PTT, HEMOG, BMPI, PT #### [facility] [address] [place] [address] Urea nitrogen [Mass/Vol] 15 mg/dL Normal 7-20 [facility] Comment on above: Performed By: #### A PTT, HEMOG, BMPI, PT #### [facility] [address] [place] [address] Creatinine [Mass/Vol] 0.76 mg/dL Normal 0.52-1.25 [facility] Comment on above: Performed By: #### A PTT, HEMOG, BMPI, PT #### [facility] [address] [place] [address] GFR/1.73 sq M predicted among blacks MDRD (S/P/Bld) [Vol rate/Area] mL/min/{1.73_m2} Normal >60 [facility] Comment on above: Performed By: #### A PTT, HEMOG, BMPI, PT #### [facility] [address] [place] [address] GFR/1.73 sq M predicted among non-blacks MDRD (S/P/Bld) [Vol rate/Area] mL/min/{1.73_m2} Normal >60 [facility] Comment on above: Result Comment: Sour ce- MDRD equation with creatinine calibration to IDMS(NKDEP) eGFR not recommended for drug dose adjustment Performed By: #### A PTT, HEMOG, BMPI, PT #### [facility] [address] [place] [address] Potassium [Moles/Vol] 3.9 mmol/L Normal 3.5-5.1 [facility] Comment on above: Performed By: #### A PTT, HEMOG, BMPI, PT #### [facility] [address] [place] [address] Chloride [Moles/Vol] 104 mmol/L Normal 98-107 [facility] Comment on above: Performed By: #### A PTT, HEMOG, BMPI, PT #### [facility] [address] [place] [address] Sodium [Moles/Vol] 136 mmol/L Normal 135-145 [facility] Comment on above: Result Comment: NOTE : New Sodium Reference Range effective 2018 @ 10:00 Performed By: #### A PTT, HEMOG, BMPI, PT #### [facility] [address] [place] [address] Hemogram w/ Autodiffon 07-21 Abs Baso Cnt 0.0 10*3/uL Normal 0.0-0.2 [facility] Comment on above: Performed By: #### A PTT, HEMOG, BMPI, PT #### [facility] [address] [place] [address] Abs Neutrophile Cnt 3.3 10*3/uL Normal 1.8-7.0 [facility] Comment on above: Performed By: #### A PTT, HEMOG, BMPI, PT #### [facility] [address] [place] [address] Basophils/100 WBC (Bld) 0.6 % Normal 0.0-2.0 [facility] Comment on above: Performed By: #### A PTT, HEMOG, BMPI, PT #### [facility] [address] [place] [address] Eosinophils (Bld) [#/Vol] 0.2 10*3/uL Normal 0.0-0.5 [facility] Comment on above: Performed By: #### A PTT, HEMOG, BMPI, PT #### [facility] [address] [place] [address] Eosinophils/100 WBC (Bld) 2.8 % Normal 1.0-6.0 [facility] Comment on above: Performed By: #### A PTT, HEMOG, BMPI, PT #### [facility] [address] [place] [address] Erythrocyte distribution width (RBC) [Ratio] 14.6 % High 11.5-14.5 [facility] Comment on above: Performed By: #### A PTT, HEMOG, BMPI, PT #### [facility] [address] [place] [address] Granulocytes/100 WBC (Bld) 56.3 % Normal 40.0-80.0 [facility] Comment on above: Performed By: #### A PTT, HEMOG, BMPI, PT #### [facility] [address] [place] [address] Hematocrit (Bld) [Volume fraction] 36.9 % Normal 35.0-47.0 [facility] Comment on above: Performed By: #### A PTT, HEMOG, BMPI, PT #### [facility] [address] [place] [address] Hemoglobin (Bld) [Mass/Vol] 12.6 g/dL Normal 11.7-16.0 [facility] Comment on above: Performed By: #### A PTT, HEMOG, BMPI, PT #### [facility] [address] [place] [address] Lymphocytes (Bld) [#/Vol] 2.0 10*3/uL Normal 1.0-4.3 [facility] Comment on above: Performed By: #### A PTT, HEMOG, BMPI, PT #### [facility] [address] [place] [address] Lymphocytes/100 WBC (Bld) 33.2 % Normal 20.0-40.0 [facility] Comment on above: Performed By: #### A PTT, HEMOG, BMPI, PT #### [facility] [address] [place] [address] MCH (RBC) [Entitic mass] 29.6 pg Normal 26.0-34.0 [facility] Comment on above: Performed By: #### A PTT, HEMOG, BMPI, PT #### [facility] [address] [place] [address] MCHC (RBC) [Mass/Vol] 34.2 % Normal 32.0-36.0 [facility] Comment on above: Performed By: #### A PTT, HEMOG, BMPI, PT #### [facility] [address] [place] [address] MCV (RBC) [Entitic vol] 86.4 fL Normal 79.0-98.0 [facility] Comment on above: Performed By: #### A PTT, HEMOG, BMPI, PT #### [facility] [address] [place] [address] Monocytes (Bld) [#/Vol] 0.4 10*3/uL Normal 0.0-0.8 [facility] Comment on above: Performed By: #### A PTT, HEMOG, BMPI, PT #### [facility] [address] [place] [address] Monocytes/100 WBC (Bld) 7.1 % Normal 2.0-10.0 [facility] Comment on above: Performed By: #### A PTT, HEMOG, BMPI, PT #### [facility] [address] [place] [address] Platelet mean volume (Bld) [Entitic vol] 7.5 fL Normal 7.4-10.4 [facility] Comment on above: Performed By: #### A PTT, HEMOG, BMPI, PT #### [facility] [address] [place] [address] Platelets (Bld) [#/Vol] 291 10*3/uL Normal 140-440 [facility] Comment on above: Performed By: #### A PTT, HEMOG, BMPI, PT #### [facility] [address] [place] [address] RBC (Bld) [#/Vol] 4.27 10*6/uL Normal 3.80-5.20 [facility] Comment on above: Performed By: #### A PTT, HEMOG, BMPI, PT #### [facility] [address] [place] [address] WBC (Bld) [#/Vol] 6.0 10*3/uL Normal 3.6-10.7 [facility] Comment on above: Performed By: #### A PTT, HEMOG, BMPI, PT #### [facility] [address] [place] [address] MRI Spine Cervical w/ + w/o Contraston 07-21-2018 MRI Spine Cervical w/ + w/o Contrast Patient Name: JOANNE SHAH MRI Exam Date/Time 07/21/2018 07:43:16 EST Exam MRI Spine Cervical w/ + w/o Contrast Ordering Physician MD JAMIE, LOI NOVA Accession Number [id number] CPT4 Codes 78732 () Reason For Exam bilateral arm numbness Report Reasons for examination: Bilateral arm numbness, numbness and tingling left side of face. Sagittal STIR, T1 and T2 weighted images of the cervical spine and axial gradient echo scans were performed. After intravenous contrast sagittal and axial T1-weighted images are performed There is normal alignment of the cervical vertebral bodies on the sagittal images. The marrow space signal intensity is normal. The craniocervical junction and C1-2 junction appear normal. The brain stem and cervical spinal cord appear normal. At C2-3, the disc is normal. There is no significant central canal stenosis. At C3-4, the disc is normal except for trace bulge. There is no central canal stenosis. At C4-5, the disc is normal. There is no central canal stenosis. At C5-6, the disc is normal . There is no central canal stenosis. There is no cord impingement. At C6-7, the disc is degenerated with anterior and posterior bulging, to the right side slightly greater than left. There is no central canal stenosis. There is no significant cord impingement. At C7-T1, the disc is normal. There is no central canal stenosis. IMPRESSION: Degenerative disc disease changes which are very minimal (mainly at C6-C7 without significant cord impingement or stenosis) as discussed above . Report Dictated on Final Dictating Physician: MD SHEARER WILLIAM Signed Date and Time: 07/21/2018 8:50 am Signed by: MD SHEARER WILLIAM Transcribed Date and Time: 07/21/2018 8:51 Normal [facility] Basic Metabolic Panelon 07-03 Calcium [Mass/Vol] 9.0 mg/dL Normal 8.4-10.4 [facility] Comment on above: Performed By: #### B MP3M, HEMDF #### [facility] [address] [place] [address] Glucose [Mass/Vol] 93 mg/dL Normal 70-100 [facility] Comment on above: Performed By: #### B MP3M, HEMDF #### [facility] [address] [place] [address] Anion gap [Moles/Vol] 7 Normal [facility] Comment on above: Performed By: #### B MP3M, HEMDF #### [facility] [address] [place] [address] CO2 [Moles/Vol] 23 mmol/L Normal 22-30 [facility] Comment on above: Performed By: #### B MP3M, HEMDF #### [facility] [address] [place] [address] Creatinine [Mass/Vol] 0.73 mg/dL Normal 0.52-1.25 [facility] Comment on above: Performed By: #### B MP3M, HEMDF #### [facility] [address] [place] [address] GFR/1.73 sq M predicted among blacks MDRD (S/P/Bld) [Vol rate/Area] mL/min/{1.73_m2} Normal >60 [facility] Comment on above: Performed By: #### B MP3M, HEMDF #### [facility] [address] [place] [address] GFR/1.73 sq M predicted among non-blacks MDRD (S/P/Bld) [Vol rate/Area] mL/min/{1.73_m2} Normal >60 [facility] Comment on above: Result Comment: Sour ce- MDRD equation with creatinine calibration to IDMS(NKDEP) eGFR not recommended for drug dose adjustment Performed By: #### B TRA3Marifer HEMDF #### [facility] [address] [place] [address] Urea nitrogen [Mass/Vol] 14 mg/dL Normal 7-20 [facility] Comment on above: Performed By: #### B MP3Marifer, HEMDF #### [facility] [address] [place] [address] Chloride [Moles/Vol] 109 mmol/L High 98-107 [facility] Comment on above: Performed By: #### B TRA3Marifer, HEMDF #### [facility] [address] [place] [address] Potassium [Moles/Vol] 3.6 mmol/L Normal 3.5-5.1 [facility] Comment on above: Performed By: #### Ar[place] MP3Marifer, HEMDF #### [facility] [address] [place] [address] Sodium [Moles/Vol] 139 mmol/L Normal 135-145 [facility] Comment on above: Result Comment: NOTE : New Sodium Reference Range effective 2018 @ 10:00 Performed By: #### B TRA3Marifer HEMDF #### [facility] [address] [place] [address] Hemoglobin A1Con 07-20-2018 HbA1c (Bld) [Mass fraction] 5.2 % Normal 4.0-5.7 [facility] Comment on above: Result Comment: --Hg bA1C levels may not be accurate in patients who have renal disease, received recent blood transfusions, are anemic, or who have dyshemoglobinemia. Performed By: #### A PTT, HEMOG, BMPI, PT #### [facility] [address] [place] [address] HbA1c (Bld) [Mass fraction] 103 mg/dL Normal [facility] Comment on above: Performed By: #### A PTT, HEMOG, BMPI, PT #### [facility] [address] [place] [address] Hemogram w/ Autodiffon 07-20 Abs Baso Cnt 0.0 10*3/uL Normal 0.0-0.2 [facility] Comment on above: Performed By: #### B MP3M, HEMDF #### [facility] [address] [place] [address] Abs Neutrophile Cnt 2.8 10*3/uL Normal 1.8-7.0 [facility] Comment on above: Performed By: #### B MP3M, HEMDF #### [facility] [address] [place] [address] Basophils/100 WBC (Bld) 0.8 % Normal 0.0-2.0 [facility] Comment on above: Performed By: #### B MP3M, HEMDF #### [facility] [address] [place] [address] Eosinophils (Bld) [#/Vol] 0.1 10*3/uL Normal 0.0-0.5 [facility] Comment on above: Performed By: #### B MP3M, HEMDF #### [facility] [address] [place] [address] Eosinophils/100 WBC (Bld) 2.2 % Normal 1.0-6.0 [facility] Comment on above: Performed By: #### B MP3M, HEMDF #### [facility] [address] [place] [address] Erythrocyte distribution width (RBC) [Ratio] 14.5 % Normal 11.5-14.5 [facility] Comment on above: Performed By: #### B MP3M, HEMDF #### [facility] [address] [place] [address] Granulocytes/100 WBC (Bld) 51.5 % Normal 40.0-80.0 [facility] Comment on above: Performed By: #### B MP3M, HEMDF #### [facility] [address] [place] [address] Hematocrit (Bld) [Volume fraction] 37.3 % Normal 35.0-47.0 [facility] Comment on above: Performed By: #### B MP3M, HEMDF #### [facility] [address] [place] [address] Hemoglobin (Bld) [Mass/Vol] 12.7 g/dL Normal 11.7-16.0 [facility] Comment on above: Performed By: #### B MP3M, HEMDF #### [facility] [address] [place] [address] Lymphocytes (Bld) [#/Vol] 2.1 10*3/uL Normal 1.0-4.3 [facility] Comment on above: Performed By: #### B MP3M, HEMDF #### [facility] [address] [place] [address] Lymphocytes/100 WBC (Bld) 37.2 % Normal 20.0-40.0 [facility] Comment on above: Performed By: #### B MP3M, HEMDF #### [facility] [address] [place] [address] MCH (RBC) [Entitic mass] 28.7 pg Normal 26.0-34.0 [facility] Comment on above: Performed By: #### B MP3M, HEMDF #### [facility] [address] [place] [address] MCHC (RBC) [Mass/Vol] 34.0 % Normal 32.0-36.0 [facility] Comment on above: Performed By: #### B MP3M, HEMDF #### [facility] [address] [place] [address] MCV (RBC) [Entitic vol] 84.4 fL Normal 79.0-98.0 [facility] Comment on above: Performed By: #### B MP3M, HEMDF #### [facility] [address] [place] [address] Monocytes (Bld) [#/Vol] 0.5 10*3/uL Normal 0.0-0.8 [facility] Comment on above: Performed By: #### B MP3M, HEMDF #### [facility] [address] [place] [address] Monocytes/100 WBC (Bld) 8.3 % Normal 2.0-10.0 [facility] Comment on above: Performed By: #### B MP3M, HEMDF #### [facility] [address] [place] [address] Platelet mean volume (Bld) [Entitic vol] 7.9 fL Normal 7.4-10.4 [facility] Comment on above: Performed By: #### B MP3M, HEMDF #### [facility] [address] [place] [address] Platelets (Bld) [#/Vol] 293 10*3/uL Normal 140-440 [facility] Comment on above: Performed By: #### B MP3M, HEMDF #### [facility] [address] [place] [address] RBC (Bld) [#/Vol] 4.41 10*6/uL Normal 3.80-5.20 [facility] Comment on above: Performed By: #### B MP3M, HEMDF #### [facility] [address] [place] [address] WBC (Bld) [#/Vol] 5.5 10*3/uL Normal 3.6-10.7 [facility] Comment on above: Performed By: #### B MP3M, HEMDF #### [facility] [address] [place] [address] Lipid Panelon 07-20-2018 Cholesterol [Mass/Vol] 157 mg/dL Normal < 200 [facility] Comment on above: Performed By: #### A PTT, HEMOG, BMPI, PT #### [facility] [address] [place] [address] Cholesterol in HDL [Mass/Vol] 49 mg/dL Normal 40-60 [facility] Comment on above: Performed By: #### A PTT, HEMOG, BMPI, PT #### [facility] [address] [place] [address] Cholesterol.total/Ch olesterol in HDL [Mass ratio] 3 Normal [facility] Comment on above: Result Comment: Ref Range: < 3 Low Risk for CHD 3-6 Mod Risk for CHD > 6 High Risk for CHD Performed By: #### A PTT, HEMOG, BMPI, PT #### [facility] [address] [place] [address] Protein [Mass/Vol] 82 mg/dL Normal <100 [facility] Comment on above: Performed By: #### A PTT, HEMOG, BMPI, PT #### [facility] [address] [place] [address] Triglyceride [Mass/Vol] 132 mg/dL Normal <150 [facility] Comment on above: Performed By: #### A PTT, HEMOG, BMPI, PT #### [facility] [address] [place] [address] MRA Head w/o Contraston 07-03 MRA Head w/o Contrast Patient Name: JOANNE SHAH MRI Exam Date/Time 07/20/2018 13:05:00 EST Exam MRA Head w/o Contrast Ordering Physician MD SESAY PETER Accession Number [id number] CPT4 Codes 87776 () Reason For Exam SENSATION LOSS Report Examination: MRA head Clinical Indication: Numbness and tingling left side of face Comparison: CTA 07/19/2018 and MRI 12/14/2015 Findings: 3D time of flight magnetic resonance angiography was obtained through the intracranial vessels. Maximal intensity projections were then reformatted. Examination includes review of the primary partitions and 3 dimensional views. NASCET criteria was utilized to measure degree of focal stenosis. The carotid arteries along their intracranial portion demonstrate grossly normal flow. There is no evidence of filling defect, significant plaque or other abnormality. The anterior circulation demonstrates grossly intact anterior and middle cerebral arteries. The [place] of [place] is within normal limits. The visualized vertebral and basilar arteries are normal in caliber without evidence of focal flow-limiting stenosis. There is diminutive right and dominant left vertebral artery. The posterior cerebral arteries are well visualized. There is no evidence of vascular malformation or aneurysm formation. Impression: No MRA evidence of gross intracranial stenosis, obstruction, or aneurysm. Report Dictated on Workstation: [id number] Final Dictating Physician: MD GRAY ANTHONY J Signed Date and Time: 07/20/2018 1:48 pm Signed by: MD GRAY ANTHONY J Transcribed Date and Time: 07/20/2018 1:49 Normal [facility] MRA Neck w/ + w/o Contraston 07-20-2018 MRA Neck w/ + w/o Contrast Patient Name: JOANNE SHAH MRI Exam Date/Time 07/20/2018 13:26:10 EST Exam MRA Neck w/ + w/o Contrast Ordering Physician MD SESAY PETER Accession Number [id number] CPT4 Codes 64473 () Reason For Exam TIA Report Examination: MRA neck Clinical Indication: TIA, left-sided facial numbness and tingling Comparison: CTA head and neck 07/19/2018 and MRI 12/14/2015 Findings: 2D and 3D time of flight and gadolinium bolus magnetic resonance angiography was obtained through the neck. 20 mL of Multihance IV gadolinium contrast was administered. Maximal intensity projections were then reformatted. Examination includes review of the primary partitions and 3 dimensional views. NASCET criteria was utilized to evaluate stenosis. The carotid arteries demonstrate normal antegrade flow without evidence of filling defect or stenosis. The vertebral arteries are normal in caliber, left dominant and demonstrate no evidence of narrowing. No dissection is appreciated. Impression: No evidence of stenosis or other vascular abnormality of the carotid and vertebral arteries. Report Dictated on Workstation: [id number] Final Dictating Physician: MD GRAY ANTHONY J Signed Date and Time: 07/20/2018 1:43 pm Signed by: MD GRAY ANTHONY J Transcribed Date and Time: 07/20/2018 1:44 Normal [facility] MRI Brain w/ + w/o Contrasto n 07-20-2018 MRI Brain w/ + w/o Contrast Patient Name: JOANNE SHAH MRI Exam Date/Time 07/20/2018 12:40:00 EST Exam MRI Brain w/ + w/o Contrast Ordering Physician MD SESAY PETER Accession Number [id number] CPT4 Codes 20090 () Reason For Exam TIA Addendum Comparison made to CT 07/19/2018 and MRI 12/14/2015. Report Dictated on Workstation: [id number] Final Addendum Addendum Dictating Physician: MD GRAY ANTHONY J Signed Date and Time: 07/20/2018 1:44 pm Signed by: MD GRAY ANTHONY J Transcribed Date and Time: 07/20/2018 1:45 Report Examination: MRI brain with and without contrast Clinical Indication: Left-sided facial numbness and tingling, TIA Comparison: None Findings: Multiplanar multisequence MRI was obtained through the skull prior to and after administration of 20 mL Multihance intravenous gadolinium contrast. Sequences included diffusion-weighted, gradient and FLAIR images. Ventricles are normal in size and configuration and are normally positioned on midline. There is no significant sulcal volume loss. Basilar cisterns are patent. There is no evidence of white matter signal abnormality on FLAIR/T2. No intracranial fluid collection or mass is identified. Review of the diffusion-weighted images demonstrate no evidence of acute infarct. No gross abnormality is appreciated within the globes and orbital contents. The paranasal sinuses are well pneumatized and demonstrate no significant inflammation. Post gadolinium contrast-enhanced images demonstrate no evidence of abnormal enhancement. Impression: No evidence of acute infarct or other intracranial abnormality. No abnormal gadolinium enhancement. Report Dictated on Workstation: [id number] Final Dictating Physician: MD GRAY ANTHONY J Signed Date and Time: 07/20/2018 1:42 pm Signed by: MD GRAY ANTHONY J Transcribed Date and Time: 07/20/2018 1:43 Normal [facility] APTTon 07-19-2018 aPTT Coag (Bld) [Time] 24.3 s Normal 20.0-30.5 [facility] Comment on above: Result Comment: NOTE : The therapeutic time for Heparin anticoagulation, based on Xa activity inhibition, is an APTT of 46-80 seconds. Performed By: #### A PTT, HEMOG, BMPI, PT #### [facility] [address] [place] [address] BMP, Whole Blood (POCT)on Anion gap [Moles/Vol] 10.00 Normal [facility] Comment on above: Performed By: #### A PTT, HEMOG, BMPI, PT #### [facility] [address] [place] [address] Calcium, Ionized WB 4.5 mg/dL Normal 4.3-5.2 [facility] Comment on above: Performed By: #### A PTT, HEMOG, BMPI, PT #### [facility] [address] [place] [address] Chloride [Moles/Vol] 103 mmol/L Normal 98-114 [facility] Comment on above: Performed By: #### A PTT, HEMOG, BMPI, PT #### [facility] [address] [place] [address] CO2 [Moles/Vol] 26 mmol/L Normal 21-29 [facility] Comment on above: Performed By: #### A PTT, HEMOG, BMPI, PT #### [facility] [address] [place] [address] Creatinine [Mass/Vol] 0.90 mg/dL Normal 0.60-1.30 [facility] Comment on above: Performed By: #### A PTT, HEMOG, BMPI, PT #### [facility] [address] [place] [address] GFR/1.73 sq M predicted among blacks MDRD (S/P/Bld) [Vol rate/Area] mL/min/{1.73_m2} Normal >60 [facility] Comment on above: Performed By: #### A PTT, HEMOG, BMPI, PT #### [facility] [address] [place] [address] GFR/1.73 sq M predicted among non-blacks MDRD (S/P/Bld) [Vol rate/Area] mL/min/{1.73_m2} Normal >60 [facility] Comment on above: Result Comment: Sour ce- MDRD equation with creatinine calibration to IDMS(NKDEP) eGFR not recommended for drug dose adjustment Performed By: #### A PTT, HEMOG, BMPI, PT #### [facility] [address] [place] [address] Glucose [Mass/Vol] 80 mg/dL Normal 70-100 [facility] Comment on above: Performed By: #### A PTT, HEMOG, BMPI, PT #### [facility] [address] [place] [address] Potassium [Moles/Vol] 3.8 mmol/L Normal 3.4-5.1 [facility] Comment on above: Performed By: #### A PTT, HEMOG, BMPI, PT #### [facility] [address] [place] [address] Sodium [Moles/Vol] 139 mmol/L Normal 133-145 [facility] Comment on above: Performed By: #### A PTT, HEMOG, BMPI, PT #### [facility] [address] [place] [address] Urea nitrogen [Mass/Vol] 15 mg/dL Normal 4-22 [facility] Comment on above: Performed By: #### A PTT, HEMOG, BMPI, PT #### [facility] [address] [place] [address] CT Head or Brain w/o Contras ton 07-19-2018 CT Head or Brain w/o Contrast Patient Name: JOANNE SHAH CT Exam Date/Time 07/19/2018 16:55:[address] Head or Brain w/o Contrast Ordering Physician LENARD HEATON Accession Number [id number] CPT4 Codes 72199 () Reason For Exam STROKE Report EXAMINATION: CT of the Head without Contrast. COMPARISON: 09/09/2017. REASON FOR STUDY: Facial numbness; history of hypertension and transient ischemic attacks. TECHNIQUE: Contiguous multiplanar 3 mm images were extended from the skull base through the vertex. FINDINGS: Brain: Costello-white matter differentiation appears normal. No focal parenchymal abnormality or mass effect is observed. Ventricles And Cisterns: The ventricular system, cisterns and sulci are within normal limits. Extra-Axial Spaces: No extra-axial abnormality is observed. Orbits: The orbits are symmetrical and within normal limits. Sinuses: Visualized paranasal sinuses and mastoid air cells are pneumatized. No mucosal thickening or fluid accumulation is observed. Skull And Scalp: No skull defect is observed. There is no appreciable scalp lesion. CONCLUSION(S): No evidence of acute cerebrovascular accident or intracranial hemorrhage. CTR COMMUNICATION: Findings were relayed by telephone to Lenard King of the Emergency Department at 1534 hours 07/09/2018. Report Dictated on Final Dictating Physician: MD ANGLIN B NELSON Signed Date and Time: 07/19/2018 5:37 pm Signed by: MD ANGLIN B NELSON Transcribed Date and Time: 07/19/2018 5:38 Normal [facility] CTA Head/Neck w/ + w/o contr edith 07-19-2018 CTA Head/Neck w/ + w/o contrast Patient Name: JOANNE SHAH CT Exam Date/Time 07/19/2018 16:56:15 EST Exam CTA Head/Neck w/ + w/o contrast Ordering Physician LENARD HEATON Accession Number [id number] CPT4 Codes Q9967 (CT ISOVUE 370MG/[id number]), 70359 (), 61286 () Reason For Exam NEURO DEFICIT, ACUTE, SINGLE, PROGRESSING Report EXAMINATION: CTA of the Neck with and without contrast. CTA of the Head with and without contrast. COMPARISON: None. REASON FOR STUDY: Acute neurological deficit. TECHNIQUE: Contiguous 0.5 mm axial images were extended from the aortic arch through the vertex before and after intravenous infusion of 75 mL of Isovue-370. Multiplanar and 4-D images of cervical and cerebral arteries were concurrently rendered and reviewed on a 4-D diagnostic workstation by the interpreting radiologist. FINDINGS: The study is limited by faulty injection timing and attendant suboptimal opacification of arterial structures as well as superimposition of well enhanced venous structures. Cervical CTA: The common, internal and external carotid arteries are patent bilaterally. No significant intraluminal filling defect or luminal narrowing is identified. Vertebral and basilar arteries are poorly visualized. Intracranial CTA: Central portions of the anterior, middle and posterior cerebral arteries appear patent. Peripheral segments are poorly opacified and visualized. No obvious abnormality of the visualized segments is detected. CONCLUSIONS: 1. Limited study due to technical quality. 2. No atherosclerotic changes are significant narrowing of the carotid system. 3. Limited visualization of the vertebrobasilar system. 4. Suboptimal visualization of intracranial arterial system limited to the central segments of the cerebral arteries. Left internal carotid stenosis: 0.0% by NASCET criteria. Right internal carotid stenosis: 0.0% by NASCET criteria. Report Dictated on Final Dictating Physician: MD ANGLIN B NELSON Signed Date and Time: 07/19/2018 7:25 pm Signed by: MD ANGLIN B NELSON Transcribed Date and Time: 07/19/2018 7:26 Normal [facility] ED Provider Noteon 8 ED Provider Note Emergency Department Encounter [facility] ED Patient: Joanne Shah : 1970 Date of Evaluation: 07/19/2018 ED Provider: Lenard King DO Chief Complaint Chief Complaint Patient presents with ? Numbness facial [place] Joanne Shah is a 48 y.o. female who presents to the emergency department for numbness. When asked for specific details patient states she has a history of a right-sided transient ischemic attack in the past or present with facial tingling and right facial droop but no chronic deficits. She says since around 1130 a.m. or noon she developed left facial paresthesias and heaviness in her arms bilaterally and left facial droop. Denies any chest pain, shortness breath, head trauma or other complaints. ROS: At least 10 systems reviewed and otherwise acutely negative except as in the [place] Past History Past Medical History: Diagnosis Date ? Anxiety ? Cyst of left ovary SCHEDULED FOR THE SURGERY ON 04/14/2018 ? Depression ? Eczema ? Fibromyalgia ? Hypertension remote ? Migraine, unspecified, without mention of intractable migraine without mention of status migrainosus ? Prolonged emergence from general anesthesia ? Restless leg syndrome ? TIA (transient ischemic attack) Past Surgical History: Procedure Laterality Date ? SECTION 1994,1999 ? CHOLECYSTECTOMY 2003 ? ENDOSCOPY, COLON, DIAGNOSTIC ? HYSTERECTOMY 1999 ? RHINOPLASTY with sinus endoscopy ? SALPINGO-OOPHORECTOMY Left 04/14/2018 Social History Social History ? Marital status: Spouse name: N/A ? Number of children: N/A ? Years of education: N/A Social History Main Topics ? Smoking status: Never Smoker ? Smokeless tobacco: Never Used ? Alcohol use 0.0 oz/week Comment: rarely ? Drug use: No ? Sexual activity: Not Asked Other Topics Concern ? None Social History Narrative ? None Medications/Allergies Previous Medications ASPIRIN 81 MG CHEWABLE TABLET Take 1 tablet by mouth daily BUPROPION (WELLBUTRIN) 75 MG TABLET Take 75 mg by mouth daily FLUTICASONE (FLONASE) 50 MCG/ACT NASAL SPRAY 1 spray by Nasal route daily IBUPROFEN (ADVIL;MOTRIN) 600 MG TABLET Take 600 mg by mouth every 6 hours as needed for Pain LIRAGLUTIDE-WEIGHT MANAGEMENT 18 MG/3ML SOPN Inject into the skin MELOXICAM (MOBIC) 15 MG TABLET TAKE 1 TABLET BY MOUTH DAILY METHYLPREDNISOLONE (MEDROL DOSEPACK) 4 MG TABLET Take by mouth. MULTIPLE VITAMINS-MINERALS (THERAPEUTIC MULTIVITAMIN-MINERALS) TABLET Take 1 tablet by mouth daily RIZATRIPTAN (MAXALT) 5 MG TABLET Take 5 mg by mouth once as needed for Migraine May repeat in 2 hours if needed SERTRALINE (ZOLOFT) 25 MG TABLET TAKE 2 TABLETS BY MOUTH DAILY VITAMIN D (ERGOCALCIFEROL) 81948 UNITS CAPS CAPSULE TAKE 1 CAPSULE BY MOUTH ONCE A WEEK Allergies Allergen Reactions ? Augmentin [Amoxicillin-Pot Clavulanate] Diarrhea ? Morphine Makes BP drop Physical Exam ED Triage Vitals [07/19/18 1532] BP Temp Temp Source Pulse Resp SpO2 Height Weight 114/76 96.6 ?F (35.9 ?C) Temporal 74 16 100 % -- 226 lb (102.5 kg) Constitutional: normally developed, no acute distress . Head: Normocephalic, atraumatic Eyes: No Icterus, ENT: Moist mucus membranes, Neck: Supple Cardiac: Normal heart sounds, palpable radial pulses, no peripheral edema Pulmonary: Breath sounds clear, normal respiratory effort. Gastrointestinal: Abdomen soft, non-distended, non-tender, Musculoskeletal: No gross deformities Skin: warm, dry Neuro: Alert and oriented.Alert and oriented, face shows mild left lower facial droop, asymmetric left-sided decreased facial sensation, EOMI, pupils are equal, round and reactive to light and accommodation. Symmetric motor strength in all extremities, symmetric sensation in all extremities. Finger to nose intact. No extremity drift. Diagnostics Labs: Results for orders placed or performed during the hospital encounter of 07/19/18 CBC Result Value Ref Range WBC 5.6 3.6 - 10.7 10*3/uL RBC 4.68 3.80 - 5.20 10*6/uL Hemoglobin 13.4 11.7 - 16.0 g/dL Hematocrit 40.1 35.0 - 47.0 % MCV 85.7 79.0 - 98.0 fL MCH 28.6 26.0 - 34.0 pg MCHC 33.4 32.0 - 36.0 % RDW 14.5 11.5 - 14.5 % Platelets 309 140 - 440 10*3/uL MPV 7.6 7.4 - 10.4 fL Protime-INR Result Value Ref Range Protime 9.9 9.0 - 12.0 s INR 0.9 0.9 - 1.1 NA APTT Result Value Ref Range aPTT 24.3 20.0 - 30.5 s POCT Glucose Result Value Ref Range POC Glucose 67 (L) 70 - 100 mg/dL POC BMP, WHOLE BLOOD Result Value Ref Range Sodium, Whole Blood 139 133 - 145 meq/L Potassium, Whole Blood 3.8 3.4 - 5.1 meq/L Chloride, Whole Blood 103 98 - 114 meq/L CO2, WHOLE BLOOD 26 21 - 29 mmol/L Anion Gap 10.00 NA Glucose, Whole Blood 80 70 - 100 mg/dL BUN, WHOLE BLOOD 15 4 - 22 mg/dL CREATININE, WHOLE BLOOD 0.90 0.60 - 1.30 mg/dL eGFR >60.0 >60 mL/min GFR Non- >60.0 >60 mL/min Calcium, Ion 4.5 4.3 - 5.2 mg/dL Radiographs: Cta Head Neck W Wo Contrast Result Date: 07/19/2018 Patient Name: JOANNE SHAH ---CT--- Exam Date/Time 07/19/2018 16:56:15 EST Exam CTA Head/Neck w/ + w/o contrast Ordering Physician LENARD HEATON Accession Number [id number] CPT4 Codes Q9967 (CT ISOVUE 370MG/[id number]), 49462 (), 33260 () Reason For Exam NEURO DEFICIT, ACUTE, SINGLE, PROGRESSING Report EXAMINATION: CTA of the Neck with and without contrast. CTA of the Head with and without contrast. COMPARISON: None. REASON FOR STUDY: Acute neurological deficit. TECHNIQUE: Contiguous 0.5 mm axial images were extended from the aortic arch through the vertex before and after intravenous infusion of 75 mL of Isovue-370. Multiplanar and 4-D images of cervical and cerebral arteries were concurrently rendered and reviewed on a 4-D diagnostic workstation by the interpreting radiologist. FINDINGS: The study is limited by faulty injection timing and attendant suboptimal opacification of arterial structures as well as superimposition of well enhanced venous structures. Cervical CTA: The common, internal and external carotid arteries are patent bilaterally. No significant intraluminal filling defect or luminal narrowing is identified. Vertebral and basilar arteries are poorly visualized. Intracranial CTA: Central portions of the anterior, middle and posterior cerebral arteries appear patent. Peripheral segments are poorly opacified and visualized. No obvious abnormality of the visualized segments is detected. CONCLUSIONS: 1. Limited study due to technical quality. 2. No atherosclerotic changes are significant narrowing of the carotid system. 3. Limited visualization of the vertebrobasilar system. 4. Suboptimal visualization of intracranial arterial system limited to the central segments of the cerebral arteries. Left internal carotid stenosis: 0.0% by NASCET criteria. Right internal carotid stenosis: 0.0% by NASCET criteria. Report Dictated on --- Final --- Dictating Physician: MD ANGLIN B NELSON Signed Date and Time: 07/19/2018 7:25 pm Signed by: MD ANGLIN B NELSON Transcribed Date and Time: 07/19/2018 7:26 Ct Head Wo Contrast Result Date: 07/19/2018 Patient Name: JOANNE SHAH ---CT--- Exam Date/Time 07/19/2018 16:55:[address] Head or Brain w/o Contrast Ordering Physician LENARD HEATON Accession Number [id number] CPT4 Codes 90573 () Reason For Exam STROKE Report EXAMINATION: CT of the Head without Contrast. COMPARISON: 09/09/2017. REASON FOR STUDY: Facial numbness; history of hypertension and transient ischemic attacks. TECHNIQUE: Contiguous multiplanar 3 mm images were extended from the skull base through the vertex. FINDINGS: Brain: Costello-white matter differentiation appears normal. No focal parenchymal abnormality or mass effect is observed. Ventricles And Cisterns: The ventricular system, cisterns and sulci are within normal limits. Extra-Axial Spaces: No extra-axial abnormality is observed. Orbits: The orbits are symmetrical and within normal limits. Sinuses: Visualized paranasal sinuses and mastoid air cells are pneumatized. No mucosal thickening or fluid accumulation is observed. Skull And Scalp: No skull defect is observed. There is no appreciable scalp lesion. CONCLUSION(S): No evidence of acute cerebrovascular accident or intracranial hemorrhage. CTR COMMUNICATION: Findings were relayed by telephone to Lenard King of the Emergency Department at 1534 hours 07/09/2018. Report Dictated on --- Final --- Dictating Physician: MD ANGLIN B NELSON Signed Date and Time: 07/19/2018 5:37 pm Signed by: MD ANGLIN B NELSON Transcribed Date and Time: 07/19/2018 5:38 EKG (If obtained): 12-lead ECG performed at [facility] is interpreted by me as revealing normal sinus rhythm at a rate of 73 beats per minute. [place] is normal. There were no specific ST or T wave abnormalities to suggest myocardial ischemia or injury. ED Course and MDM Vitals: Vitals: 07/19/18 1634 07/19/18 1645 07/19/18 1655 07/19/18 1830 BP: (!) 132/92 (!) 132/92 Pulse: 85 78 86 76 Resp: Temp: TempSrc: SpO2: 100% 100% 100% Weight: MDM . Patient presented with an NIH of 2 for mild left lower facial droop and decreased mild sensation to left side of her face with a last known well around noon today. Stroke protocol was activated patient is taken to the CT scanner CT head is unremarkable, presentation discussed with on-call stroke neurologist who canceled the stroke protocol CTA head poorly timed contrast, stroke neurologist simply said to cancel the CTA, patient is outside of TPA window and given her low NIH and subtle symptoms no further acute neurologic intervention indicated. Simply recommends admission here at [place], magnetic resonance imaging and further management Medications 0.9 % sodium chloride infusion ( Intravenous New Bag 07/19/181711) ondansetron (ZOFRAN) injection 4 mg (not administered) 0.9 % sodium chloride bolus (0 mLs Intravenous Stopped 07/19/18 171) iopamidol (ISOVUE-370) 76 % injection 75 mL (75 mLs Other Given 07/19/18 1637) REVAL: Reevaluation patient has had no worsening of her symptoms, says she feels about the same if not slightly better, labs are unremarkable,MTS consulted for admission at this time PROCEDURES: Unless otherwise noted below, none Procedures CRITICAL CARE TIME Total CriticalCare time was 35 minutes, excluding separately reportable procedures. There was a high probability of clinically significant/life threatening deterioration in the patient's condition which required my urgent intervention. Final Impression No diagnosis found. DISPOSITION Decision To Admit 07/19/2018 06:36:43 PM No follow-up provider specified. (Please note that portions of this note may have been completed with a voice recognition program. Efforts were made to edit the dictations but occasionally words are mis-transcribed.) Lenard King, DO [employer] Lenard King, DO 07/19/182021 Normal [facility] Glucose,Bedsideon 07-19-2018 Glucose [Mass/Vol] 67 mg/dL Low 70-100 [facility] Comment on above: Result Comment: Test performed by glucose meter. Results may be 10%-15% lower than serum/plasma values. (CLIA ID [id number]) Performed By: #### B GLU #### [facility] [address] [facility] [place] [place] [address] Hemogramon 07-19-2018 Erythrocyte distribution width (RBC) [Ratio] 14.5 % Normal 11.5-14.5 [facility] Comment on above: Performed By: #### A PTT, HEMOG, BMPI, PT #### [facility] [address] [place] [address] Hematocrit (Bld) [Volume fraction] 40.1 % Normal 35.0-47.0 [facility] Comment on above: Performed By: #### A PTT, HEMOG, BMPI, PT #### [facility] [address] [place] [address] Hemoglobin (Bld) [Mass/Vol] 13.4 g/dL Normal 11.7-16.0 [facility] Comment on above: Performed By: #### A PTT, HEMOG, BMPI, PT #### [facility] [address] [place] [address] MCH (RBC) [Entitic mass] 28.6 pg Normal 26.0-34.0 [facility] Comment on above: Performed By: #### A PTT, HEMOG, BMPI, PT #### [facility] [address] [place] [address] MCHC (RBC) [Mass/Vol] 33.4 % Normal 32.0-36.0 [facility] Comment on above: Performed By: #### A PTT, HEMOG, BMPI, PT #### [facility] [address] [place] [address] MCV (RBC) [Entitic vol] 85.7 fL Normal 79.0-98.0 [facility] Comment on above: Performed By: #### A PTT, HEMOG, BMPI, PT #### [facility] [address] [place] [address] Platelet mean volume (Bld) [Entitic vol] 7.6 fL Normal 7.4-10.4 [facility] Comment on above: Performed By: #### A PTT, HEMOG, BMPI, PT #### [facility] [address] [place] [address] Platelets (Bld) [#/Vol] 309 10*3/uL Normal 140-440 [facility] Comment on above: Performed By: #### A PTT, HEMOG, BMPI, PT #### [facility] [address] [place] [address] RBC (Bld) [#/Vol] 4.68 10*6/uL Normal 3.80-5.20 [facility] Comment on above: Performed By: #### A PTT, HEMOG, BMPI, PT #### [facility] [address] [place] [address] WBC (Bld) [#/Vol] 5.6 10*3/uL Normal 3.6-10.7 [facility] Comment on above: Performed By: #### A PTT, HEMOG, BMPI, PT #### [facility] [address] [place] [address] Prothrombin Timeon 12-17-201 8 INR Coag (PPP) [Relative time] 0.9 Normal 0.9-1.1 [facility] Comment on above: Result Comment: Al mmended Anticoagulant Therapy: SEE BELOW ----- INR of 2.0 - 3.0 : - Prophylaxis of Venous Thrombosis (high-risk surgery) - Treatment of Venous Thrombosis - Treatment of Pulmonary Embolism (Includes tissue heart valves, Acute Myocardial Infarction to prevent systemic embolism, Valvular Heart Disease, and Atrial Fibrillation) ----- INR of 2.5 - 3.5 : - Mechanical Prosthetic Valves (high risk) - If oral anticoagulant therapy is used to prevent Myocardial Infarction Performed By: #### A PTT, HEMOG, BMPI, PT #### [facility] [address] [place] [address] PT Coag (PPP) [Time] 9.9 s Normal 9.0-12.0 [facility] Comment on above: Result Comment: . Performed By: #### A PTT, HEMOG, BMPI, PT #### [facility] [address] [place] [address] PROGRESSon 09-07-2017 PROGRESS HNO ID: [id number] thor: Evelyn Burks) Sunilervice: (none)Author Type: Physician AssistantType: Progress NotesFiled: 09/07/2017 8:26 PMNote Text:09/07/2017Patient presents with:Ear Pain: x 5 days finished amoxicillin 875 bid, yesterday, 10 day course,nausea x todaySUBJECTIVE: This is a 47 year old that is here today for Complaint(s) ofright ear pain x 5 days. Started while she was on amoxicillin 875 for asinus infection and left OM. Pain worsening and nausea associated.Denies fever/chills. She also ntoes that she started with left facialnumbness 3 hours ago. Hx of atypical migraines. No ORTIZ currently. Deniesfacial pain or droops. No prevoius hx of TIA or CVA.No past medical history on file.ALLERGIES Augmentin [Amoxicillin-Pot Clavulanate]MEDICATIONSCurre nt Outpatient Prescriptions:sertraline (ZOLOFT) 50 mg tablet Take 50 mg by mouth once daily.meloxicam (MOBIC) 15 mg tablet Take 15 mg by mouth once daily.rizatriptan (MAXALT) 5 mg tablet Take 5 mg by mouth as needed. May repeatin 2 hours if neededergocalciferol, vitamin D2, (VITAMIN D) 50,000 unit capsule Take 50,000Units by mouth once each week.No current facility-administered medications for this visit.SOCIAL HISTORYSocial History Marital status: Spouse name: Years of education: Number of children:Social History Main Topics Smoking status: Never Smoker Smokeless status: Never UsedREVIEW OF SYSTEMSAll other reviewed and negative other than HPI.OBJECTIVE:BP 114/70 Pulse 76 Temp 37 ?C (98.6 ?F) (Tympanic) Resp 16 Wt106.6 kg (235 lb)APPEARANCE Well appearing, alert, in no acute distress, well-hydrated,well nourished.EYES PERRLA, conjunctiva and sclera normal.EARS External ears normal, canals clear. TMs normal BILNOSE/SINUS Nares normal. Septum midline. Mucosa normal. No drainage orsinus tenderness.THROAT normal, no erythemaNECK Supple, no adenopathyHEART RRR with normal S1 and S2LUNG clear to auscultationNEURO Awake, alert and oriented x 3, Cranial nerves II-XII grossly intact,Reflexes symmetrical, Normal gait and No involuntary motions.+ diminished sensation right cheek.SKIN no rashASSESSMENT/PLAN:1. Facial numbness - ICD9: 782.0, ICD10: R20.0No obvious facial droop, no rashDiscussed possible migrane vs start of Gillett palsy vs shinglesReferral to ER for further evaluation as no other obvoius sx at this timeRefuses squad, friend with her today will drive her to ERThe patient indicates understanding of these issues and agrees with theplan.09/07/2017Evelyn Kuhn PA-C Normal [facility] MG Breast Tomosynthesis Scr Blon 01-30-2017 MG Breast Tomosynthesis Scr Bl Patient Name: JOANNE SHAH Mammography Exam Date/Time 01/30/2017 14:07:36 EDT Exam MG Breast Tomosynthesis BI Scr Ordering Physician KELLY MATTHEWS D.O. Accession Number [id number] CPT4 Codes 33425 (MG Breast Tomosynthesis Scr Bl), 52462 (MG MAMMO 2D SCREENING) Reason For Exam screening Report PATIENT HISTORY: Family history of breast cancer at age 50 or over in maternal grandmother. Took hormonal contraceptives for 5 years beginning at age 17. Patient has never smoked. Patient's BMI is 40.5. TIME SINCE LAST MAMMOGRAM: Last mammogram was performed 1 year and 1 month ago. REASON FOR EXAM: screening, asymptomatic. PROCEDURE: MG BREAST TOMOSYNTHESIS BL SCR: JANUARY 30, 2017 - 2D/3D Procedure 3D Bilateral CC and MLO view(s) were taken. 2D Bilateral CC and MLO view(s) were taken. There are scattered fibroglandular densities. No suspicious masses, architectural distortions or suspiciously clustered microcalcifications are identified. There are no significant changes when compared with prior studies. Markings on images: BB's = Nipples; skin lesions Open [place] = Palpable Line = Scar 2D digital mammography and tomosynthesis imaging were performed and reviewed with CAD. ASSESSMENT: Category 1 Negative No mammographic evidence of malignancy. RECOMMENDATION: Routine screening mammogram of both breasts in 1 year. Final Signed Date and Time: 01/30/2017 4:03 pm Signed by: MD MICHELE TOM A Normal [facility] Vital Signs Date Time Vital Sign Value Performing Clinician Facility 02-22-2024 07:28-0400 Body temperature 98.01 [degF] Theresa Mcginnis APRN.CNP Work Phone: [facility] 02-22-2024 07:28-0400 Diastolic blood pressure 85 mm[Hg] Theresa Mcginnis APRN.CNP Work Phone: [facility] 02-22-2024 07:28-0400 Heart rate 89 /min Theresa Mcginnis APRN.CNP Work Phone: [facility] 02-22-2024 07:28-0400 Systolic blood pressure 133 mm[Hg] Theresa Mcginnis APRN.CNP Work Phone: [facility] 07-12-2019 18:05-0500 Body mass index (BMI) [Ratio] 41.63 kg/m2 Briseyda Eugene MD Work Phone: [facility] Work Phone: 07-12-2019 18:05-0500 Body temperature 97.5 [degF] Briseyda Eugene MD Work Phone: [facility] Work Phone: 07-12-2019 18:05-0500 Body weight 106.59 kg Briseyda Eugene MD Work Phone: [facility] Work Phone: 07-12-2019 18:05-0500 Diastolic blood pressure 84 mm[Hg] Briseyda Eugene MD Work Phone: [facility] Work Phone: 07-12-2019 18:05-0500 Heart rate 99 /min Briseyda Eugene MD Work Phone: [facility] Work Phone: 07-12-2019 18:05-0500 Respiratory rate 20 /min Briseyda Eugene MD [facility] Phone: [facility] Work Phone: 07-12-2019 18:05-0500 SaO2% (BldA) [Mass fraction] 99 % Briseyda Eugene MD Work Phone: [employer] Work Phone: 07-12-2019 18:05-0500 Systolic blood pressure 130 mm[Hg] Briseyda Eugene MD Work Phone: [facility] Work Phone: Encounters Encounter Date Encounter Type Care Provider Facility Start: 02-15-2025 Encounter for genera l adult medical examination without abnormal findings [facility] Start: 02-08-2025 End: 02-08-2025 ambulatory Luis Manuel Sesay [facility] Start: 11-21-2024 Encounter for preprocedural cardiovascular examination Vj L[facility] Start: 11-17-2024 End: 11-17-2024 ambulatory Tomi Clements [place] Start: 11-17-2024 End: 11-17-2024 ambulatory Vj Lazaro Facility:[facility] Start: 10-14-2024 End: 10-14-2024 ambulatory Luis Manuel Sesay Facility:[facility] Start: 07-05-2024 End: 07-05-2024 Emergency department patient visit Rajendra Marroquin Facility:[facility] Start: 06-04-2024 End: 06-04-2024 Emergency department patient visit Sridevi Vaughn Facility:[facility] Start: 06-03-2024 End: 06-03-2024 ambulatory Shay Morgan NP Facility:[facility] Start: 04-26-2024 End: 04-26-2024 ambulatory Luis Manuel Sesay Facility:[facility] Start: 02-22-2024 End: 02-22-2024 ambulatory IKESABINO ORTIZEL Facility:[facility] Start: 02-22-2024 End: 02-22-2024 Patient encounter procedure Theresa Mcginnis APRN.SALES ANALYTICS MANAGER Work Phone: [facility] Comment on above: Suspected COVID-19 v irus infection (Primary Dx); Dizziness Start: 01-06-2023 Telephone encounter [facility] Provider [facility] Comment on above: External Referrals/r esources (Fax Referral Call) Start: 09-19-2022 End: 09-19-2022 ambulatory [facility] Work Phone: Start: 09-19-2022 End: 09-19-2022 Patient encounter procedure [facility] Start: 07-01-2022 End: 07-01-2022 ambulatory [facility] Work Phone: Start: 07-01-2022 End: 07-01-2022 [facility] Start: 05-08-2022 End: 05-08-2022 [facility] Start: 02-13-2022 End: 02-13-2022 Patient encounter procedure [facility] [place] Start: 01-09-2022 End: 01-09-2022 [facility] Start: 11-06-2021 Registered [facility] Start: 02-23-2020 End: 02-23-2020 Patient encounter procedure IVAN Durand [facility] Start: 02-20-2020 End: 02-21-2020 Patient encounter procedure IVAN Durand [facility] Start: 12-31-2019 End: 01-01-2020 Patient encounter procedure BRISEYDA Valencia [facility] Start: 12-22-2019 End: 12-23-2019 Patient encounter procedure HAILEY HUNTLEY [facility] Start: 09-19-2019 End: 09-19-2019 Patient encounter procedure NELY NASSAR [facility] Start: 07-12-2019 End: 07-12-2019 Emergency department patient visit Briseyda Eugene MD Work Phone: [facility] Fanny MARIA Comment on above: Paronychia of great toe of right foot (Primary Dx) Start: 04-19-2019 End: 04-20-2019 Patient encounter procedure BRISEYDA Valencia [facility] Start: 03-25-2019 End: 03-25-2019 Evaluation and management of inpatient AMBAR Betty [facility] Start: 09-07-2017 End: 09-08-2017 Ambulatory [facility] Start: 01-30-2017 Ambulatory KELLY CROWE D.O. [facility] Procedures Date Procedure Procedure Detail Performing Clinician Start: 02-13-2022 Plain chest X-ray Start: 07-20-2018 Lipid 1996 panel - Serum or Plasma Theresa Mcginnis APRN.CNP Work Phone: H/O: section History of C-sectio n H/O: hysterectomy Hx of hysterectomy H/O: surgery Hx of unilateral oophorectomy History of cholecystectomy Hx of cholecystectomy Plan of Treatment Date Care Activity Detail Author Start: 07-07-2032 Urine microalbumin profile DTaP,Tdap,Td Vaccine (4 - Td or Tdap) [facility] Start: 12-22-2028 DTaP/Tdap/Td vaccine (2 - Td) DTaP/Tdap/Td vaccine (2 - Td) [facility] Work Phone: Start: 12-22-2028 Urine microalbumin profile DTAP,TDAP,TD (2 - Td or Tdap) [facility] Start: 02-21-2027 Diabetes Screening Diabetes Screening [facility] Start: 04-03-2024 Influenza vaccination Influenza Vaccine (#1) [facility] Start: 07-20-2023 Lipid panel Lipid Screening [facility] Start: 07-20-2023 Lipid screen Lipid screen [facility] Work Phone: Start: 04-03-2023 Covid-19 Vaccine ( season) Covid-19 Vaccine ( season) [facility] Start: 04-03-2023 Influenza vaccination INFLUENZA (Season Ended) [facility] Start: 08-03-2022 DEPRESSION ASSESSMENT DEPRESSION ASSESSMENT [facility] Start: 07-01-2022 Varicella-zoster virus antibody IgG measurement [facility] Work Phone: Start: 07-20-2021 Diabetes screen Diabetes screen [facility] Start: 2021 SHINGRIX VACCINE (1 of 2) SHINGRIX VACCINE (1 of 2) [facility] Start: 12-16-2019 Cervical cancer screen Cervical cancer screen [facility] Work Phone: Start: 04-03-2019 Influenza vaccination Flu vaccine (#1) [facility] Work Phone: Start: 2016 COLOGUARD (FIT-DNA) COLOGUARD (FIT-DNA) [facility] Start: 2016 Colonoscopy COLONOSCOPY [facility] Start: 2016 COLORECTAL CANCER SCREENING COLORECTAL CANCER SCREENING [facility] Start: [address] COLONOGRAPHY [facility] Start: 2016 FECAL OCCULT BLOOD FECAL OCCULT BLOOD [facility] Start: 2016 LIPID SCREEN LIPID SCREEN [facility] Start: 2016 Screening for malignant neoplasm of colon [facility] Start: 2016 SIGMOIDOSCOPY SIGMOIDOSCOPY [facility] Start: 2011 Mammography MAMMOGRAM [facility] Start: 2011 Screening for malignant neoplasm of breast Mammogram Screening [facility] Start: 2001 HPV TESTING HPV TESTING [facility] Start: 1992 PAP TESTING PAP TESTING [facility] Start: 1992 Screening for malignant neoplasm of cervix Cervical Cancer Screening [facility] Start: 1990 Hepatitis B Vaccine (1 of 3 - 19+ 3-dose series) Hepatitis B Vaccine (1 of 3 - 19+ 3-dose series) [facility] Start: 1989 HEPATITIS C SCREENING HEPATITIS C SCREENING [facility] Start: 1989 Hepatitis C screening Hepatitis C Screening [facility] Start: 1989 HIV SCREENING HIV SCREENING [facility] Start: 1989 HIV screening HIV Screening [facility] Start: 1986 HIV screen HIV screen [facility] Work Phone: Start: 1971 COVID-19 VACCINE (#1) COVID-19 VACCINE (#1) [facility] Start: 1971 HEPATITIS B (1 of 3 - 3-dose series) HEPATITIS B (1 of 3 - 3-dose series) [facility] COVID & INFLUENZA A/ B & RSV NAAT, ROUTINE COVID & INFLUENZA A/B & RSV NAAT, ROUTINE Microbiology Routine Suspected COVID-19 virus infection 02/22/2024 7:51 AM EDT [facility] Work Phone: Measurement of Measl es virus antibody [facility] Work Phone: Mumps virus IgG Ab [Units/volume] in Serum [facility] Work Phone: Varicella-zoster vir us antibody IgG measurement [facility] Work Phone: Immunizations Immunization Date Immunization Notes Care Provider Jean Claude amaya 06-28-2021 influenza virus vaccine, unspecified formulation Theresa Mcginnis APRN.CNP Work Phone: [facility] 05-16-2019 influenza, injectabl e, quadrivalent, preservative free [facility] Provider [facility] Work Phone: 12-22-2018 tetanus toxoid, redu eliecer diphtheria toxoid, and acellular pertussis vaccine, adsorbed [facility] Provider [facility] Work Phone: 07-21-2018 influenza, injectabl e, quadrivalent, preservative free [facility] Provider [facility] Work Phone: 07-21-2018 Influenza, Quadv, 6 mo and older, IM, PF (Flulaval, Fluarix) Briseyda Eugene MD Work Phone: [facility] Work Phone: 07-21-2018 influenza, seasonal, injectable [facility] Provider [facility] Work Phone: 06-11-2017 influenza, injectabl e, quadrivalent, preservative free [facility] Provider [facility] Work Phone: 05-25-2017 Influenza, injectabl e, Madin [place] Canine Kidney, preservative free, quadrivalent [facility] Provider [facility] Work Phone: 09-06-2016 Influenza Vaccine, unspecified formulation Briseyda Eugene MD Work Phone: [facility] Work Phone: 09-06-2016 influenza, seasonal, injectable [facility] Provider [facility] Work Phone: 09-05-2016 influenza, seasonal, injectable, preservative free [facility] Provider [facility] Work Phone: 05-16-2015 influenza virus vaccine, unspecified formulation Briseyda Eugene MD Work Phone: [facility] Work Phone: 05-16-2015 influenza virus vaccine, whole virus [facility] Provider [facility] Work Phone: 10-23-2006 measles, mumps and rubella virus vaccine [facility] Provider [facility] Work Phone: Payers Date Payer Category Payer Unknown [id number] 2024 Self-pay [id number] 2024 Unknown [id number] 2024 Private Health Insurance EHP AETNA EHP STAFF/NON STAFF / EHP [facility] [id number] 2024-[facility] [phone] [address] [place] [address] EPO [id number] 2024 Unknown [id number] 2019 Unknown 2018 Unknown BCBS [place] - [place] P PO xxxxxxxxxxxxxxx 2018-Present [address] [place] [address] xxxxxxxxxxxxxxx [id number] 1971 Unknown [id number] [id number]. 598 1971 Unknown [id number] [id number]. 598 1971 Unknown [id number] 2.16.840.1.870970.3.579.2. 598 1971 Unknown [id number] 2.16.840.1.038539.3.579.2. 598 1971 Unknown [id number] 2.16.840.1.117829.3.579.2. 598 1971 Unknown [id number] 2.16.840.1.089327.3.579.2. 598 1971 Unknown [id number] .[id number]. 598 1971 Unknown [id number] 2.16.840.1.613291.3.579.2. 598 1959 Unknown [id number] 1959 Unknown [id number] Unknown [id number] 2.16.840.1.987179.3.579.2. 462 Unknown [id number] 2.16.840.1.787804.3.579.2. 462 Unknown [id number] 2.16.840.1.762754.3.579.2. 462 Unknown [id number] 2.16.840.1.672373.3.579.2. 462 Unknown [id number] 2.16.840.1.803443.3.579.2. 462 Unknown [id number] 2.16.840.1.994625.3.579.2. 462 Unknown [id number] 2.16.840.1.215452.3.579.2. 462 Unknown [id number] [id number]. 462 Social History Date Type Detail Facility Start: 07-12-2019 End: 02-22-2024 Tobacco smoking status NHIS Never smoker [facility] Work Phone: Start: 07-12-2019 End: 02-22-2024 Alcohol intake Current drinker of alcohol (finding) [facility] Work Phone: Start: 04-13-2018 Alcohol Comment rarely [facility] Work Phone: Start: 1970 Sex Assigned At Not on file [employer] Phone: Start: 08-28-2021 End: 08-28-2021 Tobacco smoking status DCIS Unknown if ever smoked [facility] Start: 1970 Sex Assigned At Female [facility] Start: 09-07-2017 End: 02-22-2024 Tobacco use and exposure Smokeless tobacco non-user [facility] Work Phone: Start: 10-26-2019 History SDOH Alcohol Frequency 2 [facility] Start: 10-26-2019 History SDOH Alcohol Std Drinks 1 [facility] Start: 03-09-2019 Alcohol Comment occasional [facility] Start: 10-26-2019 End: 07-10-2020 History of Social function [facility] Start: 10-26-2019 End: 07-10-2020 Alcohol Use Disorder Identification Test - Consumption [AUDIT-C] [facility] How often to you hav e a drink containing alcohol? Monthly or less [facility] How many standard dr inks containing alcohol do you have on a typical day? 1 or 2 [facility] How often do you hav e 6 or more drinks on 1 occasion? Never [facility] National Score (1-10 0), lower number is lower risk Not on file [facility] Medical Equipment Procedure Code Equipment Code Equipment Original Text Equipment Identifier Dates Laparoscopic-assisted sigmoidectomy RELOAD,BLUE 60 FDA Start: 11-01-2020 Laparoscopic-assisted sigmoidectomy STAPLER,[id number] ETHICON FDA Start: 11-01-2020 Laparoscopic-assisted sigmoidectomy RELOAD,BLUE 60 FDA Start: 11-01-2020 Laparoscopic-assisted sigmoidectomy STAPLER,CDH25 ETHICON FDA Start: 11-01-2020 Laparoscopic-assisted sigmoidectomy RELOAD,BLUE 60 FDA Start: 11-01-2020 Laparoscopic-assisted sigmoidectomy STAPLER,CDH25 ETHICON FDA Start: 11-01-2020 Laparoscopic-assisted sigmoidectomy RELOAD,BLUE 60 FDA Start: 11-01-2020 Laparoscopic-assisted sigmoidectomy STAPLER,CDH25 ETHICON FDA Start: 11-01-2020 Laparoscopic-assisted sigmoidectomy RELOAD,BLUE 60 FDA Start: 11-01-2020 Laparoscopic-assisted sigmoidectomy STAPLER,CDH25 ETHICON FDA Start: 11-01-2020 Progress note 02-22-2024 Note Date & Type Note Facility 02-22-2024 Note HNO ID: [id number] Author: THERESA MCGINNIS APRN.SALES ANALYTICS MANAGER Service: ? Author Type: Nurse Practitioner Type: Progress Notes Filed: 02/22/2024 17:45 Note Text: [facility] Department of General Internal Medicine [facility] Outpatient Visit Date: February 22, 2024 CC:(copied and/or pasted from M.A. and/or intake note or registration notes) Dizziness, nausea and fatigue x 1 day The history is provided by the patient The patient's preferred language is Cambodian PAST MEDICAL HISTORY Diagnosis Date Anxiety Depression Fibromyalgia History of TIA (transient ischemic attack) Major depressive disorder Migraine Palpitations RLS (restless legs syndrome) SVT (supraventricular tachycardia) (HCC) Syncope Tachycardia Vitamin D deficiency HPI: Joanne Shah is a 53 year old female who presents today for Dizziness, nausea and fatigue x 1 [place] throat pain Denies ear pain Denies difficulty breathing Denies chest pain, SOB Denies sick contacts + Sick contact- has been sick with URI x 4 weeks REVIEW OF SYSTEMS (*in regard to chief complaint, symptoms, physical findings on exam, differential diagnosis, current medications or potential medications, allergies, and related systems, the following ROS questions are elicited): *See HPI, additionally: Last 3 Encounter BP Readings: Date: BP: 02/22/2024 133/85 10/26/2019 122/782 04/20/2019 120/90 Physical Exam Vitals and nursing note reviewed. Constitutional: Appearance: Normal appearance. HENT: Head: Normocephalic. Nose: Nose normal. Mouth/Throat: Mouth: Mucous membranes are moist. Eyes: Conjunctiva/sclera: Conjunctivae normal. Cardiovascular: Rate and Rhythm: Normal rate. Pulmonary: Effort: Pulmonary effort is normal. Skin: General: Skin is warm and dry. Neurological: General: No focal deficit present. Mental Status: She is alert and oriented to person, place, and time. Mental status is at baseline. Assessment/Plan Suspected COVID-19 virus infection - ICD9: V01.79, ICD10: Z20.822 (primary diagnosis) Dizziness - ICD9: 780.4, ICD10: R42 - COVID AND INFLUENZA A/B AND RSV NAAT, ROUTINE - FLUTICASONE PROPIONATE 50 MCG/ACTUATION NASAL SPRAY,SUSPENSION - BASIC METABOLIC PANEL - COMPLETE BLOOD COUNT Reviewed diagnosis above. Call for new problems or concerns. Orders as noted. No follow-ups on file. Signed: Theresa Mcginnis APRN.SALES ANALYTICS MANAGER [facility] Medical Decision Making: Problems: Moderate: New problem with uncertain prognosis Risk: Moderate: Drug management Medical Decision Making Level: 4 - Moderate [facility] History of Present illness Narrative 02-22-2024 Theresa Mcginnis APRN.SALES ANALYTICS MANAGER - 02/22/2024 7:38 AM EDT Note Date & Type Note Facility 02-22-2024 History of Presen t illness Narrative Images from the original note were not included. [facility] [place] Department of General Internal Medicine [facility] Outpatient Visit Date: February 22, 2024 CC:(copied and/or pasted from M.A. and/or intake note or registration notes) Dizziness, nausea and fatigue x 1 day The history is provided by the patient The patient's preferred language is Cambodian PAST MEDICAL HISTORY Diagnosis Date Anxiety Depression Fibromyalgia History of TIA (transient ischemic attack) Major depressive disorder Migraine Palpitations RLS (restless legs syndrome) SVT (supraventricular tachycardia) (HCC) Syncope Tachycardia Vitamin D deficiency HPI: Joanne Shah is a 53 year old female who presents today for Dizziness, nausea and fatigue x 1 [place] throat pain Denies ear pain Denies difficulty breathing Denies chest pain, SOB Denies sick contacts + Sick contact- has been sick with URI x 4 weeks REVIEW OF SYSTEMS (*in regard to chief complaint, symptoms, physical findings on exam, differential diagnosis, current medications or potential medications, allergies, and related systems, the following ROS questions are elicited): *See HPI, additionally: Last 3 Encounter BP Readings: Date: BP: 02/22/2024 133/85 10/26/2019 122/782 04/20/2019 120/90 Physical Exam Vitals and nursing note reviewed. Constitutional: Appearance: Normal appearance. HENT: Head: Normocephalic. Nose: Nose normal. Mouth/Throat: Mouth: Mucous membranes are moist. Eyes: Conjunctiva/sclera: Conjunctivae normal. Cardiovascular: Rate and Rhythm: Normal rate. Pulmonary: Effort: Pulmonary effort is normal. Skin: General: Skin is warm and dry. Neurological: General: No focal deficit present. Mental Status: She is alert and oriented to person, place, and time. Mental status is at baseline. Assessment/Plan Suspected COVID-19 virus infection - ICD9: V01.79, ICD10: Z20.822 (primary diagnosis) Dizziness - ICD9: 780.4, ICD10: R42 - COVID & INFLUENZA A/B & RSV NAAT, ROUTINE - FLUTICASONE PROPIONATE 50 MCG/ACTUATION NASAL SPRAY,SUSPENSION - BASIC METABOLIC PANEL - COMPLETE BLOOD COUNT Reviewed diagnosis above. Call for new problems or concerns. Orders as noted. No follow-ups on file. Signed: Theresa Mcginnis APRN.CNP [facility] Medical Decision Making: Problems: Moderate: New problem with uncertain prognosis Risk: Moderate: Drug management Medical Decision Making Level: 4 - Moderate documented in this encounter [facility] Note 01-06-2023 Telephone Encounter - Zee Cain - 01/06/2023 2:36 PM EDT Note Date & Type Note Facility 01-06-2023 Miscellaneous Notes Formattin g of this note might be different from the original. Fax PCP ref call into the program, LVM documented in this encounter [facility] Discharge instructions 07-12-2019 InstructionsAttachments Note Date & Type Note Facility 07-12-2019 Hospital Discharg e instructions Maikel Tucker PA-C - 07/12/2019 Follow-up with your doctor in 1 week as needed. The following attachments cannot be sent through Care Everywhere.Paronychia (Cambodian)documented in this encounter [facility] Work Phone: Evaluation note Note Date & Type Note Facility Evaluation note Diagnosis Paronychia of great toe of right foot- Primary Onychia and paronychia of toe documented in this encounter [facility] Work Phone: Evaluation note Note Date & Type Note Facility Evaluation note No assessment information availa [facility] Work Phone: Evaluation note Note Date & Type Note Facility Evaluation note Diagnosis Suspected COVID-19 virus infection- Primary Dizziness Dizziness and giddiness documented in this encounter [facility] Summary Purpose Family History No Family History Records Found Relationship Condition Age at Onset Recorded Date/T eva father Cardiac disease Unknown mother Osteoporosis Unknown Malignant neoplasm Unknown Disorder of thyroid Unknown Advance Directives No Advanced Directives Records FoundDocuments on File Type Date Recorded Patient Ingot Passer Expl anation Advance Directives and Living Will Power of Track Subway Repair Supervisor Latest Code Status on File Code Status Date Activated Date Inactivated Comments Full Code 07/19/2018 11:02 PM 07/21/2018 5:03 PM Full Code 04/14/2018 9:08 AM 04/14/2018 2:49 PM Full Code 09/08/2017 11:16 PM 09/10/2017 3:19 PM Advance Directive Response Recorded Date/ Time Living Will No October 31, 2020 12:02pm Power of Track Subway Repair Supervisor No October 31 12:02pm Advance Directive Response Recorded Date/ Time Living Will No October 31, 2020 11:02am Power of Track Subway Repair Supervisor No October 31 11:02am Hospital Course Note Physician Discharge Summary Dictating Resident: Daniel Sesay Patient ID: Patient: Joanne Shah Date of : 1970 Age: 48 y.o. Sex: female Acct: [id number] Code Status Full Admit Date: 07/19/2018 Discharge date: 07/21/2018 Service, Admitting Physician: Medical Teaching Service, Dr. Eugene Admission Diagnoses: Numbness and tingling of left [...] or tingling in (more content not included)... Chief Complaint and Reason for Visit Chief Complaint BACK PAIN. RX HERE Chief Complaint BACK PAIN. RX HERE cough Chief Complaint cough Chief Complaint EORDERS Additional Source Comments INFORMATION SOURCE (unrecogn ized section and content) DATE CREATED AUTHOR 01/25/2018 [facility] DATE CREATED AUTHOR AUTHOR'S ORGANIZ ATION 01/27/2018 [facility] DATE CREATED AUTHOR AUTHOR'S ORGANIZ ATION 07/13/2019 [facility] [facility] DATE CREATED AUTHOR AUTHOR'S ORGANIZ ATION 02/29/2020 [facility] DATE CREATED AUTHOR AUTHOR'S ORGANIZ ATION 01/11/2023 [facility] DATE CREATED AUTHOR AUTHOR'S ORGANIZ ATION 02/24/2024 [facility] DATE CREATED AUTHOR AUTHOR'S ORGANIZ ATION 02/18/2025 [facility] Reason for Visit (unrecogniz ed section and content) Reason Comments Toe Pain Reason Comments External Referrals/resources Fax Referra l Call Reason Comments Dizziness Since yesterday Goals (unrecognized section and content) Goals may be documented in a n alternate sectionGoals may be documented in an alternate sectionGoals may be documented in an alternate sectionGoals may be documented in an alternate sectionGoals may be documented in an alternate section Care Teams (unrecognized sec tion and content) Team Status: Active Member Role Status Dates Dr. Luis Manuel Sesay MD Primary Care Provider Active Team Status: Inactive Member Role Status Dates Dr. Luis Manuel Sesay MD Primary Care Provider Active Dr. Nacho Mcginnis MD Attending Provider, Referring Prov ider Active Team Status: Inactive Member Role Status Dates Dr. Luis Manuel Sesay MD Primary Care Pr ovider, Attending Provider, Referring Provider Active Acidity Tester Relationship Specialty Start Date End Date Briseyda Eugene MD PCP - General Family Medicine 04/20/19 Tanvir Posadas [address] [facility] [address] [place] [phone] Specialty Report Checker Psychiatry 04/20/19 Tomi Wall MD [address] [place] [address] [address] [place] [phone] Specialty Report Checker Cardiology 04/20/19 Parth Gallegos MD [address] [place] [phone] Specialty Report Checker Cardiology 10/24/19 Acidity Tester Relationship Specialty Start Date End Date Briseyda Eugene MD PCP - General Family Medicine 04/20/19 Tanvir Posadas [address] [place] [phone] Specialty Report Checker Psychiatry 04/20/19 Tomi Wall MD [address] [place] [address] [place] [phone] Specialty Report Checker Cardiology 04/20/19 Parth Gallegos MD [address] [place] [phone] Specialty Report Checker Cardiology 10/24/19 Source Comments (unrecognize d section and content) In the event this informatio n is protected by the Federal Confidentiality of Alcohol and Drug Abuse Patient Records regulations: The Federal rules restrict any use of the information to criminally investigate or prosecute any alcohol or drug abuse patient.[facility] the event this information is protected by the Federal Confidentiality of Alcohol and Drug Abuse Patient Records regulations: The Federal rules restrict any use of the information to criminally investigate or prosecute any alcohol or drug abuse patient.[facility] FOR RECORDS PERTAINING TO PATIENTS WHO ARE [...] BE BASED ON THE PRIMARY CLINICAL RECORDS. [facility] [employer] [facility]. provides no warranty or guarantee of the accuracy or completeness of information in this document.
--- OUTSIDE RECORDS SUMMARY | 2025-05-23 18:34 | XMS RPT_ITS | CCD ---
Author Organization [facility] Care Team Providers Care Customer Support Associate Name Role Phone BYRON Menidola, KELLY Caicedo Unavailable Unavail able BYRON Mendiola, [...] Unavailable JABIER RISHIN C Primary Care Unavailable HAILYE HUNTLEY Admitting Unavailable HAILEY HUNTLEY Attending Unavailable [...] Unavailable Briseyda Eugene MD Primary Care Provider Briseyda Eugene MD Primary Care Provider Tanvir Posadas Unavailable [phone] Tomi Wall MD Unavailable Parth Gallegos MD Unavailable Briseyda Eugene MD Primary Care Provider MirlandeTanvir martin Unavailable Tomi Wall MD Unavailable [phone] El BECKER, Parth Crowley Unavailable BRISEYDA EUGENE Primary Care Unavailable BRISEYDA EUGENE Primary Care Unavailable SchalicenerLuis Manuel Attending Unavailable Schinner, Luis Manuel E Referring Unavailable Schinner, Luis Manuel E Primary Care Unavailable Vj Lazaro Attending Unavailable Vj Lazaro Referring Unavailable Schinner, Luis Manuel E Primary Care Unavailable Tomi Clements Attending Unavailable Vj Lazaro Referring Unavailable Schinner, Luis Manuel E Primary Care Unavailable Rajendra Marroquin Attending Unavailable Schinner, Luis Manuel E Primary Care Unavailable Sridevi Vaughn Attending Unavailable Schinner, Luis Manuel E Primary Care Unavailable SchinnerLuis Manuel E Attending Unavailable Schinner Luis Manuel E Referring Unavailable Schinner, Luis Manuel E Primary Care Unavailable Schinner, Luis Manuel E Primary Care Unavailable SchinnerLuis Manuel E Attending Unavailable McMorrow NUCLEAR POWERPLANT MECHANIC, Shay Attending Unavailable McMorrow NUCLEAR POWERPLANT MECHANICShay Referring Unavailable Schinner, Luis Manuel E Primary Care Unavailable Allergies Allergy Classification Reported Allergen(s) Allergy Type Date of Onset Reaction(s) Facility (1 source) Amoxicillin / Clavulanate Drug Allergy [facility] Repository (2 sources) Morphine; Translations: [MORPHINE] Drug Allergy 9 [facility] (8 sources) Morphine Drug Allergy 8 Other: See Comments [facility] (4 sources) Amoxicillin-Pot Clavulanate; Translations: [AMOXICILLIN-PO T CLAVULANATE] Propensity to adverse reactions to drug 5 Diarrhea [facility] (1 source) Morphine Drug Allergy 4 [facility] Repository Medications Current Medications Medication [...] D3) (Vitamin D3) 5,000 UNIT capsule Active 85577 UNIT PO EVERY WEEK September 20, 2020 3:24pm Start: 09-20-2020 Cholecalcifero l (Vitamin D3) (Vitamin D3) 5,000 UNIT capsule Active 06981 UNIT PO EVERY WEEK September 20, 2020 12:00am Start: 09-20-2020 Cholecalcifero l (Vitamin D3) (Vitamin D3) 5,000 UNIT capsule Active 29859 UNIT PO EVERY WEEK September 20, 2020 [...] by mouth every week vitamin D (ERGOCALCIFEROL) 60924 units CAPS capsule TAKE 1 CAPSULE BY [...] COVID-19 virus infection , Dizziness Use 1 Lyburn in each nostril daily at bedtime. 18.2 mL 0 02/22/2024 Active Start: 04-27-2015 fluticasone (F LONASE) 50 MCG/ACT nasal spray Indications: Other allergic rhinitis 1 spray by Nasal route daily 1 Bottle 5 04/27/2015 Active Comment on above: Use 1 Lyburn in each nostril once daily. lamoTRIgine 100 [...] Comment on above: Take [address] [facility] once daily. 3 ml liraglutide 6 mg/ml [...] Comment on above: Take [address] [facility] once daily. Multivitamin With Minerals (5 sources) [...] Headache (see administration instructions). polyethylene glycol 3350 45613 mg powder for oral solution (2 sources) [...] Start: 11-02-2017 take 2 tablets by mo 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 [facility] Comment on above: Performed By: #### L 3400.8000 ####[facility] [address] [place], [place], [id number] QFT NIL VALUE 0.04 IU/mL Normal . [facility] Comment on above: Performed By: #### L 3400.8000 ####[facility] [address] [place], [place], [phone] QFT TB GOLD+ Comment Normal . [facility] Comment on above: Result Comment: [...] the test. Performed By: #### L 3400.8000 ####[facility] [address] [place], [place], [phone] QFT TB POS CRIT Negative Normal Negative [facility] Comment on above: Result Comment: [...] interferon gamma. Chemiluminescence immunoassay methodology Performed at: [facility] [id number] Porcelain Enamel Laborer: Win Ballard PhD, Phone: [phone] Performed By: #### L 3400.8000 ####[facility] [address] [place], [address] QFT TB1+ AG LINDA 0.14 IU/mL Normal . [facility] Comment on above: Performed By: #### L 3400.8000 ####[facility] [address] [place], [address] QFT TB2+ AG LINDA 0.21 IU/mL Normal . [facility] Comment on above: Performed By: #### L 3400.8000 ####[facility] [address] [place], [address] 12 Lead EKGon 11-17-2024 12 Lead EKG [facility] [address] [place] [address] 12 Lead EKG 11/17/24 1403 MR#: [id number] Acct: [id number] Name: JOANNE SHAH Rep #: [id number] : 1970 54 From: Tomi Clements MD Attending Dr: Dr. Vj Lazaro, Status: REG CLI Ordering Dr: Vj Lazaro DO Date: 11/17/24 Location: [facility] Sex: F C Admitted: Test Reason : PRE OP Blood Pressure : */* mmHG Vent. Rate : 80 BPM Atrial Rate : 80 BPM P-R Int : 132 ms QRS Dur : 68 ms QT Int : 360 ms P-R-T Axes : 37 20 21 degrees QTcB Int : 415 ms Normal sinus rhythm Normal ECG Confirmed by Tomi Clements ([id number]), pictures editor FREDIS CORADO ([id number]) on 11/18/2024 7:02:27 AM Referred By: Vj Lazaro Confirmed By: Tomi Clements 11/18/24 0702 Date Tomi Clements MD CC: Dr. Luis Manuel Sesay MD; Dr. Vj Lazaro DO Signed Normal [facility] Basic Metabolic Profile (BMP )on 11-17-2024 BUN/CRE 29.8 RATIO High 10-20 [facility] Comment on above: Performed By: #### L 100.0100, L500.2500 ####[facility] [address] [place], [address] Calcium [Mass/Vol] 9.8 mg/dL Normal 7.6-11.0 [facility] Comment on above: Performed By: #### L 100.0100, L500.2500 ####[facility] [address] [place], [address] Chloride [Moles/Vol] 101 mmol/L Normal 98-108 [facility] Comment on above: Performed By: #### L 100.0100, L500.2500 ####[facility] [address] [place], [address] CO2 [Moles/Vol] 23.5 mmol/L Normal 21.0-32.0 [facility] Comment on above: Performed By: #### L 100.0100, L500.2500 ####[facility] [address] [place], [address] Creatinine [Mass/Vol] 0.76 mg/dL Normal 0.70-1.20 [facility] Comment on above: Performed By: #### L 100.0100, L500.2500 ####[facility] [address] [place], [address] GAP 13 Normal 5-15 [facility] Comment on above: Performed By: #### L 100.0100, L500.2500 ####[facility] [address] [place], [address] GFR/1.73 sq M.predicted among non-blacks MDRD (S/P/Bld) [Vol rate/Area] 94 mL/min/{1.73_m2} Normal >60 [facility] Comment on above: Result Comment: mL/m in/1.73m2 CKD-EPI Creatinine Equation (2020) Performed By: #### L 100.0100, L500.2500 ####[facility] [address] [place], [address] Glucose [Mass/Vol] 89 mg/dL Normal 70-99 [facility] Comment on above: Performed By: #### L 100.0100, L500.2500 ####[facility] [address] [place], [address] Potassium [Moles/Vol] 4.2 mmol/L Normal 3.3-5.1 [facility] Comment on above: Performed By: #### L 100.0100, L500.2500 ####[facility] [address] [place], [address] Sodium [Moles/Vol] 137 mmol/L Normal 133-145 [facility] Comment on above: Performed By: #### L 100.0100, L500.2500 ####[facility] [address] [place], [address] Urea nitrogen [Mass/Vol] 23 mg/dL High 4-19 [facility] Comment on above: Performed By: #### L 100.0100, L500.2500 ####[facility] [address] [place], [address] CBC W/Diff, Automatedon 04- Absolute Lymph 2.60 X10 3/uL Normal 0.83-4.51 [facility] Comment on above: Performed By: #### L 100.0100, L500.2500 ####[facility] [address] [place], [address] Absolute Neut 3.3 X10 3/uL Normal 2.0-7.7 [facility] Comment on above: Performed By: #### L 100.0100, L500.2500 ####[facility] [address] [place], [address] Basophils/100 WBC (Bld) 0.5 % Normal 0-1 [facility] Comment on above: Performed By: #### L 100.0100, L500.2500 ####[facility] [address] [place], [address] Eosinophils/100 WBC (Bld) 2.7 % Normal 0-5 [facility] Comment on above: Performed By: #### L 100.0100, L500.2500 ####[facility] [address] [place], [address] Erythrocyte distribution width (RBC) [Ratio] 13.8 % Normal 11.6-14.6 [facility] Comment on above: Performed By: #### L 100.0100, L500.2500 ####[facility] [address] [place], [address] Hematocrit (Bld) [Volume fraction] 38.2 % Normal 37-47 [facility] Comment on above: Performed By: #### L 100.0100, L500.2500 ####[facility] [address], [address] Hemoglobin (Bld) [Mass/Vol] 12.8 g/dL Normal 12.0-15.0 [facility] Comment on above: Performed By: #### L 100.0100, L500.2500 ####[facility] [address] [place], [address] IG% 0.500 Normal 0.0-0.9 [facility] Comment on above: Result Comment: IG% - Immature Granulocytes (promyelocytes, myelocytes and metamyelocytes) > 1% indicates that a LEFT SHIFT is Present. Performed By: #### L 100.0100, L500.2500 ####[facility] [address] [place], [address] Lymphocytes/100 WBC (Bld) 39.3 % Normal 19-41 [facility] Comment on above: Performed By: #### L 100.0100, L500.2500 ####[facility] [address], [address] MCH (RBC) [Entitic mass] 29.4 pg Normal 27.0-32.0 [facility] Comment on above: Performed By: #### L 100.0100, L500.2500 ####[facility] [address], [address] MCHC (RBC) [Mass/Vol] 33.5 g/dL Normal 32-36 [facility] Comment on above: Performed By: #### L 100.0100, L500.2500 ####[facility] [address] [place], [address] MCV (RBC) [Entitic vol] 87.6 fL Normal 81-99 [facility] Comment on above: Performed By: #### L 100.0100, L500.2500 ####[facility] [address], [address] Monocytes/100 WBC (Bld) 7.7 % Normal 0-10 [facility] Comment on above: Performed By: #### L 100.0100, L500.2500 ####[facility] [address] [place], [address] Neutrophils/100 WBC (Bld) 49.3 % Normal 47-70 [facility] Comment on above: Performed By: #### L 100.0100, L500.2500 ####[facility] [address] [place], [address] Nucleated RBC (Bld) [#/Vol] 0 10*3/uL Normal 0-5 [facility] Comment on above: Performed By: #### L 100.0100, L500.2500 ####[facility] [address] [place], [address] Platelet mean volume (Bld) [Entitic vol] 9.5 fL Normal 6.2-12.0 [facility] Comment on above: Performed By: #### L 100.0100, L500.2500 ####[facility] [address] [place], [address] Platelets (Bld) [#/Vol] 331 10*3/uL Normal 150-450 [facility] Comment on above: Performed By: #### L 100.0100, L500.2500 ####[facility] [address] [place], [address] RBC (Bld) [#/Vol] 4.36 10*6/uL Normal 4.2-5.4 [facility] Comment on above: Performed By: #### L 100.0100, L500.2500 ####[facility] [address] [place], [address] RDW SD 43.8 fl Normal 35.1-43.9 [facility] Comment on above: Performed By: #### L 100.0100, L500.2500 ####[facility] [address] [place], [address] WBC (Bld) [#/Vol] 6.6 10*3/uL Normal 4.4-11.0 [facility] Comment on above: Performed By: #### L 100.0100, L500.2500 ####[facility] [address] [place], [address] Hemoglobin A1con 10-17-2024 HbA1c (Bld) [Mass fraction] 5.8 % Normal <=5.6 [facility] Comment on above: Order Comment: MARY Hernández ADD A1C TO BLOOD DRAWN 10/14/24 PER Performed By: #### L 501.9985, L506.1001 ####[facility] [address] [place], [address] CBC W/Diff, Automatedon 10-01 Absolute Lymph 2.82 X10 3/uL Normal 0.83-4.51 [facility] Comment on above: Order Comment: Order Date: 10/14/24 Order Info: 0184-1 - CBCD Performed By: #### L 100.0100, L501.9520, L500.4100, L500.4050 #### [facility] [address] [place], [address] Absolute Neut 4.2 X10 3/uL Normal 2.0-7.7 [facility] Comment on above: Order Comment: Order Date: 10/14/24 Order Info: 0184-1 - CBCD Performed By: #### L 100.0100, L501.9520, L500.4100, L500.4050 #### [facility] [address] [place], [address] Basophils/100 WBC (Bld) 0.4 % Normal 0-1 [facility] Comment on above: Order Comment: Order Date: 10/14/24 Order Info: 0184-1 - CBCD Performed By: #### L 100.0100, L501.9520, L500.4100, L500.4050 #### [facility] [address] [place], [address] Eosinophils/100 WBC (Bld) 2.3 % Normal 0-5 [facility] Comment on above: Order Comment: Order Date: 10/14/24 Order Info: 0184-1 - CBCD Performed By: #### L 100.0100, L501.9520, L500.4100, L500.4050 #### [facility] [address] [place], [address] Erythrocyte distribution width (RBC) [Ratio] 14.3 % Normal 11.6-14.6 [facility] Comment on above: Order Comment: Order Date: 10/14/24 Order Info: 0184-1 - CBCD Performed By: #### L 100.0100, L501.9520, L500.4100, L500.4050 #### [facility] [address] [place], [address] Hematocrit (Bld) [Volume fraction] 38.8 % Normal 37-47 [facility] Comment on above: Order Comment: Order Date: 10/14/24 Order Info: 0184-1 - CBCD Performed By: #### L 100.0100, L501.9520, L500.4100, L500.4050 #### [facility] [address] [place], [address] Hemoglobin (Bld) [Mass/Vol] 13.0 g/dL Normal 12.0-15.0 [facility] Comment on above: Order Comment: Order Date: 10/14/24 Order Info: 0184-1 - CBCD Performed By: #### L 100.0100, L501.9520, L500.4100, L500.4050 #### [facility] [address] [place], [address] IG% 0.300 Normal 0.0-0.9 [facility] Comment on above: Order Comment: Order Date: 10/14/24 Order Info: 0184-1 - CBCD Result Comment: IG% - Immature Granulocytes (promyelocytes, myelocytes and metamyelocytes) > 1% indicates that a LEFT SHIFT is Present. Performed By: #### L 100.0100, L501.9520, L500.4100, L500.4050 #### [facility] [address] [place], [address] Lymphocytes/100 WBC (Bld) 35.9 % Normal 19-41 [facility] Comment on above: Order Comment: Order Date: 10/14/24 Order Info: 0184-1 - CBCD Performed By: #### L 100.0100, L501.9520, L500.4100, L500.4050 #### [facility] [address] [place], [address] MCH (RBC) [Entitic mass] 29.3 pg Normal 27.0-32.0 [facility] Comment on above: Order Comment: Order Date: 10/14/24 Order Info: 0184-1 - CBCD Performed By: #### L 100.0100, L501.9520, L500.4100, L500.4050 #### [facility] [address] [place], [address] MCHC (RBC) [Mass/Vol] 33.5 g/dL Normal 32-36 [facility] Comment on above: Order Comment: Order Date: 10/14/24 Order Info: 0184-1 - CBCD Performed By: #### L 100.0100, L501.9520, L500.4100, L500.4050 #### [facility] [address] [place], [address] MCV (RBC) [Entitic vol] 87.4 fL Normal 81-99 [facility] Comment on above: Order Comment: Order Date: 10/14/24 Order Info: 0184-1 - CBCD Performed By: #### L 100.0100, L501.9520, L500.4100, L500.4050 #### [facility] [address] [place], [address] Monocytes/100 WBC (Bld) 7.5 % Normal 0-10 [facility] Comment on above: Order Comment: Order Date: 10/14/24 Order Info: 0184-1 - CBCD Performed By: #### L 100.0100, L501.9520, L500.4100, L500.4050 #### [facility] [address] [place], [address] Neutrophils/100 WBC (Bld) 53.6 % Normal 47-70 [facility] Comment on above: Order Comment: Order Date: 10/14/24 Order Info: 0184-1 - CBCD Performed By: #### L 100.0100, L501.9520, L500.4100, L500.4050 #### [facility] [address] [place], [address] Nucleated RBC (Bld) [#/Vol] 0 10*3/uL Normal 0-5 [facility] Comment on above: Order Comment: Order Date: 10/14/24 Order Info: 0184-1 - CBCD Performed By: #### L 100.0100, L501.9520, L500.4100, L500.4050 #### [facility] [address] [place], [address] Platelet mean volume (Bld) [Entitic vol] 9.6 fL Normal 6.2-12.0 [facility] Comment on above: Order Comment: Order Date: 10/14/24 Order Info: 0184-1 - CBCD Performed By: #### L 100.0100, L501.9520, L500.4100, L500.4050 #### [facility] [address] [place], [address] Platelets (Bld) [#/Vol] 336 10*3/uL Normal 150-450 [facility] Comment on above: Order Comment: Order Date: 10/14/24 Order Info: 0184-1 - CBCD Performed By: #### L 100.0100, L501.9520, L500.4100, L500.4050 #### [facility] [address] [place], [address] RBC (Bld) [#/Vol] 4.44 10*6/uL Normal 4.2-5.4 [facility] Comment on above: Order Comment: Order Date: 10/14/24 Order Info: 0184-1 - CBCD Performed By: #### L 100.0100, L501.9520, L500.4100, L500.4050 #### [facility] [address] [place], [address] RDW SD 45.4 fl High 35.1-43.9 [facility] Comment on above: Order Comment: Order Date: 10/14/24 Order Info: 0184-1 - CBCD Performed By: #### L 100.0100, L501.9520, L500.4100, L500.4050 #### [facility] [address] [place], [address] WBC (Bld) [#/Vol] 7.9 10*3/uL Normal 4.4-11.0 [facility] Comment on above: Order Comment: Order Date: 10/14/24 Order Info: 0184-1 - CBCD Performed By: #### L 100.0100, L501.9520, L500.4100, L500.4050 #### [facility] [address] [place], [address] Comprehensive Metabolic Prof ilon 10-14-2024 Albumin [Mass/Vol] 4.4 g/dL Normal 3.5-5.0 [facility] Comment on above: Order Comment: Order Date: 10/14/24Order Info: [id number] - CMPOrder Info: [id number] - LIPIDOrder Info: [id number] - TSH Performed By: #### L 100.0100, L501.9520, L500.4100, L500.4050 ####[facility] [address] [place], [address] Albumin/Globulin [Mass ratio] 1.5 {ratio} Normal 0.9-2.4 [facility] Comment on above: Order Comment: Order Date: 10/14/24Order Info: [id number] - CMPOrder Info: [id number] - LIPIDOrder Info: [id number] - TSH Performed By: #### L 100.0100, L501.9520, L500.4100, L500.4050 ####[facility] [address] [place], [address] ALK PHOS 116 U/L High 35-104 [facility] Comment on above: Order Comment: Order Date: 10/14/24Order Info: [id number] - CMPOrder Info: [id number] - LIPIDOrder Info: [id number] - TSH Performed By: #### L 100.0100, L501.9520, L500.4100, L500.4050 ####[facility] [address] [place], [address] ALT [Catalytic activity/Vol] 17 U/L Normal <=34 [facility] Comment on above: Order Comment: Order Date: 10/14/24Order Info: [id number] - CMPOrder Info: [id number] - LIPIDOrder Info: [id number] - TSH Performed By: #### L 100.0100, L501.9520, L500.4100, L500.4050 ####[facility] [address] [place], [address] AST [Catalytic activity/Vol] 21 U/L Normal <=31 [facility] Comment on above: Order Comment: Order Date: 10/14/24Order Info: [id number] - CMPOrder Info: [id number] - LIPIDOrder Info: [id number] - TSH Performed By: #### L 100.0100, L501.9520, L500.4100, L500.4050 ####[facility] [address] [place], [address] Bilirubin [Mass/Vol] 0.18 mg/dL Normal 0.00-1.30 [facility] Comment on above: Order Comment: Order Date: 10/14/24Order Info: [id number] - CMPOrder Info: [id number] - LIPIDOrder Info: [id number] - TSH Performed By: #### L 100.0100, L501.9520, L500.4100, L500.4050 ####[facility] [address] [place], [address] BUN/CRE 23.7 RATIO High 10-20 [facility] Comment on above: Order Comment: Order Date: 10/14/24Order Info: [id number] - CMPOrder Info: [id number] - LIPIDOrder Info: [id number] - TSH Performed By: #### L 100.0100, L501.9520, L500.4100, L500.4050 ####[facility] [address] [place], [address] Calcium [Mass/Vol] 9.6 mg/dL Normal 7.6-11.0 [facility] Comment on above: Order Comment: Order Date: 10/14/24Order Info: [id number] - CMPOrder Info: [id number] - LIPIDOrder Info: [id number] - TSH Performed By: #### L 100.0100, L501.9520, L500.4100, L500.4050 ####[facility] [address] [place], [address] Chloride [Moles/Vol] 101 mmol/L Normal 98-108 [facility] Comment on above: Order Comment: Order Date: 10/14/24Order Info: [id number] - CMPOrder Info: [id number] - LIPIDOrder Info: 6-3 - TSH Performed By: #### L 100.0100, L501.9520, L500.4100, L500.4050 ####[facility] [address] [place], [address] CO2 [Moles/Vol] 23.3 mmol/L Normal 21.0-32.0 [facility] Comment on above: Order Comment: Order Date: 10/14/24Order Info: [id number] - CMPOrder Info: [id number] - LIPIDOrder Info: 6-3 - TSH Performed By: #### L 100.0100, L501.9520, L500.4100, L500.4050 ####[facility] [address] [place], [address] Creatinine [Mass/Vol] 0.70 mg/dL Normal 0.70-1.20 [facility] Comment on above: Order Comment: Order Date: 10/14/24Order Info: [id number]- - CMPOrder Info: [id number] - LIPIDOrder Info: 6-3 - TSH Performed By: #### L 100.0100, L501.9520, L500.4100, L500.4050 ####[facility] [address] [place], [address] GAP 14 Normal 5-15 [facility] Comment on above: Order Comment: Order Date: 10/14/24Order Info: [id number] - CMPOrder Info: [id number] - LIPIDOrder Info: 6-3 - TSH Performed By: #### L 100.0100, L501.9520, L500.4100, L500.4050 ####[facility] [address] [place], [address] GFR/1.73 sq M.predicted among non-blacks MDRD (S/P/Bld) [Vol rate/Area] 103 mL/min/{1.73_m2} Normal >60 [facility] Comment on above: Order Comment: Order Date: 10/14/24Order Info: [id number] - CMPOrder Info: [id number] - LIPIDOrder Info: [id number] - TSH Result Comment: mL/m in/1.73m2 CKD-EPI Creatinine Equation (2020) Performed By: #### L 100.0100, L501.9520, L500.4100, L500.4050 ####[facility] [address] [place], [address] Globulin (S) [Mass/Vol] 3.0 g/dL Normal 2.2-4.2 [facility] Comment on above: Order Comment: Order Date: 10/14/24Order Info: 785- - CMPOrder Info: [id number] - LIPIDOrder Info: 3 - TSH Performed By: #### L 100.0100, L501.9520, L500.4100, L500.4050 ####[facility] [address] [place], [address] Glucose [Mass/Vol] 101 mg/dL High 70-99 [facility] Comment on above: Order Comment: Order Date: 10/14/24Order Info: 07- - CMPOrder Info: [id number] - LIPIDOrder Info: 3 - TSH Performed By: #### L 100.0100, L501.9520, L500.4100, L500.4050 ####[facility] [address] [place], [address] Potassium [Moles/Vol] 3.9 mmol/L Normal 3.3-5.1 [facility] Comment on above: Order Comment: Order Date: 10/14/24Order Info: 07-1 - CMPOrder Info: [id number] - LIPIDOrder Info: 3 - TSH Performed By: #### L 100.0100, L501.9520, L500.4100, L500.4050 ####[facility] [address] [place], [address] Sodium [Moles/Vol] 138 mmol/L Normal 133-145 [facility] Comment on above: Order Comment: Order Date: 10/14/24Order Info: [id number] - CMPOrder Info: [id number] - LIPIDOrder Info: [id number] - TSH Performed By: #### L 100.0100, L501.9520, L500.4100, L500.4050 ####[facility] [address] [place], [address] T PROT 7.4 g/dL Normal 5.9-8.4 [facility] Comment on above: Order Comment: Order Date: 10/14/24Order Info: [id number] - CMPOrder Info: [id number] - LIPIDOrder Info: [id number] - TSH Performed By: #### L 100.0100, L501.9520, L500.4100, L500.4050 ####[facility] [address] [place], [address] Urea nitrogen [Mass/Vol] 17 mg/dL Normal 4-19 [facility] Comment on above: Order Comment: Order Date: 10/14/24Order Info: [id number] - CMPOrder Info: [id number] - LIPIDOrder Info: [id number] - TSH Performed By: #### L 100.0100, L501.9520, L500.4100, L500.4050 ####[facility] [address] [place], [address] L506.1001on 10-14-2024 Vitamin D 25-OH 28.0 ng/mL Low 30-100 [facility] Comment on above: Order Comment: Order Date: 10/14/24Order Info: [id number] - CMPOrder Info: [id number] - LIPIDOrder Info: [id number] - TSH Result Comment: Violeta min D Status Deficiency: <20 ng/mL (50nmol/L) Insufficiency: 20-30 ng/mL (50-75 nmol/L) Sufficiency: 30-100 ng/mL (75-250 nmol/L) Toxicity: >100 ng/mL (>250 nmol/L) Performed By: #### L 501.9985, L506.1001 ####[facility] [address] [place], [address] Lipid Profileon 10-14-2024 CHOL:HDL 3.72 Normal [facility] Comment on above: Order Comment: Order Date: 10/14/24Order Info: [id number] - CMPOrder Info: [id number] - LIPIDOrder Info: [id number] - TSH Performed By: #### L 100.0100, L501.9520, L500.4100, L500.4050 ####[facility] [address] [place], [address] Cholesterol [Mass/Vol] 238 mg/dL High <=200 [facility] Comment on above: Order Comment: Order Date: 10/14/24Order Info: [id number] - CMPOrder Info: [id number] - LIPIDOrder Info: [id number] - TSH Result Comment: Chol esterol level, Desirable <200 mg/dL Borderline high cholesterol 200-239 mg/dL High cholesterol >=240 mg/dL Recommendations of the NCEP Adult Treatment Panel for the following risk-cutoff thresholds for the [place] population. Performed By: #### L 100.0100, L501.9520, L500.4100, L500.4050 ####[facility] [address] [place], [address] Cholesterol in HDL [Mass/Vol] 64 mg/dL Normal [facility] Comment on above: Order Comment: Order Date: 10/14/24Order Info: [id number] - CMPOrder Info: [id number] - LIPIDOrder Info: [id number] - TSH Result Comment: Deidra onal Cholesterol Education Program (NCEP) guidelines: <40 mg/dL: Low HDL-cholesterol (major risk factor for CHD) >= 60 mg/dL: High HDL-cholesterol (negative risk factor for CHD) HDL-cholesterol is affected by a number of factors, e.g. smoking, exercise, hormones, sex and age. Performed By: #### L 100.0100, L501.9520, L500.4100, L500.4050 ####[facility] [address] [place], [address] Cholesterol in LDL [Mass/Vol] 129 mg/dL Normal [facility] Comment on above: Order Comment: Order Date: 10/14/24Order Info: [id number] - CMPOrder Info: [id number] - LIPIDOrder Info: [id number] - TSH Result Comment: Bord zkvvgb=335-498 mg/dL Higher Cfbs=856 mg/dL or greater Performed By: #### L 100.0100, L501.9520, L500.4100, L500.4050 ####[facility] [address] [place], [address] Cholesterol in VLDL [Mass/Vol] 45 mg/dL High 5-40 [facility] Comment on above: Order Comment: Order Date: 10/14/24Order Info: [id number] - CMPOrder Info: [id number] - LIPIDOrder Info: [id number] - TSH Performed By: #### L 100.0100, L501.9520, L500.4100, L500.4050 ####[facility] [address] [place], [address] Triglyceride [Mass/Vol] 223 mg/dL High [facility] Comment on above: Order Comment: Order Date: 10/14/24Order Info: [id number] - CMPOrder Info: [id number] - LIPIDOrder Info: [id number] - TSH Result Comment: The drugs N-Acetylcysteine and Metamizole may falsely depress this assay. Normal range: <150 mg/dL Borderline High: 150-199 mg/dL High: 200-499 mg/dL Very High: >500 mg/dL Performed By: #### L 100.0100, L501.9520, L500.4100, L500.4050 ####[facility] [address] [place], [address] Thyroid Stim Hormone (TSH)on 10-14-2024 TSH 1.230 uIU/mL Normal 0.300-4.200 [facility] Comment on above: Order Comment: Order Date: 10/14/24Order Info: [id number] - CMPOrder Info: [id number] - LIPIDOrder Info: [id number] - TSH Performed By: #### L 100.0100, L501.9520, L500.4100, L500.4050 ####[facility] [address] [place], [address] Emergency Department Summary on 07-05-2024 Emergency Department Summary [facility] Medical Records Department [address] [place] [address] Emergency Department Summary 07/05/24 MR#: [id number] Acct: [id number] Name: JOANNE SHAH Rep #: [id number] : 1970 54 From: Rajendra Marroquin DO [...] she has not seen an orthopedic surgeon. [facility] Medical History Insomnia PTSD (post-traumatic stress disorder) [...] following commands knew that she was at [facility] years 2023. Sensation grossly intact in the bilateral lower extremities Skin: warm, dry, intact Const Vital Signs: 07/05/24 16:01 Temperature 97.5 F L Temperature Source Temporal Pulse Rate 80 Respiratory Rate 18 Blood Pressure 146/85 H Blood Pressure Mean 105 Pulse Ox 100 Oxygen Delivery Method Room Air (more content not included)... Normal [facility] Knee 3 Viewson 07-05-2024 Knee 3 Views [facility] Imaging Services [address] [place] [address] [id number] Knee 3 Views MR#: [id number] Acct: [id number] Name: JOANNE SHAH Rep #: [id number] : 1970 F 54 From: Franco Chairez MD PCP: Dr. Luis Manuel Sesay MD Status: REG ER Study: Knee 3 Views Date of Exam: 07/05/24 Exam# [id number] Ordering Dr: Rajendra Marroquin DO :[id number] EXAM: XR RIGHT KNEE, 3 VIEWS CLINICAL [...] 17:37 EST Reading Location ID and State: [facility] / [place] , Service support , CC: Dr. Luis Manuel Sesay MD; Dr. Rajendra Marroquin DO International Representative: Signed Normal [facility] 12 Lead EKGon 06-04-2024 12 Lead EKG [facility] Cardiovascular Services [address] [place] [address] 12 Lead EKG 06/04/24 1850 MR#: [id number] Acct: [id number] Name: JOANNE SHAH Rep #: [id number] : 1970 54 From: Erik Farah MD [...] ECG Confirmed by IMELDA BECKER, ERIK ([id number]), pictures editor TAY ROBLES ([id number]) on 06/06/2024 9:25:27 AM Referred By: Confirmed By: ERIK FARAH MD 06/06/2425 Date Erik Farah MD CC: Dr. Sridevi Vaughn DO; Dr. Luis Manuel Sesay MD Signed Normal [facility] CBC W/Diff, Automatedon 11-0 Absolute Lymph 2.31 X10 3/uL Normal 0.83-4.51 [facility] Comment on above: Performed By: #### L 501.5200, L100.0100, L500.4050 ####[facility] [address] [place], [address] Absolute Neut 3.7 X10 3/uL Normal 2.0-7.7 [facility] Comment on above: Performed By: #### L 501.5200, L100.0100, L500.4050 ####[facility] [address] [place], [address] Basophils/100 WBC (Bld) 0.6 % Normal 0-1 [facility] Comment on above: Performed By: #### L 501.5200, L100.0100, L500.4050 ####[facility] [address] [place], [address] Eosinophils/100 WBC (Bld) 2.8 % Normal 0-5 [facility] Comment on above: Performed By: #### L 501.5200, L100.0100, L500.4050 ####[facility] [address] [place], [address] Erythrocyte distribution width (RBC) [Ratio] 14.4 % Normal 11.6-14.6 [facility] Comment on above: Performed By: #### L 501.5200, L100.0100, L500.4050 ####[facility] [address] [place], [address] Hematocrit (Bld) [Volume fraction] 38.3 % Normal 37-47 [facility] Comment on above: Performed By: #### L 501.5200, L100.0100, L500.4050 ####[facility] [address] [place], [address] Hemoglobin (Bld) [Mass/Vol] 12.4 g/dL Normal 12.0-15.0 [facility] Comment on above: Performed By: #### L 501.5200, L100.0100, L500.4050 ####[facility] [address] [place], [address] IG% 0.300 Normal 0.0-0.9 [facility] Comment on above: Result Comment: IG% - Immature Granulocytes (promyelocytes, myelocytes and metamyelocytes) > 1% indicates that a LEFT SHIFT is Present. Performed By: #### L 501.5200, L100.0100, L500.4050 ####[facility] [address] [place], [address] Lymphocytes/100 WBC (Bld) 33.9 % Normal 19-41 [facility] Comment on above: Performed By: #### L 501.5200, L100.0100, L500.4050 ####[facility] [address] [place], [address] MCH (RBC) [Entitic mass] 28.4 pg Normal 27.0-32.0 [facility] Comment on above: Performed By: #### L 501.5200, L100.0100, L500.4050 ####[facility] [address] [place], [address] MCHC (RBC) [Mass/Vol] 32.4 g/dL Normal 32-36 [facility] Comment on above: Performed By: #### L 501.5200, L100.0100, L500.4050 ####[facility] [address] [place], [address] MCV (RBC) [Entitic vol] 87.8 fL Normal 81-99 [facility] Comment on above: Performed By: #### L 501.5200, L100.0100, L500.4050 ####[facility] [address] [place], [address] Monocytes/100 WBC (Bld) 8.2 % Normal 0-10 [facility] Comment on above: Performed By: #### L 501.5200, L100.0100, L500.4050 ####[facility] [address] [place], [address] Neutrophils/100 WBC (Bld) 54.2 % Normal 47-70 [facility] Comment on above: Performed By: #### L 501.5200, L100.0100, L500.4050 ####[facility] [address] [place], [address] Nucleated RBC (Bld) [#/Vol] 0 10*3/uL Normal 0-5 [facility] Comment on above: Performed By: #### L 501.5200, L100.0100, L500.4050 ####[facility] [address] [place], [address] Platelet mean volume (Bld) [Entitic vol] 8.9 fL Normal 6.2-12.0 [facility] Comment on above: Performed By: #### L 501.5200, L100.0100, L500.4050 ####[facility] [address] [place], [address] Platelets (Bld) [#/Vol] 318 10*3/uL Normal 150-450 [facility] Comment on above: Performed By: #### L 501.5200, L100.0100, L500.4050 ####[facility] [address] [place], [address] RBC (Bld) [#/Vol] 4.36 10*6/uL Normal 4.2-5.4 [facility] Comment on above: Performed By: #### L 501.5200, L100.0100, L500.4050 ####[facility] [address] [place], [address] RDW SD 45.6 fl High 35.1-43.9 [facility] Comment on above: Performed By: #### L 501.5200, L100.0100, L500.4050 ####[facility] [address] [place], [address] WBC (Bld) [#/Vol] 6.8 10*3/uL Normal 4.4-11.0 [facility] Comment on above: Performed By: #### L 501.5200, L100.0100, L500.4050 ####[facility] [address] [place], [address] Comprehensive Metabolic [facility] ilaaron 06-04-2024 Albumin [Mass/Vol] 3.4 g/dL Normal 3.2-5.0 [facility] Comment on above: Performed By: #### L 501.5200, L100.0100, L500.4050 ####[facility] [address] [place], [address] Albumin/Globulin [Mass ratio] 0.9 {ratio} Normal 0.9-2.4 [facility] Comment on above: Performed By: #### L 501.5200, L100.0100, L500.4050 ####[facility] [address] [place], [address] ALK P 96 U/L Normal 45-117 [facility] Comment on above: Performed By: #### L 501.5200, L100.0100, L500.4050 ####[facility] [address] [place], [address] ALT [Catalytic activity/Vol] 25 U/L Normal 13-56 [facility] Comment on above: Performed By: #### L 501.5200, L100.0100, L500.4050 ####[facility] [address] [place], [address] AST [Catalytic activity/Vol] 19 U/L Normal 15-37 [facility] Comment on above: Performed By: #### L 501.5200, L100.0100, L500.4050 ####[facility] [address] [place], [address] Bilirubin [Mass/Vol] 0.20 mg/dL Normal 0.20-1.00 [facility] Comment on above: Result Comment: For patients on eltrombopag therapy, use of Dimension Leonore TBIL is not recommended. Performed By: #### L 501.5200, L100.0100, L500.4050 ####[facility] [address] [place], [address] BUN/CRE 17.2 RATIO Normal 10-20 [facility] Comment on above: Performed By: #### L 501.5200, L100.0100, L500.4050 ####[facility] [address] [place], [address] CA,Total 9.2 mg/dL Normal 8.5-10.1 [facility] Comment on above: Performed By: #### L 501.5200, L100.0100, L500.4050 ####[facility] [address] [place], [address] Chloride [Moles/Vol] 106 mmol/L Normal 98-107 [facility] Comment on above: Performed By: #### L 501.5200, L100.0100, L500.4050 ####[facility] [address], [address] CO2 [Moles/Vol] 30.0 mmol/L Normal 21.0-32.0 [facility] Comment on above: Performed By: #### L 501.5200, L100.0100, L500.4050 ####[facility] [address], [address] Creatinine [Mass/Vol] 0.75 mg/dL Normal 0.55-1.02 [facility] Comment on above: Result Comment: The validity of the calculated GFR GFRAA in patients over 70 years has not been determined. Clinical correlation is essential. Performed By: #### L 501.5200, L100.0100, L500.4050 ####[facility] [address] [place], [address] ECRCL 106.54 ml/min Normal [facility] Comment on above: Performed By: #### L 501.5200, L100.0100, L500.4050 ####[facility] [address] [place], [address] EST GFR - AA 103 mL/min Normal >60 [facility] Comment on above: Result Comment: Afri can [place] GFR Calc Performed By: #### L 501.5200, L100.0100, L500.4050 ####[facility] [address] [place], [address] GAP 5 Normal 5-15 [facility] Comment on above: Performed By: #### L 501.5200, L100.0100, L500.4050 ####[facility] [address] [place], [address] GFR/1.73 sq M.predicted among non-blacks MDRD (S/P/Bld) [Vol rate/Area] 85 mL/min/{1.73_m2} Normal >60 [facility] Comment on above: Result Comment: Non- GFR Calc Performed By: #### L 501.5200, L100.0100, L500.4050 ####[facility] [address] [place], [address] Globulin (S) [Mass/Vol] 3.7 g/dL Normal 2.2-4.2 [facility] Comment on above: Performed By: #### L 501.5200, L100.0100, L500.4050 ####[facility] [address] [place], [address] Glucose [Mass/Vol] 88 mg/dL Normal 74-106 [facility] Comment on above: Performed By: #### L 501.5200, L100.0100, L500.4050 ####[facility] [address] [place], [address] Potassium [Moles/Vol] 4.1 mmol/L Normal 3.5-5.1 [facility] Comment on above: Performed By: #### L 501.5200, L100.0100, L500.4050 ####[facility] [address] [place], [address] Sodium [Moles/Vol] 141 mmol/L Normal 136-145 [facility] Comment on above: Performed By: #### L 501.5200, L100.0100, L500.4050 ####[facility] [address] [place], [address] T PROT 7.1 g/dL Normal 6.4-8.2 [facility] Comment on above: Performed By: #### L 501.5200, L100.0100, L500.4050 ####[facility] [address] [place], [address] Urea nitrogen [Mass/Vol] 13 mg/dL Normal 7-18 [facility] Comment on above: Performed By: #### L 501.5200, L100.0100, L500.4050 ####[facility] [address] [place], [address] Emergency Department Summary on 06-04-2024 Emergency Department Summary [facility] Medical Records Department [address] [place] [address] Emergency Department Summary 06/04/24 MR#: [id number] Acct: [id number] Name: JOANNE SHAH Rep #: [id number] : 1970 54 From: Sridevi Vaughn DO [...] complaints or concerns reported at this time. [facility] Medical History Insomnia PTSD (post-traumatic stress disorder) [...] appreciated Sen (more content not included)... Normal [facility] Magnesiumon 06-04-2024 Magnesium [Mass/Vol] 2.2 mg/dL Normal 1.6-2.6 [facility] Comment on above: Performed By: #### L 501.5200, L100.0100, L500.4050 ####[facility] [address] [place], [place], [id number] Knee 4 or More Viewson 06-03 Knee 4 or More Views [facility] Imaging Services [address] [place], [place] [address] Knee 4 or More Views MR#: [id number] Acct: [id number] Name: JOANNE SHAH Rep #: [id number] : 1970 F 54 From: Zack jennings MD PCP: Dr. Luis Manuel Sesay MD Status: REG CLI Study: Knee 4 or More Views Date of Exam: 06/03/24 Exam# [id number] Ordering Dr: Shay Morgan NP [employer]UCLE[employer]OWER[employer] MECH[employer]IC -C :[id number] INDICATION: rt knee EXAMINATION/TECHNIQUE: X-RAY - RIGHT [...] NP-Annie Morgan; Dr. Luis Manuel Sesay MD International Representative: Signed Normal [facility] Hemoglobin A1con 04-28-2024 HbA1c (Bld) [Mass fraction] 5.5 % Normal 3.8-5.6 [facility] Comment on above: Order Comment: MARY Hernández ADD A1C TO BLOOD DRAWN 04/26/24 PER Result Comment: Norm al < 5.7 % Prediabetic 5.7 - 6.4 % Diabetic >or= 6.5 % Please note range changes. Performed By: #### L 501.9985 #### [facility] Laboratory [address] [place], [address] CBC W/Diff, Automatedon 04-04 Absolute Lymph 2.94 X10 3/uL Normal 0.83-4.51 [facility] Comment on above: Order Comment: Order Date: 04/26/24 Order Info: 0184-1 - CBCD Performed By: #### L 500.4050, L500.4100, L506.1000, L501.9520, L100.0100 #### [facility] [address] [place], [address] Absolute Neut 5.0 X10 3/uL Normal 2.0-7.7 [facility] Comment on above: Order Comment: Order Date: 04/26/24 Order Info: 0184-1 - CBCD Performed By: #### L 500.4050, L500.4100, L506.1000, L501.9520, L100.0100 #### [facility] [address] [place], [address] Basophils/100 WBC (Bld) 0.2 % Normal 0-1 [facility] Comment on above: Order Comment: Order Date: 04/26/24 Order Info: 0184-1 - CBCD Performed By: #### L 500.4050, L500.4100, L506.1000, L501.9520, L100.0100 #### [facility] [address] [place], [address] Eosinophils/100 WBC (Bld) 1.8 % Normal 0-5 [facility] Comment on above: Order Comment: Order Date: 04/26/24 Order Info: 0184-1 - CBCD Performed By: #### L 500.4050, L500.4100, L506.1000, L501.9520, L100.0100 #### [facility] [address] [place], [address] Erythrocyte distribution width (RBC) [Ratio] 14.0 % Normal 11.6-14.6 [facility] Comment on above: Order Comment: Order Date: 04/26/24 Order Info: 0184-1 - CBCD Performed By: #### L 500.4050, L500.4100, L506.1000, L501.9520, L100.0100 #### [facility] [address] [place], [address] Hematocrit (Bld) [Volume fraction] 37.5 % Normal 37-47 [facility] Comment on above: Order Comment: Order Date: 04/26/24 Order Info: 0184-1 - CBCD Performed By: #### L 500.4050, L500.4100, L506.1000, L501.9520, L100.0100 #### [facility] [address] [facility], [address] Hemoglobin (Bld) [Mass/Vol] 12.0 g/dL Normal 12.0-15.0 [facility] Comment on above: Order Comment: Order Date: 04/26/24 Order Info: 0184-1 - CBCD Performed By: #### L 500.4050, L500.4100, L506.1000, L501.9520, L100.0100 #### [facility] [address] [facility], [address] IG% 0.300 Normal 0.0-0.9 [facility] Comment on above: Order Comment: Order Date: 04/26/24 Order Info: 0184-1 - CBCD Result Comment: IG% - Immature Granulocytes (promyelocytes, myelocytes and metamyelocytes) > 1% indicates that a LEFT SHIFT is Present. Performed By: #### L 500.4050, L500.4100, L506.1000, L501.9520, L100.0100 #### [facility] [address] [place], [address] Lymphocytes/100 WBC (Bld) 33.8 % Normal 19-41 [facility] Comment on above: Order Comment: Order Date: 04/26/24 Order Info: 0184-1 - CBCD Performed By: #### L 500.4050, L500.4100, L506.1000, L501.9520, L100.0100 #### [facility] [address] [place], [address] MCH (RBC) [Entitic mass] 28.7 pg Normal 27.0-32.0 [facility] Comment on above: Order Comment: Order Date: 04/26/24 Order Info: 0184- - CBCD Performed By: #### L 500.4050, L500.4100, L506.1000, L501.9520, L100.0100 #### [facility] [address] [place], [address] MCHC (RBC) [Mass/Vol] 32.0 g/dL Normal 32-36 [facility] Comment on above: Order Comment: Order Date: 04/26/24 Order Info: 0184- - CBCD Performed By: #### L 500.4050, L500.4100, L506.1000, L501.9520, L100.0100 #### [facility] [address] [place], [address] MCV (RBC) [Entitic vol] 89.7 fL Normal 81-99 [facility] Comment on above: Order Comment: Order Date: 04/26/24 Order Info: 0184- - CBCD Performed By: #### L 500.4050, L500.4100, L506.1000, L501.9520, L100.0100 #### [facility] [address] [place], [address] Monocytes/100 WBC (Bld) 6.7 % Normal 0-10 [facility] Comment on above: Order Comment: Order Date: 04/26/24 Order Info: 0184-1 - CBCD Performed By: #### L 500.4050, L500.4100, L506.1000, L501.9520, L100.0100 #### [facility] [address] [place], [address] Neutrophils/100 WBC (Bld) 57.2 % Normal 47-70 [facility] Comment on above: Order Comment: Order Date: 04/26/24 Order Info: 0184-1 - CBCD Performed By: #### L 500.4050, L500.4100, L506.1000, L501.9520, L100.0100 #### [facility] [address] [place], [address] Nucleated RBC (Bld) [#/Vol] 0 10*3/uL Normal 0-5 [facility] Comment on above: Order Comment: Order Date: 04/26/24 Order Info: 0184- - CBCD Performed By: #### L 500.4050, L500.4100, L506.1000, L501.9520, L100.0100 #### [facility] [address] [place], [address] Platelet mean volume (Bld) [Entitic vol] 9.6 fL Normal 6.2-12.0 [facility] Comment on above: Order Comment: Order Date: 04/26/24 Order Info: 0184- - CBCD Performed By: #### L 500.4050, L500.4100, L506.1000, L501.9520, L100.0100 #### [facility] [address] [place], [address] Platelets (Bld) [#/Vol] 362 10*3/uL Normal 150-450 [facility] Comment on above: Order Comment: Order Date: 04/26/24 Order Info: 0184-1 - CBCD Performed By: #### L 500.4050, L500.4100, L506.1000, L501.9520, L100.0100 #### [facility] [address] [place], [address] RBC (Bld) [#/Vol] 4.18 10*6/uL Low 4.2-5.4 [facility] Comment on above: Order Comment: Order Date: 04/26/24 Order Info: 0184-1 - CBCD Performed By: #### L 500.4050, L500.4100, L506.1000, L501.9520, L100.0100 #### [facility] [address] [place], [address] RDW SD 45.3 fl High 35.1-43.9 [facility] Comment on above: Order Comment: Order Date: 04/26/24 Order Info: 0184-1 - CBCD Performed By: #### L 500.4050, L500.4100, L506.1000, L501.9520, L100.0100 #### [facility] [address] [place], [address] WBC (Bld) [#/Vol] 8.7 10*3/uL Normal 4.4-11.0 [facility] Comment on above: Order Comment: Order Date: 04/26/24 Order Info: 0184-1 - CBCD Performed By: #### L 500.4050, L500.4100, L506.1000, L501.9520, L100.0100 #### [facility] [address] [place], [address] Comprehensive Metabolic Prof ilon 04-26-2024 Albumin [Mass/Vol] 3.3 g/dL Normal 3.2-5.0 [facility] Comment on above: Order Comment: Order Date: 04/26/24 Order Info: 0786-1 - CMP Order Info: [id number] - LIPID Order Info: 3016-3 - TSH Performed By: #### L 500.4050, L500.4100, L506.1000, L501.9520, L100.0100 #### [facility] [address] [place], [address] Albumin/Globulin [Mass ratio] 0.8 {ratio} Low 0.9-2.4 [facility] Comment on above: Order Comment: Order Date: 04/26/24 Order Info: 0786-1 - CMP Order Info: [id number] - LIPID Order Info: 3013 - TSH Performed By: #### L 500.4050, L500.4100, L506.1000, L501.9520, L100.0100 #### [facility] [address] [place], [address] ALK P 104 U/L Normal 45-117 [facility] Comment on above: Order Comment: Order Date: 04/26/24 Order Info: 0786- - CMP Order Info: [id number] - LIPID Order Info: [id number] - TSH Performed By: #### L 500.4050, L500.4100, L506.1000, L501.9520, L100.0100 #### [facility] [address] [place], [address] ALT [Catalytic activity/Vol] 21 U/L Normal 13-56 [facility] Comment on above: Order Comment: Order Date: 04/26/24 Order Info: 0786- - CMP Order Info: [id number] - LIPID Order Info: [id number] - TSH Performed By: #### L 500.4050, L500.4100, L506.1000, L501.9520, L100.0100 #### [facility] [address] [place], [address] AST [Catalytic activity/Vol] 16 U/L Normal 15-37 [facility] Comment on above: Order Comment: Order Date: 04/26/24 Order Info: 0786-1 - CMP Order Info: [id number] - LIPID Order Info: 30163 - TSH Performed By: #### L 500.4050, L500.4100, L506.1000, L501.9520, L100.0100 #### [facility] [address] [place], [address] Bilirubin [Mass/Vol] 0.20 mg/dL Normal 0.20-1.00 [facility] Comment on above: Order Comment: Order Date: 04/26/24 Order Info: 0786-1 - CMP Order Info: [id number] - LIPID Order Info: 3016-3 - TSH Result Comment: For patients on eltrombopag therapy, use of Dimension Leonore TBIL is not recommended. Performed By: #### L 500.4050, L500.4100, L506.1000, L501.9520, L100.0100 #### [facility] [address] [place], [address] BUN/CRE 19.4 RATIO Normal 10-20 [facility] Comment on above: Order Comment: Order Date: 04/26/24 Order Info: 0786- - CMP Order Info: [id number] - LIPID Order Info: 3016-3 - TSH Performed By: #### L 500.4050, L500.4100, L506.1000, L501.9520, L100.0100 #### [facility] [address] [place], [address] CA,Total 9.1 mg/dL Normal 8.5-10.1 [facility] Comment on above: Order Comment: Order Date: 04/26/24 Order Info: 0786-1 - CMP Order Info: [id number] - LIPID Order Info: 3016-3 - TSH Performed By: #### L 500.4050, L500.4100, L506.1000, L501.9520, L100.0100 #### [facility] [address] [place], [address] Chloride [Moles/Vol] 105 mmol/L Normal 98-107 [facility] Comment on above: Order Comment: Order Date: 04/26/24 Order Info: 785-08 - CMP Order Info: - LIPID Order Info: 3015-10 - TSH Performed By: #### L 500.4050, L500.4100, L506.1000, L501.9520, L100.0100 #### [facility] [address] [place], [address] CO2 [Moles/Vol] 25.0 mmol/L Normal 21.0-32.0 [facility] Comment on above: Order Comment: Order Date: 04/26/24 Order Info: 785-08 - CMP Order Info: - LIPID Order Info: 3015-10 - TSH Performed By: #### L 500.4050, L500.4100, L506.1000, L501.9520, L100.0100 #### [facility] [address] [place], [address] Creatinine [Mass/Vol] 0.83 mg/dL Normal 0.55-1.02 [facility] Comment on above: Order Comment: Order Date: 04/26/24 Order Info: 785-08 - CMP Order Info: - LIPID Order Info: 3015-10 - TSH Result Comment: The validity of the calculated GFR GFRAA in patients over 70 years has not been determined. Clinical correlation is essential. Performed By: #### L 500.4050, L500.4100, L506.1000, L501.9520, L100.0100 #### [facility] [address] [place], [address] EST GFR - AA 93 mL/min Normal >60 [facility] Comment on above: Order Comment: Order Date: 04/26/24 Order Info: 785-08 - CMP Order Info: - LIPID Order Info: 3015-10 - TSH Result Comment: Afri can [place] GFR Calc Performed By: #### L 500.4050, L500.4100, L506.1000, L501.9520, L100.0100 #### [facility] [address] [place], [address] GAP 7 Normal 5-15 [facility] Comment on above: Order Comment: Order Date: 04/26/24 Order Info: 785- - CMP Order Info: [id number] - LIPID Order Info: 3 - TSH Performed By: #### L 500.4050, L500.4100, L506.1000, L501.9520, L100.0100 #### [facility] [address] [place], [address] GFR/1.73 sq M.predicted among non-blacks MDRD (S/P/Bld) [Vol rate/Area] 77 mL/min/{1.73_m2} Normal >60 [facility] Comment on above: Order Comment: Order Date: 04/26/24 Order Info: 785-08 - CMP Order Info: - LIPID Order Info: 3015-10 - TSH Result Comment: Non- GFR Calc Performed By: #### L 500.4050, L500.4100, L506.1000, L501.9520, L100.0100 #### [facility] [address] [place], [address] Globulin (S) [Mass/Vol] 3.9 g/dL Normal 2.2-4.2 [facility] Comment on above: Order Comment: Order Date: 04/26/24 Order Info: 785-08 - CMP Order Info: - LIPID Order Info: 3015-10 - TSH Performed By: #### L 500.4050, L500.4100, L506.1000, L501.9520, L100.0100 #### [facility] [address] [place], [address] Glucose [Mass/Vol] 112 mg/dL High 74-106 [facility] Comment on above: Order Comment: Order Date: 04/26/24 Order Info: 785- - CMP Order Info: - LIPID Order Info: 3015-10 - TSH Result Comment: Fast ing Glucose result from 100 to 125 mg/dL suggests [employer] per A.D.A. criteria. Performed By: #### L 500.4050, L500.4100, L506.1000, L501.9520, L100.0100 #### [facility] [address] [place], [address] Potassium [Moles/Vol] 3.8 mmol/L Normal 3.5-5.1 [facility] Comment on above: Order Comment: Order Date: 04/26/24 Order Info: 0786-1 - CMP Order Info: [id number] - LIPID Order Info: 301-3 - TSH Performed By: #### L 500.4050, L500.4100, L506.1000, L501.9520, L100.0100 #### [facility] [address] [place], [address] Sodium [Moles/Vol] 137 mmol/L Normal 136-145 [facility] Comment on above: Order Comment: Order Date: 04/26/24 Order Info: 0786-1 - CMP Order Info: [id number] - LIPID Order Info: [id number] - TSH Performed By: #### L 500.4050, L500.4100, L506.1000, L501.9520, L100.0100 #### [facility] [address] [place], [address] T PROT 7.2 g/dL Normal 6.4-8.2 [facility] Comment on above: Order Comment: Order Date: 04/26/24 Order Info: 0786-1 - CMP Order Info: [id number] - LIPID Order Info: 3016-3 - TSH Performed By: #### L 500.4050, L500.4100, L506.1000, L501.9520, L100.0100 #### [facility] [address] [place], [address] Urea nitrogen [Mass/Vol] 16 mg/dL Normal 7-18 [facility] Comment on above: Order Comment: Order Date: 04/26/24 Order Info: 785-08 - CMP Order Info: - LIPID Order Info: 3015-10 - TSH Performed By: #### L 500.4050, L500.4100, L506.1000, L501.9520, L100.0100 #### [facility] [address] [place], [address] Lipid Profileon 04-26-2024 Cholesterol [Mass/Vol] 226 mg/dL High 200 [facility] Comment on above: Order Comment: Order Date: 04/26/24 Order Info: 785-08 - CMP Order Info: - LIPID Order Info: 3015-10 - TSH Result Comment: <200 mg/dL Desirable 200-240 mg/dL Borderline >240 mg/dL High Risk Performed By: #### L 500.4050, L500.4100, L506.1000, L501.9520, L100.0100 #### [facility] [address] [place], [address] Cholesterol in HDL [Mass/Vol] 56 mg/dL Normal [facility] Comment on above: Order Comment: Order Date: 04/26/24 Order Info: 785-08 - CMP Order Info: - LIPID Order Info: [id number] - TSH Result Comment: The drugs N-Acetylcysteine and Metamizole may falsely depress this assay. Reference Range HDL <40 mg/dL Low HDL Cholesterol HDL >or= 60 mg/dL High HDL Cholesterol Performed By: #### L 500.4050, L500.4100, L506.1000, L501.9520, L100.0100 #### [facility] [address] [place], [address] Cholesterol in LDL [Mass/Vol] 112 mg/dL Normal 0-130 [facility] Comment on above: Order Comment: Order Date: 04/26/24 Order Info: 785-08 - CMP Order Info: - LIPID Order Info: 3015-10 - TSH Performed By: #### L 500.4050, L500.4100, L506.1000, L501.9520, L100.0100 #### [facility] [address] [place], [address] Cholesterol in VLDL [Mass/Vol] 58 mg/dL High 5-40 [facility] Comment on above: Order Comment: Order Date: 04/26/24 Order Info: 0786- - CMP Order Info: [id number] - LIPID Order Info: 3 - TSH Performed By: #### L 500.4050, L500.4100, L506.1000, L501.9520, L100.0100 #### [facility] [address] [place], [address] Triglyceride [Mass/Vol] 289 mg/dL High [facility] Comment on above: Order Comment: [...] L 500.4050, L500.4100, L506.1000, L501.9520, L100.0100 #### [facility] [address] [place], [address] Thyroid Stim Hormone (TSH)on 04-26-2024 TSH 1.160 uIU/mL Normal 0.358-3.740 [facility] Comment on above: Order Comment: Order Date: 04/26/24 Order Info: 0786- - CMP Order Info: [id number] - LIPID Order Info: 3 - TSH Performed By: #### L 500.4050, L500.4100, L506.1000, L501.9520, L100.0100 #### [facility] [address] [place], [address] Vitamin D,25 Hydroxyon 04-26 Vitamin D 25-OH 34.3 ng/mL Normal [facility] Comment on above: Order Comment: Order Date: 04/26/24 Order Info: [id number] - VITD25 Result Comment: Violeta min D 25(OH) Status Range Deficiency <20 ng/mL (50nmol/L) Insufficiency 20 - 30 ng/mL (50 - 75 nmol/L) Sufficiency 30 - 100 ng/mL (75 - 250 nmol/L) Toxicity >100 ng/mL (>250 nmol/L) Performed By: #### L 500.4050, L500.4100, L506.1000, L501.9520, L100.0100 #### [facility] [address] [place], [address] Basic metabolic 2000 panelon 02-22-2024 Anion gap [Moles/Vol] 10 mmol/L 8 - 15 mmol/L [facility] Calcium [Mass/Vol] 9.5 mg/dL 8.5 - 10. 2 mg/dL [facility] Chloride [Moles/Vol] 104 mmol/L 98 - 10 7 mmol/L [facility] CO2 [Moles/Vol] 27 mmol/L 22 - 30 mmol/L [facility] Creatinine [Mass/Vol] 0.76 mg/dL 0.58 - 0.96 mg/dL [facility] GFR/1.73 sq M.predicted among non-blacks MDRD (S/P/Bld) [Vol rate/Area] 94 mL/min/{1.73_m2} - PINF [facility] Comment on above: Estimated Glomerular Filtration [...] 100 mg/dL High 74 - 99 mg/dL [facility] Comment on above: The [place] Diab[employer] s Association (ADA) provides guidance for [...] Standards of Medical Care in Diabetes 2016, [place] [employer]. Diabetes Care. 2016.39(Suppl 1). Interpretation and review of laboratory results Abnormal [facility] Potassium [Moles/Vol] 4.6 mmol/L 3.7 - 5.1 mmol/L [facility] Sodium [Moles/Vol] 141 mmol/L 136 - 144 mmol/L [facility] Urea nitrogen [Mass/Vol] 15 mg/dL 7 - 21 mg/dL [facility] Anion gap [Moles/Vol] 10 mmol/L Normal 8-15 [facility] Comment on above: Order Comment: Padmini toth Type: BLOOD SPECIMEN Ordering Facility: [facility] Address: [address] [place] [address] Performed By: #### 2 4321-2 #### [facility] CLIA [id number] [address] [place] [address] [place] Calcium [Mass/Vol] 9.5 mg/dL Normal 8.5-10.2 [facility] Comment on above: Order Comment: Padmini toth Type: BLOOD SPECIMEN Ordering Facility: [facility] Address: [address] [place] [address] Performed By: #### 2 4321-2 #### [facility] CLIA [id number] [address] [place] [address] [place] Chloride [Moles/Vol] 104 mmol/L Normal 98-107 [facility] Comment on above: Order Comment: Padmini toth Type: BLOOD SPECIMEN Ordering Facility: [facility] Address: [address] [place] [address] Performed By: #### 2 4321-2 #### [facility] CLIA [id number] [facility] [place] [address] [place] CO2 [Moles/Vol] 27 mmol/L Normal 22-30 [facility] Comment on above: Order Comment: Speci men Type: BLOOD SPECIMEN Ordering Facility: [facility] Address: [address] [place] [address] Performed By: #### 2 4321-2 #### [facility] CLIA [id number] [address] [place] [address] [place] Creatinine [Mass/Vol] 0.76 mg/dL Normal 0.58-0.96 [facility] Comment on above: Order Comment: Speci men Type: BLOOD SPECIMEN Ordering Facility: [facility] Address: [address] [place] [address] Performed By: #### 2 4321-2 #### [facility] [place] [id number] [address] [place] [address] [place] Creatinine and Glomerular filtration rate.predicted panel (S/P/Bld) 94 mL/min/1.73m??? Normal >=60 [facility] Comment on above: Order Comment: Speci men Type: BLOOD SPECIMEN Ordering Facility: [facility] Address: [address] [place] [address] Result Comment: Betty mated Glomerular Filtration Rate [...] GFR. Performed By: #### 2 4321-2 #### [facility] CLIA [id number] [address] [place] [address] [place] Glucose [Mass/Vol] 100 mg/dL High 74-99 [facility] Comment on above: Order Comment: Speci men Type: BLOOD SPECIMEN Ordering Facility: [facility] Address: [address] [place] [address] Result Comment: The [place] Diabetes Association (ADA) provides guidance for cutoff [...] Standards of Medical Care in Diabetes 2016, [place] [employer]. Diabetes Care. 2016.39(Suppl 1). Performed By: #### 2 4321-2 #### [facility] CLIA [id number] [address] [place] [address] [place] Potassium [Moles/Vol] 4.6 mmol/L Normal 3.7-5.1 [facility] Comment on above: Order Comment: Speci men Type: BLOOD SPECIMEN Ordering Facility: [facility] Address: [address] [place] [address] Performed By: #### 2 4321-2 #### [facility] CLIA [id number] [address] [place] [address] [place] Sodium [Moles/Vol] 141 mmol/L Normal 136-144 [facility] Comment on above: Order Comment: Speci men Type: BLOOD SPECIMEN Ordering Facility: [facility] Address: [address] [place] [address] Performed By: #### 2 4321-2 #### [facility] CLIA [id number] [address] [place] [address] [place] Urea nitrogen [Mass/Vol] 15 mg/dL Normal 7-21 [facility] Comment on above: Order Comment: Speci men Type: BLOOD SPECIMEN Ordering Facility: [facility] Address: [address] [place] [address] Performed By: #### 2 4321-2 #### [facility] CLIA [id number] [address] [place] [address] [place] CBC panel Auto (Bld)on 02-21 Erythrocyte distribution width (RBC) [Ratio] 14.6 % 11.5 - 15.0 % [facility] Hematocrit (Bld) [Volume fraction] 39.6 % 36.0 - 46.0 % [facility] Hemoglobin (Bld) [Mass/Vol] 12.6 g/dL 11.5 - 15.5 g/dL [facility] Interpretation and review of laboratory results Normal [facility] MCH (RBC) [Entitic mass] 29.0 pg 26.0 - 34.[address] [facility] MCHC (RBC) [Mass/Vol] 31.8 g/dL 30.5 - 36.0 g/dL [facility] MCV (RBC) [Entitic vol] 91.0 fL 80.0 - 100.[address] [facility] Nucleated RBC (Bld) [#/Vol] NINF [facility] Platelet mean volume (Bld) [Entitic vol] 9.8 fL 9.0 - 12.[address] [facility] Platelets (Bld) [#/Vol] 326 10*3/uL [facility] RBC (Bld) [#/Vol] 4.35 10*6/uL 3.90 - 5.2 0 m/uL [facility] WBC (Bld) [#/Vol] 6.14 10*3/uL [facility] Erythrocyte distribution width (RBC) [Ratio] 14.6 % Normal 11.5-15.0 [facility] Comment on above: Order Comment: Speci men Type: BLOOD SPECIMEN Ordering Facility: [facility] Address: [address] [place] [address] Performed By: #### 5 8410-2 #### [facility] CLIA [id number] [address] [place] [address] [place] Hematocrit (Bld) [Volume fraction] 39.6 % Normal 36.0-46.0 [facility] Comment on above: Order Comment: Speci men Type: BLOOD SPECIMEN Ordering Facility: [facility] Address: [address] [place] [address] Performed By: #### 5 8410-2 #### [facility] CLIA [id number] [address] [place] [address] [place] Hemoglobin (Bld) [Mass/Vol] 12.6 g/dL Normal 11.5-15.5 [facility] Comment on above: Order Comment: Speci men Type: BLOOD SPECIMEN Ordering Facility: [facility] Address: [address] [place] [address] Performed By: #### 5 8410-2 #### [facility] CLIA [id number] [address] [place] [address] [place] MCH (RBC) [Entitic mass] 29.0 pg Normal 26.0-34.0 [facility] Comment on above: Order Comment: Speci men Type: BLOOD SPECIMEN Ordering Facility: [facility] Address: [address] [place] [address] Performed By: #### 5 8410-2 #### [facility] CLIA [id number] [address] [place] [address] [place] MCHC (RBC) [Mass/Vol] 31.8 g/dL Normal 30.5-36.0 [facility] Comment on above: Order Comment: Speci men Type: BLOOD SPECIMEN Ordering Facility: [facility] Address: [address] [place] [address] Performed By: #### 5 8410-2 #### [facility] CLIA [id number] [address] [place] [address] [place] MCV (RBC) [Entitic vol] 91.0 fL Normal 80.0-100.0 [facility] Comment on above: Order Comment: Speci men Type: BLOOD SPECIMEN Ordering Facility: [facility] Address: [address] [place] [address] Performed By: #### 5 8410-2 #### [facility] CLIA [id number] [address] [place] [address] [place] Nucleated RBC (Bld) [#/Vol] 10*3/uL Normal <0.01 [facility] Comment on above: Order Comment: Speci men Type: BLOOD SPECIMEN Ordering Facility: [facility] Address: [address] [place] [address] Performed By: #### 5 8410-2 #### [facility] CLIA [id number] [address] [place] [address] [place] Platelet mean volume (Bld) [Entitic vol] 9.8 fL Normal 9.0-12.7 [facility] Comment on above: Order Comment: Speci men Type: BLOOD SPECIMEN Ordering Facility: [facility] Address: [address] [place] [address] Performed By: #### 5 8410-2 #### [facility] CLIA [id number] [address] [place] [address] [place] Platelets (Bld) [#/Vol] 326 10*3/uL Normal 150-400 [facility] Comment on above: Order Comment: Speci men Type: BLOOD SPECIMEN Ordering Facility: [facility] Address: [address] [place] [address] Performed By: #### 5 8410-2 #### [facility] CLIA [id number] [address] [place] [address] [place] RBC (Bld) [#/Vol] 4.35 10*6/uL Normal 3.90-5.20 [facility] Comment on above: Order Comment: Speci men Type: BLOOD SPECIMEN Ordering Facility: [facility] Address: [address] [place] [address] Performed By: #### 5 8410-2 #### [facility] CLIA [id number] [address] [place] [address] [place] WBC (Bld) [#/Vol] 6.14 10*3/uL Normal 3.70-11.00 [facility] Comment on above: Order Comment: Speci men Type: BLOOD SPECIMEN Ordering Facility: [facility] Address: [address] [place] [address] Performed By: #### 5 8410-2 #### [facility] CLIA [id number] [address] [place] [address] [id number] [place] [address] CNOVon 02-22-2024 CNOV Office Visit (WALKMN ) JOANNE SHAH ([id number]) 1970 [facility] Date Time Provider Department 02/22/24 7:30 AM THERESA MCGINNIS WALKMN During your visit today, we recorded the following information about you: Temperature Pulse Blood pressure 98 degrees 89/minute 133/85 Theresa Mcginnis APRN.QUOTER 02/22/2024 5:45 PM [facility] Department of General [facility] Outpatient Visit Date: February 22, 2024 CC:(copied and/or pasted from M.A. and/or intake note or registration notes) Dizziness, nausea and fatigue x 1 day The history is provided by the patient The patient's preferred language is Marshallese PAST MEDICAL HISTORY Diagnosis Date Anxiety Depression [...] No follow-ups on file. Signed: Theresa Mcginnis APRN.QUOTER [facility] Medical Decision Making: Problems: Moderate: New problem [...] AND RSV NAAT, ROUTINE [SQCVFLRS] Order #: [id number]. #:[id number] BASIC METABOLIC PANEL [SQBMP] Order #: [id number] FUTURE COMPLETE BLOOD COUNT [SQCBC] Order #: [id number] FUTURE fluticasone (FLONASE) 50 mcg/actuation nasal sprayUse 1 Lyburn in each nostril daily at bedtime.Disp: 18.2 mLRfl: 0 Prescriptions as of 02/22/2024 - fluticasone (FLONASE) 50 mcg/actuation nasal spray Use 1 Lyburn in each nostril daily at bedtime. - [...] (supraventricular tachycardi (more content not included)... Normal [facility] COVID AND INFLUENZA A/B AND RSV NAAT, ROUTINEon 02-22-2024 SARS-CoV-2 (COVID-19) RNA FRANSISCO+probe Ql (Unsp spec) COVID 19 RESULT: Not detected The method used is RT-PCR or an equivalent NAAT method. Reference Range (the expected result in uninfected individuals): Not detected INFLUENZA A PCR: Not detected INFLUENZA B PCR: Not detected RSV PCR: Not detected Normal [facility] Comment on above: Performed By: #### C VFLRS #### [facility] CLIA [id number] [address] [place] [address] [place] Vitaly 01-06-2023 CNPN Telephone (AGGENS4) JOANNE SHAH ([id number]) 1970 F Date Time Provider Department 01/06/23 [...] (FLONASE) 50 mcg/actuation nasal spray Use 1 Lyburn in each nostril once daily. - SUMAtriptan-Naproxen [...] Encounter Status:Closed by ZEE CAIN on 01/06/23 [facility] Absolute lymphocyte countOrd ered By: Dr. Sesay on 09-19-2022 Lymphocytes Auto (Unsp spec) [#/Vol] 2.91 10*3/uL 0.83-4.51 [facility] Basophil percentageOrdered B y: Dr. Sesay on 09-19-2022 Basophils/100 WBC (Bld) 0.1 % 0-1 [facility] Bilirubin [Mass/Vol] 0.20 mg/dL 0.20-1.00 [facility] Comment on above: For patients on eltr ombopag therapy, use of Dimension Leonore TBIL is not recommended. Chloride [Moles/Vol] 104 mmol/L 98-107 [facility] Cholesterol [Mass/Vol] 246 mg/dL <200 [facility] Comment on above: <200 mg/dL Desirable 200-240 mg/dL Borderline >240 mg/dL High Risk Eosinophils/100 WBC (Bld) 3.0 % 0-5 [facility] Glucose [Mass/Vol] 107 mg/dL 74-106 [facility] Comment on above: Fasting Glucose resu lt from 100 to 125 mg/dL suggests IMPAIRED HOMEOSTASIS per A.D.A. criteria. Neutrophils (Bld) [#/Vol] 4.5 10*3/uL 2.0-7.7 [facility] Neutrophils/100 WBC (Bld) 54.5 % 47-70 [facility] Potassium [Moles/Vol] 4.1 mmol/L 3.5-5.1 [facility] Protein [Mass/Vol] 7.1 g/dL 6.4-8.2 [facility] Sodium [Moles/Vol] 138 mmol/L 136-145 [facility] Triglyceride [Mass/Vol] 309 mg/dL <199 [facility] Comment on above: The drugs N-Acetylcy steine and Metamizole may falsely depress this assay.Serum Triglycerides Reference Interval Normal <150 mg/dL Borderline high 150 - 199 mg/dL High 200 - 499 mg/dL Very High > or = 500 mg/dL WBC (Bld) [#/Vol] 8.3 10*3/uL 4.4-11.0 [facility] Blood erythrocytes count (nu mber/volume)Ordered By: Dr. Sesay on 09-19-2022 RBC (Bld) [#/Vol] 4.67 10*6/uL 4.2-5.4 [facility] Blood hemoglobin measurement (mass/volume)Ordered By: Dr. Sesay on 09-19-2022 Hemoglobin (Bld) [Mass/Vol] 13.4 g/dL 12.0-15.0 [facility] Blood lymphocytes/100 leukoc ytesOrdered By: Dr. Sesay on 09-19-2022 Lymphocytes/100 WBC (Bld) 34.9 % 19-41 [facility] Blood monocytes/100 leukocyt esOrdered By: Dr. Sesay on 09-19-2022 Monocytes/100 WBC (Bld) 7.4 % 0-10 [facility] Blood platelet mean volumeOr dered By: Dr. Sesay on 09-19-2022 Platelet mean volume (Bld) [Entitic vol] 9.5 fL 6.2-12.0 [facility] Determination of erythrocyte mean corpuscular volume (MCV)Ordered By: Dr. Sesay on 09-19-2022 MCV (RBC) [Entitic vol] 88.0 fL 81-99 [facility] Hematocrit Auto (Bld) [Volum e fraction]Ordered By: Dr. Sesay on 09-19-2022 Hematocrit (Bld) [Volume fraction] 41.1 % 37-47 [facility] Laboratory - Chemistry and C hemistry - challengeOrdered By: Dr. Sesay on 09-19-2022 ALP [Catalytic activity/Vol] 107 U/L 45-117 [facility] ALT [Catalytic activity/Vol] 23 U/L 13-56 [facility] CO2 [Moles/Vol] 25.0 mmol/L 21.0-32.0 [facility] Globulin (S) [Mass/Vol] 3.5 g/dL 2.2-4.2 [facility] Urea nitrogen/Creatinine [Mass ratio] 23.8 mg/mg 10-20 [facility] Laboratory - Hematology and Cell countsOrdered By: Dr. Sesay on 09-19-2022 Erythrocyte distribution width (RBC) [Entitic vol] 45.9 fL 35.1-43.9 [facility] Erythrocyte distribution width (RBC) [Ratio] 14.3 % 11.6-14.6 [facility] Immature granulocytes/100 WBC (Bld) 0.100 % 0.0-0.9 [facility] Comment on above: IG% - Immature Granu locytes (promyelocytes, myelocytes and metamyelocytes) > 1% indicates that a LEFT SHIFT is Present. MCH (RBC) [Entitic mass] 28.7 pg 27.0-32.0 [facility] Nucleated RBC/100 WBC (Bld) [Ratio] 0 % 0-5 [facility] MCHC Auto (RBC) [Mass/Vol]Or dered By: Dr. Sesay on 09-19-2022 MCHC (RBC) [Mass/Vol] 32.6 g/dL 32-36 [facility] No Panel InformationOrdered By: Dr. Sesay on 09-19-2022 Estimated GFR (MDRD) Amer 87 mL/min >60 [facility] Comment on above: GFR Calc Estimated GFR (MDRD) Non-Af Amer 72 mL/min >60 [facility] Comment on above: Non- GFR Calc Vitamin D 25-Hydroxy 58.4 ng/mL [facility] Comment on above: Vitamin D 25(OH) Sta tus Range Deficiency <20 ng/mL (50nmol/L) Insufficiency 20 - 30 ng/mL (50 - 75 nmol/L) Sufficiency 30 - 100 ng/mL (75 - 250 nmol/L) Toxicity >100 ng/mL (>250 nmol/L) Platelets bldOrdered By: Dr. Sesay on 09-19-2022 Platelets (Bld) [#/Vol] 368 10*3/uL 150-450 [facility] Serum or plasma albumin lm urement (mass/volume)Ordered By: Dr. Sesay on 09-19-2022 Albumin [Mass/Vol] 3.6 g/dL 3.2-5.0 [facility] Serum or plasma albumin/glob ulin mass ratioOrdered By: Dr. Sesay on 09-19-2022 Albumin/Globulin [Mass ratio] 1.0 {ratio} 0.9-2.4 [facility] Serum or plasma calcium lm urement (mass/volume)Ordered By: Dr. Sesay on 09-19-2022 Calcium [Mass/Vol] 9.2 mg/dL 8.5-10.1 [facility] Serum or plasma cholesterol in HDL measurement (mass/volume)Ordered By: Dr. Sesay on 09-19-2022 Cholesterol in HDL [Mass/Vol] 64 mg/dL >40 [facility] Comment on above: The drugs N-Acetylcy steine and Metamizole may falsely depress this assay. Reference Range HDL <40 mg/dL Low HDL Cholesterol HDL >or= 60 mg/dL High HDL Cholesterol Serum or plasma cholesterol in VLDL measurement (mass/volume)Ordered By: Dr. Sesay on 09-19-2022 Cholesterol in VLDL [Mass/Vol] 62 mg/dL 5-40 [facility] Serum or plasma creatinine m easurement (mass/volume)Ordered By: Dr. Sesay on 09-19-2022 Creatinine [Mass/Vol] 0.88 mg/dL 0.55-1.02 [facility] Comment on above: The validity of the calculated GFR & GFRAA in patients over 70 years has not been determined. Clinical correlation is essential. Serum or plasma low density lipoprotein (LDL) cholesterol measurement (mass/volume)Ordered By: Dr. Sesay on 09-19-2022 Cholesterol in LDL [Mass/Vol] 120 mg/dL 0-130 [facility] Serum or plasma urea nitroge n measurement (mass/volume)Ordered By: Dr. Sesay on 09-19-2022 Urea nitrogen [Mass/Vol] 21 mg/dL 7-18 [facility] Thin prep Papanicolaou smear with manual screeningOrdered By: Dr. Sesay on 09-19-2022 Thin prep Papanicolaou smear with manual screening 17 U/L 15-37 [facility] Thin prep Papanicolaou smear with manual screening 9 5-15 [facility] Whole blood hemoglobin A1c/t otal hemoglobin ratio (mass fraction)Ordered By: Dr. Sesay on 09-19-2022 HbA1c (Bld) [Mass fraction] 5.6 % 3.8-5.6 [facility] Comment on above: Normal < 5.7 % Predi abetic 5.7 - 6.4 % Diabetic >or= 6.5 % Please note range changes. Laboratory - Drug toxicology Ordered By: Dr. Mcginnis on 07-01-2022 Amphetamines Ql (U) Negative <1000 ng/mL [facility] Benzodiazepines Ql (U) Negative < 200 ng/mL [facility] Cannabinoids Screen Ql (U) Negative < 50 ng/mL [facility] Cocaine Ql (U) Negative < 300 ng/mL [facility] Opiates Ql (U) Negative < 300 ng/mL [facility] No Panel InformationOrdered By: Dr. Mcginnis on 07-01-2022 MDMA (Ecstasy) Screen Negative < 500 ng/mL [facility] Urine Barbiturates Screen Negative < 200 ng/mL [facility] Urine Drug Screen Comment [facility] Comment on above: CONFIRMATORY TESTING [...] Urine Methadone Screen Negative < 300 ng/mL [facility] Rubella IgG Antibody Reactive Nonreactive [facility] Comment on above: Antibody Results Int erpretation of Immune Status Non Reactive Presumed Non-Immune Equivocal Equivocal Reactive Presumed Immune Serum Varicella zoster virus IgG antibody assay by immunoassay (units/volume)Ordered By: Dr. Mcginnis on 07-01-2022 VZV IgG IA Qn (S) 677 index Immune >165 [facility] Comment on above: Negative <135 Equivo manasa 135 - 165 Positive >165A positive result generally indicates exposure to thepathogen or administration of specific immunoglobulins,but it is not indication of active infection or stageof disease. Serum hepatitis B virus surf erika antibody IgG detectionOrdered By: Dr. Mcginnis on 07-01-2022 HBV surface IgG Ql (S) Non-Reactive [facility] Comment on above: Non Reactive: Incons istent with immunity less than <10 mIU/mL Reactive: Consistent with immunity greater than or equal to 10 mIU/mL Serum measles virus IgG anti body assay by immunoassay (units/volume)Ordered By: Dr. Mcginnis on 07-01-2022 MeV IgG IA Qn (S) > 300.0 AU/mL Immune >16.4 [facility] Comment on above: Negative <13.5 Equiv ocal 13.5 - 16.4 Positive >16.4Presence of antibodies to Rubeola is presumptive evidenceof immunity except when acute infection is suspected.Performed at: [facility] [id number] Director: Win Ballard PhD, Phone: [phone] Serum mumps virus IgG antibo dy assay (units/volume)Ordered By: Dr. Mcginnis on 07-01-2022 MuV IgG Qn (S) 30.4 AU/mL Immune >10.9 [facility] Comment on above: Negative <9.0 Equivo manasa 9.0 - 10.9 Positive >10.9A positive result generally indicates past exposure toMumps virus or previous vaccination. Urine phencyclidine (PCP) de tectionOrdered By: Dr. Mcginnis on 07-01-2022 Phencyclidine Ql (U) Negative < 25 ng/mL [facility] Absolute lymphocyte counton 05-08-2022 Lymphocytes Auto (Unsp spec) [#/Vol] 2.46 10*3/uL 0.83-4.51 [facility] Work Phone: Basophil percentageon 2021 Basophils/100 WBC (Bld) 0.6 % 0-1 [facility] Work Phone: [phone] Bilirubin [Mass/Vol] 0.20 mg/dL 0.20-1.00 [facility] Work Phone: [phone] Comment on above: For patients on eltr ombopag therapy, use of Dimension Leonore TBIL is not recommended. Chloride [Moles/Vol] 104 mmol/L 98-107 [facility] Work Phone: Cholesterol [Mass/Vol] 240 mg/dL <200 [facility] Work Phone: [phone] Comment on above: <200 mg/dL Desirable 200-240 mg/dL Borderline >240 mg/dL High Risk Eosinophils/100 WBC (Bld) 3.4 % 0-5 [facility] Work Phone: [phone] Glucose [Mass/Vol] 83 mg/dL 74-106 [facility] Work Phone: [phone] Neutrophils (Bld) [#/Vol] 3.7 10*3/uL 2.0-7.7 [facility] Work Phone: [phone] Neutrophils/100 WBC (Bld) 52.6 % 47-70 [facility] Work Phone: [phone] Potassium [Moles/Vol] 4.3 mmol/L 3.5-5.1 [facility] Work Phone: [phone] Protein [Mass/Vol] 7.7 g/dL 6.4-8.2 [facility] Work Phone: Sodium [Moles/Vol] 138 mmol/L 136-145 [facility] Work Phone: [phone] Triglyceride [Mass/Vol] 200 mg/dL <199 [facility] Work Phone: [phone] Comment on above: The drugs N-Acetylcy steine and Metamizole may falsely depress this assay.Serum Triglycerides Reference Interval Normal <150 mg/dL Borderline high 150 - 199 mg/dL High 200 - 499 mg/dL Very High > or = 500 mg/dL WBC (Bld) [#/Vol] 7.1 10*3/uL 4.4-11.0 [facility] Work Phone: Blood erythrocytes count (nu mber/volume)on 05-08-2022 RBC (Bld) [#/Vol] 4.70 10*6/uL 4.2-5.4 [facility] Work Phone: Blood hemoglobin measurement (mass/volume)on 05-08-2022 Hemoglobin (Bld) [Mass/Vol] 13.4 g/dL 12.0-15.0 [facility] Work Phone: Blood lymphocytes/100 leukoc yteson 05-08-2022 Lymphocytes/100 WBC (Bld) 34.9 % 19-41 [facility] Work Phone: Blood monocytes/100 leukocyt eson 05-08-2022 Monocytes/100 WBC (Bld) 8.2 % 0-10 [facility] Work Phone: Blood platelet mean volumeon 05-08-2022 Platelet mean volume (Bld) [Entitic vol] 9.5 fL 6.2-12.0 [facility] Work Phone: Determination of erythrocyte mean corpuscular volume (MCV)on 05-08-2022 MCV (RBC) [Entitic vol] 89.4 fL 81-99 [facility] Work Phone: Hematocrit Auto (Bld) [Volum e fraction]on 05-08-2022 Hematocrit (Bld) [Volume fraction] 42.0 % 37-47 [facility] Work Phone: Laboratory - Chemistry and C hemistry - challengeon 05-08-2022 ALP [Catalytic activity/Vol] 104 U/L 45-117 [facility] Work Phone: ALT [Catalytic activity/Vol] 24 U/L 13-56 [facility] Work Phone: CO2 [Moles/Vol] 27.0 mmol/L 21.0-32.0 [facility] Work Phone: [phone] Cobalamin (Vitamin B12) [Mass/Vol] 416 pg/mL 211-911 [facility] Work Phone: Free T4 [Mass/Vol] 0.97 ng/dL 0.76-1.46 [facility] Work Phone: Globulin (S) [Mass/Vol] 4.1 g/dL 2.2-4.2 [facility] Work Phone: Urea nitrogen/Creatinine [Mass ratio] 16.9 mg/mg 10-20 [facility] Work Phone: Laboratory - Hematology and Cell countson 05-08-2022 Erythrocyte distribution width (RBC) [Entitic vol] 44.1 fL 35.1-43.9 [facility] Work Phone: Erythrocyte distribution width (RBC) [Ratio] 13.5 % 11.6-14.6 [facility] Work Phone: Immature granulocytes/100 WBC (Bld) 0.300 % 0.0-0.9 [facility] Work Phone: Comment on above: IG% - Immature Granu locytes (promyelocytes, myelocytes and metamyelocytes) > 1% indicates that a LEFT SHIFT is Present. MCH (RBC) [Entitic mass] 28.5 pg 27.0-32.0 [facility] Work Phone: Nucleated RBC/100 WBC (Bld) [Ratio] 0 % 0-5 [facility] Work Phone: MCHC Auto (RBC) [Mass/Vol]on 05-08-2022 MCHC (RBC) [Mass/Vol] 31.9 g/dL 32-36 [facility] Work Phone: No Panel Informationon 05-08 Estimated GFR (MDRD) Amer 93 mL/min >60 [facility] Work Phone: Comment on above: GFR Calc Estimated GFR (MDRD) Non-Af Amer 77 mL/min >60 [facility] Work Phone: Comment on above: Non- GFR Calc Thyroid Stimulating Hormone (TSH) 0.80 uIU/mL 0.358-3.74 [facility] Work Phone: Vitamin D 25-Hydroxy 49.8 ng/mL [facility] Work Phone: Comment on above: Vitamin D 25(OH) Sta tus Range Deficiency <20 ng/mL (50nmol/L) Insufficiency 20 - 30 ng/mL (50 - 75 nmol/L) Sufficiency 30 - 100 ng/mL (75 - 250 nmol/L) Toxicity >100 ng/mL (>250 nmol/L) Platelets bldon 05-08-2022 Platelets (Bld) [#/Vol] 361 10*3/uL 150-450 [facility] Work Phone: Serum or plasma albumin lm urement (mass/volume)on 05-08-2022 Albumin [Mass/Vol] 3.6 g/dL 3.2-5.0 [facility] Work Phone: Serum or plasma albumin/glob ulin mass ratioon 05-08-2022 Albumin/Globulin [Mass ratio] 0.9 {ratio} 0.9-2.4 [facility] Work Phone: Serum or plasma calcium lm urement (mass/volume)on 05-08-2022 Calcium [Mass/Vol] 9.3 mg/dL 8.5-10.1 [facility] Work Phone: Serum or plasma cholesterol in HDL measurement (mass/volume)on 05-08-2022 Cholesterol in HDL [Mass/Vol] 63 mg/dL >40 [facility] Work Phone: Comment on above: The drugs N-Acetylcy steine and Metamizole may falsely depress this assay. Reference Range HDL <40 mg/dL Low HDL Cholesterol HDL >or= 60 mg/dL High HDL Cholesterol Serum or plasma cholesterol in VLDL measurement (mass/volume)on 05-08-2022 Cholesterol in VLDL [Mass/Vol] 40 mg/dL 5-40 [facility] Work Phone: Serum or plasma creatinine m easurement (mass/volume)on 05-08-2022 Creatinine [Mass/Vol] 0.83 mg/dL 0.55-1.02 [facility] Work Phone: Comment on above: The validity of the calculated GFR & GFRAA in patients over 70 years has not been determined. Clinical correlation is essential. Serum or plasma low density lipoprotein (LDL) cholesterol measurement (mass/volume)on 05-08-2022 Cholesterol in LDL [Mass/Vol] 137 mg/dL 0-130 [facility] Work Phone: Serum or plasma urea nitroge n measurement (mass/volume)on 05-08-2022 Urea nitrogen [Mass/Vol] 14 mg/dL 7-18 [facility] Work Phone: [phone] Thin prep Papanicolaou smear with manual screeningon 05-08-2022 Thin prep Papanicolaou smear with manual screening 17 U/L 15-37 [facility] Work Phone: Thin prep Papanicolaou smear with manual screening 7 5-15 [facility] Work Phone: Absolute lymphocyte counton 01-09-2022 Lymphocytes Auto (Unsp spec) [#/Vol] 2.22 10*3/uL 0.83-4.51 [facility] Work Phone: [phone] Basophil percentageon 2021 Basophils/100 WBC (Bld) 0.5 % 0-1 [facility] Work Phone: [phone] Bilirubin [Mass/Vol] 0.10 mg/dL 0.20-1.00 [facility] Work Phone: Comment on above: For patients on eltr ombopag therapy, use of Dimension Leonore TBIL is not recommended. Chloride [Moles/Vol] 106 mmol/L 98-107 [facility] Work Phone: Eosinophils/100 WBC (Bld) 2.5 % 0-5 [facility] Work Phone: [phone] Glucose [Mass/Vol] 85 mg/dL 74-106 [facility] Work Phone: [phone] Neutrophils (Bld) [#/Vol] 4.6 10*3/uL 2.0-7.7 [facility] Work Phone: Neutrophils/100 WBC (Bld) 60.1 % 47-70 [facility] Work Phone: Potassium [Moles/Vol] 4.2 mmol/L 3.5-5.1 [facility] Work Phone: Protein [Mass/Vol] 7.3 g/dL 6.4-8.2 [facility] Work Phone: Sodium [Moles/Vol] 139 mmol/L 136-145 [facility] Work Phone: WBC (Bld) [#/Vol] 7.7 10*3/uL 4.4-11.0 [facility] Work Phone: Blood erythrocytes count (nu mber/volume)on 01-09-2022 RBC (Bld) [#/Vol] 4.41 10*6/uL 4.2-5.4 [facility] Work Phone: Blood hemoglobin measurement (mass/volume)on 01-09-2022 Hemoglobin (Bld) [Mass/Vol] 12.5 g/dL 12.0-15.0 [facility] Work Phone: Blood lymphocytes/100 leukoc yteson 01-09-2022 Lymphocytes/100 WBC (Bld) 29.0 % 19-41 [facility] Work Phone: Blood monocytes/100 leukocyt eson 01-09-2022 Monocytes/100 WBC (Bld) 7.6 % 0-10 [facility] Work Phone: Blood platelet mean volumeon 01-09-2022 Platelet mean volume (Bld) [Entitic vol] 9.7 fL 6.2-12.0 [facility] Work Phone: Determination of erythrocyte mean corpuscular volume (MCV)on 01-09-2022 MCV (RBC) [Entitic vol] 90.7 fL 81-99 [facility] Work Phone: Hematocrit Auto (Bld) [Volum e fraction]on 01-09-2022 Hematocrit (Bld) [Volume fraction] 40.0 % 37-47 [facility] Work Phone: [phone] Iron measurement (mass/mass) on 01-09-2022 Iron (Unsp spec) [Mass/Mass] 63 ug/dL 50-170 [facility] Work Phone: Laboratory - Chemistry and C hemistry - challengeon 01-09-2022 ALP [Catalytic activity/Vol] 96 U/L 45-117 [facility] Work Phone: ALT [Catalytic activity/Vol] 22 U/L 13-56 [facility] Work Phone: CO2 [Moles/Vol] 28.0 mmol/L 21.0-32.0 [facility] Work Phone: Cobalamin (Vitamin B12) [Mass/Vol] 381 pg/mL 211-911 [facility] Work Phone: Globulin (S) [Mass/Vol] 3.7 g/dL 2.2-4.2 [facility] Work Phone: Urea nitrogen/Creatinine [Mass ratio] 16.4 mg/mg 10-20 [facility] Work Phone: Laboratory - Hematology and Cell countson 01-09-2022 Erythrocyte distribution width (RBC) [Entitic vol] 45.8 fL 35.1-43.9 [facility] Work Phone: [phone] Erythrocyte distribution width (RBC) [Ratio] 13.8 % 11.6-14.6 [facility] Work Phone: Immature granulocytes/100 WBC (Bld) 0.300 % 0.0-0.9 [facility] Work Phone: Comment on above: IG% - Immature Granu locytes (promyelocytes, myelocytes and metamyelocytes) > 1% indicates that a LEFT SHIFT is Present. MCH (RBC) [Entitic mass] 28.3 pg 27.0-32.0 [facility] Work Phone: [phone] Nucleated RBC/100 WBC (Bld) [Ratio] 0 % 0-5 [facility] Work Phone: MCHC Auto (RBC) [Mass/Vol]on 01-09-2022 MCHC (RBC) [Mass/Vol] 31.3 g/dL 32-36 [facility] Work Phone: No Panel Informationon 01-09 Estimated GFR (MDRD) Amer 77 mL/min >60 [facility] Work Phone: Comment on above: GFR Calc Estimated GFR (MDRD) Non-Af Amer 64 mL/min >60 [facility] Work Phone: Comment on above: Non- GFR Calc Total Iron Binding Capacity 294 ug/dL 250-450 [facility] Work Phone: Vitamin D 25-Hydroxy 64.6 ng/mL [facility] Work Phone: Comment on above: Vitamin D 25(OH) Sta tus Range Deficiency <20 ng/mL (50nmol/L) Insufficiency 20 - 30 ng/mL (50 - 75 nmol/L) Sufficiency 30 - 100 ng/mL (75 - 250 nmol/L) Toxicity >100 ng/mL (>250 nmol/L) Platelets bldon 01-09-2022 Platelets (Bld) [#/Vol] 360 10*3/uL 150-450 [facility] Work Phone: Serum or plasma albumin lm urement (mass/volume)on 01-09-2022 Albumin [Mass/Vol] 3.6 g/dL 3.2-5.0 [facility] Work Phone: Serum or plasma albumin/glob ulin mass ratioon 01-09-2022 Albumin/Globulin [Mass ratio] 1.0 {ratio} 0.9-2.4 [facility] Work Phone: Serum or plasma calcium lm urement (mass/volume)on 01-09-2022 Calcium [Mass/Vol] 9.7 mg/dL 8.5-10.1 [facility] Work Phone: Serum or plasma creatinine m easurement (mass/volume)on 01-09-2022 Creatinine [Mass/Vol] 0.98 mg/dL 0.55-1.02 [facility] Work Phone: Comment on above: The validity of the calculated GFR & GFRAA in patients over 70 years has not been determined. Clinical correlation is essential. Serum or plasma ferritin sagrario surement (mass/volume)on 01-09-2022 Ferritin [Mass/Vol] 88 ng/mL 8-252 [facility] Work Phone: Serum or plasma folate measu rement (mass/volume)on 01-09-2022 Folate [Mass/Vol] 25.20 ng/mL 3.1-55.4 [facility] Work Phone: Serum or plasma urea nitroge n measurement (mass/volume)on 01-09-2022 Urea nitrogen [Mass/Vol] 16 mg/dL 7-18 [facility] Work Phone: Thin prep Papanicolaou smear with manual screeningon 01-09-2022 Thin prep Papanicolaou smear with manual screening 15 U/L 15-37 [facility] Work Phone: Thin prep Papanicolaou smear with manual screening 5 5-15 [facility] Work Phone: COVID-19 by PCR ()on 02-19 Coronavirus 2019 PCR Not Detected Normal Not Detected [facility] Comment on above: Order Comment: Nasal swab in Saline, Toñito opharyngeal or Oropharyngeal in viral transport media or saline Performed By: #### C OVUH #### [place] [address] Performing Lab Testing performed by : [facility] [id number] [place] [address] CLIA # [id number] [facility] Comment on above: Order Comment: Nasal swab in Saline, Toñito opharyngeal or Oropharyngeal in viral transport media or saline Performed By: #### C OV[facility] #### [place] [address] Specimen source Nom (Unsp spec) Nasal, NUCLEAR [employer] [facility] Comment on above: Order Comment: Nasal swab in Saline, Toñito opharyngeal or Oropharyngeal in viral transport media or saline Performed By: #### C [facility] #### [place] [id number] COVID-19 by PCR ()on 12-30 Coronavirus 2019 PCR Not Detected Normal Not Detected [facility] Comment on above: Order Comment: Nasal swab in Saline, Toñito opharyngeal or Oropharyngeal in viral transport media or saline Performed By: #### C [facility] #### [place] [address] Performing Lab Testing performed by : [facility] [address] [place] [address] CLIA # [id number] [facility] Comment on above: Order Comment: Nasal swab in Saline, Toñito opharyngeal or Oropharyngeal in viral transport media or saline Performed By: #### C [facility] #### [place] [address] Specimen source Nom (Unsp spec) nasal [facility] Comment on above: Order Comment: Nasal swab in Saline, Toñito opharyngeal or Oropharyngeal in viral transport media or saline Performed By: #### C [facility] #### [place] [id number] SESAY XR FOOT LT COMPLETE 3+ EWSon 12-22-2019 SESAY XR FOOT LT COMPLETE 3+ VIEWS Examination: Left foot 3 views Indication: [id number]: Pain in left foot Findings: There is no evidence of acute fracture or dislocation. There are mild degenerative changes of the IP joints.Small plantar calcaneal enthesophyte is noted. The soft tissues are grossly unremarkable. Impression: No acute osseous abnormality. Report Dictated on Authenticated by: Jeffery Moore On: 12/22/2019 08:35 Read by: JEFFERY MOORE MD Date: 12/22/2019 08:35 [facility] Liver Profileon 04-19-2019 Albumin [Mass/Vol] 3.7 g/dL Normal 3.4-5.0 [facility] Comment on above: Performed By: #### L IVER #### [place] [id number] ALP [Catalytic activity/Vol] 116 U/L Normal 45-117 [facility] Comment on above: Performed By: #### L IVER #### [facility] [address] [place], [place] [id number] ALT [Catalytic activity/Vol] 19 U/L Normal 12-78 [facility] Comment on above: Performed By: #### L IVER #### [place] [id number] AST [Catalytic activity/Vol] 13 U/L Low 15-37 [facility] Comment on above: Performed By: #### L IVER #### [address] [address] Bili, Direct <0.1 Normal 0.0-0.2 [facility] Comment on above: Performed By: #### L IVER #### [place] [address] Bili, Total 0.3 mg/dL Normal 0.2-1.0 [facility] Comment on above: Performed By: #### L IVER #### [place] [id number] Prot Total 6.9 gm/dL Normal 6.4-8.2 [facility] Comment on above: Performed By: #### L IVER #### [place] [address] XR Chest 2 view-PA & LATon 0 [...] JORGE FONTENOT MD Date: 03/25/2019 12:06 Normal [facility] Basic Metabolic Panelon 07-03 Anion gap [Moles/Vol] 8 Normal [facility] Comment on above: Performed By: #### A PTT, HEMOG, BMPI, PT #### [facility] [address] [place] [address] Calcium [Mass/Vol] 9.0 mg/dL Normal 8.4-10.4 [facility] Comment on above: Performed By: #### A PTT, HEMOG, BMPI, PT #### [facility] [address] [place] [address] CO2 [Moles/Vol] 24 mmol/L Normal 22-30 [facility] Comment on above: Performed By: #### A PTT, HEMOG, BMPI, PT #### [facility] [address] [place] [address] Glucose [Mass/Vol] 101 mg/dL High 70-100 [facility] Comment on above: Performed By: #### A PTT, HEMOG, BMPI, PT #### [facility] [address] [place] [address] Urea nitrogen [Mass/Vol] 15 mg/dL Normal 7-20 [facility] Comment on above: Performed By: #### A PTT, HEMOG, BMPI, PT #### [facility] [address] [place] [address] Creatinine [Mass/Vol] 0.76 mg/dL Normal 0.52-1.25 [facility] Comment on above: Performed By: #### A PTT, HEMOG, BMPI, PT #### [facility] [address] [place] [address] GFR/1.73 sq M predicted among blacks MDRD (S/P/Bld) [Vol rate/Area] mL/min/{1.73_m2} Normal >60 [facility] Comment on above: Performed By: #### A PTT, HEMOG, BMPI, PT #### [facility] [address] [place] [address] GFR/1.73 sq M predicted among non-blacks MDRD (S/P/Bld) [Vol rate/Area] mL/min/{1.73_m2} Normal >60 [facility] Comment on above: Result Comment: Sour ce- MDRD equation with creatinine calibration to IDMS(NKDEP) eGFR not recommended for drug dose adjustment Performed By: #### A PTT, HEMOG, BMPI, PT #### [facility] [address] [place] [address] Potassium [Moles/Vol] 3.9 mmol/L Normal 3.5-5.1 [facility] Comment on above: Performed By: #### A PTT, HEMOG, BMPI, PT #### [facility] [address] [place] [address] Chloride [Moles/Vol] 104 mmol/L Normal 98-107 [facility] Comment on above: Performed By: #### A PTT, HEMOG, BMPI, PT #### [facility] [address] [place] [address] Sodium [Moles/Vol] 136 mmol/L Normal 135-145 [facility] Comment on above: Result Comment: NOTE : New Sodium Reference Range effective 2018 @ 10:00 Performed By: #### A PTT, HEMOG, BMPI, PT #### [facility] [address] [place] [address] Hemogram w/ Autodiffon 07-21 Abs Baso Cnt 0.0 10*3/uL Normal 0.0-0.2 [facility] Comment on above: Performed By: #### A PTT, HEMOG, BMPI, PT #### [facility] [address] [place] [address] Abs Neutrophile Cnt 3.3 10*3/uL Normal 1.8-7.0 [facility] Comment on above: Performed By: #### A PTT, HEMOG, BMPI, PT #### [facility] [address] [place] [address] Basophils/100 WBC (Bld) 0.6 % Normal 0.0-2.0 [facility] Comment on above: Performed By: #### A PTT, HEMOG, BMPI, PT #### [facility] [address] [place] [address] Eosinophils (Bld) [#/Vol] 0.2 10*3/uL Normal 0.0-0.5 [facility] Comment on above: Performed By: #### A PTT, HEMOG, BMPI, PT #### [facility] [address] [place] [address] Eosinophils/100 WBC (Bld) 2.8 % Normal 1.0-6.0 [facility] Comment on above: Performed By: #### A PTT, HEMOG, BMPI, PT #### [facility] [address] [place] [address] Erythrocyte distribution width (RBC) [Ratio] 14.6 % High 11.5-14.5 [facility] Comment on above: Performed By: #### A PTT, HEMOG, BMPI, PT #### [facility] [address] [place] [address] Granulocytes/100 WBC (Bld) 56.3 % Normal 40.0-80.0 [facility] Comment on above: Performed By: #### A PTT, HEMOG, BMPI, PT #### [facility] [address] [place] [address] Hematocrit (Bld) [Volume fraction] 36.9 % Normal 35.0-47.0 [facility] Comment on above: Performed By: #### A PTT, HEMOG, BMPI, PT #### [facility] [address] [place] [address] Hemoglobin (Bld) [Mass/Vol] 12.6 g/dL Normal 11.7-16.0 [facility] Comment on above: Performed By: #### A PTT, HEMOG, BMPI, PT #### [facility] [address] [place] [address] Lymphocytes (Bld) [#/Vol] 2.0 10*3/uL Normal 1.0-4.3 [facility] Comment on above: Performed By: #### A PTT, HEMOG, BMPI, PT #### [facility] [address] [place] [address] Lymphocytes/100 WBC (Bld) 33.2 % Normal 20.0-40.0 [facility] Comment on above: Performed By: #### A PTT, HEMOG, BMPI, PT #### [facility] [address] [place] [address] MCH (RBC) [Entitic mass] 29.6 pg Normal 26.0-34.0 [facility] Comment on above: Performed By: #### A PTT, HEMOG, BMPI, PT #### [facility] [address] [place] [address] MCHC (RBC) [Mass/Vol] 34.2 % Normal 32.0-36.0 [facility] Comment on above: Performed By: #### A PTT, HEMOG, BMPI, PT #### [facility] [address] [place] [address] MCV (RBC) [Entitic vol] 86.4 fL Normal 79.0-98.0 [facility] Comment on above: Performed By: #### A PTT, HEMOG, BMPI, PT #### [facility] [address] [place] [address] Monocytes (Bld) [#/Vol] 0.4 10*3/uL Normal 0.0-0.8 [facility] Comment on above: Performed By: #### A PTT, HEMOG, BMPI, PT #### [facility] [address] [place] [address] Monocytes/100 WBC (Bld) 7.1 % Normal 2.0-10.0 [facility] Comment on above: Performed By: #### A PTT, HEMOG, BMPI, PT #### [facility] [address] [place] [address] Platelet mean volume (Bld) [Entitic vol] 7.5 fL Normal 7.4-10.4 [facility] Comment on above: Performed By: #### A PTT, HEMOG, BMPI, PT #### [facility] [address] [place] [address] Platelets (Bld) [#/Vol] 291 10*3/uL Normal 140-440 [facility] Comment on above: Performed By: #### A PTT, HEMOG, BMPI, PT #### [facility] [address] [place] [address] RBC (Bld) [#/Vol] 4.27 10*6/uL Normal 3.80-5.20 [facility] Comment on above: Performed By: #### A PTT, HEMOG, BMPI, PT #### [facility] [address] [place] [address] WBC (Bld) [#/Vol] 6.0 10*3/uL Normal 3.6-10.7 [facility] Comment on above: Performed By: #### A PTT, HEMOG, BMPI, PT #### [facility] [address] [place] [address] MRI Spine Cervical w/ + w/o Contraston 07-21-2018 MRI Spine Cervical w/ + w/o Contrast Patient Name: JOANNE SHAH MRI Exam Date/Time 07/21/2018 07:43:16 EST Exam MRI Spine Cervical w/ + w/o Contrast Ordering Physician MD JAMIE, LOI NOVA Accession Number [id number] CPT4 Codes 32686 () Reason For Exam bilateral arm numbness [...] Transcribed Date and Time: 07/21/2018 8:51 Normal [facility] Basic Metabolic Panelon 07-03 Calcium [Mass/Vol] 9.0 mg/dL Normal 8.4-10.4 [facility] Comment on above: Performed By: #### B MP3M, HEMDF #### [facility] [address] [place] [address] Glucose [Mass/Vol] 93 mg/dL Normal 70-100 [facility] Comment on above: Performed By: #### B MP3M, HEMDF #### [facility] [address] [place] [address] Anion gap [Moles/Vol] 7 Normal [facility] Comment on above: Performed By: #### B MP3M, HEMDF #### [facility] [address] [place] [address] CO2 [Moles/Vol] 23 mmol/L Normal 22-30 [facility] Comment on above: Performed By: #### B MP3M, HEMDF #### [facility] [address] [place] [address] Creatinine [Mass/Vol] 0.73 mg/dL Normal 0.52-1.25 [facility] Comment on above: Performed By: #### B MP3M, HEMDF #### [facility] [address] [place] [address] GFR/1.73 sq M predicted among blacks MDRD (S/P/Bld) [Vol rate/Area] mL/min/{1.73_m2} Normal >60 [facility] Comment on above: Performed By: #### B MP3M, HEMDF #### [facility] [address] [place] [address] GFR/1.73 sq M predicted among non-blacks MDRD (S/P/Bld) [Vol rate/Area] mL/min/{1.73_m2} Normal >60 [facility] Comment on above: Result Comment: Sour ce- MDRD equation with creatinine calibration to IDMS(NKDEP) eGFR not recommended for drug dose adjustment Performed By: #### B TRA3Marifer HEMDF #### [facility] [address] [place] [address] Urea nitrogen [Mass/Vol] 14 mg/dL Normal 7-20 [facility] Comment on above: Performed By: #### B MP3Marifer, HEMDF #### [facility] [address] [place] [address] Chloride [Moles/Vol] 109 mmol/L High 98-107 [facility] Comment on above: Performed By: #### B TRA3Marifer, HEMDF #### [facility] [address] [place] [address] Potassium [Moles/Vol] 3.6 mmol/L Normal 3.5-5.1 [facility] Comment on above: Performed By: #### Aramis MP3Marifer, HEMDF #### [facility] [address] [place] [address] Sodium [Moles/Vol] 139 mmol/L Normal 135-145 [facility] Comment on above: Result Comment: NOTE : New Sodium Reference Range effective 2018 @ 10:00 Performed By: #### B TRA3Marifer HEMDF #### [facility] [address] [place] [address] Hemoglobin A1Con 07-20-2018 HbA1c (Bld) [Mass fraction] 5.2 % Normal 4.0-5.7 [facility] Comment on above: Result Comment: --Hg bA1C levels may not be accurate in patients who have renal disease, received recent blood transfusions, are anemic, or who have dyshemoglobinemia. Performed By: #### A PTT, HEMOG, BMPI, PT #### [facility] [address] [place] [address] HbA1c (Bld) [Mass fraction] 103 mg/dL Normal [facility] Comment on above: Performed By: #### A PTT, HEMOG, BMPI, PT #### [facility] [address] [place] [address] Hemogram w/ Autodiffon 07-20 Abs Baso Cnt 0.0 10*3/uL Normal 0.0-0.2 [facility] Comment on above: Performed By: #### B MP3M, HEMDF #### [facility] [address] [place] [address] Abs Neutrophile Cnt 2.8 10*3/uL Normal 1.8-7.0 [facility] Comment on above: Performed By: #### B MP3M, HEMDF #### [facility] [address] [place] [address] Basophils/100 WBC (Bld) 0.8 % Normal 0.0-2.0 [facility] Comment on above: Performed By: #### B MP3M, HEMDF #### [facility] [address] [place] [address] Eosinophils (Bld) [#/Vol] 0.1 10*3/uL Normal 0.0-0.5 [facility] Comment on above: Performed By: #### B MP3M, HEMDF #### [facility] [address] [place] [address] Eosinophils/100 WBC (Bld) 2.2 % Normal 1.0-6.0 [facility] Comment on above: Performed By: #### B MP3M, HEMDF #### [facility] [address] [place] [address] Erythrocyte distribution width (RBC) [Ratio] 14.5 % Normal 11.5-14.5 [facility] Comment on above: Performed By: #### B MP3M, HEMDF #### [facility] [address] [place] [address] Granulocytes/100 WBC (Bld) 51.5 % Normal 40.0-80.0 [facility] Comment on above: Performed By: #### B MP3M, HEMDF #### [facility] [address] [place] [address] Hematocrit (Bld) [Volume fraction] 37.3 % Normal 35.0-47.0 [facility] Comment on above: Performed By: #### B MP3M, HEMDF #### [facility] [address] [place] [address] Hemoglobin (Bld) [Mass/Vol] 12.7 g/dL Normal 11.7-16.0 [facility] Comment on above: Performed By: #### B MP3M, HEMDF #### [facility] [address] [place] [address] Lymphocytes (Bld) [#/Vol] 2.1 10*3/uL Normal 1.0-4.3 [facility] Comment on above: Performed By: #### B MP3M, HEMDF #### [facility] [address] [place] [address] Lymphocytes/100 WBC (Bld) 37.2 % Normal 20.0-40.0 [facility] Comment on above: Performed By: #### B MP3M, HEMDF #### [facility] [address] [place] [address] MCH (RBC) [Entitic mass] 28.7 pg Normal 26.0-34.0 [facility] Comment on above: Performed By: #### B MP3M, HEMDF #### [facility] [address] [place] [address] MCHC (RBC) [Mass/Vol] 34.0 % Normal 32.0-36.0 [facility] Comment on above: Performed By: #### B MP3M, HEMDF #### [facility] [address] [place] [address] MCV (RBC) [Entitic vol] 84.4 fL Normal 79.0-98.0 [facility] Comment on above: Performed By: #### B MP3M, HEMDF #### [facility] [address] [place] [address] Monocytes (Bld) [#/Vol] 0.5 10*3/uL Normal 0.0-0.8 [facility] Comment on above: Performed By: #### B MP3M, HEMDF #### [facility] [address] [place] [address] Monocytes/100 WBC (Bld) 8.3 % Normal 2.0-10.0 [facility] Comment on above: Performed By: #### B MP3M, HEMDF #### [facility] [address] [place] [address] Platelet mean volume (Bld) [Entitic vol] 7.9 fL Normal 7.4-10.4 [facility] Comment on above: Performed By: #### B MP3M, HEMDF #### [facility] [address] [place] [address] Platelets (Bld) [#/Vol] 293 10*3/uL Normal 140-440 [facility] Comment on above: Performed By: #### B MP3M, HEMDF #### [facility] [address] [place] [address] RBC (Bld) [#/Vol] 4.41 10*6/uL Normal 3.80-5.20 [facility] Comment on above: Performed By: #### B MP3M, HEMDF #### [facility] [address] [place] [address] WBC (Bld) [#/Vol] 5.5 10*3/uL Normal 3.6-10.7 [facility] Comment on above: Performed By: #### B MP3M, HEMDF #### [facility] [address] [place] [address] Lipid Panelon 07-20-2018 Cholesterol [Mass/Vol] 157 mg/dL Normal < 200 [facility] Comment on above: Performed By: #### A PTT, HEMOG, BMPI, PT #### [facility] [address] [place] [address] Cholesterol in HDL [Mass/Vol] 49 mg/dL Normal 40-60 [facility] Comment on above: Performed By: #### A PTT, HEMOG, BMPI, PT #### [facility] [address] [place] [address] Cholesterol.total/Ch olesterol in HDL [Mass ratio] 3 Normal [facility] Comment on above: Result Comment: Ref Range: < 3 Low Risk for CHD 3-6 Mod Risk for CHD > 6 High Risk for CHD Performed By: #### A PTT, HEMOG, BMPI, PT #### [facility] [address] [place] [address] Protein [Mass/Vol] 82 mg/dL Normal <100 [facility] Comment on above: Performed By: #### A PTT, HEMOG, BMPI, PT #### [facility] [address] [place] [address] Triglyceride [Mass/Vol] 132 mg/dL Normal <150 [facility] Comment on above: Performed By: #### A PTT, HEMOG, BMPI, PT #### [facility] [address] [place] [address] MRA Head w/o Contraston 07-03 MRA Head w/o Contrast Patient Name: JOANNE SHAH MRI Exam Date/Time 07/20/2018 13:05:00 EST Exam MRA Head w/o Contrast Ordering Physician MD SESAY PETER Accession Number [id number] CPT4 Codes 76195 () Reason For Exam SENSATION LOSS Report [...] intact anterior and middle cerebral arteries. The [place] of [place] is within normal limits. The [...] Transcribed Date and Time: 07/20/2018 1:49 Normal [facility] MRA Neck w/ + w/o Contraston 07-20-2018 MRA Neck w/ + w/o Contrast Patient Name: JOANNE SHAH MRI Exam Date/Time 07/20/2018 13:26:10 EST Exam MRA Neck w/ + w/o Contrast Ordering Physician MD SESAY PETER Accession Number [id number] CPT4 Codes 43866 () Reason For Exam TIA Report Examination: [...] Transcribed Date and Time: 07/20/2018 1:44 Normal [facility] MRI Brain w/ + w/o Contrasto n 07-20-2018 MRI Brain w/ + w/o Contrast Patient Name: JOANNE SHAH MRI Exam Date/Time 07/20/2018 12:40:00 EST Exam MRI Brain w/ + w/o Contrast Ordering Physician MD SESAY PETER Accession Number [id number] CPT4 Codes 81442 () Reason For Exam TIA Addendum Comparison made to CT 07/19/2018 and MRI 12/14/2015. Report Dictated on Workstation: [employer] Final Addendum Addendum Dictating Physician: MD GRAY [...] Transcribed Date and Time: 07/20/2018 1:43 Normal [facility] APTTon 07-19-2018 aPTT Coag (Bld) [Time] 24.3 s Normal 20.0-30.5 [facility] Comment on above: Result Comment: NOTE : The therapeutic time for Heparin anticoagulation, based on Xa activity inhibition, is an APTT of 46-80 seconds. Performed By: #### A PTT, HEMOG, BMPI, PT #### [facility] [address] [place] [address] BMP, Whole Blood (POCT)on Anion gap [Moles/Vol] 10.00 Normal [facility] Comment on above: Performed By: #### A PTT, HEMOG, BMPI, PT #### [facility] [address] [place] [address] Calcium, Ionized WB 4.5 mg/dL Normal 4.3-5.2 [facility] Comment on above: Performed By: #### A PTT, HEMOG, BMPI, PT #### [facility] [address] [place] [address] Chloride [Moles/Vol] 103 mmol/L Normal 98-114 [facility] Comment on above: Performed By: #### A PTT, HEMOG, BMPI, PT #### [facility] [address] [place] [address] CO2 [Moles/Vol] 26 mmol/L Normal 21-29 [facility] Comment on above: Performed By: #### A PTT, HEMOG, BMPI, PT #### [facility] [address] [place] [address] Creatinine [Mass/Vol] 0.90 mg/dL Normal 0.60-1.30 [facility] Comment on above: Performed By: #### A PTT, HEMOG, BMPI, PT #### [facility] [address] [place] [address] GFR/1.73 sq M predicted among blacks MDRD (S/P/Bld) [Vol rate/Area] mL/min/{1.73_m2} Normal >60 [facility] Comment on above: Performed By: #### A PTT, HEMOG, BMPI, PT #### [facility] [address] [place] [address] GFR/1.73 sq M predicted among non-blacks MDRD (S/P/Bld) [Vol rate/Area] mL/min/{1.73_m2} Normal >60 [facility] Comment on above: Result Comment: Sour ce- MDRD equation with creatinine calibration to IDMS(NKDEP) eGFR not recommended for drug dose adjustment Performed By: #### A PTT, HEMOG, BMPI, PT #### [facility] [address] [place] [address] Glucose [Mass/Vol] 80 mg/dL Normal 70-100 [facility] Comment on above: Performed By: #### A PTT, HEMOG, BMPI, PT #### [facility] [address] [place] [address] Potassium [Moles/Vol] 3.8 mmol/L Normal 3.4-5.1 [facility] Comment on above: Performed By: #### A PTT, HEMOG, BMPI, PT #### [facility] [address] [place] [address] Sodium [Moles/Vol] 139 mmol/L Normal 133-145 [facility] Comment on above: Performed By: #### A PTT, HEMOG, BMPI, PT #### [facility] [address] [place] [address] Urea nitrogen [Mass/Vol] 15 mg/dL Normal 4-22 [facility] Comment on above: Performed By: #### A PTT, HEMOG, BMPI, PT #### [facility] [address] [place] [address] [address] Head or Brain w/o Contras ton 07-19-2018 CT Head or Brain w/o Contrast Patient Name: JOANNE SHAH CT Exam Date/Time 07/19/2018 16:55:[address] Head or Brain w/o Contrast Ordering Physician LENARD HEATON Accession Number [id number] CPT4 Codes 03740 () Reason For Exam STROKE Report EXAMINATION: [...] Transcribed Date and Time: 07/19/2018 5:38 Normal [facility] CTA Head/Neck w/ + w/o contr edith 07-19-2018 CTA Head/Neck w/ + w/o contrast Patient Name: JOANNE SHAH CT Exam Date/Time 07/19/2018 16:56:15 EST Exam CTA Head/Neck w/ + w/o contrast Ordering Physician LENARD HEATON Accession Number [id number] CPT4 Codes Q9967 (CT ISOVUE 370MG/[id number]), 27759 (), 36116 () Reason For Exam NEURO DEFICIT, ACUTE, [...] Transcribed Date and Time: 07/19/2018 7:26 Normal [facility] ED Provider Noteon 8 ED Provider Note Emergency Department Encounter [facility] ED Patient: Joanne Shah : 1970 Date of Evaluation: 07/19/2018 ED Provider: Lenard King DO Chief Complaint Chief Complaint Patient presents with ? Numbness facial KAKE Joanne Shah is a 48 y.o. female [...] otherwise acutely negative except as in the KAKE Past History Past Medical History: Diagnosis Date [...] TABLETS BY MOUTH DAILY VITAMIN D (ERGOCALCIFEROL) 03975 UNITS CAPS CAPSULE TAKE 1 CAPSULE BY [...] contrast Ordering Physician LENARD HEATON Accession Number [id number] CPT4 Codes Q9967 (CT ISOVUE 370MG/[id number]), 43166 (), 78657 () Reason For Exam NEURO DEFICIT, ACUTE, [...] Contrast Ordering Physician LENARD HEATON Accession Number [id number] CPT4 Codes 68145 () Reason For Exam STROKE Report EXAMINATION: [...] EKG (If obtained): 12-lead ECG performed at [facility] is interpreted by me as revealing normal sinus rhythm at a rate of 73 beats per minute. [place] is normal. There were no specific ST [...] intervention indicated. Simply recommends admission here at [place], magnetic resonance imaging and further management Medications [...] [employer] Lenard King, DO 07/19/182021 Normal [facility] Glucose,Bedsideon 07-19-2018 Glucose [Mass/Vol] 67 mg/dL Low 70-100 [facility] Comment on above: Result Comment: Test performed by glucose meter. Results may be 10%-15% lower than serum/plasma values. (CLIA ID [id number]) Performed By: #### B GLU #### [facility] [address] [facility] [address] Hemogramon 07-19-2018 Erythrocyte distribution width (RBC) [Ratio] 14.5 % Normal 11.5-14.5 [facility] Comment on above: Performed By: #### A PTT, HEMOG, BMPI, PT #### [facility] [address] [place] [address] Hematocrit (Bld) [Volume fraction] 40.1 % Normal 35.0-47.0 [facility] Comment on above: Performed By: #### A PTT, HEMOG, BMPI, PT #### [facility] [address] [place] [address] Hemoglobin (Bld) [Mass/Vol] 13.4 g/dL Normal 11.7-16.0 [facility] Comment on above: Performed By: #### A PTT, HEMOG, BMPI, PT #### [facility] [address] [place] [address] MCH (RBC) [Entitic mass] 28.6 pg Normal 26.0-34.0 [facility] Comment on above: Performed By: #### A PTT, HEMOG, BMPI, PT #### [facility] [address] [place] [address] MCHC (RBC) [Mass/Vol] 33.4 % Normal 32.0-36.0 [facility] Comment on above: Performed By: #### A PTT, HEMOG, BMPI, PT #### [facility] [address] [place] [address] MCV (RBC) [Entitic vol] 85.7 fL Normal 79.0-98.0 [facility] Comment on above: Performed By: #### A PTT, HEMOG, BMPI, PT #### [facility] [address] [place] [address] Platelet mean volume (Bld) [Entitic vol] 7.6 fL Normal 7.4-10.4 [facility] Comment on above: Performed By: #### A PTT, HEMOG, BMPI, PT #### [facility] [address] [place] [address] Platelets (Bld) [#/Vol] 309 10*3/uL Normal 140-440 [facility] Comment on above: Performed By: #### A PTT, HEMOG, BMPI, PT #### [facility] [address] [place] [address] RBC (Bld) [#/Vol] 4.68 10*6/uL Normal 3.80-5.20 [facility] Comment on above: Performed By: #### A PTT, HEMOG, BMPI, PT #### [facility] [address] [place] [address] WBC (Bld) [#/Vol] 5.6 10*3/uL Normal 3.6-10.7 [facility] Comment on above: Performed By: #### A PTT, HEMOG, BMPI, PT #### [facility] [address] [place] [address] Prothrombin Timeon 12-17-201 8 INR Coag (PPP) [Relative time] 0.9 Normal 0.9-1.1 [facility] Comment on above: Result Comment: Al mmended [...] #### A PTT, HEMOG, BMPI, PT #### [facility] [address] [place] [address] PT Coag (PPP) [Time] 9.9 s Normal 9.0-12.0 [facility] Comment on above: Result Comment: . Performed By: #### A PTT, HEMOG, BMPI, PT #### [facility] [address] [place] [address] PROGRESSon 09-07-2017 PROGRESS HNO ID: [id number] thor: Evelyn Burks) Sunilervice: (none)Author Type: Physician [...] no rashDiscussed possible migrane vs start of Ismay palsy vs shinglesReferral to ER for further evaluation as no other obvoius sx at this timeRefuses squad, friend with her today will drive her to ERThe patient indicates understanding of these issues and agrees with theplan.09/07/2017Evelyn Kuhn PA-C Normal [facility] MG Breast Tomosynthesis Scr Blon 01-30-2017 MG Breast Tomosynthesis Scr Bl Patient Name: JOANNE SHAH Mammography Exam Date/Time 01/30/2017 14:07:36 EDT Exam MG Breast Tomosynthesis BI Scr Ordering Physician KELLY MATTHEWS D.O. Accession Number [id number] CPT4 Codes 07487 (MG Breast Tomosynthesis Scr Bl), 27829 (MG MAMMO 2D SCREENING) Reason For Exam [...] images: BB's = Nipples; skin lesions Open [place] = Palpable Line = Scar 2D digital mammography and tomosynthesis imaging were performed and reviewed with CAD. ASSESSMENT: Category 1 Negative No mammographic evidence of malignancy. RECOMMENDATION: Routine screening mammogram of both breasts in 1 year. Final Signed Date and Time: 01/30/2017 4:03 pm Signed by: MD MICHELE TOM A Normal [facility] Vital Signs Date Time Vital Sign Value Performing Clinician Facility 02-22-2024 07:28-0400 Body temperature 98.01 [degF] Theresa Mcginnis APRN.CNP Work Phone: [facility] 02-22-2024 07:28-0400 Diastolic blood pressure 85 mm[Hg] Theresa Mcginnis APRN.CNP Work Phone: [facility] 02-22-2024 07:28-0400 Heart rate 89 /min Theresa Mcginnis APRN.CNP Work Phone: [facility] 02-22-2024 07:28-0400 Systolic blood pressure 133 mm[Hg] Theresa Mcginnis APRN.CNP Work Phone: [facility] 07-12-2019 18:05-0500 Body mass index (BMI) [Ratio] 41.63 kg/m2 Briseyda Eugene MD Work Phone: [facility] Work Phone: 07-12-2019 18:05-0500 Body temperature [...] 20 /min Briseyda Eugene MD Work Phone: [facility] Work Phone: 07-12-2019 18:05-0500 SaO2% (BldA) [Mass fraction] 99 % Briseyda Eugene MD Work Phone: [facility] Work Phone: 07-12-2019 18:05-0500 Systolic blood pressure 130 mm[Hg] Briseyda Eugene MD Work Phone: [facility] Work Phone: Encounters Encounter Date Encounter Type Care Provider Facility Start: 02-15-2025 Encounter for genera l adult medical examination without abnormal findings Luis Manuel Sesay [facility] Start: 02-08-2025 End: 02-08-2025 ambulatory Luis Manuel Sesay Facility:[facility] Start: 11-21-2024 Encounter for preprocedural cardiovascular examination Vj Lazaro [facility] Start: 11-17-2024 End: 11-17-2024 ambulatory Tomi Clements Facility:[facility] Start: 11-17-2024 End: 11-17-2024 ambulatory Vj Lazaro Facility:[facility] Start: 10-14-2024 End: 10-14-2024 ambulatory Luis Manuel Sesay Facility:[facility] Start: 07-05-2024 End: 07-05-2024 Emergency department patient visit Rajendra Marroquin Facility:[facility] Start: 06-04-2024 End: 06-04-2024 Emergency department patient visit Sridevi Vaughn Facility:[facility] Start: 06-03-2024 End: 06-03-2024 ambulatory Shay Morgan NP Facility:[facility] Start: 04-26-2024 End: 04-26-2024 ambulatory Luis Manuel Sesay Facility:[facility] Start: 02-22-2024 End: 02-22-2024 ambulatory IKESABINO ORTIZEL Facility:[facility] Start: 02-22-2024 End: 02-22-2024 Patient encounter procedure Theresa Mcginnis APRN.QUOTER Work Phone: [facility] Comment on above: Suspected COVID-19 v irus infection (Primary Dx); Dizziness Start: 01-06-2023 Telephone encounter [facility] Provider [facility] Comment on above: External Referrals/r esources (Fax Referral Call) Start: 09-19-2022 End: 09-19-2022 ambulatory [facility] Work Phone: Start: 09-19-2022 End: 09-19-2022 Patient encounter procedure [facility] Start: 07-01-2022 End: 07-01-2022 ambulatory [facility] Work Phone: Start: 07-01-2022 End: 07-01-2022 Patient encounter procedure [facility] Start: 05-08-2022 End: 05-08-2022 [facility] Start: 02-13-2022 End: 02-13-2022 Patient encounter procedure [facility]-Radiology, [place] Start: 01-09-2022 End: 01-09-2022 Patient encounter procedure [facility] Start: 11-06-2021 Registered [facility] Start: 02-23-2020 End: 02-23-2020 Patient encounter procedure IVAN Durand [facility] Start: 02-20-2020 End: 02-21-2020 Patient encounter procedure IVAN Durand [facility] Start: 12-31-2019 End: 01-01-2020 Patient encounter procedure BRISEYDA Valencia [facility] Start: 12-22-2019 End: 12-23-2019 Patient encounter procedure HAILEY HUNTLEY [facility] Start: 09-19-2019 End: 09-19-2019 Patient encounter procedure NELY NASSAR [facility] Start: 07-12-2019 End: 07-12-2019 Emergency department patient visit Briseyda Eugene MD Work Phone: [facility] Fanny MARIA Comment on above: Paronychia of great toe of right foot (Primary Dx) Start: 04-19-2019 End: 04-20-2019 Patient encounter procedure BRISEYDA Valencia [facility] Start: 03-25-2019 End: 03-25-2019 Evaluation and management of inpatient MABAR Betty [facility] Start: 09-07-2017 End: 09-08-2017 Ambulatory [facility] Start: 01-30-2017 Ambulatory KELLY CROWE D.O. [facility] Procedures Date Procedure Procedure Detail Performing [...] DTaP,Tdap,Td Vaccine (4 - Td or Tdap) [facility] Start: 12-22-2028 DTaP/Tdap/Td vaccine (2 - Td) DTaP/Tdap/Td vaccine (2 - Td) [facility] Work Phone: Start: 12-22-2028 Urine microalbumin profile DTAP,TDAP,TD (2 - Td or Tdap) [facility] Start: 02-21-2027 Diabetes Screening Diabetes Screening [facility] Start: 04-03-2024 Influenza vaccination Influenza Vaccine (#1) [facility] Start: 07-20-2023 Lipid panel Lipid Screening [facility] Start: 07-20-2023 Lipid screen Lipid screen [facility] Work Phone: Start: 04-03-2023 Covid-19 Vaccine ( season) Covid-19 Vaccine ( season) [facility] Start: 04-03-2023 Influenza vaccination INFLUENZA (Season Ended) [facility] Start: 08-03-2022 DEPRESSION ASSESSMENT DEPRESSION ASSESSMENT [facility] Start: 07-01-2022 Varicella-zoster virus antibody IgG measurement [facility] Work Phone: Start: 07-20-2021 Diabetes screen Diabetes screen [facility] Start: 2021 SHINGRIX VACCINE (1 of 2) SHINGRIX VACCINE (1 of 2) [facility] Start: 12-16-2019 Cervical cancer screen Cervical cancer screen [facility] Work Phone: Start: 04-03-2019 Influenza vaccination Flu vaccine (#1) [facility] Work Phone: Start: 2016 COLOGUARD (FIT-DNA) COLOGUARD (FIT-DNA) [facility] Start: 2016 Colonoscopy COLONOSCOPY [facility] Start: 2016 COLORECTAL CANCER SCREENING COLORECTAL CANCER SCREENING [facility] Start: [address] COLONOGRAPHY [facility] Start: 2016 FECAL OCCULT BLOOD FECAL OCCULT BLOOD [facility] Start: 2016 LIPID SCREEN LIPID SCREEN [facility] Start: 2016 Screening for malignant neoplasm of colon [facility] Start: 2016 SIGMOIDOSCOPY SIGMOIDOSCOPY [facility] Start: 2011 Mammography MAMMOGRAM [facility] Start: 2011 Screening for malignant neoplasm of breast Mammogram Screening [facility] Start: 2001 HPV TESTING HPV TESTING [facility] Start: 1992 PAP TESTING PAP TESTING [facility] Start: 1992 Screening for malignant neoplasm of cervix Cervical Cancer Screening [facility] Start: 1990 Hepatitis B Vaccine (1 of 3 - 19+ 3-dose series) Hepatitis B Vaccine (1 of 3 - 19+ 3-dose series) [facility] Start: 1989 HEPATITIS C SCREENING HEPATITIS C SCREENING [facility] Start: 1989 Hepatitis C screening Hepatitis C Screening [facility] Start: 1989 HIV SCREENING HIV SCREENING [facility] Start: 1989 HIV screening HIV Screening [facility] Start: 1986 HIV screen HIV screen [facility] Work Phone: Start: 1971 COVID-19 VACCINE (#1) COVID-19 VACCINE (#1) [facility] Start: 1971 HEPATITIS B (1 of 3 - 3-dose series) HEPATITIS B (1 of 3 - 3-dose series) [facility] COVID & INFLUENZA A/ B & RSV NAAT, ROUTINE COVID & INFLUENZA A/B & RSV NAAT, ROUTINE Microbiology Routine Suspected COVID-19 virus infection 02/22/2024 7:51 AM EDT [facility] Work Phone: Measurement of Measl es virus antibody [facility] Work Phone: Mumps virus IgG Ab [Units/volume] in Serum [facility] Work Phone: Varicella-zoster vir us antibody IgG measurement [facility] Work Phone: Immunizations Immunization Date Immunization Notes Care Provider Jean Claude amaya 06-28-2021 influenza virus vaccine, unspecified formulation Theresa Mcginnis APRN.CNP Work Phone: [facility] 05-16-2019 influenza, injectabl e, quadrivalent, preservative free [facility] Provider [facility] Work Phone: 12-22-2018 tetanus toxoid, redu eliecer diphtheria toxoid, and acellular pertussis vaccine, adsorbed [facility] Provider [facility] Work Phone: 07-21-2018 influenza, injectabl e, quadrivalent, preservative free [facility] Provider [facility] Work Phone: 07-21-2018 Influenza, Quadv, 6 mo and older, IM, PF (Flulaval, Fluarix) Briseyda Eugene MD Work Phone: [facility] Work Phone: 07-21-2018 influenza, seasonal, injectable [facility] Provider [facility] Work Phone: 06-11-2017 influenza, injectabl e, quadrivalent, preservative free [facility] Provider [facility] Work Phone: 05-25-2017 Influenza, injectabl e, Madin [place] Canine Kidney, preservative free, quadrivalent [facility] Provider [facility] Work Phone: 09-06-2016 Influenza Vaccine, unspecified formulation Brisyeda Eugene MD Work Phone: [facility] Work Phone: 09-06-2016 influenza, seasonal, injectable [facility] Provider [facility] Work Phone: 09-05-2016 influenza, seasonal, injectable, preservative free [facility] Provider [facility] Work Phone: 05-16-2015 influenza virus vaccine, unspecified formulation Briseyda Eugene MD Work Phone: [facility] Work Phone: 05-16-2015 influenza virus vaccine, whole virus [facility] Provider [facility] Work Phone: 10-23-2006 measles, mumps and rubella virus vaccine [facility] Provider [facility] Work Phone: Payers Date Payer Category Payer Unknown [id number] 2024 Self-pay [id number] 2024 Unknown [id number] 2024 Private Health Insurance EHP AETNA EHP STAFF/NON STAFF / EHP [facility] [id number] 2024-[facility] [phone] [address] [place] [address] EPO [id number] 2024 Unknown [id number] 2019 Unknown 2018 Unknown BCBS [place] - [place] P PO xxxxxxxxxxxxxxx 2018-Present [address] [place] [address] xxxxxxxxxxxxxxx [id number] 1971 Unknown [id number] 2.16.840.1.855802.3.579.2. 598 1971 Unknown [id number] 2.16.840.1.636932.3.579.2. 598 1971 Unknown [id number] 2.16.840.1.467123.3.579.2. 598 1971 Unknown [id number] 2.16.840.1.656434.3.579.2. 598 1971 Unknown [id number] 2.16.840.1.437475.3.579.2. 598 1971 Unknown [id number] 2.16.840.1.331873.3.579.2. 598 1971 Unknown [id number] .16.840.1.195103.3.579.2. 598 1971 Unknown [id number] 2.16.840.1.990979.3.579.2. 598 1959 Unknown [id number] 1959 Unknown [id number] Unknown [id number] 2.16.840.1.342482.3.579.2. 462 Unknown [id number] 2.16.840.1.109983.3.579.2. 462 Unknown [id number] 2.16.840.1.483315.3.579.2. 462 Unknown [id number] 2.16.840.1.274769.3.579.2. 462 Unknown [id number] Unknown [id number] Unknown [id number] Unknown [id number] Social History Date Type Detail Facility Start: 07-12-2019 End: 02-22-2024 Tobacco smoking status NHIS Never smoker [facility] Work Phone: Start: 07-12-2019 End: 02-22-2024 Alcohol intake Current drinker of alcohol (finding) [employer] Work Phone: Start: 04-13-2018 Alcohol Comment rarely [employer] Work Phone: Start: 1970 Sex Assigned At Not on file [place] Phone: Start: 08-28-2021 End: 08-28-2021 Tobacco smoking status PAIS Unknown if ever smoked [facility] Start: 1970 Sex Assigned At Female [facility] Start: 09-07-2017 End: 02-22-2024 Tobacco use and exposure Smokeless tobacco non-user [facility] Work Phone: Start: 10-26-2019 History SDOH Alcohol Frequency [address] [facility] Start: 10-26-2019 History SDOH Alcohol Std Drinks [address] [facility] Start: 03-09-2019 Alcohol Comment occasional [facility] Start: 10-26-2019 End: 07-10-2020 History of Social function [place] [facility] Start: 10-26-2019 End: 07-10-2020 Alcohol Use Disorder Identification Test - Consumption [AUDIT-C] [facility] How often to you hav e a drink containing alcohol? Monthly or less [facility] How many standard dr inks containing alcohol do you have on a typical day? 1 or [address] [facility] How often do you hav e 6 or more drinks on 1 occasion? Never [facility] National Score (1-10 0), lower number is lower risk Not on file [facility] Medical Equipment Procedure Code Equipment Code [...] Type Note Facility 02-22-2024 Note HNO ID: [id number] Author: THERESA MCGINNIS APRN.QUOTER Service: ? Author Type: Nurse Practitioner Type: Progress Notes Filed: 02/22/2024 17:45 Note Text: [facility] Department of General [facility] Outpatient Visit Date: February 22, 2024 CC:(copied and/or pasted from M.A. and/or intake note or registration notes) Dizziness, nausea and fatigue x 1 day The history is provided by the patient The patient's preferred language is Marshallese PAST MEDICAL HISTORY Diagnosis Date Anxiety Depression [...] No follow-ups on file. Signed: Theresa Mcginnis APRN.QUOTER [facility] Medical Decision Making: Problems: Moderate: New problem with uncertain prognosis Risk: Moderate: Drug management Medical Decision Making Level: 4 - Moderate [facility] History of Present illness Narrative 02-22-2024 Theresa Mcginnis APRN.QUOTER - 02/22/2024 7:38 AM EDT Note Date & Type Note Facility 02-22-2024 History of Presen t illness Narrative Images from the original note were not included. [facility] [place] Department of General Internal [facility] Outpatient Visit Date: February 22, 2024 CC:(copied and/or pasted from M.A. and/or intake note or registration notes) Dizziness, nausea and fatigue x 1 day The history is provided by the patient The patient's preferred language is Marshallese PAST MEDICAL HISTORY Diagnosis Date Anxiety Depression [...] on file. Signed: Theresa Mcginnis APRN.CNP [facility] Medical Decision Making: Problems: Moderate: New problem with uncertain prognosis Risk: Moderate: Drug management Medical Decision Making Level: 4 - Moderate documented in this encounter [facility] Note 01-06-2023 Telephone Encounter - Zee Cain - 01/06/2023 2:36 PM EDT Note Date & Type Note Facility 01-06-2023 Miscellaneous Notes Formattin g of this note might be different from the original. Fax PCP ref call into the program, LVM documented in this encounter [facility] Discharge instructions 07-12-2019 InstructionsAttachments Note Date & Type Note Facility 07-12-2019 Hospital Discharg e instructions Maikel Tucker PA-C - 07/12/2019 Follow-up with your doctor in 1 week as needed. The following attachments cannot be sent through Care Everywhere.Paronychia (Marshallese)documented in this encounter [facility] Work Phone: Evaluation note Note Date & [...] Dizziness and giddiness documented in this encounter 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 Advance Directives and Living Will Power of Home Theater Experience Expert Latest Code Status on File Code Status Date Activated Date Inactivated Comments Full Code 07/19/2018 11:02 PM 07/21/2018 5:03 PM Full Code 04/14/2018 9:08 AM 04/14/2018 2:49 PM Full Code 09/08/2017 11:16 PM 09/10/2017 3:19 PM Advance Directive Response Recorded Date/ Time Living Will No October 31, 2020 12:02pm Power of Home Theater Experience Expert No October 31 12:02pm Advance Directive Response Recorded Date/ Time Living Will No October 31, 2020 11:02am Power of Home Theater Experience Expert No October 31 11:02am Hospital Course Note Physician Discharge Summary Dictating Resident: Daniel Sesay Patient ID: Patient: Joanne Shah Date of : 1970 Age: 48 y.o. Sex: female Acct: [id number] Code Status Full Admit Date: 07/19/2018 Discharge [...] section and content) DATE CREATED AUTHOR 01/25/2018 [facility] DATE CREATED AUTHOR AUTHOR'S ORGANIZ ATION 01/27/2018 [facility] DATE CREATED AUTHOR AUTHOR'S ORGANIZ ATION 07/13/2019 [facility] DATE CREATED AUTHOR AUTHOR'S ORGANIZ ATION 02/29/2020 [facility] DATE CREATED AUTHOR AUTHOR'S ORGANIZ ATION 01/11/2023 [facility] DATE CREATED AUTHOR AUTHOR'S ORGANIZ ATION 02/24/2024 [facility] DATE CREATED AUTHOR AUTHOR'S ORGANIZ ATION 02/18/2025 [facility] Reason for Visit (unrecogniz ed section [...] Pr ovider, Attending Provider, Referring Provider Active Customer Support Associate Relationship Specialty Start Date End Date Briseyda Eugene MD PCP - General Family Medicine 04/20/19 Tanvir Posadas [address] [facility] [address] [place] [phone] Specialty Aluminum Boats Assembler Psychiatry 04/20/19 Tomi Wall MD [address] [place] [address] [address] [place] [phone] Specialty Aluminum Boats Assembler Cardiology 04/20/19 Parth Gallegos MD [address] [place] [phone] Specialty Aluminum Boats Assembler Cardiology 10/24/19 Customer Support Associate Relationship Specialty Start Date End Date Briseyda Eugene MD PCP - General Family Medicine 04/20/19 Tanvir Posadas [address] [place] [phone] Specialty Aluminum Boats Assembler Psychiatry 04/20/19 Tomi Wall MD [address] [place] [address] [place] [phone] Specialty Aluminum Boats Assembler Cardiology 04/20/19 Parth Gallegos MD [address] [place] [phone] Specialty Aluminum Boats Assembler Cardiology 10/24/19 Source Comments (unrecognize d section and content) In the event this informatio n is protected by the Federal Confidentiality of Alcohol and Drug Abuse Patient Records regulations: The Federal rules restrict any use of the information to criminally investigate or prosecute any alcohol or drug abuse patient.[facility] the event this information is protected by the Federal Confidentiality of Alcohol and Drug Abuse Patient Records regulations: The Federal rules restrict any use of the information to criminally investigate or prosecute any alcohol or drug abuse patient.[facility] FOR RECORDS PERTAINING TO PATIENTS WHO [...] BE BASED ON THE PRIMARY CLINICAL RECORDS. [facility] [employer] [facility]. provides no warranty or guarantee of the accuracy or completeness of information in this document.
[2025-05-23 19:09] LABS: Hematocrit 39.4 % (37-47); Hemoglobin 13.0 g/dL (12.0-15.0); Immature Granulocytes Count 0.020 X10^3/uL (0.0-0.0); Mean Corp Hgb Conc 33.0 g/dL (32-36); Mean Corpuscular Volume 85.8 fL (81-99); Mean Platelet Vol. 10.2 fl (6.2-12.0); NRBC Flagged by Analyzer 0 % (0-5); Platelet Count 335 K/mm3 (150-450); RBC Distribution Width CV 13.8 % (11.6-14.6); RBC Distribution Width SD 43.1 fl (35.1-43.9); Red Blood Count 4.59 M/mm3 (4.2-5.4); White Blood Count 7.0 K/mm3 (4.4-11.0)
[2025-05-23 20:40] LABS: AST(SGOT) 20 U/L (<=31); Alanine Aminotransfer ALT/SGPT 12 U/L (<=34); Albumin, Serum 4.3 g/dL (3.5-5.0); Alkaline Phosphatase 86 U/L (35-104); Anion Gap 12 (5-15); BUN 15 mg/dL (4-19); BUN/Creat Ratio 20.0 RATIO (10-20); Calcium,Total 9.7 mg/dL (7.6-11.0); Carbon Dioxide 23.2 mmol/L (21.0-32.0); Chloride 102 mmol/L (98-108); Cholesterol 180 mg/dL (<=200); Globulin 2.9 g/dL (2.2-4.2); Glucose 86 mg/dL (70-99); Low Density Lipoprotein Calc. 98 mg/dL; Potassium 3.9 mmol/L (3.3-5.1); Triglycerides 112 mg/dL; Very Low Density Lipoprotein 22 mg/dL (5-40); cholesterol:hdl ratio screen 2.90
[2025-05-26 10:44] LABS: Vitamin D,25 Hydroxy 42.5 ng/mL (30-100)
== END | disposition home or self-care (01) ==
LOC: LABSPEC 18:31 → MFPLAB 19:51
PROVIDERS: PCP Family Medicine; Visit Provider Family Medicine
DX: E55.9 Vitamin D deficiency, unspecified (principal); R73.02 Impaired glucose tolerance (oral)
CPT/HCPCS: 36415; 80053; 80061; 82306; 83036; 85025